=== PATIENT | female | born 1940 | race Caucasian/White ===

== ENCOUNTER → 2016-03-15 | Outpatient (CLI) | payer MEDICARE, OTHER ==
--- NOTE | 2016-03-16 08:37 | ECHOF ---
Referral Reason:Z01.818 chemo MEASUREMENTS -------- HEIGHT: 121.9 cm WEIGHT: 89.8 kg BP: RVIDd: 2.7 cm (< 3.3) IVSd: 1.2 cm (0.6 - 1.1) LVIDd: 4.4 cm (3.9 - 5.3) LVPWd: 1.4 cm (0.6 - 1.1) IVSs: 1.6 cm LVIDs: 3.9 cm LVPWs: 1.5 cm LA Diam: 4.3 cm (2.7 - 3.8) LAESV Index (A-L): 29.64 ml/m Ao Diam: 3.2 cm (2.0 - 3.7) AV Cusp: 1.1 cm (1.5 - 2.6) LA Diam: 4.5 cm (2.7 - 3.8) MV EXCURSION: 13.189 mm (> 18.000) MV EF SLOPE: 51 mm/s (70 - 150) EPSS: 1.0 cm MV E Kenny: 0.66 m/s MV DecT: 313 ms MV A Kenny: 1.40 m/s MV E/A Ratio: 0.47 RAP: 5.00 mmHg RVSP: 34.93 mmHg FINDINGS -------- Sinus rhythm. This was a technically adequate study. There is mild concentric left ventricular hypertrophy. Overall left ventricular systolic function is low-normal with, an EF between 50 - 55 %. The right ventricle is normal in size. LA is midly dilated 29-33ml/m2. The right atrial size is normal. There is mild aortic valve sclerosis. There is no evidence of aortic regurgitation. Mild mitral annular calcification present. Moderate mitral regurgitation is present. Trace tricuspid regurgitation present. There is no evidence of pulmonary hypertension. The right ventricular systolic pressure, as measured by Doppler, is 34.93mmHg. There is no pulmonic regurgitation present. The aortic root size is normal. There is no pericardial effusion. CONCLUSIONS -------- 1. There is mild concentric left ventricular hypertrophy. 2. Overall left ventricular systolic function is low-normal with, an EF between 50 - 55 %. 3. LA is midly dilated 29-33ml/m2. 4. There is mild aortic valve sclerosis. 5. Mild mitral annular calcification present. 6. Moderate mitral regurgitation is present. 7. There is no evidence of pulmonary hypertension. 8. The right ventricular systolic pressure, as measured by Doppler, is 34.93mmHg. CINDER PITMAN: Diana Lopes RDCS
== END | disposition home or self-care (01) ==
LOC: RADECHMAIN 12:48
PROVIDERS: ATTEND Internal Medicine Hematology & Oncology
DX: Z01.818 Encounter for other preprocedural examination (principal); I08.0 Rheumatic disorders of both mitral and aortic valves
CPT/HCPCS: 93306

== ENCOUNTER → 2016-05-06 | Outpatient (CLI) | payer MEDICARE, OTHER ==
--- NOTE | 2016-05-06 14:03 | XR ---
EXAMINATION TYPE: XR knee complete LT DATE OF EXAM ORDERED: 05/06/2016 1:20 PM HISTORY: M13.0 Polyarthritis, unspecified. COMPARISON: None. FINDINGS: There is a left knee arthroplasty in place. Prosthetic elements appear in good position. I do not see signs of loosening. IMPRESSION: STATUS POST LEFT KNEE ARTHROPLASTY.
--- NOTE | 2016-05-06 14:26 | XR ---
EXAMINATION TYPE: XR shoulder complete BILAT DATE OF EXAM ORDERED: 05/06/2016 1:20 PM HISTORY: M13.0 Polyarthritis, unspecified. COMPARISON: None. FINDINGS: There are moderate hypertrophic changes present in the right AC joint. No fracture or disl ocation is identified. There is some amorphous calcification immediately adjacent to the acromion on the right. IMPRESSION: 1. NO ACUTE OSSEOUS LESION. 2. DEGENERATIVE CHANGE.
--- NOTE | 2016-05-06 14:29 | XR ---
EXAMINATION TYPE: XR Hip Complete LT DATE OF EXAM ORDERED: 05/06/2016 1:20 PM HISTORY: M13.0 Polyarthritis, unspecified. COMPARISON: None. FINDINGS: There is slight overgrowth of the acetabulum. No fracture or dislocation is seen. IMPRESSION: PLEASE CORRELATE CLINICALLY TO EXCLUDE FEMOROACETABULAR IMPINGEMENT SYNDROME OF THE CAM TYPE.
== END | disposition home or self-care (01) ==
LOC: RADXRMAIN 12:32
PROVIDERS: ATTEND Internal Medicine
DX: M25.819 Other specified joint disorders, unspecified shoulder (principal); Z96.652 Presence of left artificial knee joint
CPT/HCPCS: 73502

== ENCOUNTER 2016-06-28 18:11 | Inpatient (IN) | payer MEDICARE, OTHER ==
[2016-06-28] MEDS ORDERED: PANTOPRAZOLE 40 MG/10 ML VIAL IVP STA (18:53)
--- NOTE | 2016-06-28 18:56 | ED ---
General Adult HPI - General Source: patient, RN notes reviewed Mode of arrival: wheelchair Limitations: no limitations <Luis Armando Jimenez - Last Filed: 06/28/16 18:53> <Efren Valencia - Last Filed: 06/28/16 21:05> - General Chief complaint: Recheck/Abnormal Lab/Rx Stated complaint: Weakness Time Seen by Provider: 06/28/16 18:27 - History of Present Illness Initial comments: Patient is a pleasant 76-year-old female presenting to the emergency department generalized weakness. Patient feels she may need a blood transfusion. Patient has ovarian cancer and is on chemotherapy, last was 4 days ago. Patient has had similar symptoms 4-5 times in the past requiring blood transfusion. Patient attributes the anemia to chemotherapy. Patient did notice some dark stools this time that she has not had previously. No abdominal pain. Patient is fatigued and generally weak. Patient does have some exertional dyspnea. ( Luis Armando Jimenez) - Related Data Home Medications Medication Instructions Recorded Confirmed Sertraline [Zoloft] 50 mg PO DAILY 12/11/14 06/28/16 amLODIPine [Norvasc] 5 mg PO DAILY 12/11/14 06/28/16 Meloxicam [Mobic] 15 mg PO DAILY 01/09/15 06/28/16 Cholecalciferol [Vitamin D3] 5,000 unit PO DAILY 07/26/15 06/28/16 Cyanocobalamin [Vitamin B-12] 1,500 mcg PO DAILY 07/26/15 06/28/16 Triamterene-Hctz 37.5-25Mg 1 cap PO HS 07/26/15 06/28/16 [Dyazide 37.5-25 Capsule] hydrOXYzine PAMOATE [Vistaril] 25 mg PO QID PRN 07/26/15 06/28/16 Furosemide [Lasix] 20 mg PO W/SUPPER 11/22/15 06/28/16 Ondansetron HCl [Zofran] 4 mg PO TID PRN 11/22/15 06/28/16 LORazepam [Ativan] 1 mg PO QID PRN 06/02/16 06/28/16 Allopurinol [Zyloprim] 300 mg PO DAILY 06/28/16 06/28/16 Cyclobenzaprine [Flexeril] 10 mg PO HS PRN 06/28/16 06/28/16 Diphenox-Atrop 2.5-0.025 mg 1 tab PO BID PRN 06/28/16 06/28/16 [Lomotil] Furosemide [Lasix] 40 mg PO QAM 06/28/16 06/28/16 HYDROcodone/APAP 5-325MG [[place] 1 tab PO BID PRN 06/28/16 06/28/16 5-325] Omeprazole [PriLOSEC] 40 mg PO DAILY 06/28/16 06/28/16 Potassium Chloride ER [K-Dur 10] 20 meq PO BID 06/28/16 06/28/16 Vitamin E 1,000 unit PO DAILY 06/28/16 06/28/16 traMADol HCL [Ultram] 50 mg PO Q6HR PRN 06/28/16 06/28/16 Allergies Allergy/AdvReac Type Severity Reaction Status Date / Time adhesive tape Allergy Rash/Hives Verified 06/28/16 19:52 codeine Allergy Itching Verified 06/28/16 19:52 latex Allergy Rash/Hives Verified 06/28/16 19:52 Review of Systems ROS Other: All systems not noted in ROS Statement are negative. Constitutional: Denies: fever Eyes: Denies: eye pain ENT: Denies: ear pain Respiratory: Reports: dyspnea (With exertional) Cardiovascular: Denies: chest pain Endocrine: Reports: fatigue Gastrointestinal: Denies: abdominal pain Genitourinary: Denies: dysuria Musculoskeletal: Denies: back pain Skin: Denies: rash Neurological: Denies: headache <Luis Armando Jimenez - Last Filed: 06/28/16 18:53> ROS Other: All systems not noted in ROS Statement are negative. <Efren Valencia - Last Filed: 06/28/16 21:05> ROS Statement: Those systems with pertinent positive or pertinent negative responses have been documented in the HPI. Past Medical History Past Medical History: Cancer, GERD/Reflux, Hypertension, Osteoarthritis (OA) Additional Past Medical History / Comment(s): glaucoma, GOUT,CHRONIC ITCHY SKIN RASH(ECZEMA-TAKES VISTARIL), MURMUR, ANEMIA.CELLULITS recent dx with ovarian ca. colon cancer History of Any Multi-Drug Resistant Organisms: None Reported Past Surgical History: Appendectomy, Orthopedic Surgery Additional Past Surgical History / Comment(s): BL knee replacement, left salpingectomy and oophorectomy, cataract removal and lens implants, laser surgery for glaucoma, right breast biopsy that was benign, SHANTANU CARPAL TUNNEL RELEASE. Past Anesthesia/Blood Transfusion Reactions: No Reported Reaction Additional Past Anesthesia/Blood Transfusion Reaction / Comment(s): HAD BLOOD TRANSFUSION-NO REACTION Past Psychological History: Anxiety, Depression Additional Psychological History / Comment(s): PT LIVES IN OWN HOME,HER SON THRIL LIVES WITH HER. PT USES A CANE/WALKER OR W/C NEEDED.,CURRENTLY NOT RECIEVING ANY HOME CARE SERVICES. 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 PT LOST HER SISTER A MONTH AGO HAS SOME MILD DEPRSSION/SADNESS OVER THIS. Smoking Status: Former smoker Past Alcohol Use History: None Reported Additional Past Alcohol Use History / Comment(s): Patient was a smoker one pack per day for 20 years and quit in 1996. She denies any marijuana or alcohol use. 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 Past Drug Use History: None Reported - Past Family History Mother Family Medical History: Cancer Additional Family Medical History / Comment(s): Lung cancer Father Family Medical History: Cancer Additional Family Medical History / Comment(s): No reports of GI malignancy <Luis Armando Jimenez - Last Filed: 06/28/16 18:53> General Exam Limitations: no limitations General appearance: alert, in no apparent distress Head exam: Present: atraumatic Eye exam: Present: normal appearance, PERRL, EOMI ENT exam: Present: normal oropharynx Neck exam: Present: normal inspection Respiratory exam: Present: normal lung sounds bilaterally Cardiovascular Exam: Present: tachycardia GI/Abdominal exam: Present: soft. Absent: distended, tenderness Extremities exam: Present: other (Right greater than left leg edema with mild erythema.) Neurological exam: Present: alert, oriented X3, CN II-XII intact. Absent: motor sensory deficit Expanded Motor strength exam: RUE: 5, LUE: 5, RLE: 5, LLE: 5 Eye Response: (4) open spontaneously Motor Response: (6) obeys commands Verbal Response: (5) oriented Psychiatric exam: Present: normal affect, normal mood Skin exam: Present: erythema (Mild erythema right lower leg) <Luis Armando Jimenez - Last Filed: 06/28/16 18:53> EKG Findings - EKG Comments: EKG Findings:: Sinus tachycardia 107. DC 148. QRS 108. QT 344. QTC 459. Left axis. LVH. No acute ST change. <Luis Armando Jimenez - Last Filed: 06/28/16 18:53> Medical Decision Making <Luis Armando Jimenez - Last Filed: 06/28/16 18:53> - Lab Data Result diagrams: 06/28/16 18:51 06/28/16 18:51 <Efren Valencia - Last Filed: 06/28/16 21:05> - Medical Decision Making Receive this patient has a sign out pending the ultrasound study for possible DVT. The study is negative and at that point Dr. Jimenez had one of the patient started on antibiotics for cellulitis and also to address the anemia. Discussed the case with admitting physician. (Efren Valencia) - Lab Data Lab Results 06/28/16 06/28/16 06/28/16 Range/Units 18:51 18:51 18:51 WBC 6.9 (3.8-10.6) k/uL RBC 1.91 L (3.80-5.40) m/uL Hgb 6.6 L* (11.4-16.0) gm/dL Hct 19.8 L* (34.0-46.0) % MCV 103.7 H (80.0-100.0) fL MCH 34.4 (25.0-35.0) pg MCHC 33.2 (31.0-37.0) g/dL RDW 21.7 H (11.5-15.5) % Plt Count 89 L (150-450) k/uL Neutrophils % 92 % Lymphocytes % 3 % Monocytes % 1 % Eosinophils % 3 % Basophils % 0 % Neutrophils # 6.3 (1.3-7.7) k/uL Lymphocytes # 0.2 L (1.0-4.8) k/uL Monocytes # 0.1 (0-1.0) k/uL Eosinophils # 0.2 (0-0.7) k/uL Basophils # 0.0 (0-0.2) k/uL Poikilocytosis Slight Anisocytosis Moderate Macrocytosis Marked PT 10.7 (9.0-12.0) sec INR 1.1 (<1.1) APTT 23.1 (22.0-30.0) sec Sodium 134 L (137-145) mmol/L Potassium 3.9 (3.5-5.1) mmol/L Chloride 96 L (98-107) mmol/L Carbon Dioxide 26 (22-30) mmol/L Anion Gap 12 mmol/L BUN 57 H (7-17) mg/dL Creatinine 1.85 H (0.52-1.04) mg/dL Est GFR (MDRD) Af Amer 32 (>60 ml/min/1.73 sqM) Est GFR (MDRD) Non-Af 26 (>60 ml/min/1.73 sqM) Glucose 104 H (74-99) mg/dL Calcium 8.5 (8.4-10.2) mg/dL Total Bilirubin 0.6 (0.2-1.3) mg/dL AST 30 (14-36) U/L ALT 28 (9-52) U/L Alkaline Phosphatase 77 (38-126) U/L Total Protein 6.1 L (6.3-8.2) g/dL Albumin 3.5 (3.5-5.0) g/dL Stool Occult Blood (Negative) Blood Type Blood Type Recheck Antibody Screen Crossmatch Spec Expiration Date 06/28/16 06/28/16 Range/Units 18:51 18:51 WBC (3.8-10.6) k/uL RBC (3.80-5.40) m/uL Hgb (11.4-16.0) gm/dL Hct (34.0-46.0) % MCV (80.0-100.0) fL MCH (25.0-35.0) pg MCHC (31.0-37.0) g/dL RDW (11.5-15.5) % Plt Count (150-450) k/uL Neutrophils % % Lymphocytes % % Monocytes % % Eosinophils % % Basophils % % Neutrophils # (1.3-7.7) k/uL Lymphocytes # (1.0-4.8) k/uL Monocytes # (0-1.0) k/uL Eosinophils # (0-0.7) k/uL Basophils # (0-0.2) k/uL Poikilocytosis Anisocytosis Macrocytosis PT (9.0-12.0) sec INR (<1.1) APTT (22.0-30.0) sec Sodium (137-145) mmol/L Potassium (3.5-5.1) mmol/L Chloride (98-107) mmol/L Carbon Dioxide (22-30) mmol/L Anion Gap mmol/L BUN (7-17) mg/dL Creatinine (0.52-1.04) mg/dL Est GFR (MDRD) Af Amer (>60 ml/min/1.73 sqM) Est GFR (MDRD) Non-Af (>60 ml/min/1.73 sqM) Glucose (74-99) mg/dL Calcium (8.4-10.2) mg/dL Total Bilirubin (0.2-1.3) mg/dL AST (14-36) U/L ALT (9-52) U/L Alkaline Phosphatase (38-126) U/L Total Protein (6.3-8.2) g/dL Albumin (3.5-5.0) g/dL Stool Occult Blood Positive H (Negative) Blood Type O Negative Blood Type Recheck No Antibody Screen NEGATIVE Crossmatch See Detail Spec Expiration Date 07/01/2016 - 2353 Disposition <Luis Armando Jimenez - Last Filed: 06/28/16 18:53> <Efren Valencia - Last Filed: 06/28/16 21:05> Clinical Impression: Anemia, Cellulitis Disposition: ADMITTED IP TO THIS [facility] Condition: Serious Referrals: Dipesh Mayberry MD [Primary Care Provider] - 1-2 days
[2016-06-28 19:23] LABS: INR 1.1 (<1.1); Partial Thromboplastin Time 23.1 sec (22.0-30.0); Prothrombin Time 10.7 sec (9.0-12.0)
[2016-06-28 19:25] LABS: Anisocytosis Moderate; Basophils % (A) 0 %; CH 35.2; CHCM 34.1; Eosinophils # (A) 0.2 k/uL (0-0.7); Eosinophils % (A) 3 %; HDW 3.64; Luc # (Auto) 0.04; Luc % (Auto) 1; Lymphocytes # (A) 0.2 k/uL (1.0-4.8); Lymphocytes % (A) 3 %; MCH 34.4 pg (25.0-35.0); MCHC 33.2 g/dL (31.0-37.0); MCV 103.7 fL (80.0-100.0); Macrocytosis Marked; Mean Platelet Volume 8.5; Monocytes # (A) 0.1 k/uL (0-1.0); Monocytes % (A) 1 %; Neutrophils # (A) 6.3 k/uL (1.3-7.7); Neutrophils % (A) 92 %; Poikilocytosis Slight; RBC 1.91 m/uL (3.80-5.40); RDW 21.7 % (11.5-15.5); WBC 6.9 k/uL (3.8-10.6); WBC (Perox) 6.74
[2016-06-28 19:26] LABS: HCT 19.8 % (34.0-46.0); HGB 6.6 gm/dL (11.4-16.0)
[2016-06-28 19:29] LABS: Calcium 8.5 mg/dL (8.4-10.2); Potassium 3.9 mmol/L (3.5-5.1); Total Bilirubin 0.6 mg/dL (0.2-1.3); Total Protein 6.1 g/dL (6.3-8.2)
--- NOTE | 2016-06-28 20:06 | XR ---
EXAMINATION TYPE: XR chest 2V DATE OF EXAM: 06/28/2016 7:46 PM COMPARISON: NONE INDICATION: Weakness, ovarian cancer TECHNIQUE: Single frontal view of the chest is obtained. FINDINGS: The heart size is enlarged. The pulmonary vasculature is normal. The lungs are clear. Port is present on the right with the tip in the proximal superior vena cava region. IMPRESSION: 1. No acute pulmonary process.
--- NOTE | 2016-06-28 20:46 | US ---
EXAMINATION TYPE: US venous doppler duplex LE RT DATE OF EXAM: 06/28/2016 7:14 PM COMPARISON: CLINICAL HISTORY: Pain. Right leg pain and swelling. No hx of blood clots or on blood thinners. Rt k nee replacement x 15 years ago. SIDE PERFORMED: Right TECHNIQUE: The lower extremity deep venous system is examined utilizing real time linear array sonog kera with graded compression, doppler sonography and color-flow sonography. VESSELS IMAGED: External Iliac Vein (EIV) Common Femoral Vein Deep Femoral Vein Greater Saphenous Vein * Femoral Vein Popliteal Vein Small Saphenous Vein * Proximal Calf Veins (* superficial vessels) Right Leg: Appears negative for DVT IMPRESSION: 1. No ultrasound evidence of deep venous thrombosis right lower extremity
[2016-06-28] MEDS ORDERED: ACETAMINOPHEN TAB 325 MG TAB PO STA (20:54)
[2016-06-28] MEDS ORDERED: NAFCILLIN 2 GM in SODIUM CHLORIDE 0.9% 100 ML IVPB STA (21:02)
[2016-06-28] MEDS ORDERED: IV VANCOMYCIN PER PHARMACY 1 EACH MISC MISCELLANE PRN (21:02)
[2016-06-28] MEDS ORDERED: VANCOMYCIN 1,500 MG in SODIUM CHLORIDE 0.9% 250 ML IVPB STA (21:07)
[2016-06-28 21:18] LABS: Amorphous Sediment,Urine Rare /hpf; Appearance,Urine Turbid (Clear); Bacteria,Urine Many /hpf; Bilirubin,Urine Negative (Negative); Glucose,Urine (UA) Negative (Negative); Ketones,Urine Negative (Negative); Leukocyte Esterase,Urine Large (Negative); Nitrite,Urine Negative (Negative); PH, Urine 5.5 (5.0-8.0); Particle Count 46777; Protein,Urine 2+ (Negative); Specific Gravity,Urine 1.011 (1.001-1.035); Squamous Epithelial Cell,Urine 213 /hpf (0-4); UA Billing (MACRO vs. MICRO) MICRO; Urobilinogen,Urine <2.0 mg/dL (<2.0); WBC,Urine 37 /hpf (0-5)
[2016-06-28] MEDS ORDERED: ACETAMINOPHEN TAB 325 MG TAB PO PRN (22:00)
[2016-06-28] MEDS ORDERED: NALOXONE 0.4 MG/ML 1 ML VIAL IV PRN (22:00)
[2016-06-28] MEDS ORDERED: LEVOFLOXACIN 750MG-D5W PMX 750 MG in DEXTROSE/WATER 1 150ML.BAG IVPB STA (22:14)
[2016-06-28 23:10] VITALS: BMI 41.8
[2016-06-29] MEDS: SODIUM CHLORIDE 0.9% 1,000 ML IV SCH (00:15)
[2016-06-29 07:43] LABS: Anisocytosis Moderate; Basophils % (A) 0 %; CH 34.5; CHCM 33.1; Eosinophils # (A) 0.1 k/uL (0-0.7); Eosinophils % (A) 4 %; HCT 20.2 % (34.0-46.0); HDW 3.37; Luc # (Auto) 0.03; Luc % (Auto) 1; Lymphocytes # (A) 0.1 k/uL (1.0-4.8); Lymphocytes % (A) 2 %; MCH 34.2 pg (25.0-35.0); MCHC 32.6 g/dL (31.0-37.0); MCV 104.9 fL (80.0-100.0); Macrocytosis Marked; Mean Platelet Volume 8.4; Monocytes # (A) 0.1 k/uL (0-1.0); Monocytes % (A) 2 %; Neutrophils % (A) 92 %; RBC 1.92 m/uL (3.80-5.40); RDW 20.6 % (11.5-15.5); WBC 3.3 k/uL (3.8-10.6); WBC (Perox) 3.47
[2016-06-29 07:48] LABS: HGB 6.6 gm/dL (11.4-16.0)
[2016-06-29 08:06] LABS: Calcium 8.3 mg/dL (8.4-10.2); Potassium 4.1 mmol/L (3.5-5.1); Total Bilirubin 1.1 mg/dL (0.2-1.3); Total Protein 5.6 g/dL (6.3-8.2)
[2016-06-29 08:07] LABS: Manual Review Performed
[2016-06-29] MEDS: FAMOTIDINE 20 MG TAB PO SCH (08:59)
[2016-06-29] MEDS: HEPARIN SODIUM,PORCINE 5,000 UNIT/ML 1 ML VIAL SQ SCH ×2 (08:59→21:46)
[2016-06-29] MEDS ORDERED: DIPHENOX-ATROP 2.5-0.025 MG 1 EACH TAB PO PRN (10:37)
[2016-06-29] MEDS ORDERED: CYCLOBENZAPRINE 10 MG TAB PO PRN (10:37)
[2016-06-29] MEDS ORDERED: LORazepam 1 MG TAB PO PRN (10:37)
[2016-06-29] MEDS ORDERED: traMADol 50 MG TAB PO PRN (10:37)
[2016-06-29] MEDS ORDERED: HYDROcodone/APAP 5-325MG 1 EACH TAB PO PRN (10:37)
--- NOTE | 2016-06-29 11:47 | NM ---
EXAMINATION TYPE: NM pul vent and perfuse DATE OF EXAM: 06/29/2016 11:39 AM COMPARISON: Correlation radiographs 06/28/2016 HISTORY: 76-year-old female with shortness of breath, suspected PE TECHNIQUE: Utilizing inhalation of 71.1 mCi Tc 99m DTPA aerosol and intravenous injection of 5.3 mCi of Tc 99m MAA, ventilation and perfusion images are acquired post injection in multiple projections. FINDINGS: There is some central clumping of inhaled tracer within the airways. Homogeneous perfusion is seen wi thout mismatched perfusion defect. IMPRESSION: Very low probability for pulmonary embolus.
[2016-06-29] MEDS: ALLOPURINOL 300 MG TAB PO SCH (12:49)
[2016-06-29] MEDS: SERTRALINE 50 MG TAB PO SCH (12:50)
[2016-06-29] MEDS: MELOXICAM 7.5 MG TAB PO SCH (12:50)
[2016-06-29] MEDS: POTASSIUM CHLORIDE ER 20 MEQ TAB.ER PO SCH ×2 (12:50→21:46)
[2016-06-29] MEDS: CYANOCOBALAMIN 500 MCG TAB PO SCH (12:51)
[2016-06-29] MEDS: CHOLECALCIFEROL 1,000 UNIT TAB PO SCH (12:51)
[2016-06-29] MEDS: VITAMIN E (DL,TOCOPHERYL ACET) 400 UNIT CAP PO SCH (12:51)
--- NOTE | 2016-06-29 13:58 | HP ---
DATE OF ADMISSION: DATE OF SERVICE: 06/29/2016 CHIEF COMPLAINT: Generalized weakness. HISTORY OF PRESENT ILLNESS: Ms. Rosas is a 76-year-old female with a past medical history of ovarian cancer, colon cancer, hypertension, osteoarthritis, GERD, admitted to the hospital with the chief complaint of generalized weakness. Patient has a history of ovarian cancer and is on chemotherapy. Her last chemotherapy session was 4 days back. Patient states that she has had similar symptoms when she had chemotherapy in the past, and every time she came into the hospital her hemoglobin was low and they had to transfuse her. So patient attributes her generalized weakness to her anemia due to chemotherapy. Patient did notice some dark-colored stool, but she says that she has been taking her iron supplements. No kev blood noticed in the stool. Patient denies having any abdominal pain, nausea, vomiting or diarrhea. She also complains of some exertional dyspnea. REVIEW OF SYSTEMS: CONSTITUTIONAL: No fevers, chills or rigors. EYES: No eye pain. ENT: No sore throat or ear ache. RESPIRATORY: Positive for exertional dyspnea. CARDIOVASCULAR: No chest pain or palpitations. ENDOCRINE: Positive for generalized fatigue. No heat or cold intolerance. GI: No abdominal pain, nausea, vomiting or diarrhea. Her stools have been dark, but no kev blood noticed in her stool. GENITOURINARY: No dysuria or hematuria. SKIN: Patient complains that she has chronic swelling of her right lower extremity and also has some rash over it. NEUROLOGICAL: Denies having any focal weakness. No headaches, blurry vision. No loss of vision. All other review of systems are negative except for ones mentioned in the HPI. Past medical history is significant for: 1. Ovarian cancer. 2. Colon cancer. 3. Hypertension. 4. Osteoarthritis. 5. GERD/reflux disease. PAST SURGICAL HISTORY: 1. Appendectomy. 2. Orthopedic surgery. 3. Bilateral knee replacement. 4. Left salpingotomy and oophorectomy. 5. Cataract removal. 6. Laser surgery for glaucoma. 7. Right breast biopsy that was benign. 8. Bilateral carpal tunnel release. Patient's psychiatric history is positive for anxiety and depression. SOCIAL HISTORY: Patient lives in her house with her son. She uses a cane and a walker to move around. Former smoker. No history of alcohol abuse. FAMILY HISTORY: Positive for lung cancer in her mother and GI malignancy in her father. ALLERGIES: 1. ADHESIVE TAPE. 2. CODEINE. 3. LATEX. PATIENT'S HOME MEDICATIONS: 1. Amlodipine 5 mg p.o. daily. 2. Sertraline 50 mg p.o. daily. 3. Meloxicam 15 mg p.o. daily. 4. Triamterene/hydrochlorothiazide 37.5/25 one capsule p.o. at bedtime. 5. Hydroxyzine 25 mg p.o. q.i.d. p.r.n. for itching. 6. Cyanocobalamin 15 mcg p.o. daily. 7. Cholecalciferol 5000 units p.o. daily. 8. Zofran 4 mg p.o. 3 times a day. 9. Lasix 20 mg with supper. 10. Ativan 1 mg p.o. 3 times a day p.r.n. for anxiety. 11. Cyclobenzaprine 10 mg p.o. at bedtime. 12. Tramadol 50 mg p.o. q.6 hours p.r.n. for pain. 13. Lomotil 1 tablet b.i.d. p.r.n. for diarrhea. 14. Omeprazole 40 mg p.o. daily. 15. Potassium chloride 20 mEq p.o. b.i.d. 16. Lasix 40 mg p.o. each morning. 17. [place] 5/325 one tablet p.o. b.i.d. 18. Vitamin E 1000 units p.o. daily. 19. Allopurinol 300 mg p.o. daily. At the time of examination, patient's vitals are temperature 97.9, heart rate 112, respiratory rate 20, blood pressure 80/52. Saturating at 91% on 3 L of nasal cannula. GENERAL EXAMINATION: Patient appears to be in no acute distress. She is sitting up in a chair beside her bed. HEAD: Atraumatic, normocephalic. EYES: Mild pallor. No icterus. NECK: No JVD. No thyromegaly. CARDIOVASCULAR: S1, S2 heard. LUNGS: Bilateral breath sounds are positive. No wheezes or crackles. GI: Abdomen is soft, distended. No tenderness. Organomegaly difficult to appreciate due to huge body habitus. EXTREMITIES: Right lower extremity is more edematous than the left one, with mild erythema noticed. FRAMEMAN: Alert, awake, oriented x3. No focal neurological deficits. PSYCHIATRIC: Appropriate mood and affect. SKIN: Mild erythema of the right lower leg. PATIENT'S LABS: White count is 6.9. Hemoglobin is 6.6, platelets of 89. Sodium 134, potassium 3.9, chloride 96, bicarb 26. BUN 57, creatinine 1.85. Patient had a lower extremity Doppler that was negative for any DVT. Also she had a VQ scan that was showing low probability for PE. She also got a chest x-ray that is within normal limits. EKG within normal limits. ASSESSMENT AND PLAN: 1. Anemia secondary to chemotherapy. Patient had 1 unit of PRBCs. Her hemoglobin is still at 6.8, so we will transfuse her with one more unit. 2. Urinary tract infection. Patient's urine is positive for leukocyte esterase and positive WBCs. She has been started on levofloxacin. That will be continued. 3. History of ovarian cancer, status post third cycle of chemotherapy. 4. History of gout. 5. History of gastroesophageal reflux disease. 6. History of anxiety with depression, in remission. 7. History of hypertension. 8. History of colon cancer. 9. History of bilateral carpal tunnel release surgery. 10. Right lower extremity cellulitis - she was started on Vancomycin that will be continued. PLAN: The plan is to transfuse the patient with 1 unit of PRBCs. Oncology, Dr. Robert, on board and is following the patient. Will continue with the rest of the patient's home medication regimen. Further recommendations to follow depending on the progress of the patient. MTDD
[2016-06-29] MEDS: LEVOFLOXACIN 750MG-D5W PMX 750 MG in DEXTROSE/WATER 1 150ML.BAG IVPB SCH (21:46)
[2016-06-29] MEDS: TRIAMTERENE-HCTZ 37.5-25MG 1 EACH CAP PO SCH (21:46)
--- NOTE | 2016-06-29 22:55 | P.CONS ---
History of Present Illness - Reason for Consult Consult date: 06/29/16 Ovarian cancer. Anemia and shortness of breath - History of Present Illness The patient is a 76-year-old lady, well known to myself. Patient was initially seen because of anemia attributed to be inflammatory. On initial evaluation, there was concern for autoimmune diseases of as a possible cause. In 07/26, the patient continues for wall obstruction, and was found to have ovarian cancer. She was apparently treated with chemotherapy, with carboplatin and Taxol. She was then evaluated for possible radical surgery, but was not found to be a candidate, because of her other medical issues, as well as evidence of recurrent disease. She was therefore placed back on chemotherapy with Doxil, but was unable to tolerated because of cutaneous toxicity. Therefore Doxil was discontinued, and the patient was started on Gemzar. She is in her first cycle, with the last treatment earlier this week. The patient has had ongoing anemia due to chemotherapy. The patient does have problems with fatigue due to chemotherapy, but the on the day of admission was complaining of increasing shortness of breath at rest which was new for her. She denied any fever, chills or cough. According to a message received from the home nurse, oxygen saturation had dropped to 75%. The patient came into the emergency room. She was noted to have swelling of the right lower extremity but Doppler was negative. She was therefore admitted for further management. Hemoglobin was 6.6 on admission. We'll for occult blood was positive though the patient did not give any history of obvious bleeding. Consult was therefore placed a further evaluation and recommendations. Review of Systems Constitutional: Reports fatigue, Reports poor appetite, Reports weakness Eyes: denies blurred vision, denies pain Ears: deny: decreased hearing, ear discharge, earache, tinnitus Ears, nose, mouth and throat: Denies headache, Denies sore throat Cardiovascular: Reports dyspnea on exertion, Reports lightheadedness Respiratory: Reports dyspnea Gastrointestinal: Denies abdominal pain, Denies diarrhea, Denies nausea, Denies vomiting Genitourinary: Denies dysuria, Denies hematuria Menstruation: Reports postmenopausal Musculoskeletal: Reports muscle weakness Musculoskeletal: right: shoulder pain Integumentary: Reports as per HPI (h/o extensive skin ulcers, likely related to Doxil. Resolved) Neurological: Reports balance difficulties, Reports weakness Psychiatric: Denies anxiety, Denies depression Endocrine: Reports fatigue Hematologic/Lymphatic: Reports as per HPI Past Medical History Past Medical History: Cancer, GERD/Reflux, Hypertension, Osteoarthritis (OA) Additional Past Medical History / Comment(s): glaucoma, GOUT,CHRONIC ITCHY SKIN RASH(ECZEMA-TAKES VISTARIL), MURMUR, ANEMIA.CELLULITS recent dx with ovarian ca dx august 2015. colon cancer august 2015 History of Any Multi-Drug Resistant Organisms: None Reported Past Surgical History: Appendectomy, Orthopedic Surgery Additional Past Surgical History / Comment(s): BL knee replacement, right salpingectomy and oophorectomy, cataract removal and lens implants, laser surgery for glaucoma, right breast biopsy that was benign, SHANTANU CARPAL TUNNEL RELEASE. Past Anesthesia/Blood Transfusion Reactions: No Reported Reaction Additional Past Anesthesia/Blood Transfusion Reaction / Comm: HAD BLOOD TRANSFUSION-NO REACTION Past Psychological History: Anxiety, Depression Additional Psychological History / Comment(s): PT LIVES IN OWN HOME,HER SON THRIL LIVES WITH HER. PT USES A CANE/WALKER OR W/C NEEDED.,CURRENTLY NOT RECIEVING ANY HOME CARE SERVICES. 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 PT LOST HER SISTER A MONTH AGO HAS SOME MILD DEPRSSION/SADNESS OVER THIS. Smoking Status: Former smoker Past Alcohol Use History: None Reported Additional Past Alcohol Use History / Comment(s): Patient was a smoker one pack per day for 20 years and quit in 1996. She denies any marijuana or alcohol use. Past Drug Use History: None Reported - Past Family History Mother Family Medical History: Cancer Additional Family Medical History / Comment(s): Lung cancer Father Family Medical History: Cancer Additional Family Medical History / Comment(s): No reports of GI malignancy Medications and Allergies Home Medications Medication Instructions Recorded Confirmed Type Sertraline [Zoloft] 50 mg PO DAILY 12/11/14 06/28/16 History amLODIPine [Norvasc] 5 mg PO DAILY 12/11/14 06/28/16 History Meloxicam [Mobic] 15 mg PO DAILY 01/09/15 06/28/16 History Cholecalciferol [Vitamin D3] 5,000 unit PO DAILY 07/26/15 06/28/16 History Cyanocobalamin [Vitamin B-12] 1,500 mcg PO DAILY 07/26/15 06/28/16 History Triamterene-Hctz 37.5-25Mg 1 cap PO HS 07/26/15 06/28/16 History [Dyazide 37.5-25 Capsule] hydrOXYzine PAMOATE [Vistaril] 25 mg PO QID PRN 07/26/15 06/28/16 History Furosemide [Lasix] 20 mg PO W/SUPPER 11/22/15 06/28/16 History Ondansetron HCl [Zofran] 4 mg PO TID PRN 11/22/15 06/28/16 History LORazepam [Ativan] 1 mg PO QID PRN 06/02/16 06/28/16 History Allopurinol [Zyloprim] 300 mg PO DAILY 06/28/16 06/28/16 History Cyclobenzaprine [Flexeril] 10 mg PO HS PRN 06/28/16 06/28/16 History Diphenox-Atrop 2.5-0.025 mg 1 tab PO BID PRN 06/28/16 06/28/16 History [Lomotil] Furosemide [Lasix] 40 mg PO QAM 06/28/16 06/28/16 History HYDROcodone/APAP 5-325MG [[place] 1 tab PO BID PRN 06/28/16 06/28/16 History 5-325] Omeprazole [PriLOSEC] 40 mg PO DAILY 06/28/16 06/28/16 History Potassium Chloride ER [K-Dur 10] 20 meq PO BID 06/28/16 06/28/16 History Vitamin E 1,000 unit PO DAILY 06/28/16 06/28/16 History traMADol HCL [Ultram] 50 mg PO Q6HR PRN 06/28/16 06/28/16 History Allergies Allergy/AdvReac Type Severity Reaction Status Date / Time adhesive tape Allergy Rash/Hives Verified 06/28/16 19:52 codeine Allergy Itching Verified 06/28/16 19:52 latex Allergy Rash/Hives Verified 06/28/16 19:52 Physical Exam Vitals: Vital Signs Temp Pulse Pulse Resp BP BP Pulse Ox 06/28/16 23:58 98.9 F 106 H 18 96/51 99 06/28/16 22:35 117 H 20 95/53 96 06/28/16 22:34 98.3 F 106 H 20 105/54 95 06/28/16 22:10 100.5 F H 114 H 18 80/50 97 06/28/16 21:40 101.1 F H 113 H 22 102/53 96 06/28/16 21:30 101.5 F H 114 H 22 101/51 98 06/28/16 20:50 99.7 F H 110 H 18 100/62 95 06/28/16 19:05 98.4 F 107 H 18 87/45 98 06/28/16 19:01 62 18 96/46 100 06/28/16 18:29 98.3 F 107 H 18 94/52 97 Intake and Output 06/28/16 06/29/16 06/29/16 22:59 06:59 14:59 Intake Total 0 470 Balance 0 470 Intake: Intake, IV Titration 160 Amount Sodium Chloride 0.9% 1, 160 000 ml @ 20 mls/hr IV . Q24H JENNIFER Rx#:[id number] Blood Product 0 310 Rc As-1 Unit 0 310 [id number] Other: # Voids 1 Weight 90.718 kg - Constitutional General appearance: no acute distress - EENT Eyes: EOMI, PERRLA ENT: hearing grossly normal, normal oropharynx - Neck Neck: no lymphadenopathy - Respiratory Respiratory: bilateral: CTA - Cardiovascular Rhythm: regular Heart sounds: normal: S1, S2 - Gastrointestinal General gastrointestinal: normal bowel sounds, soft - Integumentary Integumentary: normal - Neurologic Neurologic: CNII-XII intact - Musculoskeletal Musculoskeletal: generalized weakness, strength equal bilaterally - Psychiatric Psychiatric: A&O x's 3 Results CBC & Chem 7: 06/29/16 07:15 06/29/16 07:15 Labs: Abnormal Lab Results - Last 24 Hours (Table) 06/28/16 06/28/16 06/28/16 Range/Units 18:51 18:51 18:51 WBC (3.8-10.6) k/uL RBC 1.91 L (3.80-5.40) m/uL Hgb 6.6 L* (11.4-16.0) gm/dL Hct 19.8 L* (34.0-46.0) % MCV 103.7 H (80.0-100.0) fL RDW 21.7 H (11.5-15.5) % Plt Count 89 L (150-450) k/uL Lymphocytes # 0.2 L (1.0-4.8) k/uL Sodium 134 L (137-145) mmol/L Chloride 96 L (98-107) mmol/L BUN 57 H (7-17) mg/dL Creatinine 1.85 H (0.52-1.04) mg/dL Glucose 104 H (74-99) mg/dL Calcium (8.4-10.2) mg/dL Total Protein 6.1 L (6.3-8.2) g/dL Albumin (3.5-5.0) g/dL Urine Appearance (Clear) Urine Protein (Negative) Urine Blood (Negative) Ur Leukocyte Esterase (Negative) Urine WBC (0-5) /hpf Ur Squamous Epith Cells (0-4) /hpf Amorphous Sediment (None) /hpf Urine Bacteria (None) /hpf Stool Occult Blood (Negative) Crossmatch See Detail 06/28/16 06/28/16 06/29/16 Range/Units 18:51 19:17 07:15 WBC 3.3 L (3.8-10.6) k/uL RBC 1.92 L (3.80-5.40) m/uL Hgb 6.6 L* (11.4-16.0) gm/dL Hct 20.2 L (34.0-46.0) % MCV 104.9 H (80.0-100.0) fL RDW 20.6 H (11.5-15.5) % Plt Count 59 L (150-450) k/uL Lymphocytes # 0.1 L (1.0-4.8) k/uL Sodium (137-145) mmol/L Chloride (98-107) mmol/L BUN (7-17) mg/dL Creatinine (0.52-1.04) mg/dL Glucose (74-99) mg/dL Calcium (8.4-10.2) mg/dL Total Protein (6.3-8.2) g/dL Albumin (3.5-5.0) g/dL Urine Appearance Turbid H (Clear) Urine Protein 2+ H (Negative) Urine Blood Small H (Negative) Ur Leukocyte Esterase Large H (Negative) Urine WBC 37 H (0-5) /hpf Ur Squamous Epith Cells 213 H (0-4) /hpf Amorphous Sediment Rare H (None) /hpf Urine Bacteria Many H (None) /hpf Stool Occult Blood Positive H (Negative) Crossmatch 06/29/16 Range/Units 07:15 WBC (3.8-10.6) k/uL RBC (3.80-5.40) m/uL Hgb (11.4-16.0) gm/dL Hct (34.0-46.0) % MCV (80.0-100.0) fL RDW (11.5-15.5) % Plt Count (150-450) k/uL Lymphocytes # (1.0-4.8) k/uL Sodium 136 L (137-145) mmol/L Chloride (98-107) mmol/L BUN 54 H (7-17) mg/dL Creatinine 1.75 H (0.52-1.04) mg/dL Glucose 115 H (74-99) mg/dL Calcium 8.3 L (8.4-10.2) mg/dL Total Protein 5.6 L (6.3-8.2) g/dL Albumin 3.0 L (3.5-5.0) g/dL Urine Appearance (Clear) Urine Protein (Negative) Urine Blood (Negative) Ur Leukocyte Esterase (Negative) Urine WBC (0-5) /hpf Ur Squamous Epith Cells (0-4) /hpf Amorphous Sediment (None) /hpf Urine Bacteria (None) /hpf Stool Occult Blood (Negative) Crossmatch Chest x-ray: report reviewed Venous US: report reviewed Assessment and Plan (1) Anemia Narrative/Plan: The patient has had issues with anemia ongoing throughout her chemotherapy and has required periodic blood transfusions. Her current are drop in hemoglobin is most likely related to chemotherapy. The stool for occult blood positivity is nonspecific. Agree with blood transfusions. Unless there is any definite evidence of bleeding, at this time I would not recommend GI workup. Continue to monitor hemoglobin. Status: Acute (2) Acute respiratory failure Narrative/Plan: This is of new onset for her. The patient has not had any issues with hypoxia , with hemoglobin at this level previously. She understandably does get short of breath with exertion when her hemoglobin is low. There is no evidence of respiratory infection. I will therefore order a VQ scan, given the patient's elevated creatinine, to elevate for PE. Status: Acute (3) Serous adenocarcinoma Narrative/Plan: Pt with known ovarian cancer, on chemo with Gemzar. She is tolerating chemo well subjectively, but hematologic toxicity continues to be an issue Status: Acute
[2016-06-30] MEDS: SODIUM CHLORIDE 0.9% 1,000 ML IV SCH ×2 (00:52→20:48)
[2016-06-30 07:59] LABS: Anisocytosis Moderate; Basophils % (A) 0 %; CH 33.7; CHCM 33.1; Eosinophils # (A) 0.1 k/uL (0-0.7); Eosinophils % (A) 4 %; HCT 23.6 % (34.0-46.0); HGB 7.8 gm/dL (11.4-16.0); Luc # (Auto) 0.04; Luc % (Auto) 2; Lymphocytes # (A) 0.1 k/uL (1.0-4.8); Lymphocytes % (A) 5 %; MCH 33.9 pg (25.0-35.0); MCHC 33.1 g/dL (31.0-37.0); MCV 102.6 fL (80.0-100.0); Macrocytosis Moderate; Mean Platelet Volume 8.8; Monocytes % (A) 1 %; Neutrophils # (A) 2.3 k/uL (1.3-7.7); Neutrophils % (A) 89 %; RDW 20.2 % (11.5-15.5); WBC 2.5 k/uL (3.8-10.6); WBC (Perox) 2.68
[2016-06-30] MEDS: HEPARIN SODIUM,PORCINE 5,000 UNIT/ML 1 ML VIAL SQ SCH ×2 (08:30→20:47)
[2016-06-30] MEDS: FAMOTIDINE 20 MG TAB PO SCH (08:30)
[2016-06-30] MEDS: POTASSIUM CHLORIDE ER 20 MEQ TAB.ER PO SCH ×2 (08:31→21:28)
[2016-06-30] MEDS: MELOXICAM 7.5 MG TAB PO SCH (08:31)
[2016-06-30 08:32] LABS: Calcium 9.2 mg/dL (8.4-10.2); Potassium 4.8 mmol/L (3.5-5.1)
[2016-06-30] MEDS: SERTRALINE 50 MG TAB PO SCH (08:32)
[2016-06-30] MEDS: ALLOPURINOL 300 MG TAB PO SCH (08:32)
[2016-06-30] MEDS: ONDANSETRON 4 MG/2 ML VIAL IVP PRN (08:38)
--- NOTE | 2016-06-30 12:10 | P.CONS ---
History of Present Illness - Reason for Consult Consult date: 06/30/16 - Chief Complaint Fever - History of Present Illness 76-year-old female presents to Hospital from home with increasing weakness and fever. The patient has a known history of ovarian cancer. Has undergone multiple interventions. She was to have a radical surgical intervention but was not deemed a healthy now candidate. Has been on chemotherapy with carboplatin and Taxol. There is evidence of recurrent disease and constantly chemotherapy was altered to Doxil. With the first treatment she developed a severe cutaneous reaction. Once it resolves she has not been treated with Gemzar. She is a long-standing history of anemia and this worsened as of late. Shoelace before admission she was to avoid becoming weak. She suffered a fall at home. Her son had to pick her up. Since then she's had some increasing erythema and tenderness to the right leg. When she was last about her by infectious disease she had significant pain in her back. It was a non-remitting severe pain. She was transferred to a tertiary care center and they're a anesthesia monitored MRI was performed. It appeared that she just had developed an acute disc compression fracture which was etiology of his severe pain. She underwent some therapy. Fortunately there is no evidence of any infection of her spine at that time. He did not require surgical intervention. She's not had ongoing difficulties with back pain over the years. She however does have difficulty with ongoing anemia and has follow-up Dr. Robert with hematology oncology. He also has given her her chemotherapy for her ovarian cancer. She believes that she's had a bit of a fever and chill feeling better at this time. He has been distinctly weak. Review of Systems 76-year-old woman who is modestly comfortable at this point in time. This complaining of some frequent urination. HEENT:Denies headache or acute visual change. Denies sinus or mouth discomforts. Denies neck stiffness or pain. Denies significant oral cavity pain. Denies difficulty on swallowing. Lungs: Denies significant shortness of breath, cough, sputum production, or hemoptysis. Cardiovascular: Denies significant shortness of breath, chest pain, chest wall pain, orthopnea, dyspnea on exertion, syncope Gastrointestinal:Denies nausea, vomiting, diarrhea, constipation, hematemesis, melena, hematochezia. No no significant change of bowel habit noticed. Musculoskeletal: denies significant myalgias or arthralgias. No new joint swelling. Denies new back pain. Skin: Per the HPI redness and erythema to the right leg. Erasmo of the left leg. Neuro: Denies headache or visual change. Denies any new onset weakness or difficulty with ambulation. Denies falls or seizures. Psychiatric:Denies anxiety or depression. Endocrine: Denies significant fatigue, denies significant weight loss or weight gain. Urologic: Has evidence of urinary frequency which is not new. But is having some urinary hesitancy at this time. That is new. 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 colon cancer august 2015 History of Any Multi-Drug Resistant Organisms: None Reported Past Surgical History: Appendectomy, Orthopedic Surgery Additional Past Surgical History / Comment(s): BL knee replacement, right salpingectomy and oophorectomy, cataract removal and lens implants, laser surgery for glaucoma, right breast biopsy that was benign, SHANTANU CARPAL TUNNEL RELEASE. Past Anesthesia/Blood Transfusion Reactions: No Reported Reaction Additional Past Anesthesia/Blood Transfusion Reaction / Comm: HAD BLOOD TRANSFUSION-NO REACTION Past Psychological History: Anxiety, Depression Additional Psychological History / Comment(s): PT LIVES IN OWN HOME,HER SON THRIL LIVES WITH HER. PT USES A CANE/WALKER OR W/C NEEDED.,CURRENTLY NOT RECIEVING ANY HOME CARE SERVICES. 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 HER STAGE NAME WAS "[employer]EF[employer]". PT LOST HER SISTER A MONTH AGO HAS SOME MILD DEPReSION/SADNESS OVER THIS. No animals in the home. No experience. No Travel history Smoking Status: Former smoker Past Alcohol Use History: None Reported Additional Past Alcohol Use History / Comment(s): Patient was a smoker one pack per day for 20 years and quit in 1996. She denies any marijuana or alcohol use. Past Drug Use History: None Reported - Past Family History Mother Family Medical History: Cancer Additional Family Medical History / Comment(s): Lung cancer Father Family Medical History: Cancer Additional Family Medical History / Comment(s): No reports of GI malignancy Medications and Allergies Home Medications and Allergies Comment(s): Current Medications Acetaminophen (Tylenol Tab) 650 mg PO Q6HR PRN PRN Reason: Mild Pain or Fever > 100.5 Hydrocodone Bitart/Acetaminophen ([place] 5-325) 1 each PO BID PRN PRN Reason: Severe Pain Allopurinol (Zyloprim) 300 mg PO DAILY [facility] Last Admin: 06/30/16 08:32 Dose: 300 mg Cholecalciferol (Vitamin D3) 5,000 unit PO DAILY@1200 [facility] Last Admin: 06/29/16 12:51 Dose: 5,000 unit Cyanocobalamin (Vitamin B-12) 1,500 mcg PO DAILY@1200 [facility] Last Admin: 06/29/16 12:51 Dose: 1,500 mcg Cyclobenzaprine HCl (Flexeril) 10 mg PO HS PRN PRN Reason: Restless Legs/Insomnia Diphenoxylate HCl/Atropine (Lomotil) 1 each PO BID PRN PRN Reason: Diarrhea Famotidine (Pepcid) 20 mg PO DAILY [facility] Last Admin: 06/30/16 08:30 Dose: 20 mg Heparin Sodium (Porcine) (Heparin) 5,000 unit SQ Q12HR [facility] Last Admin: 06/30/16 08:30 Dose: 5,000 unit Sodium Chloride (Saline 0.9%) 1,000 mls @ 20 mls/hr IV .Q24H [facility] Last Admin: 06/30/16 00:52 Dose: Not Given Levofloxacin 750 mg/ IV (Solution) 150 mls @ 100 mls/hr IVPB Q24H [facility] Last Admin: 06/29/16 21:46 Dose: 100 mls/hr Vancomycin HCl 1,500 mg/ (Sodium Chloride) 250 mls @ 125 mls/hr IVPB ONCE ONE Stop: 06/30/16 14:59 Lorazepam (Ativan) 1 mg PO QID PRN PRN Reason: Anxiety Meloxicam (Mobic) 15 mg PO DAILY [facility] Last Admin: 06/30/16 08:31 Dose: 15 mg Miscellaneous Information (Pharmacy To Dose Iv Vancomycin) 1 each MISCELLANE DIRECTED PRN PRN Reason: Per Protocol Naloxone HCl (Narcan) 0.2 mg IV Q2M PRN PRN Reason: Opioid Reversal Ondansetron HCl (Zofran) 4 mg IVP Q8HR PRN PRN Reason: Nausea And Vomiting Last Admin: 06/30/16 08:38 Dose: 4 mg Potassium Chloride (K-Dur 20) 20 meq PO BID [facility] Last Admin: 06/30/16 08:31 Dose: 20 meq Sertraline HCl (Zoloft) 50 mg PO DAILY [facility] Last Admin: 06/30/16 08:32 Dose: 50 mg Tramadol HCl (Ultram) 50 mg PO Q6HR PRN PRN Reason: Moderate Pain Triamterene/HCTZ (Dyazide) 1 each PO HS [facility] Last Admin: 06/29/16 21:46 Dose: 1 each Vitamin E (Vitamin E) 800 unit PO DAILY@1200 [facility] Last Admin: 06/29/16 12:51 Dose: 800 unit Home Medications Medication Instructions Recorded Confirmed Type Sertraline [Zoloft] 50 mg PO DAILY 12/11/14 06/28/16 History amLODIPine [Norvasc] 5 mg PO DAILY 12/11/14 06/28/16 History Meloxicam [Mobic] 15 mg PO DAILY 01/09/15 06/28/16 History Cholecalciferol [Vitamin D3] 5,000 unit PO DAILY 07/26/15 06/28/16 History Cyanocobalamin [Vitamin B-12] 1,500 mcg PO DAILY 07/26/15 06/28/16 History Triamterene-Hctz 37.5-25Mg 1 cap PO HS 07/26/15 06/28/16 History [Dyazide 37.5-25 Capsule] hydrOXYzine PAMOATE [Vistaril] 25 mg PO QID PRN 07/26/15 06/28/16 History Furosemide [Lasix] 20 mg PO W/SUPPER 11/22/15 06/28/16 History Ondansetron HCl [Zofran] 4 mg PO TID PRN 11/22/15 06/28/16 History LORazepam [Ativan] 1 mg PO QID PRN 06/02/16 06/28/16 History Allopurinol [Zyloprim] 300 mg PO DAILY 06/28/16 06/28/16 History Cyclobenzaprine [Flexeril] 10 mg PO HS PRN 06/28/16 06/28/16 History Diphenox-Atrop 2.5-0.025 mg 1 tab PO BID PRN 06/28/16 06/28/16 History [Lomotil] Furosemide [Lasix] 40 mg PO QAM 06/28/16 06/28/16 History HYDROcodone/APAP 5-325MG [[place] 1 tab PO BID PRN 06/28/16 06/28/16 History 5-325] Omeprazole [PriLOSEC] 40 mg PO DAILY 06/28/16 06/28/16 History Potassium Chloride ER [K-Dur 10] 20 meq PO BID 06/28/16 06/28/16 History Vitamin E 1,000 unit PO DAILY 06/28/16 06/28/16 History traMADol HCL [Ultram] 50 mg PO Q6HR PRN 06/28/16 06/28/16 History Allergies Allergy/AdvReac Type Severity Reaction Status Date / Time adhesive tape Allergy Rash/Hives Verified 06/28/16 19:52 codeine Allergy Itching Verified 06/28/16 19:52 latex Allergy Rash/Hives Verified 06/28/16 19:52 Physical Exam Vitals: Vital Signs Temp Pulse Pulse Resp BP BP Pulse Ox 06/30/16 07:00 97.9 F 105 H 20 108/54 99 06/29/16 23:33 98.3 F 102 H 20 93/53 100 06/29/16 15:00 97.5 F L 106 H 20 80/41 95 06/29/16 14:01 98.1 F 114 H 18 129/78 06/29/16 13:31 98.0 F 110 H 20 104/56 06/29/16 13:21 98.0 F 107 H 18 106/56 Intake and Output 06/29/16 06/30/16 06/30/16 22:59 06:59 14:59 Intake Total 310 590 Balance 310 590 Intake: Intake, IV Titration 240 Amount Levofloxacin 750Mg-D5w 100 Pmx 750 mg In Dextrose/ Water 1 150ml.bag @ 100 mls/hr IVPB Q24H [facility] Rx#: [id number] Sodium Chloride 0.9% 1, 140 000 ml @ 20 mls/hr IV . Q24H [facility] Rx#:[id number] Oral 350 Blood Product 310 Rc As-1 Unit 310 [id number] Other: Voiding Method Bedside Commode # Voids 3 76-year-old female who is modestly comfortable at this time. HEENT: Anicteric conjunctiva are pale and moist nasal mucosa grossly intact without significant lesions, there is no thrush. Patient has permanent makeup Neck: The neck is supple without significant lymphadenopathy or thyromegaly. Lungs: Symmetric air entry. Few basilar crackles. No kev bronchial sounds. No wheezing is noted. No changes of dullness or egophony Heart: Regular rate and rhythm with an audible S1-S2, no S3 no S4. There is no significant murmur click or rub, PMI was nondisplaced. Abdomen: Obese Positive bowel sounds soft and nontender without palpable masses or organomegaly. There was no guarding or rebound. Extremities: The upper extremities have excellent pulses they are symmetric, no significant petechiae or telangiectasia. There is evidence of bilateral lower extremity edema and there is some bruising on the left medial thigh and left pretibial area from her fall. It's only minimally tender. The right lower extremity however has distinct erythema to the foot as well as to the ankle and to the lower leg. There is circumferential. It is warm to touch. There is also quite tender. There are no open ulcers seen. She does have hammertoe. But no ulcers are seen. There is no significant inguinal lymphadenopathy. No other abnormal lymph nodes are noted. Neuro: Awake alert oriented to person place and time. There are no acute new gross focal sensory motor deficits. Results CBC & Chem 7: 06/30/16 07:29 06/30/16 07:29 Labs: Abnormal Lab Results - Last 24 Hours (Table) 06/28/16 06/30/16 06/30/16 Range/Units 18:51 07:29 07:29 WBC 2.5 L (3.8-10.6) k/uL RBC 2.30 L (3.80-5.40) m/uL Hgb 7.8 L (11.4-16.0) gm/dL Hct 23.6 L (34.0-46.0) % MCV 102.6 H (80.0-100.0) fL RDW 20.2 H (11.5-15.5) % Plt Count 52 L (150-450) k/uL Lymphocytes # 0.1 L (1.0-4.8) k/uL Sodium 136 L (137-145) mmol/L BUN 47 H (7-17) mg/dL Creatinine 1.56 H (0.52-1.04) mg/dL Glucose 105 H (74-99) mg/dL Crossmatch See Detail Microbiology - Last 24 Hours (Table) 06/28/16 19:17 Urine Culture - Preliminary Urine,Voided Laboratory Results WBC 2.5 k/uL (3.8-10.6) L 06/30/16 07:29 RBC 2.30 m/uL (3.80-5.40) L 06/30/16 07:29 Hgb 7.8 gm/dL (11.4-16.0) L 06/30/16 07:29 Hct 23.6 % (34.0-46.0) L 06/30/16 07:29 MCV 102.6 fL (80.0-100.0) H 06/30/16 07:29 MCH 33.9 pg (25.0-35.0) 06/30/16 07: MCHC 33.1 g/dL (31.0-37.0) 06/30/16 07: RDW 20.2 % (11.5-15.5) H 06/30/16 07:29 Plt Count 52 k/uL (150-450) L 06/30/16 07:29 Neutrophils % 89 % 06/30/16 07:29 Lymphocytes % 5 % 06/30/16 07:29 Monocytes % 1 % 06/30/16 07:29 Eosinophils % 4 % 06/30/16 07:29 Basophils % 0 % 06/30/16 07:29 Neutrophils # 2.3 k/uL (1.3-7.7) 06/30/16 07:29 Lymphocytes # 0.1 k/uL (1.0-4.8) L 06/30/16 07:29 Monocytes # 0.0 k/uL (0-1.0) 06/30/16 07:29 Eosinophils # 0.1 k/uL (0-0.7) 06/30/16 07:29 Basophils # 0.0 k/uL (0-0.2) 06/30/16 07:29 Manual Slide Review Performed 06/29/16 07:15 Poikilocytosis Slight 06/28/16 18:51 Poikilocytosis (manual Present 06/29/16 07:15 Anisocytosis Moderate 06/30/16 07:29 Macrocytosis Moderate 06/30/16 07:29 PT 10.7 sec (9.0-12.0) 06/28/16 18:51 INR 1.1 (<1.1) 06/28/16 18:51 APTT 23.1 sec (22.0-30.0) 06/28/16 18:51 Sodium 136 mmol/L (137-145) L 06/30/16 07:29 Potassium 4.8 mmol/L (3.5-5.1) 06/30/16 07:29 Chloride 102 mmol/L (98-107) 06/30/16 07:29 Carbon Dioxide 24 mmol/L (22-30) 06/30/16 07:29 Anion Gap 10 mmol/L 06/30/16 07:29 BUN 47 mg/dL (7-17) H 06/30/16 07:29 Creatinine 1.56 mg/dL (0.52-1.04) H 06/30/16 07:29 Est GFR (MDRD) Af Amer 39 (>60 ml/min/1.73 sqM) 06/30/16 07:29 Est GFR (MDRD) Non-Af 32 (>60 ml/min/1.73 sqM) 06/30/16 07:29 Glucose 105 mg/dL (74-99) H 06/30/16 07:29 Plasma Lactic Acid Manish 0.9 mmol/L (0.7-2.0) 06/29/16 00:08 Calcium 9.2 mg/dL (8.4-10.2) 06/30/16 07:29 Total Bilirubin 1.1 mg/dL (0.2-1.3) 06/29/16 07:15 AST 29 U/L (14-36) 06/29/16 07:15 ALT 25 U/L (9-52) 06/29/16 07:15 Alkaline Phosphatase 67 U/L (38-126) 06/29/16 07:15 Total Protein 5.6 g/dL (6.3-8.2) L 06/29/16 07:15 Albumin 3.0 g/dL (3.5-5.0) L 06/29/16 07:15 Urine Color Yellow 06/28/16 19:17 Urine Appearance Turbid (Clear) H 06/28/16 19:17 Urine pH 5.5 (5.0-8.0) 06/28/16 19:17 Ur Specific [place] 1.011 (1.001-1.035) 06/28/16 19:17 Urine Protein 2+ (Negative) H 06/28/16 19:17 Urine Glucose (UA) Negative (Negative) 06/28/16 19:17 Urine Ketones Negative (Negative) 06/28/16 19:17 Urine Blood Small (Negative) H 06/28/16 19:17 Urine Nitrite Negative (Negative) 06/28/16 19:17 Urine Bilirubin Negative (Negative) 06/28/16 19:17 Urine Urobilinogen <2.0 mg/dL (<2.0) 06/28/16 19:17 Ur Leukocyte Esterase Large (Negative) H 06/28/16 19:17 Urine WBC 37 /hpf (0-5) H 06/28/16 19:17 Ur Squamous Epith Cells 213 /hpf (0-4) H 06/28/16 19:17 Amorphous Sediment Rare /hpf (None) H 06/28/16 19:17 Urine Bacteria Many /hpf (None) H 06/28/16 19:17 Stool Occult Blood Positive (Negative) H 06/28/16 18:51 Random Vancomycin 10.3 ug/mL 06/30/16 07:29 Blood Type O Negative 06/28/16 18:51 Blood Type Recheck No 06/28/16 18:51 Antibody Screen NEGATIVE 06/28/16 18:51 Crossmatch See Detail 06/28/16 18:51 Spec Expiration Date 07/01/2016235006/28/16 18:51 Microbiology 06/28/16 19:17 Urine,Voided Urine Culture - Preliminary Urine culture of last year had E. coli resistant to quinolones. Assessment and Plan (1) Ovarian cancer Status: Acute (2) Leukopenia due to antineoplastic chemotherapy Status: Acute (3) Fever Narrative/Plan: Pleasant 76-year-old woman who has a very complex recent past medical history. There was concerns several years ago for osteomyelitis of her spine. However appeared to be just a acute degenerative change. At that time however she did have anemia. Eventually workup occurred that she finally allowed was not evidence of ovarian cancer. She was treated with some chemotherapy and had a significant cutaneous reaction from Doxil. Is not being treated with Chems are. She's having some chronic anemia. She became quite weak and suffered a fall at home. Subsequently she's had some bruising to her left leg. But now developed a significant cellulitis to the right lower extremity. There are no open lesions are seen. It is quite swollen. It will be treated with Silvadene wrap. Patient also likely has a urinary tract infection. Most recent pathogen was E. coli that was resistant to quinolones. In constantly levofloxacin will be changed to Rocephin while cultures are in process. Vancomycin is being utilized for cellulitis of the right leg. Try to elevate will she is at rest. Is being followed by hematology oncology. For both the anemia and her leukopenia that is likely chemotherapy induced. Status: Acute (4) Cellulitis of right lower leg Status: Acute
[2016-06-30] MEDS: VITAMIN E (DL,TOCOPHERYL ACET) 400 UNIT CAP PO SCH (12:18)
[2016-06-30] MEDS: CYANOCOBALAMIN 500 MCG TAB PO SCH (12:28)
--- NOTE | 2016-06-30 12:44 | PN ---
DATE OF SERVICE: 06/30/2016 INTERVAL HISTORY: Ms. Rosas is a 76-year-old female with a past medical history of ovarian cancer, colon cancer, hypertension, osteoarthritis, GERD, admitted to the hospital with chief complaint of generalized weakness. Patient is undergoing chemotherapy for her ovarian cancer. She follows with Dr. Robert, who is following the patient currently. Apparently her oxygen saturation dropped at home and so she came into the hospital for further evaluation. The patient also has some right lower extremity redness and Doppler done is negative for deep venous thrombosis. Patient also had a VQ scan done that was showing low probability for PE. Eventually the patient's white count did trend down and in view of her immunocompromise state the plan is to consult Infectious Disease, Dr. Curry, today. Today the patient is lying in her bed. She states that overnight there are no active issues going on. REVIEW OF SYSTEMS: CONSTITUTIONAL: Positive for generalized fatigue and weakness. RESPIRATORY: No shortness of breath. No cough. CARDIAC: No chest pain. No palpitations. MUSCULOSKELETAL: The patient complains of redness in the right lower extremity and pain in her right foot. Patient's medications have been reviewed. She is currently on Tylenol, [place], Zyloprim, vitamin D3, vitamin B12, Flexeril, Lomotil, Pepcid, heparin, levofloxacin, vancomycin, meloxicam, Ativan, Narcan, Zofran, potassium chloride, Zoloft, Tramadol, Dyazide, vitamin E supplements. On examination, patient's vitals: Temperature 97.9, heart rate 90 to 100, respiratory rate 20, blood pressure 108/54, saturating at 99% on 3 liters of oxygen via nasal cannula. GENERAL EXAMINATION: Patient does not appear to be in acute distress. She is comfortably lying in bed. HEAD: Atraumatic, normocephalic. EYES: Mild pallor. No icterus. NECK: No JVD. No thyromegaly. CARDIOVASCULAR: S1, S2 heard. LUNGS: Bilateral breath sounds are positive, slightly diminished at the lower lung bases. No wheezes or crackles. GI: Abdomen is soft, nondistended. No tenderness. Organomegaly difficult to appreciate due to huge body habitus. EXTREMITIES: Right lower extremity is red and erythematous, positive for warmth and positive for mild pitting edema. FORMSTONE FITTER: Alert, awake, oriented x3. No focal neurological deficits. PSYCHIATRIC: Appropriate mood and affect. SKIN: Erythema of the right lower extremity. PATIENT'S LABS: White count of 2.5, hemoglobin is 7.8, platelets 52. Sodium 136, potassium 4.8, chloride 102, bicarb 24, BUN 47, creatinine 1.56. ASSESSMENT AND PLAN: 1. Anemia secondary to chemotherapy. The patient received 2 units of PRBCs after which her hemoglobin has been stable. 2. Urinary tract infection. Patient's urine is positive for leukocyte esterase and positive for wbc's. She has been started on levofloxacin which will be continued. 3. Right lower extremity cellulitis. She was started on vancomycin, which will be continued. 4. History of gout. 5. Gastroesophageal reflux disease. 6. Anxiety and depression. 7. Pancytopenia, most likely chemotherapy-induced. 8. History of hypertension. 9. History of colon cancer. 10. History of ovarian cancer, completed on her second cycle of chemotherapy. 11. History of bilateral carpal tunnel release surgery. PLAN: Patient was transfused with 2 units of PRBCs and hemoglobin is stable, but the other cell lines are low and this might be because of her recent chemotherapy. Will consult Infectious Disease, Dr. Curry in regard to titration of her antibiotics for UTI and right lower extremity cellulitis. Oncology, Dr. Robert on board and following the patient. Overall prognosis is guarded. Further recommendations to follow depending on the progress of the patient. MTDD
[2016-06-30] MEDS: CHOLECALCIFEROL 1,000 UNIT TAB PO SCH (12:52)
[2016-06-30] MEDS ORDERED: VANCOMYCIN 1,500 MG in SODIUM CHLORIDE 0.9% 250 ML IVPB ONE (13:00)
[2016-06-30] MEDS: TRIAMTERENE-HCTZ 37.5-25MG 1 EACH CAP PO SCH (20:47)
[2016-06-30] MEDS: LEVOFLOXACIN 750MG-D5W PMX 750 MG in DEXTROSE/WATER 1 150ML.BAG IVPB SCH (20:50)
[2016-07-01] MEDS: ONDANSETRON 4 MG/2 ML VIAL IVP PRN (02:13)
[2016-07-01 07:51] LABS: Anisocytosis Moderate; Basophils % (A) 0 %; CH 33.5; CHCM 32.8; Eosinophils % (A) 2 %; HCT 22.6 % (34.0-46.0); HDW 3.32; HGB 7.4 gm/dL (11.4-16.0); Luc # (Auto) 0.05; Luc % (Auto) 2; Lymphocytes # (A) 0.1 k/uL (1.0-4.8); Lymphocytes % (A) 6 %; MCH 33.7 pg (25.0-35.0); MCHC 32.8 g/dL (31.0-37.0); MCV 102.8 fL (80.0-100.0); Macrocytosis Moderate; Monocytes # (A) 0.1 k/uL (0-1.0); Monocytes % (A) 2 %; Neutrophils # (A) 2.2 k/uL (1.3-7.7); Neutrophils % (A) 89 %; WBC 2.4 k/uL (3.8-10.6)
[2016-07-01] MEDS: ALLOPURINOL 300 MG TAB PO SCH (09:51)
[2016-07-01] MEDS: FAMOTIDINE 20 MG TAB PO SCH (09:51)
[2016-07-01] MEDS: MELOXICAM 7.5 MG TAB PO SCH (09:51)
[2016-07-01] MEDS: HEPARIN SODIUM,PORCINE 5,000 UNIT/ML 1 ML VIAL SQ SCH ×2 (09:51→19:54)
[2016-07-01] MEDS: POTASSIUM CHLORIDE ER 20 MEQ TAB.ER PO SCH ×2 (09:52→19:51)
[2016-07-01] MEDS: SERTRALINE 50 MG TAB PO SCH (09:52)
[2016-07-01 10:17] LABS: Calcium 8.9 mg/dL (8.4-10.2); Potassium 4.7 mmol/L (3.5-5.1)
[2016-07-01] MEDS: VITAMIN E (DL,TOCOPHERYL ACET) 400 UNIT CAP PO SCH (11:59)
[2016-07-01] MEDS: CYANOCOBALAMIN 500 MCG TAB PO SCH (12:00)
[2016-07-01] MEDS: CHOLECALCIFEROL 1,000 UNIT TAB PO SCH (12:00)
--- NOTE | 2016-07-01 16:14 | P.PN ---
Subjective Principal diagnosis: weakness, exertional dyspnea Pt seen today in follow up. She states feeling better and is asking to go home. She is still SOB with activity but comfortable at rest, appetite is fair , no nausea, abd pain or bloating, she had not had a BM for a few days prior to coming to the hospital but has now had one, no diarrhea, denied bloody or black stools. Objective - Vital Signs Vital signs: Vital Signs Temp 98.7 F 07/01/16 07:00 Pulse 113 H 07/01/16 07:00 Resp 20 07/01/16 07:00 BP 113/58 07/01/16 07:00 Pulse Ox 94 L 07/01/16 12:23 Intake & Output 06/30/16 07/01/16 07/01/16 18:59 06:59 18:59 Intake Total 1190 Balance 1190 Intake: Intake, IV Titration 300 Amount Sodium Chloride 0.9% 1, 300 000 ml @ 20 mls/hr IV . Q24H [facility] Rx#:[id number] Oral 890 Other: Voiding Method Bedside Commode Bedside Commode Bedside Commode # Voids 1 3 # Bowel Movements 1 - Constitutional General appearance: Present: cooperative, no acute distress, obese - EENT ENT: Present: normal oropharynx - Respiratory Respiratory: bilateral: CTA - Cardiovascular Heart sounds: normal: S1, S2 - Peripheral edema leg Peripheral Edema: right: 2+ (wrapped in SUSY bandage, toes are warm to touch), left: None - Gastrointestinal General gastrointestinal: Present: normal bowel sounds, soft - Integumentary Integumentary: Present: pale - Neurologic Neurologic: Present: CNII-XII intact - Musculoskeletal Musculoskeletal: Present: generalized weakness, strength equal bilaterally - Psychiatric Psychiatric: Present: A&O x's 3, appropriate affect, intact judgment & insight - Labs CBC & Chem 7: 07/01/16 07:09 07/01/16 07:09 Labs: Abnormal Lab Results - Last 24 Hours (Table) 06/28/16 07/01/16 07/01/16 Range/Units 18:51 07:09 07:09 WBC 2.4 L (3.8-10.6) k/uL RBC 2.20 L (3.80-5.40) m/uL Hgb 7.4 L (11.4-16.0) gm/dL Hct 22.6 L (34.0-46.0) % MCV 102.8 H (80.0-100.0) fL RDW 20.0 H (11.5-15.5) % Plt Count 50 L* (150-450) k/uL Lymphocytes # 0.1 L (1.0-4.8) k/uL Sodium 135 L (137-145) mmol/L BUN 43 H (7-17) mg/dL Creatinine 1.60 H (0.52-1.04) mg/dL Glucose 106 H (74-99) mg/dL Crossmatch See Detail Microbiology - Last 24 Hours (Table) 06/30/16 17:10 Urine Culture - Preliminary Urine,Voided 06/28/16 19:17 Urine Culture - Preliminary Urine,Voided Group D Enterococcus - Imaging and Cardiology V/Q scan report reviewed Doppler report reviewed Assessment and Plan (1) Antineoplastic chemotherapy induced pancytopenia Narrative/Plan: Pt CBC is actually stable for her, she has been requiring PRBC transfusion and was started on Procrit for chemo induced anemia last week, another dose is due today so this will be ordered, no acute intervention for Hgb or plt count. Dr. Robert reviewed negative CTA with pt. The concern is that pt is not tolerating treatment very well, she will be reevaluated prior to another cycle with consideration for dose reduction. Status: Acute (2) Cellulitis of right lower leg Narrative/Plan: Pt treatment will be on hold while cellulitis is treated, Dr. Curry is following the pt. Status: Acute
[2016-07-01] MEDS ORDERED: DARBEPOETIN ALFA 300 MCG/0.6 ML SQ SCH (16:30)
[2016-07-01] MEDS ORDERED: VANCOMYCIN 1,500 MG in SODIUM CHLORIDE 0.9% 250 ML IVPB ONE (18:00)
[2016-07-01] MEDS ORDERED: DARBEPOETIN ALFA 200 MCG/0.4 ML SYRINGE SQ SCH (19:00)
[2016-07-01] MEDS: TRIAMTERENE-HCTZ 37.5-25MG 1 EACH CAP PO SCH (19:53)
--- NOTE | 2016-07-01 22:43 | P.PN ---
Subjective Principal diagnosis: cellulitis 76-year-old female presents to Hospital from home with increasing weakness and fever. The patient has a known history of ovarian cancer. Has undergone multiple interventions. She was to have a radical surgical intervention but was not deemed a healthy now candidate. Has been on chemotherapy with carboplatin and Taxol. There is evidence of recurrent disease and constantly chemotherapy was altered to Doxil. With the first treatment she developed a severe cutaneous reaction. Once it resolves she has not been treated with Gemzar. She is a long-standing history of anemia and this worsened as of late. For days before admission she was to avoid becoming weak. She suffered a fall at home. Her son had to pick her up. Since then she's had some increasing erythema and tenderness to the right leg. When she was last about her by infectious disease she had significant pain in her back. It was a non-remitting severe pain. She was transferred to a tertiary care center and they're a anesthesia monitored MRI was performed. It appeared that she just had developed an acute disc compression fracture which was etiology of his severe pain. She underwent some therapy. Fortunately there is no evidence of any infection of her spine at that time. He did not require surgical intervention. She's not had ongoing difficulties with back pain over the years. She however does have difficulty with ongoing anemia and has follow-up Dr. Robert with hematology oncology. He also has given her her chemotherapy for her ovarian cancer. She believes that she's had a bit of a fever and chill feeling better at this time. She has been distinctly weak. Objective - Vital Signs Vital signs: Vital Signs Temp 98.4 F 07/01/16 15:00 Pulse 106 H 07/01/16 15:00 Resp 20 07/01/16 15:00 BP 96/51 07/01/16 15:00 Pulse Ox 91 L 07/01/16 15:00 Intake & Output 07/01/16 07/01/16 07/02/16 06:59 18:59 06:59 Intake Total 1190 Balance 1190 Intake: Intake, IV Titration 300 Amount Sodium Chloride 0.9% 1, 300 000 ml @ 20 mls/hr IV . Q24H [facility] Rx#:[id number] Oral 890 Other: Voiding Method Bedside Commode Bedside Commode # Voids 3 5 # Bowel Movements 1 - Exam 76-year-old female who is modestly comfortable at this time. HEENT: Anicteric conjunctiva are pale and moist nasal mucosa grossly intact without significant lesions, there is no thrush. Patient has permanent makeup Neck: The neck is supple without significant lymphadenopathy or thyromegaly. Lungs: Symmetric air entry. Few basilar crackles. No kev bronchial sounds. No wheezing is noted. No changes of dullness or egophony Heart: Regular rate and rhythm with an audible S1-S2, no S3 no S4. There is no significant murmur click or rub, PMI was nondisplaced. Abdomen: Obese Positive bowel sounds soft and nontender without palpable masses or organomegaly. There was no guarding or rebound. Extremities: The upper extremities have excellent pulses they are symmetric, no significant petechiae or telangiectasia. There is evidence of bilateral lower extremity edema and there is some bruising on the left medial thigh and left pretibial area from her fall. It's only minimally tender. The right lower extremity however has distinct erythema to the foot as well as to the ankle and to the lower leg. There is circumferential. It is warm to touch. There is also quite tender. There are no open ulcers seen. She does have hammertoe. But no ulcers are seen. There is no significant inguinal lymphadenopathy. No other abnormal lymph nodes are noted. Neuro: Awake alert oriented to person place and time. There are no acute new gross focal sensory motor deficits. - Labs CBC & Chem 7: 07/01/16 07:09 07/01/16 07:09 Labs: Abnormal Lab Results - Last 24 Hours (Table) 06/28/16 07/01/16 07/01/16 Range/Units 18:51 07:09 07:09 WBC 2.4 L (3.8-10.6) k/uL RBC 2.20 L (3.80-5.40) m/uL Hgb 7.4 L (11.4-16.0) gm/dL Hct 22.6 L (34.0-46.0) % MCV 102.8 H (80.0-100.0) fL RDW 20.0 H (11.5-15.5) % Plt Count 50 L* (150-450) k/uL Lymphocytes # 0.1 L (1.0-4.8) k/uL Sodium 135 L (137-145) mmol/L BUN 43 H (7-17) mg/dL Creatinine 1.60 H (0.52-1.04) mg/dL Glucose 106 H (74-99) mg/dL Crossmatch See Detail Microbiology - Last 24 Hours (Table) 06/30/16 17:10 Urine Culture - Preliminary Urine,Voided Laboratory Results WBC 2.4 k/uL (3.8-10.6) L 07/01/16 07:09 RBC 2.20 m/uL (3.80-5.40) L 07/01/16 07:09 Hgb 7.4 gm/dL (11.4-16.0) L 07/01/16 07:09 Hct 22.6 % (34.0-46.0) L 07/01/16 07:09 MCV 102.8 fL (80.0-100.0) H 07/01/16 07:09 MCH 33.7 pg (25.0-35.0) 07/01/16 07:09 MCHC 32.8 g/dL (31.0-37.0) 07/01/16 07:09 RDW 20.0 % (11.5-15.5) H 07/01/16 07:09 Plt Count 50 k/uL (150-450) L* 07/01/16 07:09 Neutrophils % 89 % 07/01/16 07:09 Lymphocytes % 6 % 07/01/16 07:09 Monocytes % 2 % 07/01/16 07:09 Eosinophils % 2 % 07/01/16 07:09 Basophils % 0 % 07/01/16 07:09 Neutrophils # 2.2 k/uL (1.3-7.7) 07/01/16 07:09 Lymphocytes # 0.1 k/uL (1.0-4.8) L 07/01/16 07:09 Monocytes # 0.1 k/uL (0-1.0) 07/01/16 07:09 Eosinophils # 0.0 k/uL (0-0.7) 07/01/16 07:09 Basophils # 0.0 k/uL (0-0.2) 07/01/16 07:09 Manual Slide Review Performed 06/29/16 07:15 Poikilocytosis Slight 06/28/16 18:51 Poikilocytosis (manual Present 06/29/16 07:15 Anisocytosis Moderate 07/01/16 07:09 Macrocytosis Moderate 07/01/16 07:09 PT 10.7 sec (9.0-12.0) 06/28/16 18:51 INR 1.1 (<1.1) 06/28/16 18:51 APTT 23.1 sec (22.0-30.0) 06/28/16 18:51 Sodium 135 mmol/L (137-145) L 07/01/16 07:09 Potassium 4.7 mmol/L (3.5-5.1) 07/01/16 07:09 Chloride 102 mmol/L (98-107) 07/01/16 07:09 Carbon Dioxide 23 mmol/L (22-30) 07/01/16 07:09 Anion Gap 10 mmol/L 07/01/16 07:09 BUN 43 mg/dL (7-17) H 07/01/16 07:09 Creatinine 1.60 mg/dL (0.52-1.04) H 07/01/16 07:09 Est GFR (MDRD) Af Amer 38 (>60 ml/min/1.73 sqM) 07/01/16 07:09 Est GFR (MDRD) Non-Af 31 (>60 ml/min/1.73 sqM) 07/01/16 07:09 Glucose 106 mg/dL (74-99) H 07/01/16 07:09 Plasma Lactic Acid Manish 0.9 mmol/L (0.7-2.0) 06/29/16 00:08 Calcium 8.9 mg/dL (8.4-10.2) 07/01/16 07:09 Total Bilirubin 1.1 mg/dL (0.2-1.3) 06/29/16 07:15 AST 29 U/L (14-36) 06/29/16 07:15 ALT 25 U/L (9-52) 06/29/16 07:15 Alkaline Phosphatase 67 U/L (38-126) 06/29/16 07:15 Total Protein 5.6 g/dL (6.3-8.2) L 06/29/16 07:15 Albumin 3.0 g/dL (3.5-5.0) L 06/29/16 07:15 Urine Color Yellow 06/28/16 19:17 Urine Appearance Turbid (Clear) H 06/28/16 19:17 Urine pH 5.5 (5.0-8.0) 06/28/16 19:17 Ur Specific [place] 1.011 (1.001-1.035) 06/28/16 19:17 Urine Protein 2+ (Negative) H 06/28/16 19:17 Urine Glucose (UA) Negative (Negative) 06/28/16 19:17 Urine Ketones Negative (Negative) 06/28/16 19:17 Urine Blood Small (Negative) H 06/28/16 19:17 Urine Nitrite Negative (Negative) 06/28/16 19:17 Urine Bilirubin Negative (Negative) 06/28/16 19:17 Urine Urobilinogen <2.0 mg/dL (<2.0) 06/28/16 19:17 Ur Leukocyte Esterase Large (Negative) H 06/28/16 19:17 Urine WBC 37 /hpf (0-5) H 06/28/16 19:17 Ur Squamous Epith Cells 213 /hpf (0-4) H 06/28/16 19:17 Amorphous Sediment Rare /hpf (None) H 06/28/16 19:17 Urine Bacteria Many /hpf (None) H 06/28/16 19:17 Stool Occult Blood Positive (Negative) H 06/28/16 18:51 Random Vancomycin 18.6 ug/mL 07/01/16 07:09 Blood Type O Negative 06/28/16 18:51 Blood Type Recheck No 06/28/16 18:51 Antibody Screen NEGATIVE 06/28/16 18:51 Crossmatch See Detail 06/28/16 18:51 Spec Expiration Date 07/01/2016235006/28/16 18:51 Microbiology 06/30/16 17:10 Urine,Voided Urine Culture - Preliminary 06/28/16 19:17 Urine,Voided Urine Culture - Preliminary Group D Enterococcus Assessment and Plan (1) Ovarian cancer Status: Acute (2) Leukopenia due to antineoplastic chemotherapy Status: Acute (3) Fever Narrative/Plan: Pleasant 76-year-old woman who has a very complex recent past medical history. There was concerns several years ago for osteomyelitis of her spine. However appeared to be just a acute degenerative change. At that time however she did have anemia. Eventually workup occurred that she finally allowed was not evidence of ovarian cancer. She was treated with some chemotherapy and had a significant cutaneous reaction from Doxil. Is not being treated with Chems are. She's having some chronic anemia. She became quite weak and suffered a fall at home. Subsequently she's had some bruising to her left leg. But now developed a significant cellulitis to the right lower extremity. There are no open lesions are seen. It is quite swollen. It will be treated with Silvadene wrap. Patient also likely has a urinary tract infection. Most recent pathogen was E. coli that was resistant to quinolones. levofloxacin will be changed to Rocephin while cultures are in process. Vancomycin is being utilized for cellulitis of the right leg. isolated enterococcus from the urine. This will also treat the Try to elevate will she is at rest. Is being followed by hematology oncology. For both the anemia and her leukopenia that is likely chemotherapy induced. Status: Acute (4) Cellulitis of right lower leg Status: Acute
[2016-07-01] MEDS: SODIUM CHLORIDE 0.9% 1,000 ML IV SCH (23:28)
[2016-07-02 08:01] LABS: Anisocytosis Slight; Basophils % (A) 0 %; CH 33.7; CHCM 32.5; Eosinophils % (A) 1 %; HCT 21.1 % (34.0-46.0); Luc # (Auto) 0.03; Luc % (Auto) 1; Lymphocytes # (A) 0.1 k/uL (1.0-4.8); Lymphocytes % (A) 6 %; MCH 33.5 pg (25.0-35.0); MCHC 32.2 g/dL (31.0-37.0); MCV 104.2 fL (80.0-100.0); Macrocytosis Marked; Mean Platelet Volume 9.1; Monocytes # (A) 0.1 k/uL (0-1.0); Monocytes % (A) 2 %; Neutrophils # (A) 2.1 k/uL (1.3-7.7); Neutrophils % (A) 90 %; RBC 2.03 m/uL (3.80-5.40); RDW 19.9 % (11.5-15.5); WBC 2.4 k/uL (3.8-10.6); WBC (Perox) 2.57
[2016-07-02 08:13] LABS: HGB 6.8 gm/dL (11.4-16.0)
--- NOTE | 2016-07-02 08:21 | PN ---
DATE OF SERVICE: 07/01/2016 This 76-year-old woman was admitted with anemia secondary to chemotherapy received 2 units of transfusion. The patient also had urinary tract infection. Patient is also on broad-spectrum IV antibiotics. The patient also right lower extremity cellulitis. Patient is on local treatment and treatment also. Right extremity still red at this time. The patient also had pancytopenia chemotherapy. Of note, the platelets are 50 at this time. Creatinine is 1.6. Past medical history reviewed. REVIEW OF SYSTEMS: CARDIOVASCULAR: No angina or palpitations. RESPIRATORY: As mentioned earlier. GI: No nausea or vomiting. : No dysuria. Nervous system: No numbness, weakness. Current medications are reviewed and include: 1. Tylenol 650 q.6 p.r.n. 2. [place] 5 mg b.i.d. 4. Rocephin 1000 mg b.i.d. 5. Vitamin D3, 5000 daily. 6. Vitamin B12 1500 mg daily. 7. Flexeril 10 mg q.h.s. 8. Aranesp 100 mcg q7 days. 9. Lomotil b.i.d. p.r.n. 10. Pepcid 20 mg . 11. Heparin 5000 subcu b.i.d. 12. Ativan 1 mg p.o. q.i.d. p.r.n. 13. Mobic. 14. Narcan 0.2 mg IV q2h p.r.n. 15. Zofran. 16. Zoloft. 17. Ultram. 18. Dyazide. On exam, the patient is alert and oriented times three. Pulse is 106, blood pressure 92/51. Respiratory rate 20, temperature 98.4, pulse ox 91% on room air. HEENT: Conjunctivae normal. Oral mucosa moist. NECK: No jugular venous distention. No carotid bruit. No lymph node enlargement. CARDIOVASCULAR: S1, S2 muffled. No S3, no S4. RESPIRATORY: Breath sounds diminished at the bases. A few scattered rhonchi and crackles. ABDOMEN: soft, nontender. No mass palpable. LEGS: Right leg swelling and erythema present especially on the small of the right foot. Some pain, tenderness and swelling also. Nervous system: Higher function as mentioned. Moves all 4 limbs. No focal motor or sensory deficits. LYMPHATICS: No lymph nodes palpable in the neck, axillae or groin. SKIN: no ulcer, rash or bleeding. Labs at this time: WBC 2.5, hemoglobin 7.4, MCV 102.8, platelets 50, sodium 135, creatinine 1.6, BUN is 43. ASSESSMENT: 1. Acute anemia, possibly secondary to chemotherapy status post 2 units of transfusion. 2. Urinary tract infection on Levaquin. 3. Right lower extremity cellulitis and petechial hemorrhages on vancomycin. 4. History of gout. 5. Pancytopenia secondary to chemotherapy. 6. Gastroesophageal reflux disease. 7. Anxiety, depression, not otherwise specified. 8. History of hypertension, essential. 9. History of colon cancer. 10. History of ovarian cancer completed as second cycle of chemo. 11. History of bilateral carpal tunnel release surgery. 12. Increased creatinine with chronic kidney disease stage III. 13. Hyponatremia, hypovolemic. 14. Obesity with body mass index 41.8. 15. FULL CODE. RECOMMENDATIONS AND DISCUSSION: In this 76-year-old woman who presented with multiple complex medical issues, we will monitor the patient closely, continue with current treatment, continue with antibiotics. Otherwise repeat labs in the morning. Closely follow with hematology/oncology. Hemoglobin is significantly improved. Patient has significant therapy. The patient is immunosuppressed. Continue IV antibiotics. Further recommendations to follow. Follow final cultures. MTDD
[2016-07-02] MEDS: MELOXICAM 7.5 MG TAB PO SCH (08:56)
[2016-07-02] MEDS: ALLOPURINOL 300 MG TAB PO SCH (08:57)
[2016-07-02] MEDS: HEPARIN SODIUM,PORCINE 5,000 UNIT/ML 1 ML VIAL SQ SCH (08:57)
[2016-07-02] MEDS: SERTRALINE 50 MG TAB PO SCH (08:57)
[2016-07-02] MEDS: FAMOTIDINE 20 MG TAB PO SCH ×2 (08:57→09:05)
[2016-07-02] MEDS: POTASSIUM CHLORIDE ER 20 MEQ TAB.ER PO SCH (08:57)
[2016-07-02] MEDS: VITAMIN E (DL,TOCOPHERYL ACET) 400 UNIT CAP PO SCH (13:15)
[2016-07-02] MEDS: CYANOCOBALAMIN 500 MCG TAB PO SCH (13:15)
[2016-07-02] MEDS: CHOLECALCIFEROL 1,000 UNIT TAB PO SCH (13:15)
[2016-07-02 14:01] VITALS: RESP 18; TEMP 97.8
[2016-07-02 15:55] VITALS: BP 179/69; PULSE 64
--- NOTE | 2016-07-02 17:59 | P.PN ---
Subjective Principal diagnosis: weakness, exertional dyspnea Pt seen today in follow up. She states that she ate well this AM, her RLE is not as painful, swollen or red. She states feeling well and wanting to go home. Objective - Vital Signs Vital signs: Vital Signs Temp 97.8 F 07/02/16 13:47 Pulse 64 07/02/16 15:52 Resp 18 07/02/16 15:52 BP 179/69 07/02/16 15:52 Pulse Ox 96 07/02/16 15:52 Intake & Output 07/01/16 07/02/16 07/02/16 18:59 06:59 18:59 Intake Total 1940 360 Balance 1940 360 Intake: Intake, IV Titration 200 50 Amount Sodium Chloride 0.9% 1, 200 000 ml @ 20 mls/hr IV . Q24H [facility] Rx#:[id number] cefTRIAXone 1,000 mg In 50 Sodium Chloride 0.9% 50 ml @ 100 mls/hr IVPB Q24HR [facility] Rx#:[id number] Oral 1740 Blood Product 310 Rc As-1 Unit 310 [id number] Other: Voiding Method Bedside Commode Bedside Commode # Voids 5 5 # Bowel Movements 1 - Constitutional General appearance: Present: cooperative, no acute distress, obese - Respiratory Respiratory: bilateral: CTA - Cardiovascular Heart sounds: normal: S1, S2 - Peripheral edema leg Peripheral Edema: right: 1+ (wrapped in SUSY, less redness noted on toe, less swelling), left: Trace - Gastrointestinal General gastrointestinal: Present: normal bowel sounds, soft - Neurologic Neurologic: Present: CNII-XII intact - Musculoskeletal Musculoskeletal: Present: generalized weakness - Psychiatric Psychiatric: Present: A&O x's 3, appropriate affect, intact judgment & insight - Labs CBC & Chem 7: 07/02/16 07:03 07/01/16 07:09 Labs: Abnormal Lab Results - Last 24 Hours (Table) 07/02/16 07/02/16 Range/Units 07:03 07:05 WBC 2.4 L (3.8-10.6) k/uL RBC 2.03 L (3.80-5.40) m/uL Hgb 6.8 L* (11.4-16.0) gm/dL Hct 21.1 L (34.0-46.0) % MCV 104.2 H (80.0-100.0) fL RDW 19.9 H (11.5-15.5) % Plt Count 32 L* (150-450) k/uL Lymphocytes # 0.1 L (1.0-4.8) k/uL Crossmatch See Detail Microbiology - Last 24 Hours (Table) 06/30/16 17:10 Urine Culture - Final Urine,Voided Assessment and Plan (1) Antineoplastic chemotherapy induced pancytopenia Narrative/Plan: 1 unit PRBCs today. Her labs are otherwise near baseline for her while on treatment. She will be seen soon in the outpatient setting. Status: Acute (2) Cellulitis of right lower leg Narrative/Plan: Improved, pt being followed by ID. Status: Acute Plan: Pt ok to be discharged after receiving blood from a Hem/Onc standpoint and after she has been evaluated by Attending and Consulting physicians.
--- NOTE | 2016-07-02 22:47 | P.PN ---
Subjective Principal diagnosis: cellulitis 76-year-old female presents to Hospital from home with increasing weakness and fever. The patient has a known history of ovarian cancer. Has undergone multiple interventions. She was to have a radical surgical intervention but was not deemed a healthy now candidate. Has been on chemotherapy with carboplatin and Taxol. There is evidence of recurrent disease and constantly chemotherapy was altered to Doxil. With the first treatment she developed a severe cutaneous reaction. Once it resolves she has not been treated with Gemzar. She is a long-standing history of anemia and this worsened as of late. For days before admission she was to avoid becoming weak. She suffered a fall at home. Her son had to pick her up. Since then she's had some increasing erythema and tenderness to the right leg. When she was last about her by infectious disease she had significant pain in her back. It was a non-remitting severe pain. She was transferred to a tertiary care center and they're a anesthesia monitored MRI was performed. It appeared that she just had developed an acute disc compression fracture which was etiology of his severe pain. She underwent some therapy. Fortunately there is no evidence of any infection of her spine at that time. He did not require surgical intervention. She's not had ongoing difficulties with back pain over the years. She however does have difficulty with ongoing anemia and has follow-up Dr. Robert with hematology oncology. He also has given her her chemotherapy for her ovarian cancer. She believes that she's had a bit of a fever and chill feeling better at this time. She has been weak but feeling better, will receive 1 unit of PRBc's today Objective - Vital Signs Vital signs: Vital Signs Temp 97.8 F 07/02/16 13:47 Pulse 64 07/02/16 15:52 Resp 18 07/02/16 15:52 BP 179/69 07/02/16 15:52 Pulse Ox 96 07/02/16 15:52 Intake & Output 07/02/16 07/02/16 07/03/16 06:59 18:59 06:59 Intake Total 1939 360 Balance 1939 360 Intake: Intake, IV Titration 200 50 Amount Sodium Chloride 0.9% 1, 200 000 ml @ 20 mls/hr IV . Q24H [facility] Rx#:[id number] cefTRIAXone 1,000 mg In 50 Sodium Chloride 0.9% 50 ml @ 100 mls/hr IVPB Q24HR [facility] Rx#:[id number] Oral 1740 Blood Product 310 Rc As-1 Unit 310 [id number] Other: Voiding Method Bedside Commode # Voids 5 # Bowel Movements 1 - Exam 76-year-old female who is modestly comfortable at this time. HEENT: Anicteric conjunctiva are pale and moist nasal mucosa grossly intact without significant lesions, there is no thrush. Patient has permanent makeup Neck: The neck is supple without significant lymphadenopathy or thyromegaly. Lungs: Symmetric air entry. Few basilar crackles. No kev bronchial sounds. No wheezing is noted. No changes of dullness or egophony Heart: Regular rate and rhythm with an audible S1-S2, no S3 no S4. There is no significant murmur click or rub, PMI was nondisplaced. Abdomen: Obese Positive bowel sounds soft and nontender without palpable masses or organomegaly. There was no guarding or rebound. Extremities: The upper extremities have excellent pulses they are symmetric, no significant petechiae or telangiectasia. There is evidence of bilateral lower extremity edema and there is some bruising on the left medial thigh and left pretibial area from her fall. It's only minimally tender. The right lower extremity however has improvement of the erythema to the foot as well as to the ankle and to the lower leg. It is less warm to touch. There is also quite tender. There are no open ulcers seen. She does have hammertoe. But no ulcers are seen. There is no significant inguinal lymphadenopathy. No other abnormal lymph nodes are noted. Neuro: Awake alert oriented to person place and time. There are no acute new gross focal sensory motor deficits. - Labs CBC & Chem 7: 07/02/16 07:03 07/01/16 07:09 Labs: Abnormal Lab Results - Last 24 Hours (Table) 07/02/16 07/02/16 Range/Units 07:03 07:05 WBC 2.4 L (3.8-10.6) k/uL RBC 2.03 L (3.80-5.40) m/uL Hgb 6.8 L* (11.4-16.0) gm/dL Hct 21.1 L (34.0-46.0) % MCV 104.2 H (80.0-100.0) fL RDW 19.9 H (11.5-15.5) % Plt Count 32 L* (150-450) k/uL Lymphocytes # 0.1 L (1.0-4.8) k/uL Crossmatch See Detail Microbiology - Last 24 Hours (Table) 06/30/16 17:10 Urine Culture - Final Urine,Voided Laboratory Results WBC 2.4 k/uL (3.8-10.6) L 07/02/16 07:03 RBC 2.03 m/uL (3.80-5.40) L 07/02/16 07:03 Hgb 6.8 gm/dL (11.4-16.0) L* 07/02/16 07:03 Hct 21.1 % (34.0-46.0) L 07/02/16 07:03 MCV 104.2 fL (80.0-100.0) H 07/02/16 07:03 MCH 33.5 pg (25.0-35.0) 07/02/16 07:03 MCHC 32.2 g/dL (31.0-37.0) 07/02/16 07:03 RDW 19.9 % (11.5-15.5) H 07/02/16 07:03 Plt Count 32 k/uL (150-450) L* 07/02/16 07:03 Neutrophils % 90 % 07/02/16 07:03 Lymphocytes % 6 % 07/02/16 07:03 Monocytes % 2 % 07/02/16 07:03 Eosinophils % 1 % 07/02/16 07:03 Basophils % 0 % 07/02/16 07:03 Neutrophils # 2.1 k/uL (1.3-7.7) 07/02/16 07:03 Lymphocytes # 0.1 k/uL (1.0-4.8) L 07/02/16 07:03 Monocytes # 0.1 k/uL (0-1.0) 07/02/16 07:03 Eosinophils # 0.0 k/uL (0-0.7) 07/02/16 07:03 Basophils # 0.0 k/uL (0-0.2) 07/02/16 07:03 Manual Slide Review Performed 06/29/16 07:15 Poikilocytosis Slight 06/28/16 18:51 Poikilocytosis (manual Present 06/29/16 07:15 Anisocytosis Slight 07/02/16 07:03 Macrocytosis Marked 07/02/16 07:03 PT 10.7 sec (9.0-12.0) 06/28/16 18:51 INR 1.1 (<1.1) 06/28/16 18:51 APTT 23.1 sec (22.0-30.0) 06/28/16 18:51 Sodium 135 mmol/L (137-145) L 07/01/16 07:09 Potassium 4.7 mmol/L (3.5-5.1) 07/01/16 07:09 Chloride 102 mmol/L (98-107) 07/01/16 07:09 Carbon Dioxide 23 mmol/L (22-30) 07/01/16 07:09 Anion Gap 10 mmol/L 07/01/16 07:09 BUN 43 mg/dL (7-17) H 07/01/16 07:09 Creatinine 1.60 mg/dL (0.52-1.04) H 07/01/16 07:09 Est GFR (MDRD) Af Amer 38 (>60 ml/min/1.73 sqM) 07/01/16 07:09 Est GFR (MDRD) Non-Af 31 (>60 ml/min/1.73 sqM) 07/01/16 07:09 Glucose 106 mg/dL (74-99) H 07/01/16 07:09 Plasma Lactic Acid Manish 0.9 mmol/L (0.7-2.0) 06/29/16 00:08 Calcium 8.9 mg/dL (8.4-10.2) 07/01/16 07:09 Total Bilirubin 1.1 mg/dL (0.2-1.3) 06/29/16 07:15 AST 29 U/L (14-36) 06/29/16 07:15 ALT 25 U/L (9-52) 06/29/16 07:15 Alkaline Phosphatase 67 U/L (38-126) 06/29/16 07:15 Total Protein 5.6 g/dL (6.3-8.2) L 06/29/16 07:15 Albumin 3.0 g/dL (3.5-5.0) L 06/29/16 07:15 Urine Color Yellow 06/28/16 19:17 Urine Appearance Turbid (Clear) H 06/28/16 19:17 Urine pH 5.5 (5.0-8.0) 06/28/16 19:17 Ur Specific [place] 1.011 (1.001-1.035) 06/28/16 19:17 Urine Protein 2+ (Negative) H 06/28/16 19:17 Urine Glucose (UA) Negative (Negative) 06/28/16 19:17 Urine Ketones Negative (Negative) 06/28/16 19:17 Urine Blood Small (Negative) H 06/28/16 19:17 Urine Nitrite Negative (Negative) 06/28/16 19:17 Urine Bilirubin Negative (Negative) 06/28/16 19:17 Urine Urobilinogen <2.0 mg/dL (<2.0) 06/28/16 19:17 Ur Leukocyte Esterase Large (Negative) H 06/28/16 19:17 Urine WBC 37 /hpf (0-5) H 06/28/16 19:17 Ur Squamous Epith Cells 213 /hpf (0-4) H 06/28/16 19:17 Amorphous Sediment Rare /hpf (None) H 06/28/16 19:17 Urine Bacteria Many /hpf (None) H 06/28/16 19:17 Stool Occult Blood Positive (Negative) H 06/28/16 18:51 Random Vancomycin 18.6 ug/mL 07/01/16 07:09 Blood Type O Negative 07/02/16 07:05 Blood Type Recheck No 07/02/16 07:05 Antibody Screen NEGATIVE 07/02/16 07:05 Crossmatch See Detail 07/02/16 07:05 Spec Expiration Date 07/05/2016 - 8291 07/02/16 07:05 Microbiology 06/30/16 17:10 Urine,Voided Urine Culture - Final 06/28/16 19:17 Urine,Voided Urine Culture - Preliminary Group D Enterococcus Assessment and Plan (1) Ovarian cancer Status: Acute (2) Leukopenia due to antineoplastic chemotherapy Status: Acute (3) Fever Narrative/Plan: Pleasant 76-year-old woman who has a very complex recent past medical history. There was concerns several years ago for osteomyelitis of her spine. However appeared to be just a acute degenerative change. At that time however she did have anemia. Eventually workup occurred that she finally allowed was not evidence of ovarian cancer. She was treated with some chemotherapy and had a significant cutaneous reaction from Doxil. Is not being treated with Chems are. She's having some chronic anemia. She became quite weak and suffered a fall at home. Subsequently she's had some bruising to her left leg. But now developed a significant cellulitis to the right lower extremity. There are no open lesions are seen. It is quite swollen. It will be treated with Silvadene wrap. Patient also likely has a urinary tract infection. Most recent pathogen was E. coli that was resistant to quinolones. levofloxacin will be changed to Rocephin while cultures are in process. Vancomycin is being utilized for cellulitis of the right leg. isolated enterococcus from the urine. Try to elevate will she is at rest. Is being followed by hematology oncology. For both the anemia and her leukopenia that is likely chemotherapy induced. Isimproved will discharge home today and follow with HEME/ONC Status: Acute (4) Cellulitis of right lower leg Status: Acute
--- NOTE | 2016-07-03 08:13 | DS ---
DATE OF ADMISSION: 06/28/2016 DATE OF DISCHARGE: 07/02/2016 FINAL DIAGNOSES: 1. Acute anemia, possible secondary to chemotherapy status post 2 units transfusion. 2. Urinary tract infection. 3. Right lower extremity cellulitis and petechial hemorrhage on antibiotics. 4. History of gout. 5. Pancytopenia secondary to chemotherapy. 6. Gastroesophageal reflux disease. 7. Anxiety, depression, not otherwise specified. 8. Hypertension, essential. 9. History of colon cancer. 10. History of ovarian cancer, completed second cycle of chemo. 11. History of bilateral carpal tunnel release surgery. 12. Increased creatinine with chronic kidney disease stage III. 13. Hyponatremia, hypovolemic. 14. Obesity with body mass index of 41.8. 15. FULL CODE. DISCHARGE DISPOSITION: The patient will be discharged in stable condition with guarded prognosis. Total time taken 35 minutes. HISTORY OF PRESENT ILLNESS: This 76 -year-old woman with past medical history of multiple medical problems as mentioned earlier was admitted with anemia, UTI and multiple other complex medical issues including cellulitis. Treated symptomatically with antibiotics. Dr. Curry saw the patient and patient also received 2 units of transfusion. On exam, vitals are stable. CARDIOVASCULAR SYSTEM: S1, S2 muffled. ABDOMEN: Soft. Nervous system: No focal deficits. Hemoglobin 6.8 prior to transfusion. DISCHARGE ADVICE AND MEDICATIONS: 1. Diet is cardiac. 2. Activity limited until follow up. 3. Follow-up with Dr. Mayberry in 2 to 3 days. 4. Follow-up with Dr. Robert as recommended. 5. Medications will be antibiotics per Dr. Curry. 6. Tylenol 650 q.6 p.r.n. 7. Zyloprim 300 mg p.o. daily. 8. Norvasc 5 mg p.o. daily. 9. Vitamin D3, 5000 units daily. 10. Vitamin B12 1500 mg daily. 11. Flexeril 10 mg q.h.s. p.r.n. 12. Diphenoxylate atropine 1 tablet p.o. b.i.d. p.r.n. 13. Lasix 20 mg p.o. with supper and 40 mg p.o. in the morning. 14. Rowlett 5 mg b.i.d. p.r.n. 15. Vistaril 25 mg q.i.d. p.r.n. 16. Ativan 1 mg q.i.d. p.r.n. 17. Mobic 15 mg p.o. daily. 18. prilosec mg p.o. daily. 19. Zofran 4 mg t.i.d. p.r.n. 20. K-Dur 20 meq p.o. b.i.d. 21. Zoloft 50 mg p.o. daily. 22. silver sd one application topically daily. 23. Ultram 50 mg q.6 p.r.n. 24. Dyazide 1 capsule q.h.s. 25. Vitamin E 1000 mg daily. Once again, the patient will be discharged in a stable condition with guarded prognosis. MTDD
[2016-07-08] MEDS ORDERED: DARBEPOETIN ALFA 100MCG/0.5ML SYRINGE SQ SCH (09:00)
== END 2016-07-02 16:40 | disposition home or self-care (01) | DRG 812 ==
LOC: EC 18:11 → 5ONC 21:05
PROVIDERS: ADMIT Internal Medicine; ATTEND Internal Medicine
PROC: 30233N1 Transfusion of Nonautologous Red Blood Cells into Peripheral Vein, Percutaneous Approach (ICD-10-PCS; principal; 2016-06-28)
DX: D64.81 Anemia due to antineoplastic chemotherapy (principal); L03.115 Cellulitis of right lower limb; D70.1 Agranulocytosis secondary to cancer chemotherapy; E87.1 Hypo-osmolality and hyponatremia; Z68.41 Body mass index [BMI] 40.0-44.9, adult; N39.0 Urinary tract infection, site not specified; E86.1 Hypovolemia; D61.810 Antineoplastic chemotherapy induced pancytopenia; K21.9 Gastro-esophageal reflux disease without esophagitis; T45.1X5A Adverse effect of antineoplastic and immunosuppressive drugs, initial encounter; B95.2 Enterococcus as the cause of diseases classified elsewhere; L30.9 Dermatitis, unspecified; M10.9 Gout, unspecified; H40.9 Unspecified glaucoma; N18.3 Chronic kidney disease, stage 3 (moderate); I12.9 Hypertensive chronic kidney disease with stage 1 through stage 4 chronic kidney disease, or unspecified chronic kidney disease; E66.9 Obesity, unspecified; F41.9 Anxiety disorder, unspecified; F32.9 Major depressive disorder, single episode, unspecified; M19.91 Primary osteoarthritis, unspecified site; Z96.653 Presence of artificial knee joint, bilateral; Z85.43 Personal history of malignant neoplasm of ovary; Z85.038 Personal history of other malignant neoplasm of large intestine; Z90.721 Acquired absence of ovaries, unilateral; Z90.79 Acquired absence of other genital organ(s); Z87.891 Personal history of nicotine dependence; Z98.49 Cataract extraction status, unspecified eye; Z96.1 Presence of intraocular lens; Z79.899 Other long term (current) drug therapy; Z79.1 Long term (current) use of non-steroidal anti-inflammatories (NSAID); W19.XXXA Unspecified fall, initial encounter; Y92.009 Unspecified place in unspecified non-institutional (private) residence as the place of occurrence of the external cause
CPT/HCPCS: 36415; 36430; 71020; 78582; 80048; 80053; 80202; 81001; 82272; 83605; 85025; 85610; 85730; 86850; 86900; 86901; 86920; 87077; 87086; 87186; 93005; 94760; 96374; 99285

== ENCOUNTER 2016-07-05 05:05 | Inpatient (IN) | payer MEDICARE, OTHER ==
[2016-07-05] MEDS ORDERED: ACETAMINOPHEN TAB 325 MG TAB PO STA (05:23)
--- NOTE | 2016-07-05 05:55 | XR ---
EXAM: XR Chest, 1 View CLINICAL HISTORY: fever, lower leg cellulitis TECHNIQUE: Frontal view of the chest. COMPARISON: Chest x-ray 06/28/16. FINDINGS: Lungs: Unremarkable. No consolidation. Pleural space: Unremarkable. No pneumothorax. Heart: Stable cardiomegaly. Mediastinum: Unremarkable. Bones/joints: Unremarkable. Other findings: Right chest port stable. IMPRESSION: No acute findings.
[2016-07-05 06:01] LABS: Anisocytosis Moderate; Basophils % (A) 0 %; CH 33.3; CHCM 34.6; Eosinophils % (A) 1 %; HCT 20.7 % (34.0-46.0); HDW 3.57; HGB 7.1 gm/dL (11.4-16.0); Luc # (Auto) 0.04; Luc % (Auto) 1; Lymphocytes # (A) 0.2 k/uL (1.0-4.8); Lymphocytes % (A) 6 %; MCH 33.1 pg (25.0-35.0); MCHC 34.3 g/dL (31.0-37.0); Macrocytosis Slight; Mean Platelet Volume 10.2; Monocytes # (A) 0.1 k/uL (0-1.0); Monocytes % (A) 3 %; Neutrophils # (A) 3.2 k/uL (1.3-7.7); Neutrophils % (A) 89 %; Poikilocytosis Slight; RBC 2.14 m/uL (3.80-5.40); RDW 20.2 % (11.5-15.5); WBC 3.6 k/uL (3.8-10.6); WBC (Perox) 3.52
[2016-07-05 06:03] LABS: MCV 96.5 fL (80.0-100.0)
[2016-07-05 06:14] LABS: Calcium 7.8 mg/dL (8.4-10.2); Potassium 4.2 mmol/L (3.5-5.1); Total Bilirubin 0.7 mg/dL (0.2-1.3); Total Protein 5.3 g/dL (6.3-8.2)
[2016-07-05 06:15] LABS: Manual Review Performed
[2016-07-05] MEDS ORDERED: LEVOFLOXACIN 750MG-D5W PMX 750 MG in DEXTROSE/WATER 1 150ML.BAG IVPB STA (07:14)
[2016-07-05] MEDS ORDERED: IV VANCOMYCIN PER PHARMACY 1 EACH MISC MISCELLANE PRN (07:18)
--- NOTE | 2016-07-05 07:27 | ED ---
Skin/Abscess/FB HPI - General Chief complaint: Skin/Abscess/Foreign Body Stated complaint: Cellulitis Time Seen by Provider: 07/05/16 05:20 Source: patient, EMS Mode of arrival: EMS Limitations: physical limitation - History of Present Illness Initial comments: This patient is a 76-year-old woman who states that she had been in the hospital for cellulitis and also urinary tract infection, being treated by Dr. Cano. She states that he had wanted to keep her an additional day to two, but she talked the physicians into letting her go home, and that since that time her cellulitis seems to be worsening. The patient states she felt like she had a fever overnight and she also noticed that the redness and swelling of her right leg was spreading up to the knee. The patient does state that the urinary tract infection symptoms seem to have improved. She does continue to take an antibiotic but does not recall name of it. Patient denies other symptoms of infection, including no cough, dyspnea, palpitations, chest pain, nausea, vomiting or diarrhea. MD complaint: discoloration -: days(s) Quality: burning Consistency: constant Improves with: none Worsens with: none Associated symptoms: fever, chills Treatments Prior to Arrival: antibiotic - Related Data Home Medications Medication Instructions Recorded Confirmed Sertraline [Zoloft] 50 mg PO DAILY 12/11/14 07/05/16 amLODIPine [Norvasc] 5 mg PO DAILY 12/11/14 07/05/16 Meloxicam [Mobic] 15 mg PO DAILY 01/09/15 07/05/16 Cholecalciferol [Vitamin D3] 5,000 unit PO DAILY 07/26/15 07/05/16 Cyanocobalamin [Vitamin B-12] 1,500 mcg PO DAILY 07/26/15 07/05/16 Triamterene-Hctz 37.5-25Mg 1 cap PO HS 07/26/15 07/05/16 [Dyazide 37.5-25 Capsule] hydrOXYzine PAMOATE [Vistaril] 25 mg PO QID PRN 07/26/15 07/05/16 Furosemide [Lasix] 20 mg PO W/SUPPER 11/22/15 07/05/16 Ondansetron HCl [Zofran] 4 mg PO TID PRN 11/22/15 07/05/16 LORazepam [Ativan] 1 mg PO QID PRN 06/02/16 07/05/16 Allopurinol [Zyloprim] 300 mg PO DAILY 06/28/16 07/05/16 Cyclobenzaprine [Flexeril] 10 mg PO HS PRN 06/28/16 07/05/16 Diphenox-Atrop 2.5-0.025 mg 1 tab PO BID PRN 06/28/16 07/05/16 [Lomotil] Furosemide [Lasix] 40 mg PO QAM 06/28/16 07/05/16 HYDROcodone/APAP 5-325MG [[place]abel 1 tab PO BID PRN 06/28/16 07/05/16 5-325] Omeprazole [PriLOSEC] 40 mg PO DAILY 06/28/16 07/05/16 Potassium Chloride ER [K-Dur 10] 20 meq PO BID 06/28/16 07/05/16 Vitamin E 1,000 unit PO DAILY 06/28/16 07/05/16 traMADol HCL [Ultram] 50 mg PO Q6HR PRN 06/28/16 07/05/16 Previous Rx's Medication Instructions Recorded Acetaminophen Tab [Tylenol] 650 mg PO Q6HR PRN tab 07/02/16 Amoxic-Pot Clav 875-125Mg 1 tab PO Q12HR #20 tablet 07/02/16 [Augmentin 875-125] SILVER sulfADIAZINE CREAM 1 applic TOPICAL BID #1 dose 07/02/16 [Silvadene Cream] Allergies Allergy/AdvReac Type Severity Reaction Status Date / Time adhesive tape Allergy Rash/Hives Verified 07/05/16 05:12 codeine Allergy Itching Verified 07/05/16 05:12 latex Allergy Rash/Hives Verified 07/05/16 05:12 Review of Systems ROS Statement: Those systems with pertinent positive or pertinent negative responses have been documented in the HPI. ROS Other: All systems not noted in ROS Statement are negative. Constitutional: Reports: fever, chills ENT: Denies: throat pain Respiratory: Denies: cough, dyspnea, wheezes Cardiovascular: Reports: edema. Denies: chest pain, palpitations, orthopnea, syncope Gastrointestinal: Denies: abdominal pain, nausea, vomiting, diarrhea Genitourinary: Denies: dysuria, hematuria Musculoskeletal: Denies: back pain Skin: Reports: as per HPI, rash, change in color Neurological: Denies: headache, weakness, numbness Past Medical History Past Medical History: Cancer, GERD/Reflux, Hypertension, Osteoarthritis (OA) Additional Past Medical History / Comment(s): glaucoma, GOUT,CHRONIC ITCHY SKIN RASH(ECZEMA-TAKES VISTARIL), MURMUR, ANEMIA.CELLULITS recent dx with ovarian ca dx august 2015. colon cancer august 2015 History of Any Multi-Drug Resistant Organisms: None Reported Past Surgical History: Appendectomy, Orthopedic Surgery Additional Past Surgical History / Comment(s): BL knee replacement, right salpingectomy and oophorectomy, cataract removal and lens implants, laser surgery for glaucoma, right breast biopsy that was benign, SHANTANU CARPAL TUNNEL RELEASE. Past Anesthesia/Blood Transfusion Reactions: No Reported Reaction Additional Past Anesthesia/Blood Transfusion Reaction / Comment(s): HAD BLOOD TRANSFUSION-NO REACTION Past Psychological History: Anxiety, Depression Additional Psychological History / Comment(s): PT LIVES IN OWN HOME,HER SON THRIL LIVES WITH HER. PT USES A CANE/WALKER OR W/C NEEDED.,CURRENTLY NOT RECIEVING ANY HOME CARE SERVICES. 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 PT LOST HER SISTER A MONTH AGO HAS SOME MILD DEPReSION/SADNESS OVER THIS. No animals in the home. No experience. No Travel history Smoking Status: Former smoker Past Alcohol Use History: None Reported Additional Past Alcohol Use History / Comment(s): Patient was a smoker one pack per day for 20 years and quit in 1996. She denies any marijuana or alcohol use. Past Drug Use History: None Reported - Past Family History Mother Family Medical History: Cancer Additional Family Medical History / Comment(s): Lung cancer Father Family Medical History: Cancer Additional Family Medical History / Comment(s): No reports of GI malignancy General Exam Limitations: physical limitation General appearance: alert, in no apparent distress Head exam: Present: atraumatic, normocephalic Eye exam: Present: normal appearance, other (There is conjunctival pallor). Absent: scleral icterus, conjunctival injection ENT exam: Present: normal oropharynx Neck exam: Present: normal inspection, full ROM Respiratory exam: Present: normal lung sounds bilaterally. Absent: respiratory distress, wheezes, rales, rhonchi, stridor Cardiovascular Exam: Present: normal rhythm, tachycardia (Rate is 104 at my exam ), systolic murmur (Grade 1/6 systolic ejection murmur). Absent: diastolic murmur, rubs, gallop GI/Abdominal exam: Present: soft. Absent: distended, tenderness, guarding, rebound, mass Extremities exam: Present: normal capillary refill, pedal edema, other (The patient has bilateral dressings. There is circumferential cellulitis nearly to the right knee.). Absent: calf tenderness Back exam: Absent: CVA tenderness (R), CVA tenderness (L) Neurological exam: Present: alert Skin exam: Present: warm, dry, intact, erythema, pallor. Absent: cyanosis, diaphoretic, petechiae, mottled Course Vital Signs 07/05/16 05:09 Temperature 97.7 F Pulse Rate 101 H Respiratory 20 Rate Blood Pressure 106/51 O2 Sat by Pulse 97 Oximetry Medical Decision Making - Lab Data Result diagrams: 07/05/16 05:35 07/05/16 05:35 Lab Results 07/05/16 07/05/16 07/05/16 Range/Units 05:35 05:35 05:35 WBC 3.6 L (3.8-10.6) k/uL RBC 2.14 L (3.80-5.40) m/uL Hgb 7.1 L (11.4-16.0) gm/dL Hct 20.7 L (34.0-46.0) % MCV 96.5 D (80.0-100.0) fL MCH 33.1 (25.0-35.0) pg MCHC 34.3 (31.0-37.0) g/dL RDW 20.2 H (11.5-15.5) % Plt Count 21 L* (150-450) k/uL Neutrophils % 89 % Lymphocytes % 6 % Monocytes % 3 % Eosinophils % 1 % Basophils % 0 % Neutrophils # 3.2 (1.3-7.7) k/uL Lymphocytes # 0.2 L (1.0-4.8) k/uL Monocytes # 0.1 (0-1.0) k/uL Eosinophils # 0.0 (0-0.7) k/uL Basophils # 0.0 (0-0.2) k/uL Manual Slide Review Performed Poikilocytosis Slight Anisocytosis Moderate Macrocytosis Slight Sodium 138 (137-145) mmol/L Potassium 4.2 (3.5-5.1) mmol/L Chloride 105 (98-107) mmol/L Carbon Dioxide 23 (22-30) mmol/L Anion Gap 10 mmol/L BUN 35 H (7-17) mg/dL Creatinine 1.46 H (0.52-1.04) mg/dL Est GFR (MDRD) Af Amer 42 (>60 ml/min/1.73 sqM) Est GFR (MDRD) Non-Af 35 (>60 ml/min/1.73 sqM) Glucose 110 H (74-99) mg/dL Plasma Lactic Acid Manish 1.3 (0.7-2.0) mmol/L Calcium 7.8 L (8.4-10.2) mg/dL Total Bilirubin 0.7 (0.2-1.3) mg/dL AST 36 (14-36) U/L ALT 67 H (9-52) U/L Alkaline Phosphatase 179 H (38-126) U/L Total Protein 5.3 L (6.3-8.2) g/dL Albumin 2.7 L (3.5-5.0) g/dL Disposition Clinical Impression: Cellulitis, Pancytopenia Disposition: ADMITTED IP TO THIS [facility] Condition: Poor Referrals: Dipesh Mayberry MD [Primary Care Provider] - 1-2 days
[2016-07-05] MEDS ORDERED: VANCOMYCIN 1,500 MG in SODIUM CHLORIDE 0.9% 250 ML IVPB ONE (08:00)
[2016-07-05] MEDS ORDERED: FAMOTIDINE 20 MG/2 ML VIAL IV SCH ×2 (09:00→09:51)
[2016-07-05 10:51] VITALS: BMI 40.1
[2016-07-05] MEDS: HEPARIN SODIUM,PORCINE 5,000 UNIT/ML 1 ML VIAL SQ SCH ×2 (13:43→22:57)
[2016-07-05] MEDS: FAMOTIDINE 20 MG/2 ML VIAL IV SCH (13:43)
--- NOTE | 2016-07-05 14:26 | P.CONS ---
History of Present Illness - Reason for Consult Consult date: 07/05/16 - Chief Complaint Right leg pain and swelling - History of Present Illness 76-year-old female presents to Hospital from home after having just been discharged from hospital. When she was here she had difficulty with the right lower extremity cellulitis. Was responding well to local care with wrap elevation antibiotic therapy. Is related from the primary team she was insistent about going home. Was discharged on oral antibiotic therapy. Has now failed. It is now readmitted. The patient has a known history of ovarian cancer. Has undergone multiple interventions. She was to have a radical surgical intervention but was not deemed a healthy now candidate. Has been on chemotherapy with carboplatin and Taxol. There is evidence of recurrent disease and constantly chemotherapy was altered to Doxil. With the first treatment she developed a severe cutaneous reaction. Once it resolves she has not been treated with Gemzar. She is a long -standing history of anemia and this worsened as of late. Shoelace before admission she was to avoid becoming weak. She suffered a fall at home. Her son had to pick her up. Since then she's had some increasing erythema and tenderness to the right leg. When she was last about her by infectious disease she had significant pain in her back. It was a non-remitting severe pain. She was transferred to a tertiary care center and they're a anesthesia monitored MRI was performed. It appeared that she just had developed an acute disc compression fracture which was etiology of his severe pain. She underwent some therapy. Fortunately there is no evidence of any infection of her spine at that time. He did not require surgical intervention. She's not had ongoing difficulties with back pain over the years. She however does have difficulty with ongoing anemia and has follow-up Dr. Robert with hematology oncology. He also has given her her chemotherapy for her ovarian cancer. She believes that she's had a bit of a fever and chill feeling better at this time Review of Systems 76-year-old woman who is modestly comfortable at this point in time. This complaining of some frequent urination. HEENT:Denies headache or acute visual change. Denies sinus or mouth discomforts. Denies neck stiffness or pain. Denies significant oral cavity pain. Denies difficulty on swallowing. Lungs: Denies significant shortness of breath, cough, sputum production, or hemoptysis. Cardiovascular: Denies significant shortness of breath, chest pain, chest wall pain, orthopnea, dyspnea on exertion, syncope Gastrointestinal:Denies nausea, vomiting, diarrhea, constipation, hematemesis, melena, hematochezia. No no significant change of bowel habit noticed. Musculoskeletal: denies significant myalgias or arthralgias. No new joint swelling. Denies new back pain. Skin: Per the HPI redness and erythema to the right leg. Erasmo of the left leg. Neuro: Denies headache or visual change. Denies any new onset weakness or difficulty with ambulation. Denies falls or seizures. Psychiatric:Denies anxiety or depression. Endocrine: Denies significant fatigue, denies significant weight loss or weight gain. Urologic: Has evidence of urinary frequency which is not new. But is having some urinary hesitancy at this times. 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 colon cancer august 2015 History of Any Multi-Drug Resistant Organisms: None Reported Past Surgical History: Appendectomy, Orthopedic Surgery Additional Past Surgical History / Comment(s): BL knee replacement, right salpingectomy and oophorectomy, cataract removal and lens implants, laser surgery for glaucoma, right breast biopsy that was benign, SHANTANU CARPAL TUNNEL RELEASE. Past Anesthesia/Blood Transfusion Reactions: No Reported Reaction Additional Past Anesthesia/Blood Transfusion Reaction / Comm: HAD BLOOD TRANSFUSION-NO REACTION Past Psychological History: Anxiety, Depression Additional Psychological History / Comment(s): PT LIVES IN OWN HOME,HER SON THRIL LIVES WITH HER. PT USES A CANE/WALKER OR W/C NEEDED.,CURRENTLY NOT RECIEVING ANY HOME CARE SERVICES. 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 HER STAGE NAME WAS "[employer]". PT LOST HER SISTER A MONTH AGO HAS SOME MILD DEPReSION/SADNESS OVER THIS. No animals in the home. No experience. No Travel history Smoking Status: Former smoker Past Alcohol Use History: None Reported Additional Past Alcohol Use History / Comment(s): Patient was a smoker one pack per day for 20 years and quit in 1996. She denies any marijuana or alcohol use. Past Drug Use History: None Reported - Past Family History Mother Family Medical History: Cancer Additional Family Medical History / Comment(s): Lung cancer Father Family Medical History: Cancer Additional Family Medical History / Comment(s): No reports of GI malignancy Medications and Allergies Home Medications and Allergies Comment(s): Current Medications Famotidine (Pepcid) 20 mg IV DAILY [facility] Last Admin: 07/05/16 13:43 Dose: 20 mg Heparin Sodium (Porcine) (Heparin) 5,000 unit SQ Q12HR [facility] Last Admin: 07/05/16 13:43 Dose: 5,000 unit Levofloxacin 750 mg/ IV (Solution) 150 mls @ 100 mls/hr IVPB Q48H [facility] Vancomycin HCl 1,500 mg/ (Sodium Chloride) 250 mls @ 125 mls/hr IVPB ONCE ONE Stop: 07/06/16 07:59 Miscellaneous Information (Pharmacy To Dose Iv Vancomycin) 1 each MISCELLANE DIRECTED PRN PRN Reason: Per Protocol Silver Sulfadiazine (Silvadene Cream) 1 applic TOPICAL BID [facility] Home Medications Medication Instructions Recorded Confirmed Type Sertraline [Zoloft] 50 mg PO DAILY 12/11/14 07/05/16 History amLODIPine [Norvasc] 5 mg PO DAILY 12/11/14 07/05/16 History Meloxicam [Mobic] 15 mg PO DAILY 01/09/15 07/05/16 History Cyanocobalamin [Vitamin B-12] 1,500 mcg PO DAILY 07/26/15 07/05/16 History Triamterene-Hctz 37.5-25Mg 1 cap PO DAILY 07/26/15 07/05/16 History [Dyazide 37.5-25 Capsule] hydrOXYzine PAMOATE [Vistaril] 25 mg PO QID PRN 07/26/15 07/05/16 History Furosemide [Lasix] 20 mg PO W/SUPPER 11/22/15 07/05/16 History Ondansetron HCl [Zofran] 4 mg PO TID PRN 11/22/15 07/05/16 History LORazepam [Ativan] 1 mg PO QID PRN 06/02/16 07/05/16 History Allopurinol [Zyloprim] 300 mg PO DAILY 06/28/16 07/05/16 History Diphenox-Atrop 2.5-0.025 mg 1 tab PO BID PRN 06/28/16 07/05/16 History [Lomotil] Furosemide [Lasix] 40 mg PO QAM 06/28/16 07/05/16 History HYDROcodone/APAP 5-325MG [[place] 1 tab PO BID PRN 06/28/16 07/05/16 History 5-325] Potassium Chloride ER [K-Dur 10] 20 meq PO BID 06/28/16 07/05/16 History traMADol HCL [Ultram] 50 mg PO Q6HR PRN 06/28/16 07/05/16 History ALPRAZolam [Xanax] 0.25 mg PO DAILY PRN 07/05/16 07/05/16 History Ensure 1 can PO DAILY 07/05/16 07/05/16 History Lidocaine 4% Cream [Lmx 4] 1 applic TOPICAL DAILY PRN 07/05/16 07/05/16 History Loperamide [Imodium] 2 mg PO QID PRN 07/05/16 07/05/16 History Omeprazole 20 mg PO DAILY PRN 07/05/16 07/05/16 History Allergies Allergy/AdvReac Type Severity Reaction Status Date / Time adhesive tape Allergy Rash/Hives Verified 07/05/16 08:03 codeine Allergy Itching Verified 07/05/16 08:03 latex Allergy Rash/Hives Verified 07/05/16 08:03 Physical Exam Vitals: Vital Signs Temp Pulse Pulse Resp BP BP Pulse Ox 07/05/16 08:01 98.1 F 80 18 142/69 98 07/05/16 07:55 99.0 F 95 18 106/53 99 07/05/16 05:09 97.7 F 101 H 20 106/51 97 Intake and Output 07/04/16 07/05/16 07/05/16 22:59 06:59 14:59 Intake Total 240 Balance 240 Intake: Oral 240 Other: # Voids 3 Weight 87.09 kg 87.09 kg Patient Weight 07/06/16 06:59 Weight 87.09 kg 76-year-old female who is modestly comfortable at this time. HEENT: Anicteric conjunctiva are pale and moist nasal mucosa grossly intact without significant lesions, there is no thrush. Patient has permanent makeup Neck: The neck is supple without significant lymphadenopathy or thyromegaly. Lungs: Symmetric air entry. Few basilar crackles. No kev bronchial sounds. No wheezing is noted. No changes of dullness or egophony Heart: Regular rate and rhythm with an audible S1-S2, no S3 no S4. There is no significant murmur click or rub, PMI was nondisplaced. Abdomen: Obese Positive bowel sounds soft and nontender without palpable masses or organomegaly. There was no guarding or rebound. Extremities: The upper extremities have excellent pulses they are symmetric, no significant petechiae or telangiectasia. There is evidence of bilateral lower extremity edema and there is some bruising on the left medial thigh and left pretibial area from her fall. It's only minimally tender. The right lower extremity however has distinct erythema to the foot as well as to the ankle and to the lower leg. There is circumferential. It is warm to touch. There is also quite tender. There are no open ulcers seen. She does have hammertoe. But no ulcers are seen. There is no significant inguinal lymphadenopathy. No other abnormal lymph nodes are noted. Neuro: Awake alert oriented to person place and time. There are no acute new gross focal sensory motor deficits. Results CBC & Chem 7: 07/05/16 05:35 07/05/16 05:35 Labs: Abnormal Lab Results - Last 24 Hours (Table) 07/05/16 07/05/16 Range/Units 05:35 05:35 WBC 3.6 L (3.8-10.6) k/uL RBC 2.14 L (3.80-5.40) m/uL Hgb 7.1 L (11.4-16.0) gm/dL Hct 20.7 L (34.0-46.0) % RDW 20.2 H (11.5-15.5) % Plt Count 21 L* (150-450) k/uL Lymphocytes # 0.2 L (1.0-4.8) k/uL BUN 35 H (7-17) mg/dL Creatinine 1.46 H (0.52-1.04) mg/dL Glucose 110 H (74-99) mg/dL Calcium 7.8 L (8.4-10.2) mg/dL ALT 67 H (9-52) U/L Alkaline Phosphatase 179 H (38-126) U/L Total Protein 5.3 L (6.3-8.2) g/dL Albumin 2.7 L (3.5-5.0) g/dL Laboratory Results WBC 3.6 k/uL (3.8-10.6) L 07/05/16 05:35 RBC 2.14 m/uL (3.80-5.40) L 07/05/16 05:35 Hgb 7.1 gm/dL (11.4-16.0) L 07/05/16 05:35 Hct 20.7 % (34.0-46.0) L 07/05/16 05:35 MCV 96.5 fL (80.0-100.0) D 07/05/16 05:35 MCH 33.1 pg (25.0-35.0) 07/05/16 05:35 MCHC 34.3 g/dL (31.0-37.0) 07/05/16 05:35 RDW 20.2 % (11.5-15.5) H 07/05/16 05:35 Plt Count 21 k/uL (150-450) L* 07/05/16 05:35 Neutrophils % 89 % 07/05/16 05:35 Lymphocytes % 6 % 07/05/16 05:35 Monocytes % 3 % 07/05/16 05:35 Eosinophils % 1 % 07/05/16 05:35 Basophils % 0 % 07/05/16 05:35 Neutrophils # 3.2 k/uL (1.3-7.7) 07/05/16 05:35 Lymphocytes # 0.2 k/uL (1.0-4.8) L 07/05/16 05:35 Monocytes # 0.1 k/uL (0-1.0) 07/05/16 05:35 Eosinophils # 0.0 k/uL (0-0.7) 07/05/16 05:35 Basophils # 0.0 k/uL (0-0.2) 07/05/16 05:35 Manual Slide Review Performed 07/05/16 05:35 Poikilocytosis Slight 07/05/16 05:35 Anisocytosis Moderate 07/05/16 05:35 Macrocytosis Slight 07/05/16 05:35 Sodium 138 mmol/L (137-145) 07/05/16 05:35 Potassium 4.2 mmol/L (3.5-5.1) 07/05/16 05:35 Chloride 105 mmol/L (98-107) 07/05/16 05:35 Carbon Dioxide 23 mmol/L (22-30) 07/05/16 05:35 Anion Gap 10 mmol/L 07/05/16 05:35 BUN 35 mg/dL (7-17) H 07/05/16 05:35 Creatinine 1.46 mg/dL (0.52-1.04) H 07/05/16 05:35 Est GFR (MDRD) Af Amer 42 (>60 ml/min/1.73 sqM) 07/05/16 05:35 Est GFR (MDRD) Non-Af 35 (>60 ml/min/1.73 sqM) 07/05/16 05:35 Glucose 110 mg/dL (74-99) H 07/05/16 05:35 Plasma Lactic Acid Manish 1.3 mmol/L (0.7-2.0) 07/05/16 05:35 Calcium 7.8 mg/dL (8.4-10.2) L 07/05/16 05:35 Total Bilirubin 0.7 mg/dL (0.2-1.3) 07/05/16 05:35 AST 36 U/L (14-36) 07/05/16 05:35 ALT 67 U/L (9-52) H 07/05/16 05:35 Alkaline Phosphatase 179 U/L (38-126) H 07/05/16 05:35 Total Protein 5.3 g/dL (6.3-8.2) L 07/05/16 05:35 Albumin 2.7 g/dL (3.5-5.0) L 07/05/16 05:35 Assessment and Plan (1) Cellulitis Narrative/Plan: Pleasant 76-year-old woman who has a very complex recent past medical history. There was concerns several years ago for osteomyelitis of her spine. However appeared to be just a acute degenerative change. At that time however she did have anemia. Eventually workup occurred that she finally allowed was not evidence of ovarian cancer. She was treated with some chemotherapy and had a significant cutaneous reaction from Doxil. Is not being treated with Chems are. She's having some chronic anemia. She became quite weak and suffered a fall at home. Subsequently she's had some bruising to her left leg. But now developed a significant cellulitis to the right lower extremity. She was hospitalized. She was doing somewhat better and was rather insistent on being discharged home. Apparently shortly after her discharge home or symptoms of worsening and has now been readmitted. Starting to respond well to current antibiotic therapy of vancomycin as well as local wound care. Will continue the Silvadene wrap. Continue elevation and antibiotic therapy. She did have a urinary tract infection with enterococcus in the last dose of vancomycin would also be treating. Patient agrees to stay until she has improvement of the significant sialitis problem because it is quite uncomfortable. We'll monitor as possible. Status: Acute (2) Pancytopenia Status: Acute
[2016-07-05 14:49] LABS: Appearance,Urine Clear (Clear); Bilirubin,Urine Negative (Negative); Glucose,Urine (UA) Negative (Negative); Ketones,Urine Negative (Negative); Leukocyte Esterase,Urine Negative (Negative); Nitrite,Urine Negative (Negative); PH, Urine 5.5 (5.0-8.0); Protein,Urine Negative (Negative); Specific Gravity,Urine 1.011 (1.001-1.035); UA Billing (MACRO vs. MICRO) CHEM; Urobilinogen,Urine <2.0 mg/dL (<2.0)
[2016-07-05] MEDS ORDERED: LORazepam 1 MG TAB PO PRN (14:52)
[2016-07-05] MEDS ORDERED: LIDOCAINE 4% CREAM 5 GM TUBE TOPICAL PRN (14:52)
[2016-07-05] MEDS ORDERED: hydrOXYzine PAMOATE 25 MG CAP PO PRN (14:52)
[2016-07-05] MEDS ORDERED: PANTOPRAZOLE 40 MG TABLET PO PRN (14:52)
[2016-07-05] MEDS ORDERED: traMADol 50 MG TAB PO PRN (14:52)
[2016-07-05] MEDS ORDERED: LOPERAMIDE 2 MG CAP PO PRN (14:52)
[2016-07-05] MEDS ORDERED: ALPRAZolam 0.25 MG TAB PO PRN (14:52)
[2016-07-05] MEDS ORDERED: HYDROcodone/APAP 5-325MG 1 EACH TAB PO PRN (14:52)
[2016-07-05] MEDS ORDERED: DIPHENOX-ATROP 2.5-0.025 MG 1 EACH TAB PO PRN (14:52)
--- NOTE | 2016-07-05 16:32 | P.CONS ---
History of Present Illness - Reason for Consult Consult date: 07/05/16 pancytopenia, ovarina malignancy, on chemo Requesting physician: Efren Valencia - Chief Complaint progressive RLE cellulitis - History of Present Illness Please refer to consult dated 6 days ago for full malignancy details and patient 's malignancy history, there is nothing to update in this aspect at this time Patient was just recently discharged from the hospital, she was admitted for right lower extremity cellulitis as well as anemia. Patient has been experiencing severe hematological toxicity secondary to her chemotherapy treatment for metastatic ovarian cancer and has required frequent transfusions. After this hospitalization patient is scheduled to follow-up with Dr. Robert to have a discussion regarding her treatment and how they plan to proceed based on these recurrent toxicities. In regards to the patient's cellulitis she states that she has had this before. Patient was admitted and treated for the same, her symptoms were nearly completely resolved and she was discharged home on oral antibiotics. Unfortunately, patient's symptoms progressed rather rapidly. Patient states that the redness progressed from her platt up to just below the knee of her right lower extremity, she also noted some swelling in her left lower extremity and she had a temperature just below 100 Fahrenheit. Patient decided it was in her best interest to return to the hospital for treatment. Patient is admitted for the same, IV antibiotics have been prescribed. Patient is also being transfused with 1 unit of blood for Hgb of 7.1, she did receive Aranesp earlier this week during her admission for chemo-induced anemia. Review of Systems All systems: negative Constitutional: Reports as per HPI Past Medical History Past Medical History: Cancer, GERD/Reflux, Hypertension, Osteoarthritis (OA) Additional Past Medical History / Comment(s): glaucoma, GOUT,CHRONIC ITCHY SKIN RASH(ECZEMA-TAKES VISTARIL), MURMUR, ANEMIA.CELLULITS recent dx with ovarian ca dx august 2015. colon cancer august 2015 History of Any Multi-Drug Resistant Organisms: None Reported Past Surgical History: Appendectomy, Orthopedic Surgery Additional Past Surgical History / Comment(s): BL knee replacement, right salpingectomy and oophorectomy, cataract removal and lens implants, laser surgery for glaucoma, right breast biopsy that was benign, SHANTAUN CARPAL TUNNEL RELEASE. Past Anesthesia/Blood Transfusion Reactions: No Reported Reaction Additional Past Anesthesia/Blood Transfusion Reaction / Comm: HAD BLOOD TRANSFUSION-NO REACTION Past Psychological History: Anxiety, Depression Additional Psychological History / Comment(s): PT LIVES IN OWN HOME,HER SON PATRICIA LIVES WITH HER. PT USES A CANE/WALKER OR W/C NEEDED.,CURRENTLY NOT RECIEVING ANY HOME CARE SERVICES. 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 PT LOST HER SISTER A MONTH AGO HAS SOME MILD DEPReSION/SADNESS OVER THIS. No animals in the home. No experience. No Travel history Smoking Status: Former smoker Past Alcohol Use History: None Reported Additional Past Alcohol Use History / Comment(s): Patient was a smoker one pack per day for 20 years and quit in 1996. She denies any marijuana or alcohol use. Past Drug Use History: None Reported - Past Family History Mother Family Medical History: Cancer Additional Family Medical History / Comment(s): Lung cancer Father Family Medical History: Cancer Additional Family Medical History / Comment(s): No reports of GI malignancy Medications and Allergies Home Medications Medication Instructions Recorded Confirmed Type Sertraline [Zoloft] 50 mg PO DAILY 12/11/14 07/05/16 History amLODIPine [Norvasc] 5 mg PO DAILY 12/11/14 07/05/16 History Meloxicam [Mobic] 15 mg PO DAILY 01/09/15 07/05/16 History Cyanocobalamin [Vitamin B-12] 1,500 mcg PO DAILY 07/26/15 07/05/16 History Triamterene-Hctz 37.5-25Mg 1 cap PO DAILY 07/26/15 07/05/16 History [Dyazide 37.5-25 Capsule] hydrOXYzine PAMOATE [Vistaril] 25 mg PO QID PRN 07/26/15 07/05/16 History Furosemide [Lasix] 20 mg PO W/SUPPER 11/22/15 07/05/16 History Ondansetron HCl [Zofran] 4 mg PO TID PRN 11/22/15 07/05/16 History LORazepam [Ativan] 1 mg PO QID PRN 06/02/16 07/05/16 History Allopurinol [Zyloprim] 300 mg PO DAILY 06/28/16 07/05/16 History Diphenox-Atrop 2.5-0.025 mg 1 tab PO BID PRN 06/28/16 07/05/16 History [Lomotil] Furosemide [Lasix] 40 mg PO QAM 06/28/16 07/05/16 History HYDROcodone/APAP 5-325MG [[place] 1 tab PO BID PRN 06/28/16 07/05/16 History 5-325] Potassium Chloride ER [K-Dur 10] 20 meq PO BID 06/28/16 07/05/16 History traMADol HCL [Ultram] 50 mg PO Q6HR PRN 06/28/16 07/05/16 History ALPRAZolam [Xanax] 0.25 mg PO DAILY PRN 07/05/16 07/05/16 History Ensure 1 can PO DAILY 07/05/16 07/05/16 History Lidocaine 4% Cream [Lmx 4] 1 applic TOPICAL DAILY PRN 07/05/16 07/05/16 History Loperamide [Imodium] 2 mg PO QID PRN 07/05/16 07/05/16 History Omeprazole 20 mg PO DAILY PRN 07/05/16 07/05/16 History Allergies Allergy/AdvReac Type Severity Reaction Status Date / Time adhesive tape Allergy Rash/Hives Verified 07/05/16 08:03 codeine Allergy Itching Verified 07/05/16 08:03 latex Allergy Rash/Hives Verified 07/05/16 08:03 Physical Exam Vitals: Vital Signs Temp Pulse Pulse Resp BP BP Pulse Ox 07/05/16 08:01 98.1 F 80 18 142/69 98 07/05/16 07:55 99.0 F 95 18 106/53 99 07/05/16 05:09 97.7 F 101 H 20 106/51 97 Intake and Output 07/05/16 07/05/16 07/05/16 06:59 14:59 22:59 Intake Total 240 Balance 240 Intake: Oral 240 Other: # Voids 3 Weight 87.09 kg 87.09 kg Patient Weight 07/06/16 06:59 Weight 87.09 kg - Constitutional General appearance: cooperative, no acute distress, obese - EENT Eyes: anicteric sclerae, normal appearance ENT: normal oropharynx - Neck Neck: no lymphadenopathy - Respiratory Respiratory: bilateral: CTA - Cardiovascular Heart sounds: normal: S1, S2 Abnormal Heart Sounds: systolic murmur leg Peripheral Edema: bilateral: 3+ - Gastrointestinal General gastrointestinal: no absent bowel sounds, no decreased bowel sounds, no distended, no hepatomegaly, no hyperactive bowel sounds, normal bowel sounds, no organomegaly, no rigid, no scaphoid, soft, no splenomegaly, no tenderness, no umbilical hernia, no ventral hernia - Integumentary Integumentary: cellulitis (RLE) - Psychiatric Psychiatric: A&O x's 3, appropriate affect, intact judgment & insight Results CBC & Chem 7: 07/05/16 05:35 07/05/16 05:35 Labs: Abnormal Lab Results - Last 24 Hours (Table) 07/05/16 07/05/16 07/05/16 Range/Units 05:35 05:35 05:35 WBC 3.6 L (3.8-10.6) k/uL RBC 2.14 L (3.80-5.40) m/uL Hgb 7.1 L (11.4-16.0) gm/dL Hct 20.7 L (34.0-46.0) % RDW 20.2 H (11.5-15.5) % Plt Count 21 L* (150-450) k/uL Lymphocytes # 0.2 L (1.0-4.8) k/uL BUN 35 H (7-17) mg/dL Creatinine 1.46 H (0.52-1.04) mg/dL Glucose 110 H (74-99) mg/dL Uric Acid 7.8 H (3.7-7.4) mg/dL Calcium 7.8 L (8.4-10.2) mg/dL ALT 67 H (9-52) U/L Alkaline Phosphatase 179 H (38-126) U/L Total Protein 5.3 L (6.3-8.2) g/dL Albumin 2.7 L (3.5-5.0) g/dL Assessment and Plan (1) Antineoplastic chemotherapy induced pancytopenia Narrative/Plan: Pt has 1 unit of PRBCs ordered for Hgb 7.1 No acute intervention for platelets, no asa, NSAIDs or anticoagulation for now. No intervention for WBC, ANC is adequate at 3.2. Pancultures have been ordered, UA is not suspicious, chest x-ray no acute process, blood cultures are pending. Infectious disease is following. Status: Acute (2) Ovarian cancer Narrative/Plan: Pt has not tolerated treatment very well, she has had significant hematological toxicities that are slow to recover. Pt is due to follow up with Dr. Robert prior to resuming any treatment to discuss other treatment options. Status: Acute
--- NOTE | 2016-07-05 16:48 | HP ---
DATE OF ADMISSION: 07/05/2016 CHIEF COMPLAINT: Cellulitis. HISTORY OF PRESENT ILLNESS: This 76-year-old woman with a past medical history of multiple medical problems, including ovarian cancer, history of colon cancer, had recent chemotherapy. Patient was recently admitted with acute anemia as well as UTI and cellulitis. The patient was given antibiotics and she went home. Currently the patient complains of bilateral leg erythema and more erythema. Patient came to [facility] and was admitted for further evaluation and treatment. There is no history of any rigor or chills. No history of headache, loss of consciousness, seizures at this time. The patient had some fever overnight. PAST MEDICAL HISTORY: 1. Recent cellulitis. 2. History of GERD. 3. Hypertension. 4. DJD. 5. History of glaucoma. 6. Gout. 7. History of chronic itchy skin rash. 8. History of anemia. 9. History of colon cancer. 10. History of anxiety, depression. HOME MEDICATIONS: 1. Imodium 2 mg q.i.d. p.r.n. 2. Xanax 0.25 daily p.r.n. 3. Silvadene 1 application b.i.d. 4. Augmentin 875 mg p.o. b.i.d. 5. Lidocaine 4% daily p.r.n. 6. Vitamin B12 1500 mcg p.o. daily. 7. Ultram 50 mg q.6 p.r.n. 8. Omeprazole 20 mg p.o. daily p.r.n. 9. Lomotil 1 tablet p.o. b.i.d. p.r.n. 10. K-Dur 20 mEq p.o. b.i.d. 11. [place] 5 mg b.i.d. p.r.n. 12. Lasix 40 mg each morning. 13. Lasix 20 mg with supper. 14. Vistaril 25 mg p.o. q.i.d. p.r.n. 15. Dyazide 37.5 mg one p.o. daily. 16. Zofran 4 mg p.o. t.i.d. p.r.n. 17. Mobic 15 mg p.o. daily. 18. Ativan 1 mg p.o. q.i.d. p.r.n. 19. Zyloprim 300 mg p.o. daily. 20. Norvasc 5 mg p.o. daily. 21. Zoloft 50 mg p.o. daily. ALLERGIES: 1. ADHESIVE TAPE. 2. CODEINE. 3. LATEX. FAMILY HISTORY: History of lung cancer. SOCIAL HISTORY: Previous history of smoking. No current smoking or alcohol intake. REVIEW OF SYSTEMS: ENT: Diminishing hearing. Diminished vision. CARDIOVASCULAR SYSTEM: No angina, palpitations. RESPIRATORY SYSTEM: As mentioned earlier. GI: No nausea, vomiting. : No dysuria. NERVOUS SYSTEM: No numbness or weakness. ALLERGY/IMMUNOLOGY: No asthma, hayfever. MUSCULOSKELETAL: As mentioned earlier. HEMATOLOGY/ONCOLOGY: No history of anemia. ENDOCRINE: As mentioned earlier. CONSTITUTIONAL: As mentioned earlier. DERMATOLOGY: Negative. RHEUMATOLOGY: Negative. PSYCHIATRY: As mentioned earlier. PHYSICAL EXAMINATION: Patient is alert and oriented x3. Pulse is 80, blood pressure 140/69, respiration 18, temperature 98.1, pulse ox 98% on room air. HEENT: Conjunctivae normal. NECK: No jugular venous distention. CARDIOVASCULAR SYSTEM: S1, S2 muffled. RESPIRATORY SYSTEM: Breath sounds diminished at the bases. A few rhonchi. No crackles. ABDOMEN: Soft, obese, non-tender. LEGS: Bilateral leg edema and cellulitis also present on the right side. NERVOUS SYSTEM: Higher functions as mentioned earlier. Moves all 4 limbs. No focal motor or sensory deficit. LYMPHATICS: No lymph node palpable in neck, axillae or groin. SKIN: No ulcer, rash, bleeding. LABS: WBC 3.6, hemoglobin 7.1, platelets 21. Creatinine is 1.46. ALT is 67, total protein 5.3. Albumin is 2.7. ASSESSMENT: 1. Cellulitis of the right leg and bilateral leg swelling and pain. 2. Pancytopenia secondary to chemotherapy for ovarian cancer. 3. Severe thrombocytopenia. 4. Petechial rash on the right leg. 5. Increased creatinine with chronic kidney disease, stage III. 6. Increased ALT. 7. Hypoalbuminemia with mild to moderate protein-calorie malnutrition. 8. History of gastroesophageal reflux disease. 9. Hypertension. 10. History of degenerative joint disease. 11. Glaucoma. 12. History of gout. 13. Chronic itchy skin rash. 14. History of anemia. 15. History of cellulitis. 16. History of appendectomy. 17. History of bilateral knee replacement. 18. Anxiety, depression. 19. History of nicotine dependence. 20. History of ovarian cancer and chemotherapy. 21. History of colon cancer. 22. Anxiety, depression not otherwise specified. 23. History of bilateral carpal tunnel release surgery. 24. Obesity with body mass index of 40.1. 25. Recent urine culture also showed group B enterococcus. RECOMMENDATIONS AND DISCUSSION: In this 76-year-old woman who presented with multiple complex medical issues, we will monitor the patient closely, continue the current medications, continue with symptomatic treatment. Will continue with local treatment and continue with antibiotics. Will continue to monitor. Guarded prognosis. Further recommendations to follow. Discussed with the patient.
[2016-07-05] MEDS: SERTRALINE 50 MG TAB PO SCH (17:01)
[2016-07-05] MEDS: FUROSEMIDE 20 MG TAB PO SCH (17:01)
[2016-07-05] MEDS: COLCHICINE 0.6 MG TAB PO SCH ×2 (17:02→22:56)
[2016-07-05] MEDS: POTASSIUM CHLORIDE ER 20 MEQ TAB.ER PO SCH (22:59)
[2016-07-06] MEDS ORDERED: VANCOMYCIN 1,500 MG in SODIUM CHLORIDE 0.9% 250 ML IVPB ONE (06:00)
[2016-07-06] MEDS ORDERED: LEVOFLOXACIN 750MG-D5W PMX 750 MG in DEXTROSE/WATER 1 150ML.BAG IVPB SCH (07:00)
[2016-07-06 07:31] LABS: Anisocytosis Slight; Basophils % (A) 0 %; CH 32.6; CHCM 33.3; Eosinophils % (A) 1 %; HCT 21.4 % (34.0-46.0); Luc # (Auto) 0.04; Luc % (Auto) 1; Lymphocytes # (A) 0.2 k/uL (1.0-4.8); Lymphocytes % (A) 7 %; MCH 31.4 pg (25.0-35.0); MCHC 31.9 g/dL (31.0-37.0); MCV 98.4 fL (80.0-100.0); Macrocytosis Moderate; Mean Platelet Volume 9.4; Monocytes # (A) 0.1 k/uL (0-1.0); Monocytes % (A) 3 %; Neutrophils % (A) 88 %; RBC 2.18 m/uL (3.80-5.40); RDW 19.9 % (11.5-15.5); WBC 3.4 k/uL (3.8-10.6); WBC (Perox) 3.47
[2016-07-06 07:49] LABS: HGB 6.8 gm/dL (11.4-16.0)
[2016-07-06 07:53] LABS: Calcium 7.7 mg/dL (8.4-10.2); Potassium 3.8 mmol/L (3.5-5.1)
[2016-07-06] MEDS: TRIAMTERENE-HCTZ 37.5-25MG 1 EACH CAP PO SCH (08:19)
[2016-07-06] MEDS: amLODIPine 5 MG TAB PO SCH (08:19)
[2016-07-06] MEDS: POTASSIUM CHLORIDE ER 20 MEQ TAB.ER PO SCH ×2 (08:19→22:22)
[2016-07-06] MEDS: FUROSEMIDE 40 MG TAB PO SCH (08:19)
[2016-07-06] MEDS: COLCHICINE 0.6 MG TAB PO SCH ×2 (08:19→22:23)
[2016-07-06] MEDS: SERTRALINE 50 MG TAB PO SCH (08:19)
[2016-07-06] MEDS: FAMOTIDINE 20 MG/2 ML VIAL IV SCH (08:21)
[2016-07-06] MEDS: HEPARIN SODIUM,PORCINE 5,000 UNIT/ML 1 ML VIAL SQ SCH ×2 (08:21→22:21)
[2016-07-06] MEDS ORDERED: NON-FORMULARY DRUG (Ensure 1 CAN) PO SCH (09:00)
[2016-07-06] MEDS: ALLOPURINOL 300 MG TAB PO SCH (09:48)
[2016-07-06] MEDS: CYANOCOBALAMIN 500 MCG TAB PO SCH (12:48)
[2016-07-06] MEDS: FUROSEMIDE 20 MG TAB PO SCH (17:34)
[2016-07-07] MEDS ORDERED: ONDANSETRON 4 MG/2 ML VIAL ONE (00:17)
[2016-07-07] MEDS ORDERED: ONDANSETRON 4 MG/2 ML VIAL IM STA (00:18)
[2016-07-07 07:28] LABS: Anisocytosis Slight; Basophils % (A) 0 %; CH 32.3; CHCM 33.5; Eosinophils # (A) 0.1 k/uL (0-0.7); Eosinophils % (A) 2 %; HCT 24.9 % (34.0-46.0); HGB 8.1 gm/dL (11.4-16.0); Luc # (Auto) 0.05; Luc % (Auto) 2; Lymphocytes # (A) 0.2 k/uL (1.0-4.8); Lymphocytes % (A) 8 %; MCH 31.5 pg (25.0-35.0); MCHC 32.5 g/dL (31.0-37.0); MCV 96.9 fL (80.0-100.0); Macrocytosis Slight; Mean Platelet Volume 9.4; Monocytes # (A) 0.1 k/uL (0-1.0); Monocytes % (A) 3 %; Neutrophils # (A) 2.4 k/uL (1.3-7.7); Neutrophils % (A) 85 %; RBC 2.57 m/uL (3.80-5.40); RDW 19.7 % (11.5-15.5); WBC 2.9 k/uL (3.8-10.6); WBC (Perox) 2.82
[2016-07-07 07:35] LABS: Calcium 8.1 mg/dL (8.4-10.2); Potassium 3.8 mmol/L (3.5-5.1)
[2016-07-07] MEDS: SERTRALINE 50 MG TAB PO SCH (08:09)
[2016-07-07] MEDS: FUROSEMIDE 40 MG TAB PO SCH (08:09)
[2016-07-07] MEDS: amLODIPine 5 MG TAB PO SCH (08:09)
[2016-07-07] MEDS: COLCHICINE 0.6 MG TAB PO SCH ×2 (08:09→20:19)
[2016-07-07] MEDS: POTASSIUM CHLORIDE ER 20 MEQ TAB.ER PO SCH ×2 (08:09→20:19)
[2016-07-07] MEDS: FAMOTIDINE 20 MG/2 ML VIAL IV SCH (08:09)
[2016-07-07] MEDS: HEPARIN SODIUM,PORCINE 5,000 UNIT/ML 1 ML VIAL SQ SCH ×2 (08:09→20:19)
[2016-07-07] MEDS: TRIAMTERENE-HCTZ 37.5-25MG 1 EACH CAP PO SCH (08:09)
[2016-07-07] MEDS: ALLOPURINOL 300 MG TAB PO SCH (08:09)
--- NOTE | 2016-07-07 09:13 | PN ---
DATE OF SERVICE: 07/06/2016 This 76 -year-old woman was admitted to the hospital with cellulitis, is being closely monitored. Patient also had pancytopenia. Anemia was also noted. No chest pain. No palpitations. No fever. On exam, alert and oriented times three. Pulse 97, blood pressure 101/60, respiratory rate 20, temperature 98.1, pulse ox 97% on room air. HEENT: Conjunctivae pale. NECK: No jugular venous distention. CARDIOVASCULAR: S1, S2. RESPIRATORY: Breath sounds diminished in the bases. No rhonchi. No crackles. ABDOMEN: Soft, nontender. Legs: Right leg swelling and cellulitis present. CENTRAL NERVOUS SYSTEM: No focal deficits. LABORATORY DATA: WBC is 3.4, hemoglobin 6.8, platelets 21. Creatinine 1.14. ASSESSMENT: 1. Cellulitis of the right leg with bilateral leg swelling and pain. 2. Pancytopenia secondary to chemotherapy for ovarian cancer. 3. Severe thrombocytopenia. 4. Petechia rash on the right leg. 5. Increased creatinine with chronic kidney disease stage III. 6. Increased ALT. 7. Hypoalbuminemia with mild to moderate protein calorie malnutrition. 8. History of gastroesophageal reflux disease. 9. Hypertension. 10. History of degenerative joint disease. 11. History of glaucoma. 12. History of gout. 13. Chronic itchy skin rash. 14. History of anemia. 15. History of cellulitis. 16. History of Appendectomy. 17. History of bilateral knee replacements. 18. Anxiety, depression, not otherwise specified. 19. History of nicotine dependence. 20. Ovarian cancer, on chemotherapy. 21. History of colon cancer. 22. Anxiety, depression not otherwise specified. 23. History of bilateral carpal tunnel release surgery. 24. Obesity with body mass index of 40.1. 25. Recent urine cultures showing group B enterococcus. RECOMMENDATIONS AND DISCUSSION: Recommend to continue current medications. Continue with monitoring. Symptomatic treatment. Otherwise, at this time, continue empiric antibiotics. Follow closely with infectious disease. Guarded prognosis. Further recommendations to follow. MTDD
[2016-07-07] MEDS: CYANOCOBALAMIN 500 MCG TAB PO SCH (15:57)
[2016-07-07] MEDS ORDERED: VANCOMYCIN 1,500 MG in SODIUM CHLORIDE 0.9% 250 ML IVPB ONE (18:00)
[2016-07-07] MEDS: CEFTAROLINE FOSAMIL 600 MG in SODIUM CHLORIDE 0.9% 250 ML IVPB SCH (18:02)
[2016-07-07] MEDS: FUROSEMIDE 20 MG TAB PO SCH (18:03)
--- NOTE | 2016-07-07 18:31 | PN ---
DATE OF SERVICE: July 07, 2016. CHIEF COMPLAINT: Swollen legs. Debi is seen today as a follow-up. She continues to have some erythema in both legs more so on the right side but overall she feels better. She is less tired, less short of breath. She is eating well. No nausea or vomiting. No fever or chills. No melena, hematochezia, hematochezia, hematuria, or hemoptysis. Current medications include: 1. Allopurinol 300 mg daily. 2. Xanax 0.25 mg daily as needed. 3. Norvasc 5 mg daily. 4. Colchicine 6 mg b.i.d. 5. Vitamin B12 daily. 6. Lomotil as needed. 7. Pepcid 20 mg IV daily. 8. Lasix 40 mg p.o. in the morning. and 20 mg in the evening. . 9. Heparin 5000 units subcu daily. 10. [place] 5/325 mg b.i.d. as needed. 11. Vistaril 25 mg q.i.d. as needed. 12. Levaquin 750 mg daily, IV. 13. Imodium as needed. 14. Ativan 1 mg q.i.d. as needed. 15. Zofran 4 mg t.i.d. as needed. 16. Protonix 40 mg p.o. daily as needed. 17. K-Dur 20 meq b.i.d. 18. Zoloft 50 mg daily. 19. Silvadene cream. 20. Tramadol 50 mg as needed. 21. Dyazide once a day. 22. IV vancomycin. PHYSICAL EXAMINATION: GENERAL: She is alert and oriented x3. Does not appear to be in distress. VITAL SIGNS: Temperature 97.4, afebrile, pulse is 80 and regular, respiration 18, blood pressure 92/65. HEENT: Normocephalic, atraumatic. NECK: Supple. CHEST: Equal expansion bilaterally. LUNGS: Clear to auscultation. HEART: Regular rate and rhythm. ABDOMEN: Soft. No tenderness. EXTREMITIES: Trace edema. She has erythema in both legs and she has more so on the right leg. LABORATORY DATA: WBC at 2.9, hemoglobin 8.1, hematocrit 24.9, platelets are 28, sodium 138, potassium 3.8, chloride 105, CO2 is 25, BUN is 23, creatinine 1.10. IMPRESSION: 1. Recurrent ovarian carcinoma. The patient had significant toxicity from Doxil and she was switched to Gemzar recently. 2. Pancytopenia. This is chemotherapy related. 3. Erythema in both lower extremities, could be cellulitis however, still related to chemotherapy possible toxicity from chemotherapy cannot be excluded. Her blood cultures so far has remained negative. 4. Multiple other comorbidities. RECOMMENDATIONS: 1. Monitor CBC. There is no need for transfusion today. 2. Agree with Infectious disease consultation in regard to her leg erythema. Again this could be related to chemotoxicity, skin toxicity from chemotherapy. 3. Further systemic treatment is on hold now pending the patient's overall improvement. The above was discussed with the patient and her family at the bedside.
[2016-07-07] MEDS ORDERED: SILVER sulfADIAZINE Cream 400 GM 1 APPLIC APPLIC TOPICAL SCH (21:00)
[2016-07-08] MEDS: CEFTAROLINE FOSAMIL 600 MG in SODIUM CHLORIDE 0.9% 250 ML IVPB SCH (05:57)
[2016-07-08 07:15] LABS: Calcium 7.9 mg/dL (8.4-10.2)
[2016-07-08 07:32] LABS: Anisocytosis Moderate; Basophils % (A) 0 %; CH 32.4; CHCM 33.1; Eosinophils # (A) 0.1 k/uL (0-0.7); Eosinophils % (A) 3 %; HCT 25.4 % (34.0-46.0); HDW 3.37; HGB 8.4 gm/dL (11.4-16.0); Luc # (Auto) 0.06; Luc % (Auto) 2; Lymphocytes # (A) 0.3 k/uL (1.0-4.8); Lymphocytes % (A) 9 %; MCH 32.8 pg (25.0-35.0); MCHC 33.2 g/dL (31.0-37.0); MCV 98.6 fL (80.0-100.0); Macrocytosis Moderate; Mean Platelet Volume 9.6; Monocytes # (A) 0.1 k/uL (0-1.0); Monocytes % (A) 4 %; Neutrophils # (A) 2.3 k/uL (1.3-7.7); Neutrophils % (A) 82 %; RBC 2.57 m/uL (3.80-5.40); RDW 20.1 % (11.5-15.5); WBC 2.8 k/uL (3.8-10.6); WBC (Perox) 2.73
[2016-07-08] MEDS: ALLOPURINOL 300 MG TAB PO SCH (09:00)
[2016-07-08] MEDS: amLODIPine 5 MG TAB PO SCH (09:00)
[2016-07-08] MEDS: SERTRALINE 50 MG TAB PO SCH (09:00)
[2016-07-08] MEDS: COLCHICINE 0.6 MG TAB PO SCH ×2 (09:00→20:36)
[2016-07-08] MEDS: FUROSEMIDE 40 MG TAB PO SCH (09:00)
[2016-07-08] MEDS: HEPARIN SODIUM,PORCINE 5,000 UNIT/ML 1 ML VIAL SQ SCH ×2 (09:00→20:36)
[2016-07-08] MEDS: TRIAMTERENE-HCTZ 37.5-25MG 1 EACH CAP PO SCH (09:01)
[2016-07-08] MEDS: CYANOCOBALAMIN 500 MCG TAB PO SCH (09:01)
[2016-07-08] MEDS: FAMOTIDINE 20 MG/2 ML VIAL IV SCH (09:01)
[2016-07-08] MEDS: POTASSIUM CHLORIDE ER 20 MEQ TAB.ER PO SCH ×2 (09:01→20:37)
--- NOTE | 2016-07-08 09:15 | PN ---
DATE OF SERVICE: 07/07/2016 This 76-year-old woman was admitted with cellulitis of the right leg and as well as bilateral leg swelling and pain is being closely monitored at this time. The cultures are negative so far. No chest pain, no palpitations, no fever. The erythema is also extending to the middle part of the right thigh at this time. On exam, alert and oriented x3. Pulse 107, blood pressure is 136/62, respirations 16, temperature 97.4, pulse ox 90% on room air. HEENT: Conjunctivae normal. NECK: No jugular venous distention. CARDIOVASCULAR: S1 and S2, muffled. RESPIRATORY: Breath sounds diminished at the bases. No rhonchi, no crackles. ABDOMEN: Soft, nontender. LEGS: Bilateral leg cellulitis, right more than the left and the extension of erythema as mentioned earlier. LABS: WBC 2.9, hemoglobin is 8.0, platelets are 28. Creatinine is 1.1. ASSESSMENT: 1. Cellulitis of the bilateral legs, right more than the left, with swelling and pain. 2. Pancytopenia secondary to chemotherapy for ovarian cancer. 3. Severe thrombocytopenia. 4. rash on the right leg. 5. Increased creatinine with chronic kidney disease, stage III. 6. increased ALT. 7. Hypoalbuminemia with mild to moderate protein calorie malnutrition. 8. History of gastroesophageal reflux disease. 9. Hypertension. 10. History of degenerative joint disease. 12. History of gout. 13. Chronic itchy skin rash. 14. History of anemia. 15. History of cellulitis. 16. History of appendectomy. 17. History of bilateral knee replacements. 18. History of anxiety, depression, not otherwise specified. 19. History of nicotine dependence. 20. Ovarian cancer on chemotherapy. 21. History of colon cancer. 22. History of anxiety and depression, not otherwise specified. 23. History of bilateral carpal tunnel syndrome and release surgery. 24. Obesity with body mass index of 40.1. 25. Recent urine culture showing group B enterococcus. RECOMMENDATIONS AND DISCUSSION: I recommend to continue current medications, continue with monitoring and symptomatic treatment. Otherwise continue with antibiotics. I would recommend evaluation by Dr. Archer for the addition of more coverage including gram negatives. Guarded prognosis. Further recommendations to follow. MTDD
[2016-07-08] MEDS: ONDANSETRON 4 MG TAB PO PRN (10:36)
--- NOTE | 2016-07-08 13:16 | PN ---
DATE OF SERVICE: 07/07/2016 REASON FOR FOLLOW-UP: Lower extremity cellulitis. HISTORY OF PRESENT ILLNESS: The patient is a 70-year-old female admitted to the hospital on Friday, the , having been diagnosed and treated for lower extremity cellulitis. The patient is currently getting vancomycin and Levaquin. The patient was noticed this morning by the hospitalist team for the redness to be spreading up all the way to the thigh area with more swelling and more redness. I was asked to evaluate the patient for adjustment of antibiotic therapy. Patient remains to be afebrile. The patient denies significant chest pain, shortness of breath or cough. No abdominal pain. The patient's main symptom remains to be redness of the legs with some discomfort, dull aching pain, 3 to 4/10, and no radiation. No abdominal pain and no diarrhea. REVIEW OF SYSTEMS: Positive for what is mentioned in the HPI, otherwise negative. PAST MEDICAL HISTORY/PAST SURGICAL HISTORY: Reviewed, no changes. FAMILY HISTORY: Reviewed, no changes. ALLERGIES: ADHESIVE TAPE, CODEINE, LATEX. Medications: 1. [place]. 2. Zyloprim. 3. Xanax. 4. Norvasc. 5. Vancomycin, pharmacy to dose. 6. Levaquin. 7. Colchicine. 8. Vitamin B12. 9. Lomotil. 10. Pepcid. 11. Lasix. 12. Heparin. 13. Restoril. 14. Ativan. 15. Zofran. 16. Protonix. 17. Zoloft. 18. Ultram. On examination, blood pressure is 130/64, pulse of 107, temperature 97.4, saturating 98% on room air. General description is an elderly female, lying in bed in no distress. No accessory muscle of respiration use. HEENT: No pallor or scleral icterus. Oral mucosa membranes dry. NECK: Trachea central. No organomegaly. LUNGS: Unlabored breathing. Clear to auscultation anteriorly. No wheezes or crackles. HEART: S1 and S2 regular. ABDOMEN: Soft. No tenderness. EXTREMITIES: Right leg with more swelling and redness with evidence of lymphangitis evidence of spreading to medial thigh area. NEUROLOGICAL: The patient is awake, alert, oriented x3. Mood and affect normal. LABS: Hemoglobin 8.1, white count 2.9 with a BUN of 23, creatinine 1.10. Blood cultures on admission have been negative so far. DIAGNOSTIC IMPRESSION: Cellulitis of the right lower extremity. Did not respond very well to Levaquin and vancomycin therapy. Features are mostly of streptococcal cellulitis rather than methicillin-resistant Staphylococcus aureus, though MRSA infection not likely clinically. PLAN: 1. Discontinue Levaquin and vancomycin in view of no significant improvement with this therapy. 2. We will start the patient on Teflaro 600 mg IV every 12. 3. IV fluid 4. We will follow up on the clinical condition and cultures to further adjust the medication if needed. Thank you for this consultation, we will follow this patient along with you. TOMEKA
[2016-07-08 15:47] VITALS: RESP 16
[2016-07-08] MEDS: CEFTAROLINE FOSAMIL 300 MG in SODIUM CHLORIDE 0.9% 250 ML IVPB SCH (17:14)
[2016-07-08] MEDS: FUROSEMIDE 20 MG TAB PO SCH (17:15)
[2016-07-09] MEDS: CEFTAROLINE FOSAMIL 300 MG in SODIUM CHLORIDE 0.9% 250 ML IVPB SCH (05:11)
--- NOTE | 2016-07-09 06:43 | PN ---
DATE OF SERVICE: 07/08/2016 This 76-year-old woman who was admitted with acute bilateral cellulitis who has been closely monitored. No chest pain or palpitations. No fever. Infectious Disease is following the patient closely. Ceftaroline has been added to the regimen. On exam, alert and oriented x3. Pulse 74, blood pressure 112/60, respirations 18, temperature 97.9, pulse ox 94% on room air. HEENT: Conjunctivae normal. NECK: No jugular venous distention. CARDIOVASCULAR: S1 and S2, muffled. RESPIRATORY: Breath sounds diminished at the bases. No rhonchi, no crackles. ABDOMEN: Soft, nontender. Right leg swelling . NERVOUS SYSTEM: No focal deficits. LABS: WBC 2.8, hemoglobin 8.4, platelets are 38. Creatinine 1.13. ASSESSMENT: 1. Cellulitis of bilateral lower legs, right more than the left with swelling and pain on ceftaroline. 2. Pancytopenia secondary to chemotherapy for ovarian cancer. 3. History of thrombocytopenia. 4. Rash on the right leg. 5. Increased creatinine with chronic kidney disease, stage III. 6. Increased ALT. 7. Hypoalbuminemia with mild to moderate protein calorie malnutrition. 8. History of gastroesophageal reflux disease. 9. Hypertension, essential, history. 10. History of degenerative joint disease. 11. History of gout. 12. History of. anemia. 13. History of cellulitis. 14. History of appendectomy. 15. History of bilateral knee replacements. 16. Anxiety, depression, not otherwise specified. 17. History of nicotine dependence. 18. Ovarian cancer on chemotherapy. 19. History of colon cancer. 20. History of bilateral carpal syndrome and release surgery. 21. Obesity with body mass index of 40.1. 22. Recent urine culture showing group B enterococcus. RECOMMENDATIONS AND DISCUSSION: Recommend to continue current medications. Continue to monitor and symptomatic treatment. Otherwise, at this time I recommend to continue with antibiotics. Closely follow with Infectious Disease. Guarded prognosis. Further recommendations to follow. MTDD
[2016-07-09 08:05] LABS: Calcium 7.7 mg/dL (8.4-10.2); Potassium 3.8 mmol/L (3.5-5.1)
[2016-07-09 08:13] LABS: Anisocytosis Moderate; CH 32.8; CHCM 33.5; HCT 23.2 % (34.0-46.0); HDW 3.38; HGB 7.7 gm/dL (11.4-16.0); MCH 32.6 pg (25.0-35.0); MCHC 33.1 g/dL (31.0-37.0); MCV 98.4 fL (80.0-100.0); Macrocytosis Moderate; Mean Platelet Volume 8.4; RBC 2.35 m/uL (3.80-5.40); RDW 20.8 % (11.5-15.5); WBC (Perox) 1.88
[2016-07-09 08:23] LABS: WBC 1.8 k/uL (3.8-10.6)
[2016-07-09] MEDS: ALLOPURINOL 300 MG TAB PO SCH (08:23)
[2016-07-09] MEDS: COLCHICINE 0.6 MG TAB PO SCH (08:23)
[2016-07-09] MEDS: CYANOCOBALAMIN 500 MCG TAB PO SCH (08:23)
[2016-07-09] MEDS: SERTRALINE 50 MG TAB PO SCH (08:24)
[2016-07-09] MEDS: amLODIPine 5 MG TAB PO SCH (08:24)
[2016-07-09] MEDS: HEPARIN SODIUM,PORCINE 5,000 UNIT/ML 1 ML VIAL SQ SCH (08:24)
[2016-07-09] MEDS: POTASSIUM CHLORIDE ER 20 MEQ TAB.ER PO SCH (08:24)
[2016-07-09] MEDS: FUROSEMIDE 40 MG TAB PO SCH (08:24)
[2016-07-09] MEDS: TRIAMTERENE-HCTZ 37.5-25MG 1 EACH CAP PO SCH (08:24)
[2016-07-09 08:53] VITALS: PULSE 80
[2016-07-09] MEDS ORDERED: FAMOTIDINE 20 MG TAB PO SCH (09:00)
[2016-07-09] MEDS ORDERED: FILGRASTIM-SNDZ 480 MCG/0.8 ML SYRINGE SQ SCH (10:00)
[2016-07-09 10:01] VITALS: BP 118/52; TEMP 98.4
--- NOTE | 2016-07-09 10:13 | PN ---
DATE OF SERVICE: 07/08/2016 REASON FOR FOLLOWUP: Right lower extremity cellulitis. INTERVAL HISTORY: The patient is afebrile. She is currently breathing comfortably. Denies any significant chest pain or cough. No abdominal pain. no pain in the right leg area. On examination, blood pressure is 115/60 with a pulse of 69, temperature 97.8. She is 95% on room air. General description is an elderly female lying in bed in no distress. RESPIRATORY SYSTEM: Unlabored breathing. Clear to auscultation anteriorly. HEART: S1, S2. Regular rate and rhythm. ABDOMEN: Soft. No tenderness. RIGHT LEG: Swelling, redness has improved compared to yesterday. LABS: Hemoglobin 8.4, white count 2.8 with a BUN of 23, creatinine is 1.13. DIAGNOSTIC IMPRESSION AND PLAN: Patient with right lower extremity cellulitis, did not respond very well to the vancomycin and Levaquin; however, the patient did show overall improvement compared to yesterday with a Teflaro, which will be continued. Patient will be signed over to Dr. Curry for continued followup. Continue supportive care. TOMEKA
[2016-07-09 10:47] LABS: Add Differential Manual Differential
[2016-07-09 10:54] LABS: Nucleated Red Blood Cells 0 /100 WBC (0-0); Total Cells Counted 100
[2016-07-09 10:55] LABS: Manual Review Performed
[2016-07-09] MEDS: ONDANSETRON 4 MG TAB PO PRN (12:14)
[2016-07-09] MEDS ORDERED: CEFTAROLINE FOSAMIL 400 MG in SODIUM CHLORIDE 0.9% 250 ML IVPB SCH (18:00)
--- NOTE | 2016-07-09 19:04 | P.PN ---
Subjective The patient's antibiotics were modified by . Overall her legs feel better. Denies any fever. Objective - Vital Signs Vital signs: Vital Signs Temp 98.4 F 07/09/16 07:00 Pulse 80 07/09/16 08:00 Resp 16 07/09/16 08:00 BP 118/52 07/09/16 07:00 Pulse Ox 98 07/09/16 07:00 Intake & Output 07/09/16 07/09/16 07/10/16 06:59 18:59 06:59 Intake Total 800 360 Output Total 2 2 Balance 798 358 Intake: Oral 800 360 Output: Stool 2 2 Other: Voiding Method Toilet Toilet # Voids 3 2 # Bowel Movements 2 2 - Constitutional General appearance: Present: no acute distress - EENT Eyes: Present: PERRLA ENT: Present: hearing grossly normal, normal oropharynx - Respiratory Respiratory: bilateral: diminished - Cardiovascular Rhythm: regular Heart sounds: normal: S1, S2 - Gastrointestinal General gastrointestinal: Present: normal bowel sounds, soft - Integumentary Integumentary: Present: cellulitis (Based on the markings, there does appear to be significant improvement) - Neurologic Neurologic: Present: CNII-XII intact - Musculoskeletal Musculoskeletal: Present: generalized weakness - Psychiatric Psychiatric: Present: A&O x's 3 - Labs CBC & Chem 7: 07/09/16 07:12 07/09/16 07:12 Labs: Abnormal Lab Results - Last 24 Hours (Table) 07/09/16 07/09/16 Range/Units 07:12 07:12 WBC 1.8 L* (3.8-10.6) k/uL RBC 2.35 L (3.80-5.40) m/uL Hgb 7.7 L (11.4-16.0) gm/dL Hct 23.2 L (34.0-46.0) % RDW 20.8 H (11.5-15.5) % Plt Count 44 L* (150-450) k/uL Lymphocytes # (Manual) 0.3 L (1.0-4.8) k/uL BUN 22 H (7-17) mg/dL Creatinine 1.24 H (0.52-1.04) mg/dL Calcium 7.7 L (8.4-10.2) mg/dL Microbiology - Last 24 Hours (Table) 07/05/16 05:35 Blood Culture - Preliminary Blood No Growth after 96 hours Assessment and Plan (1) Cellulitis of right lower leg Narrative/Plan: Antibiotics were modified by IDMeliza. Based on the markings, area of cellulitis does appear to be improved. The patient is feeling better. Defer to the admitting service and ID, as to timing of discharge and outpatient antibiotics Status: Acute (2) Antineoplastic chemotherapy induced pancytopenia Narrative/Plan: Her WBC count had declined again, likely due to the stress of infection, and possibly, antibiotic use. Therefore start her back on filgrastim. She may be getting discharged today, but given 1 dose is likely to help boost her white count back to normal faster. Other counts are low but in a safe range, and no transfusion is required. Status: Acute (3) Ovarian cancer Narrative/Plan: She is currently on gemcitabine. This will be on hold, until her infection issues resolve. Poor bone marrow tolerance of chemotherapy will continue to be a challenge going forward. Status: Acute
--- NOTE | 2016-07-09 23:07 | P.PN ---
Subjective Principal diagnosis: Ovarian cancer 76-year-old female presents to Hospital from home after having just been discharged from hospital. When she was here she had difficulty with the right lower extremity cellulitis. Was responding well to local care with wrap elevation antibiotic therapy. Is related from the primary team she was insistent about going home. Was discharged on oral antibiotic therapy. Has now failed. It is now readmitted. The patient has a known history of ovarian cancer. Has undergone multiple interventions. She was to have a radical surgical intervention but was not deemed a healthy now candidate. Has been on chemotherapy with carboplatin and Taxol. There is evidence of recurrent disease and constantly chemotherapy was altered to Doxil. With the first treatment she developed a severe cutaneous reaction. Once it resolves she has not been treated with Gemzar. She is a long -standing history of anemia and this worsened as of late. Shoelace before admission she was to avoid becoming weak. She suffered a fall at home. Her son had to pick her up. Since then she's had some increasing erythema and tenderness to the right leg. When she was last about her by infectious disease she had significant pain in her back. It was a non-remitting severe pain. She was transferred to a tertiary care center and they're a anesthesia monitored MRI was performed. It appeared that she just had developed an acute disc compression fracture which was etiology of his severe pain. She underwent some therapy. Fortunately there is no evidence of any infection of her spine at that time. He did not require surgical intervention. She's not had ongoing difficulties with back pain over the years. She however does have difficulty with ongoing anemia and has follow-up Dr. Robert with hematology oncology. He also has given her her chemotherapy for her ovarian cancer. Now feeling considerably better. Looking forward to going home. Objective - Vital Signs Vital signs: Vital Signs Temp 98.4 F 07/09/16 07:00 Pulse 80 07/09/16 08:00 Resp 16 07/09/16 08:00 BP 118/52 07/09/16 07:00 Pulse Ox 98 07/09/16 07:00 Intake & Output 07/09/16 07/09/16 07/10/16 06:59 18:59 06:59 Intake Total 800 360 Output Total 2 2 Balance 798 358 Intake: Oral 800 360 Output: Stool 2 2 Other: Voiding Method Toilet Toilet # Voids 3 2 # Bowel Movements 2 2 - Exam 76-year-old female who is modestly comfortable at this time. HEENT: Anicteric conjunctiva are pale and moist nasal mucosa grossly intact without significant lesions, there is no thrush. Patient has permanent makeup Neck: The neck is supple without significant lymphadenopathy or thyromegaly. Lungs: Symmetric air entry. Few basilar crackles. No kev bronchial sounds. No wheezing is noted. No changes of dullness or egophony Heart: Regular rate and rhythm with an audible S1-S2, no S3 no S4. There is no significant murmur click or rub, PMI was nondisplaced. Abdomen: Obese Positive bowel sounds soft and nontender without palpable masses or organomegaly. There was no guarding or rebound. Extremities: The upper extremities have excellent pulses they are symmetric, no significant petechiae or telangiectasia. There is evidence of bilateral lower extremity edema and there is some bruising on the left medial thigh and left pretibial area from her fall. It's only minimally tender. The cellulitic changes have now markedly improved. Tenderness resolved. Erythema nearly resolved. But no ulcers are seen. There is no significant inguinal lymphadenopathy. No other abnormal lymph nodes are noted. Neuro: Awake alert oriented to person place and time. There are no acute new gross focal sensory motor deficits. - Labs CBC & Chem 7: 07/09/16 07:12 07/09/16 07:12 Labs: Abnormal Lab Results - Last 24 Hours (Table) 07/09/16 07/09/16 Range/Units 07:12 07:12 WBC 1.8 L* (3.8-10.6) k/uL RBC 2.35 L (3.80-5.40) m/uL Hgb 7.7 L (11.4-16.0) gm/dL Hct 23.2 L (34.0-46.0) % RDW 20.8 H (11.5-15.5) % Plt Count 44 L* (150-450) k/uL Lymphocytes # (Manual) 0.3 L (1.0-4.8) k/uL BUN 22 H (7-17) mg/dL Creatinine 1.24 H (0.52-1.04) mg/dL Calcium 7.7 L (8.4-10.2) mg/dL Microbiology - Last 24 Hours (Table) 07/05/16 05:35 Blood Culture - Preliminary Blood No Growth after 96 hours Assessment and Plan (1) Cellulitis Narrative/Plan: Pleasant 76-year-old woman who has a very complex recent past medical history. There was concerns several years ago for osteomyelitis of her spine. However appeared to be just a acute degenerative change. At that time however she did have anemia. Eventually workup occurred that she finally allowed was not evidence of ovarian cancer. She was treated with some chemotherapy and had a significant cutaneous reaction from Doxil. Is not being treated with [place] are. She's having some chronic anemia. She became quite weak and suffered a fall at home. Subsequently she's had some bruising to her left leg. But now developed a significant cellulitis to the right lower extremity. She was hospitalized. She was doing somewhat better and was rather insistent on being discharged home. Apparently shortly after her discharge home or symptoms of worsening and has now been readmitted. Starting to respond well to current antibiotic therapy of vancomycin as well as local wound care. Will continue the Silvadene wrap. Patient is now improved. Ready for discharge to home. Oral cefuroxime will be given at this day lettuces improved. Her white blood cell count that has been low has been supported which is certainly helped her cellulitis to resolve. She is treated with ceftaroline with a marked improvement, prescription for Ceftin is sent to her pharmacy. Status: Acute (2) Pancytopenia Status: Acute
--- NOTE | 2016-07-10 07:32 | DS ---
DATE OF ADMISSION: 07/05/2016 DATE OF DISCHARGE: 07/09/2016 FINAL DIAGNOSES: 1. Cellulitis of the bilateral legs, right more than left, with the swelling and pain on IV antibiotics, improved. 2. Pancytopenia secondary to chemotherapy for ovarian cancer. 3. History of thrombocytopenia. 4. Rash on the right leg. 5. Increased creatinine with chronic kidney disease, stage III. 6. Increased ALT. 7. Hypoalbuminemia with mild to moderate protein calorie malnutrition. 8. History of gastroesophageal reflux disease. 9. Hypertension, essential, history. 10. History of degenerative joint disease. 11. History of gout. 12. History of anemia. 13. History of cellulitis. 14. History of appendectomy. 15. History of bilateral knee replacements. 16. Anxiety, depression, not otherwise specified. 17. History of nicotine dependence. 18. Ovarian cancer on chemotherapy. 19. History of colon cancer. 20. History of bilateral carpal syndrome and release surgery. 21. Obesity, body mass index of 40.1. 22. Recent urine cultures showing group B enterococcus. DISCHARGE DISPOSITION: The patient will be discharged in a stable condition with guarded prognosis. Total time taken 35 minutes. HISTORY OF PRESENT ILLNESS: This 76-year-old woman with a past medical history of multiple medical problems admitted with acute bilateral cellulitis. The patient was treated symptomatically with antibiotics and other measures. The patient improved significantly. On exam, vitals rod stable. CARDIOVASCULAR: S1 and S2 muffled. ABDOMEN: Soft. NERVOUS SYSTEM: No focal deficits. The right leg rash present, which is improving. DISCHARGE ADVICE: 1. Diet is cardiac. 2. Activity limited until followup. 3. Follow up with Dr. Mayberry in 2 to 3 days. 4. Follow up with Dr. Robert as recommended. The medications will be: 1. Zyloprim 300 mg p.o. daily. 2. Xanax 0.25 daily p.r.n. 3. Norvasc 5 mg p.o. daily. 4. Colchicine 0.6 daily. 5. Vitamin B12, 1500 mcg p.o. daily. 6. Diphenoxylate atropine 1 tablet p.o. b.i.d. p.r.n. 7. Ensure 1 p.o. daily. 8. Lasix 20 mg p.o. with supper. 9. Lasix 40 mg q.a.m. 10. Hydrocodone 5 mg b.i.d. p.r.n. 11. Vistaril 25 mg p.o. q.i.d. p.r.n. 12. Lidocaine 4% application p.r.n. 13. Imodium 2 mg q.i.d. p.r.n. 14. Ativan 1 mg q.i.d. p.r.n. 15. Mobic 15 mg p.o. daily. 16. Omeprazole 20 mg p.o. daily. 17. Zofran 4 mg t.i.d. p.r.n. 18. K-Dur 20 mEq p.o. b.i.d. 19. Zoloft 50 mg p.o. daily. 20. cream one application topical daily. 21. Ultram 50 mg q.6 p.r.n. 22. Dyazide 1 capsule p.o. daily. Once again, the patient will be discharged in a stable condition with guarded prognosis. Antibiotics per Infectious Disease. MTDD
== END 2016-07-09 15:00 | disposition home or self-care (01) | DRG 602 ==
LOC: EC 05:05 → 5MS5E 07:14 → 5ONC 17:39
PROVIDERS: ADMIT Internal Medicine; ATTEND Internal Medicine
PROC: 30233N1 Transfusion of Nonautologous Red Blood Cells into Peripheral Vein, Percutaneous Approach (ICD-10-PCS; principal; 2016-07-06)
DX: L03.116 Cellulitis of left lower limb (principal); D61.810 Antineoplastic chemotherapy induced pancytopenia; E44.0 Moderate protein-calorie malnutrition; D64.81 Anemia due to antineoplastic chemotherapy; Z68.41 Body mass index [BMI] 40.0-44.9, adult; N18.3 Chronic kidney disease, stage 3 (moderate); C56.9 Malignant neoplasm of unspecified ovary; L03.115 Cellulitis of right lower limb; E66.9 Obesity, unspecified; T45.1X5A Adverse effect of antineoplastic and immunosuppressive drugs, initial encounter; K21.9 Gastro-esophageal reflux disease without esophagitis; M10.9 Gout, unspecified; F41.9 Anxiety disorder, unspecified; I12.9 Hypertensive chronic kidney disease with stage 1 through stage 4 chronic kidney disease, or unspecified chronic kidney disease; M19.91 Primary osteoarthritis, unspecified site; H40.9 Unspecified glaucoma; L30.9 Dermatitis, unspecified; M54.9 Dorsalgia, unspecified; F32.9 Major depressive disorder, single episode, unspecified; Z85.038 Personal history of other malignant neoplasm of large intestine; Z87.891 Personal history of nicotine dependence; Z96.1 Presence of intraocular lens; Z91.048 Other nonmedicinal substance allergy status; Z88.5 Allergy status to narcotic agent; Z91.040 Latex allergy status; Z98.41 Cataract extraction status, right eye; Z98.42 Cataract extraction status, left eye; Z90.49 Acquired absence of other specified parts of digestive tract; Z96.653 Presence of artificial knee joint, bilateral; Z79.1 Long term (current) use of non-steroidal anti-inflammatories (NSAID); Z79.899 Other long term (current) drug therapy; W19.XXXA Unspecified fall, initial encounter; Y92.009 Unspecified place in unspecified non-institutional (private) residence as the place of occurrence of the external cause
CPT/HCPCS: 36415; 71010; 80048; 80053; 80202; 81003; 83605; 84550; 85025; 86850; 86900; 86901; 86920; 87040; 87086; 93005

== ENCOUNTER → 2016-07-11 | Outpatient (CLI) | payer MEDICARE, OTHER ==
--- NOTE | 2016-07-11 16:47 | CT ---
EXAMINATION TYPE: CT ChestAbdPelvis wo con DATE OF EXAM: 07/11/2016 COMPARISON: Previous study dated 12/04/2015. HISTORY: History of ovarian cancer. Suspect mets. No complaints at time of scan. CT DLP: 1504.00 mGycm Automated exposure control for dose reduction was used. TECHNIQUE: Helical acquisition through the abdomen and pelvis was obtained without oral or intravenou s contrast. The data was formatted in the axial, coronal and sagittal projections. FINDINGS: There is some groundglass opacity in the right apex. There is some subtle interstitial brito ge in the left lingula. No definite parenchymal nodules are seen. There is no significant axillary, internal mammary, mediastinal or hilar adenopathy. There is no pleu ral pleural fluid. There is mild thickening of the pericardium anteriorly. Alternatively, this may re present a 4.3 mm pericardial effusion. The heart is mildly enlarged. There is calcification of the mitral annulus as well as coronary arter y calcification and other vascular calcifications. There is a tiny hiatal hernia. Within the abdomen, the spleen is enlarged measuring 16 cm. Liver is normal in size. The gallbladder is normal. There is a 3.1 x 2.5 cm left adrenal mass. This may have increased minimally from the previous study. The right adrenal gland appears normal. Limited views of the pancreas are normal. There is no evidence of hydronephrosis or nephrolithiasis. There are no significant retroperitoneal or iliac adenopathy. There are stable, nonpathologically enl arged left inguinal lymph nodes. The uterus is unremarkable. Neither ovary is well visualized. The bladder is unremarkable. There are scattered diverticula within the sigmoid region. There is no radiographic evidence of diver ticulitis. There has been a previous right hemicolectomy. Small bowel loops are normal. There is no free fluid and no free air. The patient's anasarca has improved. There is diffuse degenerative disc disease, hypertrophic spondylosis and facet arthropathy within the spine. There is a vacuum phenomena present at L3-4, L4-5 and L5-S1 no bony destructive lesion is see n. IMPRESSION: 1. GROUNDGLASS OPACITIES IN THE LUNGS MAY REPRESENT ONGOING ALVEOLITIS. 2. I CANNOT EXCLUDE TINY PERICARDIAL EFFUSION. 3. SPLENOMEGALY. 4. LEFT ADRENAL MASS LESION. THIS MAY HAVE INCREASED SLIGHTLY IN SIZE FROM THE PREVIOUS STUDY. 5. STABLE LEFT INGUINAL ADENOPATHY. 6. UNCOMPLICATED DIVERTICULOSIS OF THE SIGMOID COLON. 7. DEGENERATIVE CHANGES WITHIN THE SPINE.
== END | disposition home or self-care (01) ==
LOC: RADCTMAIN 14:27
PROVIDERS: ATTEND Internal Medicine Hematology & Oncology
DX: C56.9 Malignant neoplasm of unspecified ovary (principal); R16.1 Splenomegaly, not elsewhere classified; E27.8 Other specified disorders of adrenal gland; R59.0 Localized enlarged lymph nodes; K57.30 Diverticulosis of large intestine without perforation or abscess without bleeding; R91.8 Other nonspecific abnormal finding of lung field
CPT/HCPCS: 36415; 71250; 74176; 82565; 84520

== ENCOUNTER 2016-07-29 16:25 | Inpatient (IN) | payer MEDICARE, OTHER ==
--- NOTE | 2016-07-29 16:41 | ED ---
General Adult HPI - General Stated complaint: SOB Time Seen by Provider: 07/29/16 16:25 Source: RN notes reviewed - History of Present Illness Initial comments: This is a 76-year-old female presents emergency department with past medical history significant for ovarian cancer. Patient is receiving chemotherapy patient last received chemotherapy last Friday. Patient states she also received a pint of blood in the same day. Patient comes in today because she states since that time she's becoming weaker and weaker and more short of breath. Patient denies any fever or chills patient denies any cough. Patient states she does have a heaviness on her chest but she says is been ongoing since last week. Patient denies any abdominal pain patient denies any vomiting or diarrhea. Patient denies any black stool. Patient denies headache patient denies numbness or weakness. - Related Data Home Medications Medication Instructions Recorded Confirmed Sertraline [Zoloft] 50 mg PO DAILY 12/11/14 07/29/16 amLODIPine [Norvasc] 5 mg PO DAILY 12/11/14 07/29/16 Meloxicam [Mobic] 15 mg PO DAILY 01/09/15 07/29/16 Cyanocobalamin [Vitamin B-12] 1,500 mcg PO DAILY 07/26/15 07/29/16 Triamterene-Hctz 37.5-25Mg 1 cap PO DAILY 07/26/15 07/29/16 [Dyazide 37.5-25 Capsule] hydrOXYzine PAMOATE [Vistaril] 25 mg PO QID PRN 07/26/15 07/29/16 Furosemide [Lasix] 20 mg PO W/SUPPER 11/22/15 07/29/16 Ondansetron HCl [Zofran] 4 mg PO TID PRN 11/22/15 07/29/16 LORazepam [Ativan] 1 mg PO QID PRN 06/02/16 07/29/16 Allopurinol [Zyloprim] 300 mg PO DAILY 06/28/16 07/29/16 Diphenox-Atrop 2.5-0.025 mg 1 tab PO BID PRN 06/28/16 07/29/16 [Lomotil] Furosemide [Lasix] 40 mg PO QAM 06/28/16 07/29/16 HYDROcodone/APAP 5-325MG [[place] 1 tab PO BID PRN 06/28/16 07/29/16 5-325] Potassium Chloride ER [K-Dur 10] 20 meq PO BID 06/28/16 07/29/16 ALPRAZolam [Xanax] 0.25 mg PO DAILY PRN 07/05/16 07/29/16 Omeprazole 20 mg PO DAILY PRN 07/05/16 07/29/16 Allergies Allergy/AdvReac Type Severity Reaction Status Date / Time adhesive tape Allergy Rash/Hives Verified 07/29/16 16:51 codeine Allergy Itching Verified 07/29/16 16:51 latex Allergy Rash/Hives Verified 07/29/16 16:51 Review of Systems ROS Statement: Those systems with pertinent positive or pertinent negative responses have been documented in the HPI. ROS Other: All systems not noted in ROS Statement are negative. 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 colon cancer august 2015 History of Any Multi-Drug Resistant Organisms: None Reported Past Surgical History: Appendectomy, Orthopedic Surgery Additional Past Surgical History / Comment(s): BL knee replacement, right salpingectomy and oophorectomy, cataract removal and lens implants, laser surgery for glaucoma, right breast biopsy that was benign, SHANTANU CARPAL TUNNEL RELEASE. Past Anesthesia/Blood Transfusion Reactions: No Reported Reaction Additional Past Anesthesia/Blood Transfusion Reaction / Comment(s): HAD BLOOD TRANSFUSION-NO REACTION Smoking Status: Former smoker - Past Family History Mother Family Medical History: Cancer Additional Family Medical History / Comment(s): Lung cancer Father Family Medical History: Cancer Additional Family Medical History / Comment(s): No reports of GI malignancy General Exam - General Exam Comments Initial Comments: GENERAL: Patient is well-developed and well-nourished. Patient is nontoxic and well- hydrated and is in mild distress. ENT: Neck is soft and supple. No significant lymphadenopathy is noted. Oropharynx is clear. Moist mucous membranes. EYES: The sclera were anicteric and conjunctiva were pink and moist. Extraocular movements were intact and pupils were equal round and reactive to light. Eyelids were unremarkable. PULMONARY: Unlabored respirations. Good breath sounds bilaterally. No audible rales rhonchi or wheezing was noted. CARDIOVASCULAR: There is a regular rate and rhythm without any murmurs gallops or rubs. ABDOMEN: Soft and nontender with normal bowel sounds. No palpable organomegaly was noted. There is no palpable pulsatile mass. SKIN: Patient's skin is pale NEUROLOGIC: Patient is alert and oriented x3. Cranial nerves II through XII are grossly intact. Motor and sensory are also intact. Normal speech, volume and content. Symmetrical smile. LYMPHATICS: No significant lymphadenopathy is noted PSYCHIATRIC: Normal psychiatric evaluation. Course Vital Signs 07/29/16 07/29/16 07/29/16 16:28 16:38 17:17 Temperature 97.3 F L 97.3 F L Pulse Rate 93 96 Respiratory 16 16 20 Rate Blood Pressure 105/58 105/58 O2 Sat by Pulse 88 L 89 L Oximetry 07/29/16 07/29/16 07/29/16 17:51 18:56 20:36 Temperature 97.5 F L 97.4 F L 98 F Pulse Rate 66 104 H 97 Respiratory 16 16 20 Rate Blood Pressure 196/90 103/56 103/56 O2 Sat by Pulse 94 L 96 97 Oximetry Medical Decision Making - Medical Decision Making EKG shows normal sinus rhythm at 96 bpm NE interval is 170 QRS 102 QT interval 336 QTC is 424. Patient's EKG is compared to an old EKG and there is a little ST segment depression in some precordial leads V5 and 6 there were little more pronounced than previously noted. I wanted to scan the patient's chest for PE but her GFR was not great enough so I ordered a VQ scan VQ scan was read as a low probability Patient refused to take Kayexalate by mouth or per rectum - Lab Data Result diagrams: 07/29/16 16:45 07/29/16 17:48 Lab Results 07/29/16 07/29/16 07/29/16 Range/Units 16:45 16:45 16:45 WBC 10.3 (3.8-10.6) k/uL RBC 2.06 L (3.80-5.40) m/uL Hgb 7.1 L (11.4-16.0) gm/dL Hct 20.9 L (34.0-46.0) % MCV 101.7 H (80.0-100.0) fL MCH 34.3 (25.0-35.0) pg MCHC 33.7 (31.0-37.0) g/dL RDW 22.4 H (11.5-15.5) % Plt Count 44 L* (150-450) k/uL Neutrophils % 97 % Lymphocytes % 1 % Monocytes % 1 % Eosinophils % 1 % Basophils % 0 % Neutrophils # 10.0 H (1.3-7.7) k/uL Lymphocytes # 0.1 L (1.0-4.8) k/uL Monocytes # 0.1 (0-1.0) k/uL Eosinophils # 0.1 (0-0.7) k/uL Basophils # 0.0 (0-0.2) k/uL Polychromasia Present Poikilocytosis Slight Anisocytosis Moderate Macrocytosis Marked PT (9.0-12.0) sec INR (<1.1) APTT (22.0-30.0) sec Sodium (137-145) mmol/L Potassium (3.5-5.1) mmol/L Chloride (98-107) mmol/L Carbon Dioxide (22-30) mmol/L Anion Gap mmol/L BUN (7-17) mg/dL Creatinine (0.52-1.04) mg/dL Est GFR (MDRD) Af Amer (>60 ml/min/1.73 sqM) Est GFR (MDRD) Non-Af (>60 ml/min/1.73 sqM) Glucose (74-99) mg/dL Calcium (8.4-10.2) mg/dL Magnesium (1.6-2.3) mg/dL Total Bilirubin (0.2-1.3) mg/dL AST (14-36) U/L ALT (9-52) U/L Alkaline Phosphatase (38-126) U/L Total Creatine Kinase 31 (30-135) U/L CK-MB (CK-2) 2.4 (0.0-2.4) ng/mL CK-MB (CK-2) Rel Index 7.7 Troponin I 0.099 H* (0.000-0.034) ng/mL NT-Pro-B Natriuret Pep pg/mL Total Protein (6.3-8.2) g/dL Albumin (3.5-5.0) g/dL Urine Color Urine Appearance (Clear) Urine pH (5.0-8.0) Ur Specific [place] (1.001-1.035) Urine Protein (Negative) Urine Glucose (UA) (Negative) Urine Ketones (Negative) Urine Blood (Negative) Urine Nitrite (Negative) Urine Bilirubin (Negative) Urine Urobilinogen (<2.0) mg/dL Ur Leukocyte Esterase (Negative) Urine RBC (0-5) /hpf Urine WBC (0-5) /hpf Ur Squamous Epith Cells (0-4) /hpf Amorphous Sediment (None) /hpf Urine Bacteria (None) /hpf Hyaline Casts (0-2) /lpf Urine Mucus (None) /hpf Blood Type O Negative Blood Type Recheck No Antibody Screen NEGATIVE Spec Expiration Date 08/01/2016 - 234407/29/16 07/29/16 07/29/16 Range/Units 16:45 16:45 16:45 WBC (3.8-10.6) k/uL RBC (3.80-5.40) m/uL Hgb (11.4-16.0) gm/dL Hct (34.0-46.0) % MCV (80.0-100.0) fL MCH (25.0-35.0) pg MCHC (31.0-37.0) g/dL RDW (11.5-15.5) % Plt Count (150-450) k/uL Neutrophils % % Lymphocytes % % Monocytes % % Eosinophils % % Basophils % % Neutrophils # (1.3-7.7) k/uL Lymphocytes # (1.0-4.8) k/uL Monocytes # (0-1.0) k/uL Eosinophils # (0-0.7) k/uL Basophils # (0-0.2) k/uL Polychromasia Poikilocytosis Anisocytosis Macrocytosis PT 12.2 H (9.0-12.0) sec INR 1.2 (<1.1) APTT 22.7 (22.0-30.0) sec Sodium 132 L (137-145) mmol/L Potassium 6.8 H* (3.5-5.1) mmol/L Chloride 98 (98-107) mmol/L Carbon Dioxide 21 L (22-30) mmol/L Anion Gap 13 mmol/L BUN 99 H* (7-17) mg/dL Creatinine 1.96 H (0.52-1.04) mg/dL Est GFR (MDRD) Af Amer 30 (>60 ml/min/1.73 sqM) Est GFR (MDRD) Non-Af 25 (>60 ml/min/1.73 sqM) Glucose 123 H (74-99) mg/dL Calcium 8.5 (8.4-10.2) mg/dL Magnesium 2.2 (1.6-2.3) mg/dL Total Bilirubin 1.3 (0.2-1.3) mg/dL AST 37 H (14-36) U/L ALT 51 (9-52) U/L Alkaline Phosphatase 121 (38-126) U/L Total Creatine Kinase (30-135) U/L CK-MB (CK-2) (0.0-2.4) ng/mL CK-MB (CK-2) Rel Index Troponin I (0.000-0.034) ng/mL NT-Pro-B Natriuret Pep 71772 pg/mL Total Protein 6.4 (6.3-8.2) g/dL Albumin 3.8 (3.5-5.0) g/dL Urine Color Urine Appearance (Clear) Urine pH (5.0-8.0) Ur Specific [place] (1.001-1.035) Urine Protein (Negative) Urine Glucose (UA) (Negative) Urine Ketones (Negative) Urine Blood (Negative) Urine Nitrite (Negative) Urine Bilirubin (Negative) Urine Urobilinogen (<2.0) mg/dL Ur Leukocyte Esterase (Negative) Urine RBC (0-5) /hpf Urine WBC (0-5) /hpf Ur Squamous Epith Cells (0-4) /hpf Amorphous Sediment (None) /hpf Urine Bacteria (None) /hpf Hyaline Casts (0-2) /lpf Urine Mucus (None) /hpf Blood Type Blood Type Recheck Antibody Screen Spec Expiration Date 07/29/16 07/29/16 07/29/16 Range/Units 17:48 17:48 21:03 WBC (3.8-10.6) k/uL RBC (3.80-5.40) m/uL Hgb (11.4-16.0) gm/dL Hct (34.0-46.0) % MCV (80.0-100.0) fL MCH (25.0-35.0) pg MCHC (31.0-37.0) g/dL RDW (11.5-15.5) % Plt Count (150-450) k/uL Neutrophils % % Lymphocytes % % Monocytes % % Eosinophils % % Basophils % % Neutrophils # (1.3-7.7) k/uL Lymphocytes # (1.0-4.8) k/uL Monocytes # (0-1.0) k/uL Eosinophils # (0-0.7) k/uL Basophils # (0-0.2) k/uL Polychromasia Poikilocytosis Anisocytosis Macrocytosis PT (9.0-12.0) sec INR (<1.1) APTT (22.0-30.0) sec Sodium (137-145) mmol/L Potassium 6.5 H* (3.5-5.1) mmol/L Chloride (98-107) mmol/L Carbon Dioxide (22-30) mmol/L Anion Gap mmol/L BUN 96 H* (7-17) mg/dL Creatinine 2.00 H (0.52-1.04) mg/dL Est GFR (MDRD) Af Amer 29 (>60 ml/min/1.73 sqM) Est GFR (MDRD) Non-Af 24 (>60 ml/min/1.73 sqM) Glucose (74-99) mg/dL Calcium (8.4-10.2) mg/dL Magnesium (1.6-2.3) mg/dL Total Bilirubin (0.2-1.3) mg/dL AST (14-36) U/L ALT (9-52) U/L Alkaline Phosphatase (38-126) U/L Total Creatine Kinase (30-135) U/L CK-MB (CK-2) (0.0-2.4) ng/mL CK-MB (CK-2) Rel Index Troponin I (0.000-0.034) ng/mL NT-Pro-B Natriuret Pep pg/mL Total Protein (6.3-8.2) g/dL Albumin (3.5-5.0) g/dL Urine Color Yellow Urine Appearance Cloudy H (Clear) Urine pH 5.0 (5.0-8.0) Ur Specific [place] 1.009 (1.001-1.035) Urine Protein Trace H (Negative) Urine Glucose (UA) Negative (Negative) Urine Ketones Negative (Negative) Urine Blood Large H (Negative) Urine Nitrite Negative (Negative) Urine Bilirubin Negative (Negative) Urine Urobilinogen <2.0 (<2.0) mg/dL Ur Leukocyte Esterase Large H (Negative) Urine RBC 11 H (0-5) /hpf Urine WBC 22 H (0-5) /hpf Ur Squamous Epith Cells 7 H (0-4) /hpf Amorphous Sediment Rare H (None) /hpf Urine Bacteria Many H (None) /hpf Hyaline Casts 11 H (0-2) /lpf Urine Mucus Rare H (None) /hpf Blood Type Blood Type Recheck Antibody Screen Spec Expiration Date Disposition Clinical Impression: Anemia, Thrombocytopenia, Hyperkalemia, Dyspnea Disposition: ADMITTED IP TO THIS HOSP Referrals: None,Stated [Primary Care Provider] - 1-2 days Time of Disposition: 23:41
[2016-07-29 17:02] LABS: Anisocytosis Moderate; Basophils % (A) 0 %; CHCM 34.7; Eosinophils # (A) 0.1 k/uL (0-0.7); Eosinophils % (A) 1 %; HCT 20.9 % (34.0-46.0); HDW 3.62; HGB 7.1 gm/dL (11.4-16.0); Luc # (Auto) 0.01; Luc % (Auto) 0; Lymphocytes # (A) 0.1 k/uL (1.0-4.8); Lymphocytes % (A) 1 %; MCH 34.3 pg (25.0-35.0); MCHC 33.7 g/dL (31.0-37.0); MCV 101.7 fL (80.0-100.0); Macrocytosis Marked; Mean Platelet Volume 8.7; Monocytes # (A) 0.1 k/uL (0-1.0); Monocytes % (A) 1 %; Neutrophils % (A) 97 %; Poikilocytosis Slight; RBC 2.06 m/uL (3.80-5.40); RDW 22.4 % (11.5-15.5); WBC 10.3 k/uL (3.8-10.6); WBC (Perox) 10.57
[2016-07-29 17:11] LABS: Calcium 8.5 mg/dL (8.4-10.2); Magnesium 2.2 mg/dL (1.6-2.3); Total Bilirubin 1.3 mg/dL (0.2-1.3); Total Protein 6.4 g/dL (6.3-8.2)
[2016-07-29 17:12] LABS: INR 1.2 (<1.1); Partial Thromboplastin Time 22.7 sec (22.0-30.0); Prothrombin Time 12.2 sec (9.0-12.0)
[2016-07-29 17:21] LABS: Potassium 6.8 mmol/L (3.5-5.1)
[2016-07-29 17:38] LABS: Creatine Kinase MB 2.4 ng/mL (0.0-2.4); Troponin I 0.099 ng/mL (0.000-0.034)
--- NOTE | 2016-07-29 17:45 | XR ---
EXAMINATION TYPE: XR chest 2V DATE OF EXAM: 07/29/2016 COMPARISON: 07/05/2016 HISTORY: Weakness and dizziness TECHNIQUE: Frontal and lateral views of the chest are obtained. FINDINGS: Heart is significantly enlarged. There is no heart failure. There is a right central venou s catheter with the tip in the superior vena cava. There is no pleural effusion. Bony thorax is intac t. IMPRESSION: Cardiomegaly. No heart failure. No change compared to old exam.
[2016-07-29 17:58] LABS: Polychromasia Present
[2016-07-29] MEDS ORDERED: CALCIUM CHLORIDE 100 MG/ML 10 ML SYRINGE IVP STA (19:22)
[2016-07-29] MEDS ORDERED: ONDANSETRON 4 MG/2 ML VIAL IVP STA (19:32)
[2016-07-29] MEDS ORDERED: DEXTROSE 50%-WATER 50 ML SYRINGE IVP STA (20:15)
[2016-07-29] MEDS ORDERED: INSULIN REGULAR 100 UNIT/ML VIAL IV ONE (20:16)
[2016-07-29] MEDS: SODIUM POLYSTYRENE SULFONATE 15 GM/60 ML BOTTLE PO STA ×2 (20:40→20:44)
[2016-07-29] MEDS ORDERED: SODIUM ACETATE 50 MEQ in WATER FOR INJECTION, STERILE 250 ML IV ONE (20:45)
[2016-07-29 21:56] LABS: Amorphous Sediment,Urine Rare /hpf; Appearance,Urine Cloudy (Clear); Bacteria,Urine Many /hpf; Bilirubin,Urine Negative (Negative); Glucose,Urine (UA) Negative (Negative); Ketones,Urine Negative (Negative); Leukocyte Esterase,Urine Large (Negative); Mucus,Urine Rare /hpf; Nitrite,Urine Negative (Negative); Particle Count 100154; Protein,Urine Trace (Negative); RBC,Urine 11 /hpf (0-5); Specific Gravity,Urine 1.009 (1.001-1.035); Squamous Epithelial Cell,Urine 7 /hpf (0-4); UA Billing (MACRO vs. MICRO) MICRO; Urobilinogen,Urine <2.0 mg/dL (<2.0); WBC,Urine 22 /hpf (0-5)
--- NOTE | 2016-07-29 23:39 | NM ---
EXAM: NM Lung Perfusion and Ventilation Scan CLINICAL HISTORY: Difficult to breathing TECHNIQUE: Nuclear Medicine ventilation and perfusion images of the lungs were obtained in multiple projections following inhalation of 64.70 mCi of Tc99m DTPA aerosol and injection of 5.0 mCi of Tc99m MAA. COMPARISON: Correlation is made with chest dated 07/29/16. FINDINGS: No ventilation/perfusion mismatch detected. There are matched nonsegmental defects related to cardiomegaly. IMPRESSION: Low probability study.
[2016-07-29] MEDS ORDERED: SODIUM POLYSTYRENE SULFONATE 15 GM/60 ML BOTTLE PO SCH (23:45)
[2016-07-30] MEDS ORDERED: DEXTROSE 50%-WATER 50 ML SYRINGE IVP STA (01:49)
[2016-07-30] MEDS ORDERED: INSULIN REGULAR 100 UNIT/ML VIAL SQ ONE (01:50)
[2016-07-30] MEDS ORDERED: CALCIUM GLUCONATE 1,000 MG in SODIUM CHLORIDE 0.9% 100 ML IVPB ONE (02:06)
[2016-07-30] MEDS ORDERED: SODIUM POLYSTYRENE SULFONATE 30 GM/120 ML BOTTLE RECTAL STA ×2 (02:08→16:57)
[2016-07-30] MEDS: LORazepam 0.5 MG TAB PO PRN ×2 (02:43→08:20)
[2016-07-30 06:02] LABS: Glucose,Whole Blood 98 mg/dL (75-99)
[2016-07-30 06:40] LABS: Calcium 9.2 mg/dL (8.4-10.2); Total Bilirubin 1.4 mg/dL (0.2-1.3); Total Protein 6.1 g/dL (6.3-8.2)
[2016-07-30 06:50] LABS: Potassium 6.4 mmol/L (3.5-5.1)
[2016-07-30 07:01] LABS: Anisocytosis Moderate; Basophils % (A) 0 %; CH 34.5; CHCM 32.7; Eosinophils # (A) 0.1 k/uL (0-0.7); Eosinophils % (A) 1 %; HCT 20.8 % (34.0-46.0); HDW 3.22; Luc # (Auto) 0.01; Luc % (Auto) 0; Lymphocytes # (A) 0.2 k/uL (1.0-4.8); Lymphocytes % (A) 2 %; MCH 33.7 pg (25.0-35.0); MCHC 31.7 g/dL (31.0-37.0); MCV 106.1 fL (80.0-100.0); Macrocytosis Marked; Monocytes # (A) 0.1 k/uL (0-1.0); Monocytes % (A) 1 %; Neutrophils # (A) 8.9 k/uL (1.3-7.7); Neutrophils % (A) 96 %; RBC 1.97 m/uL (3.80-5.40); RDW 22.6 % (11.5-15.5); WBC 9.3 k/uL (3.8-10.6); WBC (Perox) 9.21
[2016-07-30 07:13] LABS: HGB 6.6 gm/dL (11.4-16.0)
[2016-07-30 08:35] LABS: Manual Review Performed
[2016-07-30] MEDS ORDERED: FUROSEMIDE 10 MG/ML 2 ML VIAL IV ONE (10:00)
[2016-07-30] MEDS ORDERED: SODIUM POLYSTYRENE SULFONATE 15 GM/60 ML BOTTLE PO STA (13:18)
[2016-07-30] MEDS ORDERED: DIPHENOX-ATROP 2.5-0.025 MG 1 EACH TAB PO PRN (13:22)
[2016-07-30] MEDS: SODIUM CHLORIDE 0.9% 1,000 ML IV SCH ×2 (14:28→22:59)
[2016-07-30] MEDS: ALPRAZolam 0.25 MG TAB PO PRN (15:52)
--- NOTE | 2016-07-30 18:02 | HP ---
DATE OF ADMISSION: 07/29/2016 76-year-old with history of lung cancer, last therapy last month. Came in with generalized weakness, found to be anemic. The patient received one unit of transfusion. The patient also was having diarrhea, nausea, vomiting which again is secondary to mucositis. C. dif testing will be obtained. Patient has been progressively getting weaker and more and more short of breath. Denied any orthopnea or PND. The patient is quite dehydrated with renal dysfunction and creatinine going up to 1.9, baseline being at 0.6 and the patient also has elevated potassium. Did not improve with Kayexelate, calcium gluconate and dextrose insulin combination. Patient does not have any T-waves on EKG. The patient received one Kayexelate without any bowel movement. Potassium came down from 7.1 to 6.9, I will give one more dose of Kayexelate, repeat potassium after bowel movement. The patient did have some heaviness in her chest without any significant EKG changes which is probably related to demand ischemia from severe anemia and patient does have history of ovarian cancer. I received ( ) about a week ago leading to pancytopenia. Denied any dark stools, hematemesis, hematochezia, denied any fever, chills, dysuria. Denied any cough. REVIEW OF SYSTEMS: GENERAL: As described in HPI. HEENT: No recent visual problems or hearing problems. Denied any sore throat. CARDIOVASCULAR: No chest pain, orthopnea, PND, no palpitations, no syncope. PULMONARY: No shortness of breath, no cough, no hemoptysis. GASTROINTESTINAL: As described in HPI. NEUROLOGICAL: No headaches, no weakness, no numbness. HEMATOLOGICAL: Denies any bleeding or petechiae. GENITOURINARY: Denies any burning micturition, frequency, or urgency. MUSCULOSKELETAL/RHEUMATOLOGICAL: Denies any joint pain, swelling, or any muscle pain. ENDOCRINE: Denies any polyuria or polydipsia. The rest of the 14 point review of systems is negative. Home medications include: 1. Sertraline. 2. Amlodipine. 3. Meloxicam. 4. Cyclobenzaprine. 5. ( ). 6. Hydrochlorothiazide. 7. Hydroxyzine. 8. Lasix. 9. Donepezil. 10. Lorazepam. 11. Allopurinol. 12. Lomotil. 13. Lasix. 14. Hydrocodone, acetaminophen. 15. Potassium chloride. 16. Alprazolam. 17. Omeprazole. ALLERGIES: ADHESIVE TAPE, ( ) AND LATEX. Past medical history: Gastroesophageal reflux disease, hypertension, osteoarthritis, ovarian cancer, bilateral knee surgery, appendectomy, carpal tunnel release surgery. FAMILY HISTORY: Mother had lung cancer. Father had gastrointestinal malignancy. PHYSICAL EXAMINATION: VITAL SIGNS: Temperature 97.8, pulse of 102, respiratory rate of 24, blood pressure is 81/48. Saturating at 94% and 3 liters of O2 by nasal cannula. GENERAL: The patient is excessively tired, weak generalized, malaise. HEENT: Pupils are round and equally reacting to light. EOMI. No scleral icterus. No conjunctival pallor. Normocephalic, atraumatic. No pharyngeal erythema. No thyromegaly. CARDIOVASCULAR: S1 and S2 present. No murmurs, rubs, or gallops. PULMONARY: Chest is clear to auscultation, no wheezing or crackles. ABDOMEN: Soft, nontender, nondistended, normoactive bowel sounds. No palpable organomegaly. MUSCULOSKELETAL: No joint swelling or deformity. EXTREMITIES: No cyanosis, clubbing, or pedal edema. NEUROLOGICAL: Gross neurological examination did not reveal any focal deficits. SKIN: No rashes. LABORATORY DATA: CBC, CMP are abnormal for low hemoglobin of 6.6, MCV 106.1, platelet count 38,000. Sodium 133, potassium 6.2, creatinine 1.96. Total bilirubin of 1.4. AST is 46, ALT 57. Urine showed large leukocyte esterase, ( ) 7, contaminated urine sample. ASSESSMENT: 1. Generalized weakness tiredness and chest pain secondary to severe anemia. Patient had some chronic anemia, the patient is receiving 1 unit of blood transfusion. 2. ( ) secondary to chemotherapy. 3. Hyperkalemia secondary acute renal failure which is again secondary to nausea and ( ) antihypertensive medications she is receiving and diuretic therapy which is being ( ) all the antihypertensives along with ( ). 4. Hypotension, secondary to ( ) depletion. 5. Acute renal failure. Patient has prerenal azotemia with a component of nonoliguric acute tubular necrosis, expected to improve with IV fluids. The patient will continue on ( ) as mentioned earlier. 6. Hyperkalemia secondary to renal dysfunction. Further management as mentioned in interval history. 7. Diarrhea, probably related to leukocytosis, Clostridium difficile testing will be obtained. 8. Hypovolemic hyponatremia expected to improve with IV fluids. The patient was started on 125 mL of normal saline. 9. Ovarian cancer for which patient is apparently receiving chemotherapy as mentioned above. 10. Hypertension. Patient is hypotensive because of severe intravascular volume depletion, although ( ) antihypertensive medications are being discontinued at this point of time. 11. Depression for which the patient will be continued on ( ) here.
--- NOTE | 2016-07-30 23:36 | P.CONS ---
History of Present Illness - Reason for Consult Consult date: 07/30/16 SOB, chemo induced anemia - History of Present Illness The patient is a 76-year-old lady, well known to myself. Patient was initially seen because of anemia attributed to be inflammatory. On initial evaluation, there was concern for autoimmune diseases of as a possible cause. In 07/26, the patient continues for wall obstruction, and was found to have ovarian cancer. She was apparently treated with chemotherapy, with carboplatin and Taxol. She was then evaluated for possible radical surgery, but was not found to be a candidate, because of her other medical issues, as well as evidence of recurrent disease. She was therefore placed back on chemotherapy with Doxil, but was unable to tolerated because of cutaneous toxicity. Therefore Doxil was discontinued, and the patient was started on Gemzar. She had 2 admissions after cycle 1 D1, due to LE cellulitis, in late 06/26. The patient has had ongoing anemia due to chemotherapy, and CKD, requiring intermittent transfusions..She resumed chemo after resolution of cellulitis, and had ( delayed ) D 8 and 15 of dominique 1 , with her last chemo on 07/26/16 The patient does have problems with fatigue due to chemotherapy, but the on the day of admission was complaining of increasing shortness of breath at rest, as well as marked chest pressure ( "like an elephant sitting on my chest") which was new for her. She denied any fever, chills or cough. According to a message received from the home nurse, oxygen saturation had dropped significantly. The patient came into the emergency room and was therefore admitted for further management. Her Hgb dropped post admission to 6.6. Her troponin was mildly positive. VQ scan revealed low probability for PE. Consult was placed for further evaluation and recommendations. Review of Systems Constitutional: Reports fatigue, Reports weakness Eyes: denies blurred vision, denies pain Ears: deny: decreased hearing, ear discharge, earache, tinnitus Ears, nose, mouth and throat: Denies headache, Denies sore throat Cardiovascular: Reports chest pain, Reports dyspnea on exertion, Reports orthopnea Respiratory: Reports dyspnea, Reports pain Gastrointestinal: Denies abdominal pain, Denies diarrhea, Denies nausea, Denies vomiting Genitourinary: Reports prolapse symptoms, Reports urinary frequency, Denies dysuria, Denies hematuria Menstruation: Reports postmenopausal Musculoskeletal: Reports muscle weakness Integumentary: Reports as per HPI (recent cellulitis) Neurological: Reports weakness Psychiatric: Denies anxiety, Denies depression Endocrine: Reports fatigue Hematologic/Lymphatic: Reports as per HPI Past Medical History Past Medical History: Cancer, GERD/Reflux, Hypertension, Osteoarthritis (OA) Additional Past Medical History / Comment(s): glaucoma, GOUT,CHRONIC ITCHY SKIN RASH(ECZEMA-TAKES VISTARIL), MURMUR, ANEMIA.CELLULITS recent dx with ovarian ca dx august 2015. colon cancer august 2015 History of Any Multi-Drug Resistant Organisms: None Reported Past Surgical History: Appendectomy, Orthopedic Surgery Additional Past Surgical History / Comment(s): BL knee replacement, right salpingectomy and oophorectomy, cataract removal and lens implants, laser surgery for glaucoma, right breast biopsy that was benign, SHANTANU CARPAL TUNNEL RELEASE. Past Anesthesia/Blood Transfusion Reactions: No Reported Reaction Additional Past Anesthesia/Blood Transfusion Reaction / Comm: HAD BLOOD TRANSFUSION-NO REACTION Past Psychological History: Anxiety, Depression Additional Psychological History / Comment(s): PT LIVES IN OWN HOME,HER SON THRIL LIVES WITH HER. PT USES A CANE/WALKER OR W/C NEEDED.,CURRENTLY NOT RECIEVING ANY HOME CARE SERVICES. 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 PT LOST HER SISTER A MONTH AGO HAS SOME MILD DEPReSION/SADNESS OVER THIS. No animals in the home. No experience. No Travel history Smoking Status: Former smoker - Past Family History Mother Family Medical History: Cancer Additional Family Medical History / Comment(s): Lung cancer Father Family Medical History: Cancer Additional Family Medical History / Comment(s): No reports of GI malignancy Medications and Allergies Home Medications Medication Instructions Recorded Confirmed Type Sertraline [Zoloft] 50 mg PO DAILY 12/11/14 07/29/16 History amLODIPine [Norvasc] 5 mg PO DAILY 12/11/14 07/29/16 History Meloxicam [Mobic] 15 mg PO DAILY 01/09/15 07/29/16 History Cyanocobalamin [Vitamin B-12] 1,500 mcg PO DAILY 07/26/15 07/29/16 History Triamterene-Hctz 37.5-25Mg 1 cap PO DAILY 07/26/15 07/29/16 History [Dyazide 37.5-25 Capsule] hydrOXYzine PAMOATE [Vistaril] 25 mg PO QID PRN 07/26/15 07/29/16 History Furosemide [Lasix] 20 mg PO W/SUPPER 11/22/15 07/29/16 History Ondansetron HCl [Zofran] 4 mg PO TID PRN 11/22/15 07/29/16 History LORazepam [Ativan] 1 mg PO QID PRN 06/02/16 07/29/16 History Allopurinol [Zyloprim] 300 mg PO DAILY 06/28/16 07/29/16 History Diphenox-Atrop 2.5-0.025 mg 1 tab PO BID PRN 06/28/16 07/29/16 History [Lomotil] Furosemide [Lasix] 40 mg PO QAM 06/28/16 07/29/16 History HYDROcodone/APAP 5-325MG [Peggs 1 tab PO BID PRN 06/28/16 07/29/16 History 5-325] Potassium Chloride ER [K-Dur 10] 20 meq PO BID 06/28/16 07/29/16 History ALPRAZolam [Xanax] 0.25 mg PO DAILY PRN 07/05/16 07/29/16 History Omeprazole 20 mg PO DAILY PRN 07/05/16 07/29/16 History Allergies Allergy/AdvReac Type Severity Reaction Status Date / Time adhesive tape Allergy Rash/Hives Verified 07/29/16 16:51 codeine Allergy Itching Verified 07/29/16 16:51 latex Allergy Rash/Hives Verified 07/29/16 16:51 Physical Exam Vitals: Vital Signs Temp Pulse Pulse Resp BP BP Pulse Ox 07/30/16 04:00 98.5 F 96 17 96/60 98 07/30/16 00:16 94 20 94/56 98 07/29/16 23:58 98.7 F 98 19 92/55 98 07/29/16 20:36 98 F 97 20 103/56 97 07/29/16 18:56 97.4 F L 104 H 16 103/56 96 07/29/16 17:51 97.5 F L 66 16 196/90 94 L 07/29/16 17:17 20 07/29/16 16:38 97.3 F L 96 16 105/58 89 L 07/29/16 16:28 97.3 F L 93 16 105/58 88 L Intake and Output 07/29/16 07/30/16 07/30/16 22:59 06:59 14:59 Intake Total 340 Balance 340 Intake: Intake, IV Titration 100 Amount Calcium Gluconate 1,000 100 mg In Sodium Chloride 0.9 % 100 ml @ 100 mls/hr IVPB ONCE ONE Rx#: [id number] Oral 240 Other: Voiding Method Diaper # Voids 1 Weight 99.79 kg 99.5 kg - Constitutional General appearance: mild distress - EENT Eyes: EOMI, PERRLA ENT: hearing grossly normal, normal oropharynx - Neck Neck: no lymphadenopathy Thyroid: bilateral: normal size - Respiratory Respiratory: bilateral: dullness - Cardiovascular Rhythm: regular Heart sounds: normal: S1, S2 - Gastrointestinal General gastrointestinal: normal bowel sounds, soft - Integumentary Integumentary: normal - Neurologic Neurologic: CNII-XII intact - Musculoskeletal Musculoskeletal: generalized weakness, strength equal bilaterally - Psychiatric Psychiatric: A&O x's 3 Perineal and vulvar area examined in presence of female MA. Appears to have cervical prolapse at introitus. Area of intertriginous inflammation , possible fungal infection left groin Results CBC & Chem 7: 07/30/16 06:00 07/30/16 14:39 Labs: Abnormal Lab Results - Last 24 Hours (Table) 07/29/16 07/29/16 07/29/16 Range/Units 16:45 16:45 16:45 RBC 2.06 L (3.80-5.40) m/uL Hgb 7.1 L (11.4-16.0) gm/dL Hct 20.9 L (34.0-46.0) % MCV 101.7 H (80.0-100.0) fL RDW 22.4 H (11.5-15.5) % Plt Count 44 L* (150-450) k/uL Neutrophils # 10.0 H (1.3-7.7) k/uL Lymphocytes # 0.1 L (1.0-4.8) k/uL PT (9.0-12.0) sec Sodium (137-145) mmol/L Potassium (3.5-5.1) mmol/L Carbon Dioxide (22-30) mmol/L BUN (7-17) mg/dL Creatinine (0.52-1.04) mg/dL Glucose (74-99) mg/dL Total Bilirubin (0.2-1.3) mg/dL AST (14-36) U/L ALT (9-52) U/L Troponin I 0.099 H* (0.000-0.034) ng/mL Total Protein (6.3-8.2) g/dL Albumin (3.5-5.0) g/dL Urine Appearance (Clear) Urine Protein (Negative) Urine Blood (Negative) Ur Leukocyte Esterase (Negative) Urine RBC (0-5) /hpf Urine WBC (0-5) /hpf Ur Squamous Epith Cells (0-4) /hpf Amorphous Sediment (None) /hpf Urine Bacteria (None) /hpf Hyaline Casts (0-2) /lpf Urine Mucus (None) /hpf Crossmatch See Detail 07/29/16 07/29/16 07/29/16 Range/Units 16:45 16:45 17:48 RBC (3.80-5.40) m/uL Hgb (11.4-16.0) gm/dL Hct (34.0-46.0) % MCV (80.0-100.0) fL RDW (11.5-15.5) % Plt Count (150-450) k/uL Neutrophils # (1.3-7.7) k/uL Lymphocytes # (1.0-4.8) k/uL PT 12.2 H (9.0-12.0) sec Sodium 132 L (137-145) mmol/L Potassium 6.8 H* (3.5-5.1) mmol/L Carbon Dioxide 21 L (22-30) mmol/L BUN 99 H* 96 H* (7-17) mg/dL Creatinine 1.96 H 2.00 H (0.52-1.04) mg/dL Glucose 123 H (74-99) mg/dL Total Bilirubin (0.2-1.3) mg/dL AST 37 H (14-36) U/L ALT (9-52) U/L Troponin I (0.000-0.034) ng/mL Total Protein (6.3-8.2) g/dL Albumin (3.5-5.0) g/dL Urine Appearance (Clear) Urine Protein (Negative) Urine Blood (Negative) Ur Leukocyte Esterase (Negative) Urine RBC (0-5) /hpf Urine WBC (0-5) /hpf Ur Squamous Epith Cells (0-4) /hpf Amorphous Sediment (None) /hpf Urine Bacteria (None) /hpf Hyaline Casts (0-2) /lpf Urine Mucus (None) /hpf Crossmatch 07/29/16 07/29/16 07/30/16 Range/Units 17:48 21:03 06:00 RBC 1.97 L (3.80-5.40) m/uL Hgb 6.6 L* (11.4-16.0) gm/dL Hct 20.8 L (34.0-46.0) % MCV 106.1 H (80.0-100.0) fL RDW 22.6 H (11.5-15.5) % Plt Count 38 L* (150-450) k/uL Neutrophils # 8.9 H (1.3-7.7) k/uL Lymphocytes # 0.2 L (1.0-4.8) k/uL PT (9.0-12.0) sec Sodium (137-145) mmol/L Potassium 6.5 H* (3.5-5.1) mmol/L Carbon Dioxide (22-30) mmol/L BUN (7-17) mg/dL Creatinine (0.52-1.04) mg/dL Glucose (74-99) mg/dL Total Bilirubin (0.2-1.3) mg/dL AST (14-36) U/L ALT (9-52) U/L Troponin I (0.000-0.034) ng/mL Total Protein (6.3-8.2) g/dL Albumin (3.5-5.0) g/dL Urine Appearance Cloudy H (Clear) Urine Protein Trace H (Negative) Urine Blood Large H (Negative) Ur Leukocyte Esterase Large H (Negative) Urine RBC 11 H (0-5) /hpf Urine WBC 22 H (0-5) /hpf Ur Squamous Epith Cells 7 H (0-4) /hpf Amorphous Sediment Rare H (None) /hpf Urine Bacteria Many H (None) /hpf Hyaline Casts 11 H (0-2) /lpf Urine Mucus Rare H (None) /hpf Crossmatch 07/30/16 Range/Units 06:00 RBC (3.80-5.40) m/uL Hgb (11.4-16.0) gm/dL Hct (34.0-46.0) % MCV (80.0-100.0) fL RDW (11.5-15.5) % Plt Count (150-450) k/uL Neutrophils # (1.3-7.7) k/uL Lymphocytes # (1.0-4.8) k/uL PT (9.0-12.0) sec Sodium 133 L (137-145) mmol/L Potassium 6.4 H* (3.5-5.1) mmol/L Carbon Dioxide 19 L (22-30) mmol/L BUN 100 H* (7-17) mg/dL Creatinine 1.96 H (0.52-1.04) mg/dL Glucose (74-99) mg/dL Total Bilirubin 1.4 H (0.2-1.3) mg/dL AST 46 H (14-36) U/L ALT 57 H (9-52) U/L Troponin I (0.000-0.034) ng/mL Total Protein 6.1 L (6.3-8.2) g/dL Albumin 3.4 L (3.5-5.0) g/dL Urine Appearance (Clear) Urine Protein (Negative) Urine Blood (Negative) Ur Leukocyte Esterase (Negative) Urine RBC (0-5) /hpf Urine WBC (0-5) /hpf Ur Squamous Epith Cells (0-4) /hpf Amorphous Sediment (None) /hpf Urine Bacteria (None) /hpf Hyaline Casts (0-2) /lpf Urine Mucus (None) /hpf Crossmatch Comments: VQ scan report reviewed Chest x-ray: report reviewed Assessment and Plan (1) Dyspnea Narrative/Plan: The pt has some baseline SOB due to anemia and deconditioning. Her current presentation is however significantly different. A cardiac etiology is a concern , given her symptoms, troponin elevation, and rales. Cardiology will be consulted. Case was d/w them Status: Acute (2) Antineoplastic chemotherapy induced pancytopenia Narrative/Plan: Her baseline Hgb is usually in the 7-8 range. She will be transfused 1 U. Plt counts currently are adequate, unless the pt needs anti plt therapy or anti coagulation. Continue to monitor with transfusion support as needed Status: Acute (3) Ovarian cancer Narrative/Plan: Tolerance of chemo has been poor especially re her blood counts. She will need dose modification with her next cycle Status: Acute
[2016-07-31 06:10] LABS: Anisocytosis Moderate; Basophils % (A) 0 %; CH 33.3; CHCM 32.3; Eosinophils # (A) 0.1 k/uL (0-0.7); Eosinophils % (A) 3 %; HCT 22.6 % (34.0-46.0); HDW 3.18; HGB 7.3 gm/dL (11.4-16.0); Luc # (Auto) 0.01; Luc % (Auto) 0; Lymphocytes # (A) 0.1 k/uL (1.0-4.8); Lymphocytes % (A) 3 %; MCH 33.5 pg (25.0-35.0); MCHC 32.3 g/dL (31.0-37.0); MCV 103.8 fL (80.0-100.0); Macrocytosis Marked; Mean Platelet Volume 9.5; Monocytes # (A) 0.1 k/uL (0-1.0); Monocytes % (A) 1 %; Neutrophils # (A) 3.9 k/uL (1.3-7.7); Neutrophils % (A) 93 %; RBC 2.18 m/uL (3.80-5.40); RDW 23.9 % (11.5-15.5); WBC 4.2 k/uL (3.8-10.6); WBC (Perox) 4.26
[2016-07-31] MEDS: SODIUM CHLORIDE 0.9% 1,000 ML IV SCH ×3 (06:23→21:53)
[2016-07-31 06:35] LABS: Calcium 8.6 mg/dL (8.4-10.2); Potassium 5.8 mmol/L (3.5-5.1); Total Bilirubin 1.7 mg/dL (0.2-1.3)
[2016-07-31 06:50] LABS: Manual Review Performed
[2016-07-31] MEDS: SERTRALINE 50 MG TAB PO SCH (08:33)
[2016-07-31] MEDS: ALPRAZolam 0.25 MG TAB PO PRN ×3 (09:04→22:41)
[2016-07-31] MEDS ORDERED: SODIUM POLYSTYRENE SULFONATE 30 GM/120 ML BOTTLE RECTAL STA (11:55)
--- NOTE | 2016-07-31 13:54 | CDI ---
In responding to this query, please exercise your independent professional judgment. The [facility] Coding Staff and Clinical Documentation Specialists appreciate your assistance in clarifying documentation, maintaining compliance with coding guidelines, accurately documenting patients condition and capturing severity of illness. The fact that a question is asked does not imply that any particular answer is desired or expected. Communication forms are a method of clarifying documentation and are not made part of the Legal Health Record. Thank you in advance for your clarification. Last Revision, December 2014 Rosa Hamilton [address] [facility] [place] [address] Documentation Clarification Form Date: 07/31/2016 1:47:00 PM From: Marj Burton, CCS, CCDS Admit Date: 07/29/2016 11:41:00 PM Patient Name: Debi Rosas Visit Number: [id number] Discharge Date: Dr. Barger Yesica: 76 yo female with history of ovarian CA status post chemotherapy admitted with chemo induced pancytopenia and acute renal failure with ATN.. History/Risk Factors: Per the Oncology consultation, the patient has a history of CKD nos. Current BUN: 96 - 102; Cr 2.00 - 1.93; GFR 24 - 25 Patients Baseline Creatinine is approximately 0.6 per the H/P. Clinical Indicators: Admitted with SOB, generalized weakness. Treatment: IV hydration, IV Calcium Chloride, IV Zofran, IV Dextrose, IV Insulin , IV Na Acetate Consult: Oncology, (Nephrology not consulted this admission). In order to capture the severity of condition, please clarify if the condition signifies: CKD Stage 1 (GFR > 90) CKD Stage 2 (GFR 60-89) CKD Stage 3 (GFR 30-59) CKD Stage 4 (GFR 15-29) CKD Stage 5 (GFR <15) ESRD Unable to determine Other condition, please specify Please document in your progress notes and discharge summary in order to capture severity of illness and risk of mortality. Include clinical findings that support your diagnosis. FYI: Press F11 to launch patient chart. Place X here if this finding has no clinical significance, is not applicable or if you are not able to provide any additional documentation. Thank You. TOMEKA
--- NOTE | 2016-07-31 14:55 | XR ---
EXAMINATION TYPE: XR chest 1V DATE OF EXAM: 07/31/2016 COMPARISON: Prior chest x-ray 07/29/2016 HISTORY: Respiratory distress, abnormal chest x-ray TECHNIQUE: Single frontal view of the chest is obtained. FINDINGS: The heart is enlarged. Right-sided Port-A-Cath is present, distal tip is stable overlying the right innominate vein. No evident pneumothorax or pleural effusion. Patient is rotated. Pulmonary vascularity and nancy are unchanged. IMPRESSION: Marked cardiomegaly, rotated exam
[2016-07-31] MEDS ORDERED: ALPRAZolam 0.25 MG TAB PO SCH (16:00)
[2016-08-01 06:14] LABS: Calcium 8.2 mg/dL (8.4-10.2); Potassium 5.1 mmol/L (3.5-5.1); Total Bilirubin 1.2 mg/dL (0.2-1.3); Total Protein 5.7 g/dL (6.3-8.2)
[2016-08-01 06:15] LABS: Anisocytosis Moderate; CH 32.9; CHCM 32.8; HCT 20.3 % (34.0-46.0); HDW 3.36; HGB 7.1 gm/dL (11.4-16.0); Large Platelets Flag Marked; MCH 35.2 pg (25.0-35.0); MCHC 34.9 g/dL (31.0-37.0); MCV 100.9 fL (80.0-100.0); Macrocytosis Marked; Mean Platelet Volume 11.4; RBC 2.01 m/uL (3.80-5.40); RDW 22.7 % (11.5-15.5)
[2016-08-01] MEDS: SODIUM CHLORIDE 0.9% 1,000 ML IV SCH ×3 (06:33→22:05)
--- NOTE | 2016-08-01 07:17 | PN ---
Patient is still not feeling well. Patient's potassium has come down, but still elevated. Patient has not been tolerating Kayexalate p.o. Patient has been anxious because of which I increased his Xanax to t.i.d. p.r.n. REVIEW OF SYSTEMS: CARDIOVASCULAR: No chest pain, no orthopnea, no PND, no palpitations. PULMONARY: Denied any shortness of breath. No cough or hemoptysis. GASTROINTESTINAL: No diarrhea, nausea or vomiting. No abdominal pain. Normoactive bowel sounds. NEUROLOGIC: No headaches, no weakness, no numbness. GENERAL: Patient is in distress because of her multiple medical issues as mentioned above. Medications were reviewed. Medication changes as mentioned in the interval history. PHYSICAL EXAMINATION: VITAL SIGNS: Temperature 97.3, pulse ox 94, respiratory rate of 16, blood pressure is 104/64, saturating at 98% on 6 liters of oxygen by nasal cannula. GENERAL: The patient is alert and oriented x3, but has generalized malaise and is in distress. HEENT: Pupils are round and equally reacting to light. EOMI. No scleral icterus. No conjunctival pallor. Normocephalic, atraumatic. No pharyngeal erythema. No thyromegaly. CARDIOVASCULAR: S1 and S2 present. No murmurs, rubs, or gallops. PULMONARY: Chest is clear to auscultation, no wheezing or crackles. ABDOMEN: Soft, nontender, nondistended, normoactive bowel sounds. No palpable organomegaly. MUSCULOSKELETAL: No joint swelling or deformity. EXTREMITIES: No cyanosis, clubbing, or pedal edema. NEUROLOGICAL: Gross neurological examination did not reveal any focal deficits. SKIN: No rashes. DERMATOLOGIC: Patient's right thigh area completely healed infection. I am repeating the chest x-ray because of increasing need for her oxygen, although concern for pulmonary embolism. Patient's troponin is minimally elevated secondary to chronic kidney disease. Patient cannot be on heparin because of low platelet count. Patient cannot be on subcutaneous heparin because of 20,000 platelet count which is contraindication. Patient remains hyponatremic. Sodium is 133, potassium 5.8. Patient received 1 unit of blood transfusion with hemoglobin of 7.3, platelet count of 25,000, BUN of 102, creatinine of 1.93, bicarbonate of 17. Patient does have an anion gap metabolic acidosis with uremia and there may be some lactic acidosis too. Anyways, patient is on IV fluids at this time. ASSESSMENT AND PLAN: 1. Symptomatic anemia, received blood 1 unit of blood transfusion. 2. Pancytopenia secondary to hyperkalemia secondary to renal failure. Would expect it to improve with IV fluids. Patient is still having diarrhea, which is secondary to mucositis. Clostridium difficile testing will be ordered. 3. Hypotension secondary to severe intravascular volume depletion and acute renal failure secondary to prerenal azotemia with a complaint of nonoliguric acute tubular necrosis. 4. Hyperkalemia secondary to renal dysfunction and diuretic therapy she was receiving. Expect it to improve. Will continue with Kayexalate as tolerated either rectal or p.o. 5. Hypovolemic hyponatremia. Continue with IV fluids. Chest x-ray did not show any pneumonic process. 6. Acute hypoxic respiratory failure, probably related to anemia, although concern for pulmonary embolism. Because of thrombocytopenia present patient is not a candidate for DVT prophylaxis. 7. Ovarian cancer. ( ) chemotherapy. Did not tolerate chemotherapy in the past. 8. Hypertension actually hypotensive at this point of time. All antihypertensives were discontinued. 9. Depression. 10. Elevated troponins secondary to renal dysfunction, severe anemia and supply and demand mismatch. Patient's prognosis is extremely poor and clinical condition is guarded. Extensive discussion in her overall course of care. Discussed with the patient, discussed with Dr. Robert on phone as well. TOMEKA
[2016-08-01] MEDS: ALPRAZolam 0.25 MG TAB PO PRN (08:12)
[2016-08-01] MEDS: SERTRALINE 50 MG TAB PO SCH (08:12)
--- NOTE | 2016-08-01 13:50 | P.CRDCN ---
History of Present Illness Consult date: 08/01/16 Requesting physician: Caity Gaxiola Reason for Consult (text): Abnormal troponin Chief complaint: Weakness History of present illness: This is a pleasant 76-year-old female with history of hypertension, diagnosis of ovarian cancer which she has had for approximately a year, she has been on 3 different types of chemotherapy, she apparently had an ALLERGIC reaction to the second 1. Patient recently prior to admission was experiencing some cramping, she apparently took Colace and had several bouts of diarrhea. Subsequent to that she then took medication to help with the diarrhea. She then states that she became extremely weak. Most of this history was obtained from the son at bedside as she is quite tired. Patient also states that along with the progressive weakness, she has been more short of breath than usual and was having episodes of feeling like an elephant was sitting on her chest. The patient was found to be significantly anemic. Hemoglobin on admission 7.1, it did go down to 6.6, patient received blood transfusion her hemoglobin this morning is 7.1. Platelet count is 14, WBC 2.0. Sodium on admission 132, 135 this morning. Potassium on admission 6.5, 5.1 this morning. BUN 96 creatinine 2.0 on admission, this morning 89 and 1.5. Magnesium level 2.2. Liver enzymes are also mildly elevated. Troponin 0.099, 0.066. BNP level 81,400. Positive UTI. Chest x-ray shows cardiomegaly with no evidence of congestive heart failure. Repeat chest x-ray shows cardiomegaly. Lung scan was performed which was low probability for PE. Blood pressure 110/60 with a heart rate of 90 afebrile. She is 98% on 6 L of oxygen. Her main complaint at the time of my examination patient is feeling extremely tired. She does appear to be short of breath, however she states that she feels like this is her normal. 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 colon cancer august 2015 History of Any Multi-Drug Resistant Organisms: None Reported Past Surgical History: Appendectomy, Orthopedic Surgery Additional Past Surgical History / Comment(s): BL knee replacement, right salpingectomy and oophorectomy, cataract removal and lens implants, laser surgery for glaucoma, right breast biopsy that was benign, SHANTANU CARPAL TUNNEL RELEASE. Past Anesthesia/Blood Transfusion Reactions: No Reported Reaction Additional Past Anesthesia/Blood Transfusion Reaction / Comment(s): HAD BLOOD TRANSFUSION-NO REACTION Past Psychological History: Anxiety, Depression Additional Psychological History / Comment(s): PT LIVES IN OWN HOME,HER SON THRIL LIVES WITH HER. PT USES A CANE/WALKER OR W/C NEEDED.,CURRENTLY NOT RECIEVING ANY HOME CARE SERVICES. 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 HER STAGE NAME WAS "[employer]". PT LOST HER SISTER A MONTH AGO HAS SOME MILD DEPReSION/SADNESS OVER THIS. No animals in the home. No experience. No Travel history Smoking Status: Former smoker - Past Family History Mother Family Medical History: Cancer Additional Family Medical History / Comment(s): Lung cancer Father Family Medical History: Cancer Additional Family Medical History / Comment(s): No reports of GI malignancy Medications and Allergies Home Medications Medication Instructions Recorded Confirmed Type Sertraline [Zoloft] 50 mg PO DAILY 12/11/14 07/29/16 History amLODIPine [Norvasc] 5 mg PO DAILY 12/11/14 07/29/16 History Meloxicam [Mobic] 15 mg PO DAILY 01/09/15 07/29/16 History Cyanocobalamin [Vitamin B-12] 1,500 mcg PO DAILY 07/26/15 07/29/16 History Triamterene-Hctz 37.5-25Mg 1 cap PO DAILY 07/26/15 07/29/16 History [Dyazide 37.5-25 Capsule] hydrOXYzine PAMOATE [Vistaril] 25 mg PO QID PRN 07/26/15 07/29/16 History Furosemide [Lasix] 20 mg PO W/SUPPER 11/22/15 07/29/16 History Ondansetron HCl [Zofran] 4 mg PO TID PRN 11/22/15 07/29/16 History LORazepam [Ativan] 1 mg PO QID PRN 06/02/16 07/29/16 History Allopurinol [Zyloprim] 300 mg PO DAILY 06/28/16 07/29/16 History Diphenox-Atrop 2.5-0.025 mg 1 tab PO BID PRN 06/28/16 07/29/16 History [Lomotil] Furosemide [Lasix] 40 mg PO QAM 06/28/16 07/29/16 History HYDROcodone/APAP 5-325MG [[place] 1 tab PO BID PRN 06/28/16 07/29/16 History 5-325] Potassium Chloride ER [K-Dur 10] 20 meq PO BID 06/28/16 07/29/16 History ALPRAZolam [Xanax] 0.25 mg PO DAILY PRN 07/05/16 07/29/16 History Omeprazole 20 mg PO DAILY PRN 07/05/16 07/29/16 History Allergies Allergy/AdvReac Type Severity Reaction Status Date / Time adhesive tape Allergy Rash/Hives Verified 07/29/16 16:51 codeine Allergy Itching Verified 07/29/16 16:51 latex Allergy Rash/Hives Verified 07/29/16 16:51 Physical Exam Vitals: Vital Signs Temp Pulse Resp BP Pulse Ox 08/01/16 12:00 100 19 110/67 96 08/01/16 08:00 97 19 109/60 96 08/01/16 03:47 97.4 F L 95 18 101/66 96 08/01/16 00:00 97.9 F 100 18 108/67 94 L 07/31/16 20:00 97.3 F L 95 18 101/59 95 07/31/16 15:49 97.5 F L 94 16 104/64 98 Intake and Output 07/31/16 08/01/16 08/01/16 22:59 06:59 14:59 Intake Total 125 1250 725 Output Total 200 Balance 125 1050 725 Intake: IV 125 1000 625 Sodium Chloride 0.9% 1, 125 1000 625 000 ml @ 125 mls/hr IV . Q8H [facility] Rx#:[id number] Oral 250 100 Output: Urine 200 Other: Voiding Method Diaper Diaper Bedpan Incontinent Incontinent # Voids 3 1 Weight 96.5 kg PHYSICAL EXAMINATION: HEENT: Head is atraumatic, normocephalic. Pupils equal, round. Neck is supple. There is o elevated jugular venous pressure. HEART EXAMINATION: Heart S1 S2 1 systolic murmur is heard. CHEST EXAMINATION: Lungs revealed diminished air entry to bilateral bases. ABDOMEN: Soft, nontender. Bowel sounds are heard. No organomegaly noted. EXTREMITIES: 2+ peripheral pulses with evidence of peripheral edema and no calf tenderness noted. NEUROLOGIC patient is awake, alert and oriented -3. . Results 08/01/16 05:33 08/01/16 05:33 Cardiac Enzymes 07/31/16 08/01/16 Range/Units 13:34 05:33 AST 61 H (14-36) U/L Troponin I 0.066 H* (0.000-0.034) ng/mL CBC 08/01/16 Range/Units 05:33 WBC 2.0 L* (3.8-10.6) k/uL RBC 2.01 L (3.80-5.40) m/uL Hgb 7.1 L (11.4-16.0) gm/dL Hct 20.3 L (34.0-46.0) % Plt Count 14 L* (150-450) k/uL Comprehensive Metabolic Panel 08/01/16 Range/Units 05:33 Sodium 135 L (137-145) mmol/L Potassium 5.1 (3.5-5.1) mmol/L Chloride 104 (98-107) mmol/L Carbon Dioxide 19 L (22-30) mmol/L BUN 89 H* (7-17) mg/dL Creatinine 1.56 H (0.52-1.04) mg/dL Glucose 117 H (74-99) mg/dL Calcium 8.2 L (8.4-10.2) mg/dL AST 61 H (14-36) U/L ALT 87 H (9-52) U/L Alkaline Phosphatase 112 (38-126) U/L Total Protein 5.7 L (6.3-8.2) g/dL Albumin 3.0 L (3.5-5.0) g/dL Current Medications Generic Name Dose Route Start Last Admin Trade Name Freq PRN Reason Stop Dose Admin Hydrocodone Bitart/Acetaminophen 1 each 07/30/16 02:10 [place] 5-325 PO BID PRN Severe Pain Alprazolam 0.25 mg 07/31/16 13:24 08/01/16 08:12 Xanax PO 0.25 mg TID PRN Administration Anxiety Diphenoxylate HCl/Atropine 1 each 07/30/16 13:22 Lomotil PO BID PRN Diarrhea Sodium Chloride 1,000 mls @ 125 mls/hr 07/30/16 13:30 08/01/16 08:13 Saline 0.9% IV 125 mls/hr .Q8H JENNIFER Administration Sertraline HCl 50 mg 07/31/16 09:00 08/01/16 08:12 Zoloft PO 50 mg DAILY JENNIFER Administration Intake and Output 07/31/16 08/01/16 08/01/16 22:59 06:59 14:59 Intake Total 125 1250 725 Output Total 200 Balance 125 1050 725 Intake: IV 125 1000 625 Sodium Chloride 0.9% 1, 125 1000 625 000 ml @ 125 mls/hr IV . Q8H [facility] Rx#:[id number] Oral 250 100 Output: Urine 200 Other: Voiding Method Diaper Diaper Bedpan Incontinent Incontinent # Voids 3 1 Weight 96.5 kg 08/01/16 05:33 08/01/16 05:33 EKG Interpretations (text) EKG shows a normal sinus rhythm with minimal ST depression in the lateral leads. Assessment and Plan Plan: Assessment and plan #1 symptoms of weakness with evidence of severe anemia requiring blood transfusion. #2 history of hypertension #3 ovarian cancer on chemotherapy #4 acute on chronic renal failure #5 hyperkalemia #6 abnormal liver enzymes #7 abnormal troponins, could be secondary to severe anemia. EKG shows normal sinus rhythm with nonspecific ST-T wave changes in the lateral leads. Echocardiogram with Doppler study done earlier this year showed normal LV function with moderate MR #8 abnormal BNP, suggesting congestive cardiac failure. Plan We will obtain an echocardiogram with Doppler study. We will also recommend starting a low-dose beta zachariah, discontinue calcium channel zachariah. Further recommendations to follow. DNP note has been reviewed, I agree with a documented findings and plan of care. Patient was seen and examined.
--- NOTE | 2016-08-01 13:50 | P.PN ---
Progress Note - Text This is an addendum to the dictated cardiology consultation. The patient has a known history of ovarian CVA who presents with progressive dyspnea, fatigue as well as chest discomfort. Her troponin level was minimally elevated. The patient has a history of heart murmur but no prior documented CAD. She has been complaining of chest heaviness recently. On presentation she was noted to have a hemoglobin of 6.6 and abnormal renal function. She had an echocardiogram in March of this year that showed an ejection fraction of 50- 55% with moderate mitral regurgitation. Her EKG shows nonspecific ST-T wave changes. The patient most likely has CAD and her symptoms are worsened by her severe anemia. I would recommend to repeat her echocardiogram to compare it to the prior test. We will try a low dose beta zachariah and increase it as tolerated. She is not a candidate for any aggressive cardiac workup. Thank you for this consult we will follow with you.
[2016-08-01] MEDS: HYDROcodone/APAP 5-325MG 1 EACH TAB PO PRN (16:02)
--- NOTE | 2016-08-01 16:22 | P.PN ---
Subjective Date of service 08/01/2016. Progress note being dictated for Dr. Gaxiola. Interval history: This is a 76-year-old female admitted with multiple medical issues including pancytopenia, symptomatic anemia, hypovolemic hyponatremia, hyperkalemia, renal failure, hypotension, hypoxic respiratory failure in a patient with history of ovarian cancer-unable to tolerate chemotherapy in the past. Family meeting this morning with Dr. Robert, further chemotherapy option discussed pending kidney function improves. WBC 2, neutrophils unable to be evaluated. Hemoglobin 7.1, platelets 14. Sodium 135, potassium improving currently at 5.1. Renal function improving.T bili and LFTs improving. Currently denies chest pain, palpitations. Objective - Vital Signs Vital signs: Vital Signs Temp 97.4 F L 08/01/16 03:47 Pulse 100 08/01/16 12:00 Resp 19 08/01/16 12:00 BP 110/67 08/01/16 12:00 Pulse Ox 96 08/01/16 12:00 Intake & Output 07/31/16 08/01/16 08/01/16 18:59 06:59 18:59 Intake Total 1100 1375 725 Output Total 200 Balance 1100 1175 725 Weight 96.5 kg Intake: IV 1000 1125 625 Sodium Chloride 0.9% 1, 1000 1125 625 000 ml @ 125 mls/hr IV . Q8H [facility] Rx#:[id number] Oral 100 250 100 Output: Urine 200 Other: Voiding Method Diaper Diaper Bedpan Incontinent Incontinent # Voids 1 1 - Exam PHYSICAL EXAM: VITAL SIGNS: As above GENERAL: [Sitting up in bed, tired appearing, weak, malaise HEENT: [Pupils equal conjunctiva normal. No conjunctival pallor] NECK: [Supple, no JVD] RESPIRATORY EFFORT:[ Increased] LUNGS: Diminished bilateral bases, scattered rhonchi, no wheezing or crackles, CARDIOVASCULAR[ regular S1, S2, positive systolic murmur, positive edema] GI: [Abdomen soft, nontender, positive bowel sounds.] PSYCH: [Alert and oriented -2-3, mood and affect normal.] NEURO: [Gross neurological examination did not reveal any focal deficits] - Labs CBC & Chem 7: 08/01/16 05:33 08/01/16 05:33 Labs: Abnormal Lab Results - Last 24 Hours (Table) 08/01/16 08/01/16 Range/Units 05:33 05:33 WBC 2.0 L* (3.8-10.6) k/uL RBC 2.01 L (3.80-5.40) m/uL Hgb 7.1 L (11.4-16.0) gm/dL Hct 20.3 L (34.0-46.0) % MCV 100.9 H (80.0-100.0) fL MCH 35.2 H (25.0-35.0) pg RDW 22.7 H (11.5-15.5) % Plt Count 14 L* (150-450) k/uL Sodium 135 L (137-145) mmol/L Carbon Dioxide 19 L (22-30) mmol/L BUN 89 H* (7-17) mg/dL Creatinine 1.56 H (0.52-1.04) mg/dL Glucose 117 H (74-99) mg/dL Calcium 8.2 L (8.4-10.2) mg/dL AST 61 H (14-36) U/L ALT 87 H (9-52) U/L Total Protein 5.7 L (6.3-8.2) g/dL Albumin 3.0 L (3.5-5.0) g/dL Assessment and Plan Plan: 1. [ Symptomatic anemia, status post 1 unit of packed RBC transfusion]. 2. [ Pancytopenia secondary to hyperkalemia related to renal failure]. 3. [ Hypotension secondary to severe intravascular volume depletion & acute renal failure 4. [ Acute renal failure secondary to prerenal azotemia with a component of nonoliguric acute tubular necrosis, improving]. 5. [ Hyperkalemia secondary to acute renal failure and diuretic therapy, improving]. 6. [ Hypovolemic hyponatremia]. 7. [ Acute hypoxic respiratory failure, most likely related to anemia, possibly pulmonary embolism. Because of thrombocytopenia at present patient is not a candidate for DVT prophylaxis 8. Ovarian cancer, did not tolerate chemotherapy in the past 9. History of hypertension, currently borderline hypotensive with all antihypertensives discontinued]. 10. Depression 11. Elevated troponin secondary to renal failure, severe anemia,supply and demand mismatch 12. Generalized medical debility, multifactorial Plan: Continue on current medication regime , beta zachariah, monitoring and symptomatic treatment. Not a candidate for aggressive cardiac workup per cardiology. Dr. Robert as mentioned above med with family this morning discussing potential chemotherapy-vehicle painter dose Pending kidney function improves, subacute rehab also discussed. Evaluated by PT, subacute rehab recommended at discharge. Patient may transfer to oncology unit. Maintain supportive care.Prognosis extremely guarded given multiple complex medical issues. Further recommendations to follow. The impression and plan of care has been dictated as directed as a scribe. : I performed a H&P examination of this patient and discussed the same with the dictator. I agree with the dictator's note. Any additional findings/opinions/ etc. will be noted.
[2016-08-01] MEDS: METOPROLOL TARTRATE 12.5 MG TAB PO SCH (22:04)
[2016-08-02] MEDS: CALCIUM CARBONATE 500 MG CHEWABLE PO PRN (00:44)
[2016-08-02] MEDS: SODIUM CHLORIDE 0.9% 1,000 ML IV SCH ×2 (05:51→15:48)
[2016-08-02] MEDS: SERTRALINE 50 MG TAB PO SCH (08:26)
[2016-08-02] MEDS: METOPROLOL TARTRATE 12.5 MG TAB PO SCH ×2 (08:26→20:23)
[2016-08-02 09:20] VITALS: BMI 44.4
[2016-08-02 09:23] LABS: Anisocytosis Moderate; CH 32.7; CHCM 33.3; HDW 3.48; MCH 34.8 pg (25.0-35.0); MCHC 35.2 g/dL (31.0-37.0); MCV 98.8 fL (80.0-100.0); Macrocytosis Moderate; Mean Platelet Volume 8.7; Poikilocytosis Slight; RBC 1.96 m/uL (3.80-5.40); RDW 22.4 % (11.5-15.5); WBC 2.5 k/uL (3.8-10.6)
[2016-08-02 09:24] LABS: HCT 19.4 % (34.0-46.0); HGB 6.8 gm/dL (11.4-16.0)
--- NOTE | 2016-08-02 09:39 | ECHOF ---
Referral Reason:abn trop MEASUREMENTS -------- HEIGHT: 147.3 cm WEIGHT: 96.2 kg BP: RVIDd: 4.0 cm (< 3.3) IVSd: 1.2 cm (0.6 - 1.1) LVIDd: 4.5 cm (3.9 - 5.3) LVPWd: 1.3 cm (0.6 - 1.1) IVSs: 1.4 cm LVIDs: 3.3 cm LVPWs: 1.8 cm LAESV Index (A-L): 56.72 ml/m Ao Diam: 2.8 cm (2.0 - 3.7) AV Cusp: 1.3 cm (1.5 - 2.6) LA Diam: 4.1 cm (2.7 - 3.8) MV EXCURSION: 11.453 mm (> 18.000) MV EF SLOPE: 53 mm/s (70 - 150) EPSS: 1.2 cm MV E Kenny: 0.80 m/s MV DecT: 80 ms MV A Kenny: 0.72 m/s MV E/A Ratio: 1.12 RAP: 5.00 mmHg RVSP: 55.14 mmHg FINDINGS -------- Sinus rhythm. This was a technically difficult study with suboptimal views. There is mild concentric left ventricular hypertrophy. There is moderate global hypokinesis of LV . Overall left ventricular systolic function is moderately impaired with, an EF between 35 - 40 %. The right ventricle is moderately enlarged. LA is severely dilated >40 ml/m2 RA appears enlarged. 1.5mg of Definity was utilized for enhancement of images Aortic valve is trileaflet and is mildly thickened. The mitral valve leaflets are moderately thickened. Moderate mitral annular calcification present. Severe mitral regurgitation is present. Severe tricuspid regurgitation present. There is moderate pulmonary hypertension. The right ventricular systolic pressure, as measured by Doppler, is 55.14mmHg. Pulmonic valve appears structurally normal. The aortic root size is normal. The pericardium is normal. CONCLUSIONS -------- 1. Sinus rhythm. 2. Aortic valve is trileaflet and is mildly thickened. 3. The mitral valve leaflets are moderately thickened. 4. Moderate mitral annular calcification present. 5. Severe mitral regurgitation is present. 6. Severe tricuspid regurgitation present. 7. There is moderate pulmonary hypertension. 8. The right ventricular systolic pressure, as measured by Doppler, is 55.14mmHg. 9. Pulmonic valve appears structurally normal. 10. The aortic root size is normal. 11. The pericardium is normal. 12. This was a technically difficult study with suboptimal views. 13. There is mild concentric left ventricular hypertrophy. 14. There is moderate global hypokinesis of LV . 15. Overall left ventricular systolic function is moderately impaired with, an EF between 35 - 40 %. 16. The right ventricle is moderately enlarged. 17. LA is severely dilated >40 ml/m2 18. RA appears enlarged. 19. 1.5mg of Definity was utilized for enhancement of images EVENT MANAGEMENT CONSULTANT: Juany Linder RDCS
[2016-08-02 10:13] LABS: Calcium 8.6 mg/dL (8.4-10.2); Potassium 5.4 mmol/L (3.5-5.1)
[2016-08-02] MEDS: ALPRAZolam 0.25 MG TAB PO PRN ×2 (11:05→20:23)
[2016-08-02] MEDS: NYSTATIN 100,000UNIT/GM CREAM 30 GM TUBE TOPICAL SCH ×3 (11:46→22:22)
[2016-08-02] MEDS ORDERED: SODIUM POLYSTYRENE SULFONATE 15 GM/60 ML BOTTLE PO STA (12:18)
--- NOTE | 2016-08-02 15:21 | P.PN ---
Subjective This is a pleasant 76-year-old female with history of hypertension, diagnosis of ovarian cancer which she has had for approximately a year, she has been on 3 different types of chemotherapy, she apparently had an ALLERGIC reaction to the second 1. Patient recently prior to admission was experiencing some cramping, she apparently took Colace and had several bouts of diarrhea. Subsequent to that she then took medication to help with the diarrhea. She then states that she became extremely weak. Most of this history was obtained from the son at bedside as she is quite tired. Patient also states that along with the progressive weakness, she has been more short of breath than usual and was having episodes of feeling like an elephant was sitting on her chest. The patient was found to be significantly anemic. Troponin 0.099, 0.066. Echocardiogram with Doppler study performed in March revealed an ejection fraction of 50%, repeat echo was performed here on this admission and the ejection fraction was documented to be 35-40%. Patient was initiated on low- dose of beta zachariah yesterday. She would benefit from the addition of an SUSY inhibitor however her blood pressure consistently running low. Hemoglobin today down to 6.8, patient is currently receiving a blood transfusion at the time of my examination. Creatinine today is 1.4, potassium 5.4. She is not experiencing any chest pain, breathing overall is stable. Objective - Vital Signs Vital signs: Vital Signs Temp 98.1 F 08/02/16 13:58 Pulse 85 08/02/16 13:58 Resp 20 08/02/16 13:58 BP 88/55 08/02/16 13:58 Pulse Ox 95 08/02/16 13:58 Intake & Output 08/01/16 08/02/16 08/02/16 18:59 06:59 18:59 Intake Total 725 1375 310 Output Total 200 Balance 525 1375 310 Weight 96.5 kg Intake: IV 625 1375 Sodium Chloride 0.9% 1, 625 1375 000 ml @ 125 mls/hr IV . Q8H [facility] Rx#:[id number] Oral 100 Blood Product 310 Rc As-1 Unit 310 [id number] Output: Urine 200 Other: Voiding Method Bedpan Bedpan # Voids 1 1 # Bowel Movements 1 - Exam PHYSICAL EXAMINATION: HEENT: Head is atraumatic, normocephalic. Pupils equal, round. Neck is supple. There is o elevated jugular venous pressure. HEART EXAMINATION: Heart S1 S2 1 systolic murmur is heard. CHEST EXAMINATION: Lungs revealed diminished air entry to bilateral bases. ABDOMEN: Soft, nontender. Bowel sounds are heard. No organomegaly noted. EXTREMITIES: 2+ peripheral pulses with evidence of peripheral edema and no calf tenderness noted. NEUROLOGIC patient is awake, alert and oriented -3. . - Labs CBC & Chem 7: 08/02/16 08:16 08/02/16 08:16 Labs: Abnormal Lab Results - Last 24 Hours (Table) 08/02/16 08/02/16 08/02/16 Range/Units 08:16 08:16 11:55 WBC 2.5 L (3.8-10.6) k/uL RBC 1.96 L (3.80-5.40) m/uL Hgb 6.8 L* (11.4-16.0) gm/dL Hct 19.4 L* (34.0-46.0) % RDW 22.4 H (11.5-15.5) % Plt Count 20 L* (150-450) k/uL Sodium 136 L (137-145) mmol/L Potassium 5.4 H (3.5-5.1) mmol/L Chloride 108 H (98-107) mmol/L Carbon Dioxide 17 L (22-30) mmol/L BUN 85 H* (7-17) mg/dL Creatinine 1.40 H (0.52-1.04) mg/dL Crossmatch See Detail Assessment and Plan Plan: Assessment and plan #1 symptoms of weakness with evidence of severe anemia requiring blood transfusion. #2 history of hypertension #3 ovarian cancer on chemotherapy #4 acute on chronic renal failure #5 hyperkalemia #6 abnormal liver enzymes #7 elevated troponins. Patient #8 abnormal BNP, suggesting congestive cardiac failure. Likely has underlying coronary artery disease, worsened by severe anemia. Echo does show a reduced LV function this admission. Plan Patient is not a candidate for any aggressive cardiac workup. She is currently on a low-dose beta zachariah which we will continue. She would benefit from being on an SUSY inhibitor, however because of the marginal low blood pressures we will defer. If her blood pressure improves we will attempt to start a low- dose susy. From cardiology's perspective, we will follow her on an as-needed basis only, please don't hesitate to call with any questions. DNP note has been reviewed, I agree with a documented findings and plan of care. Patient was seen and examined.
--- NOTE | 2016-08-02 15:40 | P.PN ---
Subjective Date of service 08/02/2016. Progress note being dictated for Dr. Del Real Interval history: This is a 76-year-old female admitted with multiple medical issues including pancytopenia, symptomatic anemia, hypovolemic hyponatremia, hyperkalemia, renal failure, hypotension, hypoxic respiratory failure in a patient with history of ovarian cancer-unable to tolerate chemotherapy in the past. WBC 2.5, neutrophils unable to be evaluated. Hemoglobin 6.8, receiving 1 unit of packed RBCs. Calcium 5.4. Renal function mildly improved. Small dose of beta zachariah initiated yesterday as per cardiology, marginally hypotensive, current MAP 66.Currently denies chest pain, palpitations. Objective - Vital Signs Vital signs: Vital Signs Temp 97.3 F L 08/01/16 23:00 Pulse 91 08/01/16 23:00 Resp 18 08/01/16 23:00 BP 111/58 08/01/16 23:00 Pulse Ox 95 08/01/16 23:00 Intake & Output 08/01/16 08/01/16 08/02/16 06:59 18:59 06:59 Intake Total 2615 896 2947 Output Total 200 200 Balance 9498 307 9211 Weight 96.5 kg Intake: IV 8916 191 2281 Sodium Chloride 0.9% 1, 2035 694 6218 000 ml @ 125 mls/hr IV . Q8H [facility] Rx#:[id number] Oral 250 100 Output: Urine 200 200 Other: Voiding Method Diaper Bedpan Bedpan Incontinent # Voids 1 1 1 # Bowel Movements 1 - Exam PHYSICAL EXAM: VITAL SIGNS: As above GENERAL: [Sitting up in bed, tired appearing, weak, HEENT: [Pupils equal conjunctiva normal. No conjunctival pallor] NECK: [Supple, no JVD] RESPIRATORY EFFORT:[ Increased] LUNGS: Diminished bilateral bases, scattered rhonchi, no wheezing or crackles, CARDIOVASCULAR[ regular S1, S2, positive systolic murmur, positive edema] GI: [Abdomen soft, nontender, positive bowel sounds.] PSYCH: [Alert and oriented -2-3, mood and affect normal.] SKIN: Excoriated rod in groin and abdominal folds NEURO: [Gross neurological examination did not reveal any focal deficits] - Labs CBC & Chem 7: 08/02/16 08:16 08/02/16 08:16 Assessment and Plan Plan: 1. [ Symptomatic anemia, status post 1 unit of packed RBC transfusion]. 2. [ Pancytopenia secondary to hyperkalemia related to renal failure, chemotherapy induced.]. 3. [ Hypotension secondary to severe intravascular volume depletion & acute renal failure 4. [ Acute renal failure secondary to prerenal azotemia with a component of nonoliguric acute tubular necrosis, improving].Possible CKD, Stage IV. 5. [ Hyperkalemia secondary to acute renal failure and diuretic therapy, improving]. 6. [ Hypovolemic hyponatremia]. 7. [ Acute hypoxic respiratory failure, most likely related to anemia, possibly pulmonary embolism. Because of thrombocytopenia at present patient is not a candidate for DVT prophylaxis 8. Ovarian cancer, did not tolerate chemotherapy in the past 9. History of hypertension, currently borderline hypotensive with all antihypertensives discontinued]. 10. Depression 11. Elevated troponin secondary to renal failure, severe anemia,supply and demand mismatch 12. Generalized medical debility, multifactorial 13. Possible acute UTI, doubtful, asymptomatic without fevers. Plan: Continue on current medication regime , beta zachariah, monitoring and symptomatic treatment. Echo pending. Evaluated by PT, subacute rehab recommended at discharge. Maintain supportive care.follow closely with oncology. close monitoring of CBC, lights with repeat labs ordered for a.m. Prognosis extremely guarded given multiple complex medical issues. Further recommendations to follow. The impression and plan of care has been dictated as directed as a scribe. : I performed a H&P examination of this patient and discussed the same with the dictator. I agree with the dictator's note. Any additional findings/opinions/ etc. will be noted.
[2016-08-02] MEDS ORDERED: SODIUM POLYSTYRENE SULFONATE 30 GM/120 ML BOTTLE RECTAL STA (15:47)
--- NOTE | 2016-08-02 17:56 | P.PN ---
Subjective Principal diagnosis: Chest pain and shortness of breath. Ovarian cancer The patient's chest pain and pressure is much improved. Shortness of breath is also improved though this is still significant. She remains quite weak but states that she does want to try to get out of bed and ambulate. No obvious bleeding noted. Objective - Vital Signs Vital signs: Vital Signs Temp 97.6 F 08/02/16 16:01 Pulse 87 08/02/16 16:01 Resp 16 08/02/16 16:01 BP 92/58 08/02/16 16:01 Pulse Ox 97 08/02/16 16:01 Intake & Output 08/01/16 08/02/16 08/02/16 18:59 06:59 18:59 Intake Total 725 1375 310 Output Total 200 Balance 525 1375 310 Weight 96.5 kg Intake: IV 625 1375 Sodium Chloride 0.9% 1, 625 1375 000 ml @ 125 mls/hr IV . Q8H [facility] Rx#:[id number] Oral 100 Blood Product 310 Rc As-1 Unit 310 [id number] Output: Urine 200 Other: Voiding Method Bedpan Bedpan # Voids 1 1 # Bowel Movements 1 - Constitutional General appearance: Present: mild distress - EENT Eyes: Present: EOMI, PERRLA ENT: Present: hearing grossly normal, normal oropharynx - Respiratory Respiratory: bilateral: diminished - Cardiovascular Rhythm: regular Heart sounds: normal: S1, S2 - Gastrointestinal General gastrointestinal: Present: normal bowel sounds, soft - Integumentary Integumentary: Present: normal - Neurologic Neurologic: Present: CNII-XII intact - Musculoskeletal Musculoskeletal: Present: generalized weakness, strength equal bilaterally - Psychiatric Psychiatric: Present: A&O x's 3, appropriate affect - Labs CBC & Chem 7: 08/02/16 08:16 08/02/16 08:16 Labs: Abnormal Lab Results - Last 24 Hours (Table) 08/02/16 08/02/16 08/02/16 Range/Units 08:16 08:16 11:55 WBC 2.5 L (3.8-10.6) k/uL RBC 1.96 L (3.80-5.40) m/uL Hgb 6.8 L* (11.4-16.0) gm/dL Hct 19.4 L* (34.0-46.0) % RDW 22.4 H (11.5-15.5) % Plt Count 20 L* (150-450) k/uL Sodium 136 L (137-145) mmol/L Potassium 5.4 H (3.5-5.1) mmol/L Chloride 108 H (98-107) mmol/L Carbon Dioxide 17 L (22-30) mmol/L BUN 85 H* (7-17) mg/dL Creatinine 1.40 H (0.52-1.04) mg/dL Crossmatch See Detail Assessment and Plan (1) Dyspnea Narrative/Plan: The case was discussed in detail with the admitting service and cardiology. While anemia could certainly be contributing to her symptoms, the patient has been anemic to a greater degree before without having the degree of symptoms that she is having now. Therefore there is concern for a primary cardiac etiology. Regarding her cancer, though the patient has recurrent inoperable disease, her her tumor burden is actually quite low with most recent computed tomography scan showing actually no measurable disease. While tolerance of chemotherapy so far has been poor, there are other chemo medications that can be tried. In addition the patient wants to explore possible investigational treatments through the [facility] and has an appointment next month. Based on the above it was felt that the additional cardiac workup at this time was reasonable to evaluate her status. Therefore cardiology were reconsulted. Status: Acute (2) Antineoplastic chemotherapy induced pancytopenia Narrative/Plan: Her recovery of counts continues to be very slow. Counts today are in a safe range. Continue to monitor with transfusion as needed Status: Acute (3) Ovarian cancer Narrative/Plan: I had a long discussion with the patient and her son who has traveled from [place], regarding prognosis. As noted above, though the patient has recurrent inoperable disease, her tumor burden was actually quite low with no evidence of any progression based on recent CT scans. On the other hand tolerance of treatment so far has been quite poor. In theory, she is a candidate for additional chemotherapy as well as possible investigational treatments. Currently however, her performance status is too poor to permit any active treatment. As noted, her symptoms are concerning for a primary cardiac etiology. Cardiology were therefore consulted for further evaluation. If she is found to have developed another major medical condition affecting her performance status, then that could preclude her from receiving additional cancer related treatment by itself. In that situation, the patient's performance status is deteriorating are not improving, then discussion of comfort care would be reasonable even if her cancer itself is not progressing. She and her son had multiple questions which were answered to the best of my ability. They expressed understanding of the current situation. Assuming the patient is improved from her acute complaints, she will likely need we have to improve her performance status before having any chance of resuming chemotherapy. Status: Acute
[2016-08-03] MEDS: ALPRAZolam 0.25 MG TAB PO PRN ×3 (03:25→22:24)
[2016-08-03] MEDS: SODIUM CHLORIDE 0.9% 1,000 ML IV SCH ×6 (06:23→16:25)
[2016-08-03] MEDS: METOPROLOL TARTRATE 12.5 MG TAB PO SCH ×2 (09:01→22:24)
[2016-08-03] MEDS: NYSTATIN 100,000UNIT/GM CREAM 30 GM TUBE TOPICAL SCH ×3 (09:01→22:47)
[2016-08-03] MEDS: SERTRALINE 50 MG TAB PO SCH (09:01)
[2016-08-03 10:38] LABS: Anisocytosis Moderate; Basophils % (A) 0 %; CH 32.7; CHCM 33.5; Eosinophils % (A) 1 %; HDW 3.61; HGB 7.7 gm/dL (11.4-16.0); Large Platelets Flag Marked; Luc # (Auto) 0.03; Luc % (Auto) 1; Lymphocytes # (A) 0.1 k/uL (1.0-4.8); Lymphocytes % (A) 3 %; MCH 34.3 pg (25.0-35.0); MCHC 34.9 g/dL (31.0-37.0); MCV 98.3 fL (80.0-100.0); Macrocytosis Moderate; Mean Platelet Volume 13.7; Monocytes % (A) 1 %; Neutrophils # (A) 3.4 k/uL (1.3-7.7); Neutrophils % (A) 94 %; Poikilocytosis Slight; RBC 2.23 m/uL (3.80-5.40); RDW 21.4 % (11.5-15.5); WBC 3.6 k/uL (3.8-10.6); WBC (Perox) 3.62
[2016-08-03 10:51] LABS: Calcium 8.2 mg/dL (8.4-10.2); Total Bilirubin 0.9 mg/dL (0.2-1.3); Total Protein 5.7 g/dL (6.3-8.2)
[2016-08-03] MEDS: CALCIUM CARBONATE 500 MG CHEWABLE PO PRN (16:22)
[2016-08-03] MEDS: HYDROcodone/APAP 5-325MG 1 EACH TAB PO PRN (22:24)
[2016-08-04] MEDS: SODIUM CHLORIDE 0.9% 1,000 ML IV SCH ×3 (01:22→21:34)
[2016-08-04 07:24] LABS: Anisocytosis Moderate; Basophils % (A) 0 %; CH 32.7; CHCM 32.9; Eosinophils % (A) 0 %; HCT 21.2 % (34.0-46.0); HDW 3.51; HGB 7.2 gm/dL (11.4-16.0); Luc # (Auto) 0.02; Luc % (Auto) 1; Lymphocytes # (A) 0.1 k/uL (1.0-4.8); Lymphocytes % (A) 3 %; Macrocytosis Moderate; Mean Platelet Volume 8.8; Monocytes # (A) 0.1 k/uL (0-1.0); Monocytes % (A) 1 %; Neutrophils # (A) 3.6 k/uL (1.3-7.7); Neutrophils % (A) 95 %; Poikilocytosis Slight; RBC 2.13 m/uL (3.80-5.40); RDW 21.4 % (11.5-15.5); WBC 3.8 k/uL (3.8-10.6); WBC (Perox) 3.85
[2016-08-04 07:58] LABS: Calcium 8.6 mg/dL (8.4-10.2)
[2016-08-04 08:17] LABS: Potassium 5.2 mmol/L (3.5-5.1)
[2016-08-04] MEDS: METOPROLOL TARTRATE 12.5 MG TAB PO SCH ×2 (09:16→21:26)
[2016-08-04] MEDS: SERTRALINE 50 MG TAB PO SCH (09:16)
[2016-08-04] MEDS: HYDROcodone/APAP 5-325MG 1 EACH TAB PO PRN ×2 (09:22→21:25)
[2016-08-04] MEDS: NYSTATIN 100,000UNIT/GM CREAM 30 GM TUBE TOPICAL SCH ×3 (09:24→21:30)
--- NOTE | 2016-08-04 11:57 | PN ---
DATE OF SERVICE: 08/03/2016 INTERVAL HISTORY: Ms. Rosas is a 76-year-old with a known history of hypertension, ovarian cancer diagnosed for about a year, currently on chemotherapy which she is not tolerating due to allergic reaction, came to the hospital with generalized weakness and shortness of breath more than usual. Patient was found to be significantly anemic and underwent blood transfusion of 1 unit. Troponins were slightly elevated. A 2-D echo showed ejection fraction of 35 to 40%. Otherwise the patient is a poor historian. History was taken from the family members at bedside. Hemoglobin improved to 7.7 today. No acute overnight issues. Platelet count dropped down to 5 today. Otherwise the patient denied any complaints of chest pain. Patient does have underlying shortness of breath and leg swelling. Otherwise, no acute overnight issues. All other review of systems negative except as above. CURRENT MEDICATIONS: Reviewed. PHYSICAL EXAMINATION: A 76-year-old female, lying in the bed, morbidly obese, appears to be in no apparent distress. VITALS: Blood pressure is 104/57, pulse is 82, respirations 22, temperature afebrile, pulse ox 96% on 3 L nasal cannula. HEENT: Atraumatic, normocephalic. Neck is supple. No JVD. CVS: S1, S2 heard. No murmur, no gallop, no rub. LUNGS: Bilateral air entry is present. Decreased breath sounds bilaterally basally. Nonlabored breathing. ABDOMEN: Soft, obese. Bowel sounds heard. ROLL UP OPERATOR: Awake, alert, oriented x3. Able to move all her extremities. EXTREMITIES: Bilateral lower extremity 2+ edema. Pulses are palpable bilaterally. No clubbing or cyanosis. PSYCHIATRIC: Cooperative. LABORATORY DATA: WBC 3.8, hemoglobin 7.7, platelets 5000, sodium 137, potassium 5.0, chloride 109, bicarb is 17, BUN 80, creatinine 1.35, calcium 8.2, albumin is 3.1. IMPRESSION: 1. Symptomatic anemia, status post 1 unit of PRBC transfusion, hemoglobin improved today. 2. Pancytopenia secondary to chemotherapy related. 3. Acute kidney injury secondary to intravascular volume depletion, likely prerenal with underlying chronic kidney disease stage IV, possibly acute tubular necrosis. 4. Hyperkalemia secondary to acute kidney and diuretic therapy, improved now. 5. Hypovolemic hyponatremia. 6. Acute hypoxic respiratory failure, likely related to anemia and possible anemia. 7. Ovarian cancer, currently on chemotherapy, not being tolerated very well. 8. History of hypertension, currently not hypertensive. 9. Depression. 10. Elevated troponin level secondary to severe anemia and demand mismatch. 11. Elevated BNP, possible acute CHF systolic dysfunction, ejection fraction dropped from 50 to 40 to 45% compared to previous echocardiogram recently. 12. Generalized medical debility, multifactorial. PLAN: Beta blockers and will add low dose of SUSY inhibitor once blood pressure improves. Encourage p.o. intake. Currently PT, OT, and possible discharge to rehab. Continue to monitor hemoglobin and hematocrit and potassium level. Further recommendations based on clinical course. Prognosis is poor.
[2016-08-04] MEDS: ALPRAZolam 0.25 MG TAB PO PRN (21:26)
[2016-08-05] MEDS: SODIUM CHLORIDE 0.45% 1,000 ML IV SCH ×2 (04:45→22:33)
[2016-08-05] MEDS: SODIUM CHLORIDE 0.9% 1,000 ML IV SCH (08:03)
[2016-08-05] MEDS: METOPROLOL TARTRATE 12.5 MG TAB PO SCH ×2 (09:00→21:14)
[2016-08-05] MEDS: NYSTATIN 100,000UNIT/GM CREAM 30 GM TUBE TOPICAL SCH ×3 (09:00→21:14)
[2016-08-05] MEDS: SERTRALINE 50 MG TAB PO SCH (09:00)
[2016-08-05] MEDS: ALPRAZolam 0.25 MG TAB PO PRN ×2 (10:28→19:36)
--- NOTE | 2016-08-05 11:08 | PN ---
DATE OF SERVICE: 08/04/2016 INTERVAL HISTORY: Ms. Rosas is a 76-year-old female with known history of hypertension, ovarian cancer, diagnosed about a year back, currently on chemotherapy which she did not tolerate previously with allergic reaction, admitted to the hospital with generalized weakness and shortness of breath more than usual. The patient was found to have significantly anemic and underwent transfusion the patient's hemoglobin is fairly stable at 7.2 today. Otherwise, has pancytopenia. Apparently platelet count is around 20,000. Patient otherwise denied any worsening shortness of breath or chest pain. Patient does have generalized weakness. No acute overnight issues. Denied any complaints of chest pain. No fever. No chills. No nausea, abdominal pain. No diarrhea. No dysuria. No hematuria. All other review of systems negative except as above. CURRENT MEDICATIONS: Reviewed. PHYSICAL EXAMINATION: 76 -year-old female lying in bed comfortably, awake, appears to be in no apparent distress. VITALS: Blood pressure is 130/61, pulse is 83, respiratory rate 20, temperature afebrile, pulse ox 92% on 3 L nasal cannula. HEENT: Atraumatic, normocephalic. Neck is supple. No JVD. CARDIOVASCULAR: S1, S2 heard. No murmurs. No rub or no gallops. LUNGS: Bilateral air entry is present. Diminished breath sounds basally. Nonlabored breathing. ABDOMEN: Soft, nontender. Bowel sounds are present. Obese. No palpable organomegaly. PROFESSIONAL ORGANIZER: Awake, alert, oriented x3. Able to move all extremities. EXTREMITIES: Bilateral lower extremity edema. Pulses palpable bilaterally. No edema. No clubbing or cyanosis. PSYCHIATRIC: Cooperative. LABORATORY DATA: WBC 3.8, hemoglobin 7.2, platelets 20,000, MCV 100, sodium 140, potassium 5.2, chloride 112, bicarb 16, ( ) creatinine 1.33, blood sugar 100. Calcium 8.6. IMPRESSION: 1. Symptomatic anemia status post one unit of PRBC. Hemoglobin improved. 2. Pancytopenia secondary to chemotherapy. 3. Acute kidney injury secondary to intravascular volume depletion, likely prerenal with underlying chronic kidney disease Stage IV and possible acute tubular necrosis. 4. Hyperkalemia secondary to acute kidney injury and diuretic therapy improved now. 5. Hypovolemic hyponatremia. 6. Hyperchloremia, IV fluids have been changed to half normal saline. 7. Acute hypoxic respiratory failure likely related to anemia. 8. Ovarian cancer, currently on chemotherapy and not being tolerated very well. 9. History of hypertension currently not hypertensive. 10. Depression. 11. Elevated troponin level secondary to severe anemia and demand mismatch. 12. Elevated BNP possibly acute CHF with ejection fraction dropped from 50 to 40 to 45% compared to previous echocardiogram. 13. Generalized weakness and medical debility multifactorial. DISCUSSION AND PLAN: The patient will be continued on beta blockers, continue with the current management. SUSY inhibitors on hold due to hypotension. Increase p.o. intake. Continue the PT, OT, monitor hemoglobin level and pancytopenia. Potassium is 5.2 today. The patient is refusing to take Kayexelate. We will monitor potassium again tomorrow. Avoid nephrotoxic agents. Follow-up closely. Prognosis guarded. Further recommendations based on clinical course. MTDD
[2016-08-05 16:39] LABS: Anisocytosis Moderate; Basophils % (A) 0 %; CH 32.5; CHCM 32.8; Eosinophils # (A) 0.1 k/uL (0-0.7); Eosinophils % (A) 1 %; HCT 20.3 % (34.0-46.0); HDW 3.54; HGB 7.1 gm/dL (11.4-16.0); Hypochromasia Slight; Luc # (Auto) 0.03; Luc % (Auto) 1; Lymphocytes # (A) 0.1 k/uL (1.0-4.8); Lymphocytes % (A) 3 %; MCH 34.7 pg (25.0-35.0); MCHC 34.8 g/dL (31.0-37.0); MCV 99.6 fL (80.0-100.0); Macrocytosis Moderate; Mean Platelet Volume 9.2; Monocytes # (A) 0.1 k/uL (0-1.0); Monocytes % (A) 2 %; Neutrophils # (A) 3.6 k/uL (1.3-7.7); Neutrophils % (A) 93 %; Poikilocytosis Slight; RBC 2.03 m/uL (3.80-5.40); RDW 21.1 % (11.5-15.5); WBC 3.9 k/uL (3.8-10.6); WBC (Perox) 4.15
[2016-08-05 16:40] LABS: Calcium 8.6 mg/dL (8.4-10.2); Potassium 5.1 mmol/L (3.5-5.1)
--- NOTE | 2016-08-05 17:39 | P.PN ---
Subjective Date of service 08/05/2016. Progress note being dictated for Dr. Del Real Interval history: This is a 76-year-old female admitted with multiple medical issues including pancytopenia, symptomatic anemia, hypovolemic hyponatremia, hyperkalemia, renal failure, hypotension, hypoxic respiratory failure in a patient with history of ovarian cancer-unable to tolerate chemotherapy in the past. Maintained on beta zachariah. WBC 3.9, platelet 17, Hemoglobin 7.1. Creatinine 1.4, potassium 5.1. Denies chest pain, palpitations or increasing shortness of breath. Awaiting discharge to [facility] rehab. Objective - Vital Signs Vital signs: Vital Signs Temp 97.6 F 08/05/16 15:00 Pulse 84 08/05/16 15:00 Resp 18 08/05/16 15:00 BP 132/61 08/05/16 15:00 Pulse Ox 96 08/05/16 15:00 Intake & Output 08/04/16 08/05/16 08/05/16 18:59 06:59 18:59 Intake Total 680 Output Total 200 Balance 480 Intake: IV 200 Sodium Chloride 0.9% 1, 200 000 ml @ 75 mls/hr IV . [id number] [facility] Rx#:[id number] Oral 480 Output: Urine 200 Other: Voiding Method Bedpan Bedpan Bedpan Diaper Diaper Diaper Incontinent Incontinent Incontinent # Voids 3 5 4 - Exam PHYSICAL EXAM: VITAL SIGNS: As above GENERAL: [Sitting up in bed, no acute distress HEENT: [Pupils equal conjunctiva normal. No conjunctival pallor]. Oral mucosa moist NECK: [Supple, no JVD] RESPIRATORY EFFORT:[Normal LUNGS: Diminished bilateral bases, no rhonchi, no wheezing or crackles, CARDIOVASCULAR[ regular S1, S2, positive systolic murmur, trace edema] GI: [Abdomen soft, nontender, positive bowel sounds.] PSYCH: [Alert and oriented -2-3, mood and affect normal, cooperative.] NEURO: [Gross neurological examination did not reveal any focal deficits] - Labs CBC & Chem 7: 08/05/16 16:12 08/05/16 16:12 Labs: Abnormal Lab Results - Last 24 Hours (Table) 08/05/16 08/05/16 Range/Units 16:12 16:12 RBC 2.03 L (3.80-5.40) m/uL Hgb 7.1 L (11.4-16.0) gm/dL Hct 20.3 L (34.0-46.0) % RDW 21.1 H (11.5-15.5) % Plt Count 17 L* (150-450) k/uL Lymphocytes # 0.1 L (1.0-4.8) k/uL Chloride 110 H (98-107) mmol/L Carbon Dioxide 17 L (22-30) mmol/L BUN 78 H (7-17) mg/dL Creatinine 1.40 H (0.52-1.04) mg/dL Glucose 130 H (74-99) mg/dL Assessment and Plan Plan: 1. [ Symptomatic anemia, status post 1 unit of packed RBC transfusion]. 2. [ Pancytopenia secondary to hyperkalemia related to renal failure, chemotherapy induced.]. 3. [ Hypotension secondary to severe intravascular volume depletion & acute renal failure, improving with SUSY inhibitor currently on hold 4. [ Acute renal failure secondary to prerenal azotemia with a component of nonoliguric acute tubular necrosis, improving].Possible CKD, Stage IV. 5. [ Hyperkalemia secondary to acute renal failure and diuretic therapy, improving]. 6. [ Hypovolemic hyponatremia]. 7. [ Acute hypoxic respiratory failure, most likely related to anemia, possibly pulmonary embolism. Because of thrombocytopenia at present patient is not a candidate for DVT prophylaxis 8. Ovarian cancer, did not tolerate chemotherapy in the past 9. History of hypertension 10. Depression 11. Elevated troponin secondary to renal failure, severe anemia,supply and demand mismatch 12. Generalized medical debility, multifactorial Plan: Continue on current medication regime , beta zachariah, monitoring and symptomatic treatment. Discharge planning in progress for ECF rehab, pre-CERT pending .Maintain supportive care. Close monitoring of CBC, lytes with repeat labs ordered for a.m. Further recommendations to follow. The impression and plan of care has been dictated as directed as a scribe. : I performed a H&P examination of this patient and discussed the same with the dictator. I agree with the dictator's note. Any additional findings/opinions/ etc. will be noted.
[2016-08-05] MEDS: HYDROcodone/APAP 5-325MG 1 EACH TAB PO PRN (23:29)
[2016-08-06] MEDS: ALPRAZolam 0.25 MG TAB PO PRN ×3 (03:57→20:40)
[2016-08-06 07:37] LABS: Anisocytosis Moderate; Basophils % (A) 0 %; CH 32.4; CHCM 33.2; Eosinophils # (A) 0.1 k/uL (0-0.7); Eosinophils % (A) 2 %; HDW 3.59; Luc # (Auto) 0.02; Luc % (Auto) 1; Lymphocytes # (A) 0.2 k/uL (1.0-4.8); Lymphocytes % (A) 5 %; MCH 34.4 pg (25.0-35.0); MCHC 35.1 g/dL (31.0-37.0); Macrocytosis Moderate; Mean Platelet Volume 10.4; Monocytes # (A) 0.1 k/uL (0-1.0); Monocytes % (A) 2 %; Neutrophils # (A) 2.7 k/uL (1.3-7.7); Neutrophils % (A) 91 %; Poikilocytosis Slight; RBC 1.93 m/uL (3.80-5.40); WBC (Perox) 3.28
[2016-08-06 07:41] LABS: HCT 18.9 % (34.0-46.0); HGB 6.6 gm/dL (11.4-16.0)
[2016-08-06 07:55] LABS: Calcium 8.5 mg/dL (8.4-10.2)
[2016-08-06] MEDS ORDERED: FUROSEMIDE 10 MG/ML 2 ML VIAL IV ONE (08:23)
[2016-08-06] MEDS: METOPROLOL TARTRATE 12.5 MG TAB PO SCH ×2 (08:28→20:27)
[2016-08-06] MEDS: SERTRALINE 50 MG TAB PO SCH (08:29)
[2016-08-06] MEDS: NYSTATIN 100,000UNIT/GM CREAM 30 GM TUBE TOPICAL SCH ×3 (08:29→20:42)
--- NOTE | 2016-08-06 16:02 | P.PN ---
Subjective Date of service 08/06/2016. Progress note being dictated for Dr. Del Real Interval history: This is a 76-year-old female admitted with multiple medical issues including pancytopenia, symptomatic anemia, hypovolemic hyponatremia, hyperkalemia, renal failure, hypotension, hypoxic respiratory failure in a patient with history of ovarian cancer-unable to tolerate chemotherapy in the past. Maintained on beta zachariah. Receiving 1 unit of packed RBCs for hemoglobin of 6.6. Renal function/potassium continue to improve. Denies chest pain, palpitations or increasing shortness of breath. Objective - Vital Signs Vital signs: Vital Signs Temp 98.0 F 08/06/16 15:40 Pulse 94 08/06/16 15:40 Resp 20 08/06/16 15:40 BP 126/70 08/06/16 15:40 Pulse Ox 98 08/06/16 15:40 Intake & Output 08/05/16 08/06/16 08/06/16 18:59 06:59 18:59 Intake Total 400 310 Balance 400 310 Weight 96.5 kg Intake: Oral 400 Blood Product 310 Rc As-1 Unit 310 [id number] Other: Voiding Method Bedpan Bedpan Bedpan Diaper Diaper Diaper Incontinent Incontinent Incontinent # Voids 4 1 1 # Bowel Movements 1 1 - Exam PHYSICAL EXAM: VITAL SIGNS: As above GENERAL: [Sitting up in bed, no acute distress HEENT: [Pupils equal conjunctiva normal. No conjunctival pallor]. Oral mucosa moist NECK: [Supple, no JVD] RESPIRATORY EFFORT:[Normal LUNGS: Diminished bilateral bases, no rhonchi, no wheezing or crackles, CARDIOVASCULAR[ regular S1, S2, positive systolic murmur, trace edema] GI: [Abdomen soft, nontender, positive bowel sounds.] PSYCH: [Alert and oriented -3, mood and affect normal, cooperative.] NEURO: [Gross neurological examination did not reveal any focal deficits] - Labs CBC & Chem 7: 08/06/16 06:52 08/06/16 06:52 Labs: Abnormal Lab Results - Last 24 Hours (Table) 08/05/16 08/05/16 08/06/16 Range/Units 16:12 16:12 06:52 WBC 3.0 L (3.8-10.6) k/uL RBC 2.03 L 1.93 L (3.80-5.40) m/uL Hgb 7.1 L 6.6 L* (11.4-16.0) gm/dL Hct 20.3 L 18.9 L* (34.0-46.0) % RDW 21.1 H 21.0 H (11.5-15.5) % Plt Count 17 L* 18 L* (150-450) k/uL Lymphocytes # 0.1 L 0.2 L (1.0-4.8) k/uL Chloride 110 H (98-107) mmol/L Carbon Dioxide 17 L (22-30) mmol/L BUN 78 H (7-17) mg/dL Creatinine 1.40 H (0.52-1.04) mg/dL Glucose 130 H (74-99) mg/dL Crossmatch 08/06/16 08/06/16 Range/Units 06:52 08:40 WBC (3.8-10.6) k/uL RBC (3.80-5.40) m/uL Hgb (11.4-16.0) gm/dL Hct (34.0-46.0) % RDW (11.5-15.5) % Plt Count (150-450) k/uL Lymphocytes # (1.0-4.8) k/uL Chloride 112 H (98-107) mmol/L Carbon Dioxide 17 L (22-30) mmol/L BUN 75 H (7-17) mg/dL Creatinine 1.26 H (0.52-1.04) mg/dL Glucose 102 H (74-99) mg/dL Crossmatch See Detail Assessment and Plan Plan: 1. [ Symptomatic anemia, status post 2 units of packed RBC transfusion]. 2. [ Pancytopenia secondary to hyperkalemia related to renal failure, chemotherapy induced.]. 3. [ Hypotension secondary to severe intravascular volume depletion & acute renal failure, improving with SUSY inhibitor currently on hold 4. [ Acute renal failure secondary to prerenal azotemia with a component of nonoliguric acute tubular necrosis, improving].Possible CKD, Stage IV. 5. [ Hyperkalemia secondary to acute renal failure and diuretic therapy, improving]. 6. [ Hypovolemic hyponatremia]. 7. [ Acute hypoxic respiratory failure, most likely related to anemia, possibly pulmonary embolism. Because of thrombocytopenia at present patient is not a candidate for DVT prophylaxis 8. Ovarian cancer, did not tolerate chemotherapy in the past 9. History of hypertension 10. Depression 11. Elevated troponin secondary to renal failure, severe anemia,supply and demand mismatch 12. Generalized medical debility, multifactorial Plan: Continue on current medication regime , beta zachariah, monitoring and symptomatic treatment. Discharge planning in progress for ECF, today. Further recommendations to follow. The impression and plan of care has been dictated as directed as a scribe. : I performed a H&P examination of this patient and discussed the same with the dictator. I agree with the dictator's note. Any additional findings/opinions/ etc. will be noted.
[2016-08-06] MEDS: SODIUM CHLORIDE 0.45% 1,000 ML IV SCH (18:13)
[2016-08-06] MEDS: HYDROcodone/APAP 5-325MG 1 EACH TAB PO PRN (20:40)
[2016-08-07] MEDS: ALPRAZolam 0.25 MG TAB PO PRN (04:09)
[2016-08-07 07:24] LABS: Anisocytosis Moderate; Basophils % (A) 0 %; CH 32.6; CHCM 34.2; Eosinophils % (A) 1 %; HCT 22.8 % (34.0-46.0); HGB 7.6 gm/dL (11.4-16.0); Luc # (Auto) 0.02; Luc % (Auto) 1; Lymphocytes # (A) 0.2 k/uL (1.0-4.8); Lymphocytes % (A) 6 %; MCH 32.2 pg (25.0-35.0); MCHC 33.5 g/dL (31.0-37.0); MCV 96.1 fL (80.0-100.0); Macrocytosis Slight; Mean Platelet Volume 9.7; Monocytes # (A) 0.1 k/uL (0-1.0); Monocytes % (A) 3 %; Neutrophils # (A) 2.3 k/uL (1.3-7.7); Neutrophils % (A) 89 %; Poikilocytosis Slight; RBC 2.37 m/uL (3.80-5.40); RDW 20.5 % (11.5-15.5); WBC 2.6 k/uL (3.8-10.6); WBC (Perox) 2.54
[2016-08-07 07:30] LABS: Calcium 8.5 mg/dL (8.4-10.2); Potassium 4.4 mmol/L (3.5-5.1)
[2016-08-07 08:36] VITALS: RESP 18
[2016-08-07] MEDS: NYSTATIN 100,000UNIT/GM CREAM 30 GM TUBE TOPICAL SCH (10:10)
[2016-08-07] MEDS: SERTRALINE 50 MG TAB PO SCH (10:10)
[2016-08-07] MEDS: METOPROLOL TARTRATE 12.5 MG TAB PO SCH (10:10)
--- NOTE | 2016-08-07 14:42 | DS ---
DATE OF ADMISSION: 07/29/2016 DATE OF DISCHARGE: 08/07/2016 CONSULTATIONS: 1. Nephrology consultation. 2. Oncology consultation. 3. Cardiology consultation. DISCHARGE DIAGNOSES: 1. Symptomatic anemia, status post 2 units of PRBC, hemoglobin currently stable. 2. Pancytopenia secondary to chemotherapy, improved at this time. 3. Acute kidney injury secondary to intravascular volume depletion, likely prerenal with underlying chronic kidney disease stage IV and possible acute tubular necrosis. 4. Hyperkalemia secondary to acute kidney injury and diuretic therapy, improved now. 5. Hypovolemic hyponatremia. 6. Acute hypoxic respiratory failure secondary to anemia. 7. Ovarian cancer, currently on chemotherapy, not being well tolerated. 8. History of hypertension, currently not hypertensive. 9. Depression. 10. Elevated troponin level secondary to severe anemia and demand mismatch. 11. Elevated BNP possibly due to acute congestive heart failure with ejection fraction dropped from 50% to 40% to 45% compared to previous echocardiogram, possibly underlying coronary artery disease. 12. Generalized weakness and medical debility, multifactorial. HOSPITAL COURSE: A 76-year-old female with known history of hypertension, ovarian cancer diagnosed about a year back, currently on chemotherapy which she did not tolerate previously due to allergic reaction, was admitted to the hospital with generalized weakness and short of breath, more than usual. Patient was found to be significantly anemic. The patient underwent blood transfusion. Currently, hemoglobin at 7.6. Otherwise, the patient was also found to have pancytopenia, which appears stable at this time. Patient is still thrombocytopenic, otherwise, no evidence of active bleeding or bruising. Patient does have bruising of the right hand. Otherwise, no active bleeding noted. Denied any complaints of chest pain, short of breath. Patient does have generalized weakness and unable to take care of her at home and patient, otherwise, will be transferred to extended care facility for PT, OT and medications and continuous monitoring. Patient otherwise denied any complaints of shortness of breath, no nausea, vomiting or abdominal pain now. DISCHARGE PHYSICAL EXAMINATION: A 76-year-old female lying in the bed, awake, alert x3. Appears to be in no apparent distress. VITALS: Blood pressure is 112/62, pulse is 90, respirations 18, temperature afebrile, pulse ox 97% on room air. LABORATORY DATA: WBC 2.6, hemoglobin is is 7.6, platelets 20, sodium 140, potassium 4.4, chloride 114, bicarb is 16, BUN is 70, creatinine 1.22, calcium 8.5. DISCHARGE PHYSICAL EXAMINATION: Done. DISCHARGE MEDICATIONS INCLUDE: 1. Zoloft 50 mg p.o. daily. 2. Vitamin B12 fifteen hundred mcg p.o. daily. 3. Allopurinol 300 mg p.o. daily. 4. Lasix 40 mg p.o. q.a.m. 5. Omeprazole 25 mg p.o. daily. 6. Xanax 0.25 mg p.o. t.i.d., p.r.n. for anxiety. 7. Calcium carbonate 500 mg p.o. t.i.d. 8. Lomotil 1 tablet p.o. b.i.d. 9. [place] 5-325 one tablet p.o. b.i.d. p.r.n. for pain. 10. Metoprolol 12.5 mg p.o. b.i.d. 11. Nystatin cream 1 application topical t.i.d. Activity as tolerated and heart-healthy diet. Follow with Dr. Nick De Anda in [address] Robert in 1 week. This patient will be transferred to extended care facility in stable condition. TIME TAKEN: More than 35 minutes including 18 minutes counseling the patient and coordinating care. TOMEKA
[2016-08-07 16:19] VITALS: BP 112/63; PULSE 118; TEMP 97
== END 2016-08-07 16:30 | DRG 808 ==
LOC: EC 16:25 → 6SEL 23:41 → 5ONC 08-01 13:57
PROVIDERS: ADMIT Hospitalist; ATTEND Hospitalist
PROC: 30233N1 Transfusion of Nonautologous Red Blood Cells into Peripheral Vein, Percutaneous Approach (ICD-10-PCS; 2016-07-30)
PROC: 30233R1 Transfusion of Nonautologous Platelets into Peripheral Vein, Percutaneous Approach (ICD-10-PCS; principal; 2016-08-03)
DX: D61.810 Antineoplastic chemotherapy induced pancytopenia (principal); N17.0 Acute kidney failure with tubular necrosis; J96.01 Acute respiratory failure with hypoxia; I50.23 Acute on chronic systolic (congestive) heart failure; I24.8 Other forms of acute ischemic heart disease; I95.9 Hypotension, unspecified; N18.4 Chronic kidney disease, stage 4 (severe); I13.0 Hypertensive heart and chronic kidney disease with heart failure and stage 1 through stage 4 chronic kidney disease, or unspecified chronic kidney disease; E87.1 Hypo-osmolality and hyponatremia; C56.9 Malignant neoplasm of unspecified ovary; E87.5 Hyperkalemia; E86.0 Dehydration; I34.0 Nonrheumatic mitral (valve) insufficiency; T45.1X5A Adverse effect of antineoplastic and immunosuppressive drugs, initial encounter; E87.8 Other disorders of electrolyte and fluid balance, not elsewhere classified; K12.30 Oral mucositis (ulcerative), unspecified; F32.9 Major depressive disorder, single episode, unspecified; K21.9 Gastro-esophageal reflux disease without esophagitis; H40.9 Unspecified glaucoma; M10.9 Gout, unspecified; I25.10 Atherosclerotic heart disease of native coronary artery without angina pectoris; F41.9 Anxiety disorder, unspecified; M19.91 Primary osteoarthritis, unspecified site; Z87.891 Personal history of nicotine dependence; Z96.653 Presence of artificial knee joint, bilateral; Z96.1 Presence of intraocular lens; Z98.49 Cataract extraction status, unspecified eye; Z90.49 Acquired absence of other specified parts of digestive tract; Z85.118 Personal history of other malignant neoplasm of bronchus and lung; Z86.73 Personal history of transient ischemic attack (TIA), and cerebral infarction without residual deficits; Z85.038 Personal history of other malignant neoplasm of large intestine; Z91.048 Other nonmedicinal substance allergy status; Z91.040 Latex allergy status; Z80.1 Family history of malignant neoplasm of trachea, bronchus and lung; Z80.0 Family history of malignant neoplasm of digestive organs; Z79.1 Long term (current) use of non-steroidal anti-inflammatories (NSAID); Z79.899 Other long term (current) drug therapy
CPT/HCPCS: 36415; 71010; 71020; 78582; 80048; 80053; 81001; 82550; 82553; 82565; 83735; 83880; 84132; 84484; 84520; 85025; 85027; 85610; 85730; 86850; 86900; 86901; 86920; 93005; 93306; 94760; 99285

== ENCOUNTER 2016-08-09 19:14 | Emergency (ER) | payer MEDICARE, OTHER ==
[2016-08-09] MEDS ORDERED: SODIUM CHLORIDE 0.9% 1,000 ML IV STA (19:38)
[2016-08-09] MEDS ORDERED: SODIUM CHLORIDE 0.9% 500 ML IV STA (19:38)
[2016-08-09 20:06] LABS: Anisocytosis Moderate; Basophils % (A) 1 %; CH 33.2; CHCM 35.6; Eosinophils % (A) 3 %; HDW 3.81; Luc # (Auto) 0.03; Luc % (Auto) 3; Lymphocytes # (A) 0.1 k/uL (1.0-4.8); Lymphocytes % (A) 10 %; MCH 33.3 pg (25.0-35.0); MCHC 35.5 g/dL (31.0-37.0); MCV 93.9 fL (80.0-100.0); Macrocytosis Slight; Mean Platelet Volume 10.4; Monocytes % (A) 3 %; Neutrophils % (A) 81 %; Poikilocytosis Slight; RDW 20.8 % (11.5-15.5); WBC (Perox) 1.16
[2016-08-09 20:08] LABS: WBC 1.2 k/uL (3.8-10.6)
[2016-08-09 20:09] LABS: HCT 19.7 % (34.0-46.0)
[2016-08-09 20:13] LABS: INR 1.3 (<1.1); Partial Thromboplastin Time 24.3 sec (22.0-30.0); Prothrombin Time 13.1 sec (9.0-12.0)
[2016-08-09 20:15] LABS: ALT 45 U/L (9-52); AST 35 U/L (14-36); Alkaline Phosphatase 99 U/L (38-126); Anion Gap 8 mmol/L; Blood Urea Nitrogen 43 mg/dL (7-17); Calcium 7.9 mg/dL (8.4-10.2); Carbon Dioxide 23 mmol/L (22-30); Chloride 107 mmol/L (98-107); Glucose 108 mg/dL (74-99); Magnesium 1.5 mg/dL (1.6-2.3); Non-African American GFR(MDRD) 50 (>60 ml/min/1.73 sqM); Sodium 138 mmol/L (137-145); Total Bilirubin 1.1 mg/dL (0.2-1.3); Total Protein 5.1 g/dL (6.3-8.2)
[2016-08-09 20:16] LABS: Potassium 2.9 mmol/L (3.5-5.1)
[2016-08-09] MEDS ORDERED: POTASSIUM BICARB-CITRIC ACID 25 MEQ TABLET.EFF PO STA (20:24)
[2016-08-09 20:41] LABS: Creatine Kinase MB 1.8 ng/mL (0.0-2.4)
[2016-08-09 20:42] LABS: Troponin I 0.05 ng/mL (0.000-0.034)
[2016-08-09] MEDS ORDERED: ALPRAZolam 0.25 MG TAB PO STA (20:57)
--- NOTE | 2016-08-09 20:59 | ED ---
General Adult HPI - General Chief complaint: Recheck/Abnormal Lab/Rx Stated complaint: [facility] transfer Time Seen by Provider: 08/09/16 19:15 Source: EMS, RN notes reviewed, old records reviewed Mode of arrival: EMS Limitations: no limitations - History of Present Illness Initial comments: This is a 68-year-old female ER for abnormal lab tests. Patient is to mild anxiety which she is always anxious mild nausea and no other complaints, no blood in her vomit or stool, patient does admit to being on her had a history of ovarian cancer with tired needs a transfusion, patient sent to ER for evaluation regarding low hemoglobin. Patient denies lightheadedness dizziness or weakness, does not feel near syncopal with no shortness of breath - Related Data Home Medications Medication Instructions Recorded Confirmed Sertraline [Zoloft] 50 mg PO DAILY 12/11/14 08/09/16 Cyanocobalamin [Vitamin B-12] 1,500 mcg PO DAILY 07/26/15 08/09/16 Allopurinol [Zyloprim] 300 mg PO DAILY 06/28/16 08/09/16 Furosemide [Lasix] 40 mg PO QAM 06/28/16 08/09/16 Omeprazole 20 mg PO DAILY PRN 07/05/16 08/09/16 ALPRAZolam [Xanax] 0.25 mg PO Q8H PRN 08/09/16 08/09/16 Calcium Carbonate [Tums] 500 mg PO Q8H PRN 08/09/16 08/09/16 Furosemide [Lasix] 20 mg PO DAILY@1400 08/09/16 08/09/16 Loperamide [Imodium] 2 mg PO ONCE PRN 08/09/16 08/09/16 Previous Rx's Medication Instructions Recorded Diphenox-Atrop 2.5-0.025 mg 1 tab PO BID PRN #10 08/06/16 [Lomotil] HYDROcodone/APAP 5-325MG [[place] 1 tab PO BID PRN #10 08/06/16 5-325] Metoprolol Tartrate [Lopressor] 12.5 mg PO BID tab 08/06/16 Nystatin 100,000Unit/gm Cream 1 applic TOPICAL TID dose 08/06/16 [Mycostatin Cream] Allergies Allergy/AdvReac Type Severity Reaction Status Date / Time adhesive tape Allergy Rash/Hives Verified 08/09/16 19:33 codeine Allergy Itching Verified 08/09/16 19:33 latex Allergy Rash/Hives Verified 08/09/16 19:33 Review of Systems ROS Statement: Those systems with pertinent positive or pertinent negative responses have been documented in the HPI. ROS Other: All systems not noted in ROS Statement are negative. 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 colon cancer august 2015 History of Any Multi-Drug Resistant Organisms: None Reported Past Surgical History: Appendectomy, Orthopedic Surgery Additional Past Surgical History / Comment(s): BL knee replacement, right salpingectomy and oophorectomy, cataract removal and lens implants, laser surgery for glaucoma, right breast biopsy that was benign, SHANTANU CARPAL TUNNEL RELEASE. Past Anesthesia/Blood Transfusion Reactions: No Reported Reaction Additional Past Anesthesia/Blood Transfusion Reaction / Comment(s): HAD BLOOD TRANSFUSION-NO REACTION Past Psychological History: Anxiety, Depression Smoking Status: Former smoker Past Alcohol Use History: None Reported Past Drug Use History: None Reported - Past Family History Mother Family Medical History: Cancer Additional Family Medical History / Comment(s): Lung cancer Father Family Medical History: Cancer Additional Family Medical History / Comment(s): No reports of GI malignancy General Exam Limitations: no limitations General appearance: alert, in no apparent distress Head exam: Present: atraumatic, normocephalic, normal inspection Eye exam: Present: normal appearance, PERRL, EOMI. Absent: scleral icterus, conjunctival injection, periorbital swelling ENT exam: Present: normal exam, mucous membranes moist Neck exam: Present: normal inspection. Absent: tenderness, meningismus, lymphadenopathy Respiratory exam: Present: normal lung sounds bilaterally. Absent: respiratory distress, wheezes, rales, rhonchi, stridor Cardiovascular Exam: Present: regular rate, normal rhythm, normal heart sounds. Absent: systolic murmur, diastolic murmur, rubs, gallop, clicks GI/Abdominal exam: Present: soft, normal bowel sounds. Absent: distended, tenderness, guarding, rebound, rigid Extremities exam: Present: normal inspection, full ROM, normal capillary refill. Absent: tenderness, pedal edema, joint swelling, calf tenderness Back exam: Present: normal inspection Neurological exam: Present: alert, oriented X3, CN II-XII intact Psychiatric exam: Present: normal affect, normal mood Skin exam: Present: warm, dry, intact, normal color. Absent: rash Course Vital Signs 08/09/16 08/09/16 08/09/16 19:16 19:59 21:47 Temperature 98.1 F Pulse Rate 85 90 87 Respiratory 18 18 18 Rate Blood Pressure 111/51 103/55 102/51 O2 Sat by Pulse 97 97 97 Oximetry - Reevaluation(s) Reevaluation #1: 08/09/16 21:[address] Huynh, will transfuse patient 1 unit and discharge EKG Findings - EKG Comments: EKG Findings:: EKG shows normal sinus rhythm rate of 83, W[place] 162, QRS 114, QTc 432 Medical Decision Making - Medical Decision Making 76 seen at ER for evaluation by low hemoglobin, patient was given blood transfusion here in the emergency room, patient will be discharged back to the care facility - Lab Data Result diagrams: 08/09/16 18:47 08/09/16 18:47 Lab Results 08/09/16 08/09/16 08/09/16 Range/Units 18:47 18:47 18:47 WBC 1.2 L* (3.8-10.6) k/uL RBC 2.10 L (3.80-5.40) m/uL Hgb 7.0 L* (11.4-16.0) gm/dL Hct 19.7 L* (34.0-46.0) % MCV 93.9 (80.0-100.0) fL MCH 33.3 (25.0-35.0) pg MCHC 35.5 (31.0-37.0) g/dL RDW 20.8 H (11.5-15.5) % Plt Count 44 L* (150-450) k/uL Neutrophils % 81 % Lymphocytes % 10 % Monocytes % 3 % Eosinophils % 3 % Basophils % 1 % Neutrophils # 1.0 L (1.3-7.7) k/uL Lymphocytes # 0.1 L (1.0-4.8) k/uL Monocytes # 0.0 (0-1.0) k/uL Eosinophils # 0.0 (0-0.7) k/uL Basophils # 0.0 (0-0.2) k/uL Poikilocytosis Slight Anisocytosis Moderate Macrocytosis Slight PT (9.0-12.0) sec INR (<1.1) APTT (22.0-30.0) sec Sodium 138 (137-145) mmol/L Potassium 2.9 L* (3.5-5.1) mmol/L Chloride 107 (98-107) mmol/L Carbon Dioxide 23 (22-30) mmol/L Anion Gap 8 mmol/L BUN 43 H (7-17) mg/dL Creatinine 1.06 H (0.52-1.04) mg/dL Est GFR (MDRD) Af Amer >60 (>60 ml/min/1.73 sqM) Est GFR (MDRD) Non-Af 50 (>60 ml/min/1.73 sqM) Glucose 108 H (74-99) mg/dL Calcium 7.9 L (8.4-10.2) mg/dL Magnesium 1.5 L (1.6-2.3) mg/dL Total Bilirubin 1.1 (0.2-1.3) mg/dL AST 35 (14-36) U/L ALT 45 (9-52) U/L Alkaline Phosphatase 99 (38-126) U/L Total Creatine Kinase 26 L (30-135) U/L CK-MB (CK-2) 1.8 (0.0-2.4) ng/mL CK-MB (CK-2) Rel Index 6.9 Troponin I 0.050 H* (0.000-0.034) ng/mL Total Protein 5.1 L (6.3-8.2) g/dL Albumin 2.7 L (3.5-5.0) g/dL Blood Type Blood Type Recheck Antibody Screen Crossmatch Spec Expiration Date 08/09/16 08/09/16 Range/Units 18:47 18:47 WBC (3.8-10.6) k/uL RBC (3.80-5.40) m/uL Hgb (11.4-16.0) gm/dL Hct (34.0-46.0) % MCV (80.0-100.0) fL MCH (25.0-35.0) pg MCHC (31.0-37.0) g/dL RDW (11.5-15.5) % Plt Count (150-450) k/uL Neutrophils % % Lymphocytes % % Monocytes % % Eosinophils % % Basophils % % Neutrophils # (1.3-7.7) k/uL Lymphocytes # (1.0-4.8) k/uL Monocytes # (0-1.0) k/uL Eosinophils # (0-0.7) k/uL Basophils # (0-0.2) k/uL Poikilocytosis Anisocytosis Macrocytosis PT 13.1 H (9.0-12.0) sec INR 1.3 (<1.1) APTT 24.3 (22.0-30.0) sec Sodium (137-145) mmol/L Potassium (3.5-5.1) mmol/L Chloride (98-107) mmol/L Carbon Dioxide (22-30) mmol/L Anion Gap mmol/L BUN (7-17) mg/dL Creatinine (0.52-1.04) mg/dL Est GFR (MDRD) Af Amer (>60 ml/min/1.73 sqM) Est GFR (MDRD) Non-Af (>60 ml/min/1.73 sqM) Glucose (74-99) mg/dL Calcium (8.4-10.2) mg/dL Magnesium (1.6-2.3) mg/dL Total Bilirubin (0.2-1.3) mg/dL AST (14-36) U/L ALT (9-52) U/L Alkaline Phosphatase (38-126) U/L Total Creatine Kinase (30-135) U/L CK-MB (CK-2) (0.0-2.4) ng/mL CK-MB (CK-2) Rel Index Troponin I (0.000-0.034) ng/mL Total Protein (6.3-8.2) g/dL Albumin (3.5-5.0) g/dL Blood Type O Negative Blood Type Recheck No Antibody Screen NEGATIVE Crossmatch See Detail Spec Expiration Date 08/12/2016 - 2347 Disposition Clinical Impression: Anemia, Pancytopenia, Ovarian cancer Disposition: HOME SELF-CARE Condition: Good Instructions: Anemia (ED) Referrals: Dipesh Mayberry MD [Primary Care Provider] - 1-2 days
[2016-08-09] MEDS ORDERED: ONDANSETRON 4 MG/2 ML VIAL IVP STA (21:04)
[2016-08-09] MEDS ORDERED: FUROSEMIDE 10 MG/ML 4 ML VIAL IV STA (21:48)
[2016-08-10 00:38] VITALS: TEMP 99.2
[2016-08-10 02:03] VITALS: BP 127/61; PULSE 97; RESP 20
== END 2016-08-10 02:06 | disposition home or self-care (01) ==
LOC: EC 19:14
DX: C56.9 Malignant neoplasm of unspecified ovary (principal); C18.9 Malignant neoplasm of colon, unspecified; D63.0 Anemia in neoplastic disease; D61.818 Other pancytopenia; M10.9 Gout, unspecified; I10 Essential (primary) hypertension; F41.9 Anxiety disorder, unspecified; F32.9 Major depressive disorder, single episode, unspecified; Z87.891 Personal history of nicotine dependence; Z79.899 Other long term (current) drug therapy; Z96.653 Presence of artificial knee joint, bilateral; Z88.5 Allergy status to narcotic agent; Z91.040 Latex allergy status; Z91.048 Other nonmedicinal substance allergy status
CPT/HCPCS: 96375 ×3; 96361 ×7; 96374 ×2; 99284 ×2; 36430; 36415; 93005; 86900; 86901; 80053; 82550; 82553; 83735; 84484; 85025; 85610; 85730; 86850; 86920; P9016; J1940; J2405; J1642

== ENCOUNTER → 2016-09-03 | Outpatient (CLI) | payer MEDICARE, OTHER ==
--- NOTE | 2016-09-03 15:42 | XR ---
EXAMINATION TYPE: XR chest 2V DATE OF EXAM: 09/03/2016 COMPARISON: Prior chest x-ray 07/31/2016, CT 07/11/2016 HISTORY: Change in mental status, R 41.82 TECHNIQUE: Frontal and lateral views of the chest are obtained. FINDINGS: Right-sided Port-A-Cath is stable, distal tip is overlying the jugular vein. Heart is bailee edly enlarged. Central vascularity is prominent. No evident pneumothorax or pleural effusion. High ri ding shoulders may be indicative of chronic rotator cuff tears. Patchy basilar density is indetermina te. IMPRESSION: Cardiomegaly. Difficult to exclude a component of chronic compensated congestive failure . There may be left lower lobe atelectasis or pneumonia, correlate. Exam is somewhat limited technica lly. Port-A-Cath as described, additional findings above.
--- NOTE | 2016-09-03 15:45 | XR ---
Right humerus HISTORY: Polyarthritis, and 13.0 2 views of the right humerus Correlation right shoulder same date Bone mineralization is reduced. The right shoulder is high riding. Distal acromion is downturned. Art hropathy present at the acromioclavicular joint. Alignment is maintained. No lytic or blastic lesion, no fracture or dislocation. Suspect some calcifications are present along the humeral head. IMPRESSION: Findings may represent chronic rotator cuff tear. Correlate for impingement. Possible thania cific tendinitis.
--- NOTE | 2016-09-03 15:47 | XR ---
Right shoulder HISTORY: Polyarthritis, M13.0 3 views of the right shoulder correlated to prior exam same date right humerus The acromioclavicular joint arthropathy change, calcifications about the proximal right humerus, high riding right shoulder and decreased bone mineralization are again noted. No fracture or dislocation. Right lung apex shows distal tip of the central venous catheter as previously described overlying th e jugular vein. IMPRESSION: Possible chronic rotator cuff tear. Acromioclavicular joint arthropathy and possible calc ific tendinitis.
--- NOTE | 2016-09-03 15:53 | CT ---
EXAMINATION TYPE: CT brain wo/w con DATE OF EXAM: 09/03/2016 COMPARISON: NONE HISTORY: Confusion and weakness. History of ovarian cancer CT DLP: 2108.4mGycm CONTRAST: CT scan of the head is performed with IV Contrast, patient injected with 50 mL of Visipaque 320. Unenhanced followed by contrast enhanced CT of the brain is submitted for evaluation. The ventricles are midline. [id number] generalized atrophic change noted. There is no evidence for intracran ial hemorrhage or extra-axial collection. No mass effects are identified. Visualized bony calvarium is intact. Contrast is administered and no enhancing lesions are detected. No pathologic enhanceme nt is identified. If symptoms persist consider MRI. IMPRESSION: 1. Age related atrophic and chronic small vessel ischemic change. 2. No acute intracranial process or enhancing lesion.
--- NOTE | 2016-09-03 16:11 | XR ---
EXAMINATION TYPE: XR ribs LT DATE OF EXAM: 09/03/2016 COMPARISON: Chest 09/03/2016. HISTORY: 76-year-old female polyarthritis TECHNIQUE: 4 views FINDINGS: Suggestion of underlying splenic artery calcifications. There may be some periosteal callus along the lateral aspects of the left first and second ribs. No displaced rib fractures seen. Cardiomegaly and diffuse interstitial prominence as seen on 09/03/2016. Chronic full-thickness rotator cuff tear on the left. IMPRESSION: 1. Some possible periosteal callus along the left lateral first and second ribs. Underlying subtle no ndisplaced rib fractures here would be difficult to exclude if pain localizes to this level. 2. Chronic full thickness rotator cuff tear on the left.
== END | disposition home or self-care (01) ==
LOC: RADPROMAIN 14:03
PROVIDERS: ATTEND Internal Medicine
DX: S22.42XA Multiple fractures of ribs, left side, initial encounter for closed fracture (principal); M75.102 Unspecified rotator cuff tear or rupture of left shoulder, not specified as traumatic; C57.8 Malignant neoplasm of overlapping sites of female genital organs; M12.811 Other specific arthropathies, not elsewhere classified, right shoulder; G31.9 Degenerative disease of nervous system, unspecified; I67.82 Cerebral ischemia; I51.7 Cardiomegaly; I10 Essential (primary) hypertension; M13.0 Polyarthritis, unspecified; R41.82 Altered mental status, unspecified
CPT/HCPCS: 82565; 84520; 71020; 71100; 73030; 73060; 70470; Q9967; J1642

== ENCOUNTER 2016-09-16 23:40 | Inpatient (IN) | payer MEDICARE, OTHER ==
[2016-09-16 23:48] LABS: Glucose,Whole Blood 117 mg/dL (75-99)
[2016-09-17 00:32] LABS: Anisocytosis Moderate; Basophils % (A) 0 %; CH 35.1; CHCM 31.9; Eosinophils # (A) 0.1 k/uL (0-0.7); Eosinophils % (A) 2 %; HCT 22.5 % (34.0-46.0); HDW 4.03; HGB 7.1 gm/dL (11.4-16.0); Hypochromasia Moderate; Luc # (Auto) 0.02; Luc % (Auto) 1; Lymphocytes # (A) 0.4 k/uL (1.0-4.8); Lymphocytes % (A) 9 %; MCHC 31.5 g/dL (31.0-37.0); MCV 111.1 fL (80.0-100.0); Macrocytosis Marked; Mean Platelet Volume 8.8; Monocytes # (A) 0.1 k/uL (0-1.0); Monocytes % (A) 2 %; Neutrophils % (A) 87 %; Poikilocytosis Moderate; RBC 2.03 m/uL (3.80-5.40); RDW 22.9 % (11.5-15.5); WBC 4.6 k/uL (3.8-10.6); WBC (Perox) 4.88
[2016-09-17 00:36] LABS: INR 1.5 (<1.2); Prothrombin Time 14.2 sec (9.0-12.0)
[2016-09-17 00:38] LABS: Appearance,Urine Turbid (Clear); Bacteria,Urine Many /hpf; Bilirubin,Urine 1+ (Negative); Glucose,Urine (UA) Negative (Negative); Ketones,Urine Negative (Negative); Leukocyte Esterase,Urine Large (Negative); Nitrite,Urine Negative (Negative); PH, Urine 5.5 (5.0-8.0); Particle Count 97748; Protein,Urine 1+ (Negative); RBC,Urine 7 /hpf (0-5); Specific Gravity,Urine 1.017 (1.001-1.035); UA Billing (MACRO vs. MICRO) MICRO; WBC,Urine >182 /hpf (0-5)
--- NOTE | 2016-09-17 00:41 | XR ---
EXAM: XR Chest, 1 View CLINICAL HISTORY: Reason: Fever TECHNIQUE: Frontal view of the chest. COMPARISON: Portable chest radiograph 09/03/2016 FINDINGS: Limitations: Portable chest radiograph is somewhat technically limited. Lungs: Perivascular congestion with mild interstitial prominence which may reflect mild interstitial edema. Increased left retrocardiac opacity raising possibility of left lower lobe infiltrate or atelectasis. Pleural space: Minimal right pleural effusion. No pneumothorax. Heart: Prominent enlargement of the cardiac silhouette. Mediastinum: Mediastinal structures are unremarkable. Bones/joints: Unremarkable. Tubes, lines and devices: Indwelling right-sided jugular venous catheter extends with its tip in region of junction of internal jugular vein and superior vena cava, unchanged. IMPRESSION: Chronic cardiomegaly with findings raising possibility of mild congestive failure and interstitial pulmonary edema. Left lower lobe infiltrate or atelectasis. Possibility of pneumonia cannot be excluded and clinical correlation is recommended. Minimal right pleural effusion.
[2016-09-17 00:43] LABS: ALT 309 U/L (9-52); AST 520 U/L (14-36); Acetaminophen <10.0 ug/mL; Alkaline Phosphatase 83 U/L (38-126); Anion Gap 9 mmol/L; Blood Urea Nitrogen 39 mg/dL (7-17); Calcium 7.5 mg/dL (8.4-10.2); Carbon Dioxide 28 mmol/L (22-30); Chloride 96 mmol/L (98-107); Glucose 95 mg/dL (74-99); Non-African American GFR(MDRD) 28 (>60 ml/min/1.73 sqM); Potassium 4.1 mmol/L (3.5-5.1); Salicylate <1.0 mg/dL; Sodium 133 mmol/L (137-145); Total Bilirubin 0.6 mg/dL (0.2-1.3); Total Protein 5.6 g/dL (6.3-8.2)
[2016-09-17] MEDS ORDERED: cefTRIAXone 2,000 MG in SODIUM CHLORIDE 0.9% 100 ML IVPB STA (00:49)
[2016-09-17] MEDS ORDERED: NALOXONE 0.4 MG/ML 10 ML VIAL IVP STA (00:50)
--- NOTE | 2016-09-17 00:51 | ED ---
General Adult HPI - General Chief complaint: Overdose Stated complaint: accidental overdose Time Seen by Provider: 09/16/16 23:46 Source: patient, RN notes reviewed, old records reviewed Mode of arrival: EMS Limitations: no limitations - History of Present Illness Initial comments: This is a 76-year-old female to the ER for altered mental status, unresponsiveness. Decrease her stress test, possible overdose. Patient with history secondary to clinical condition. Patient was found initially hypoxic by EMS. During medication adjustments for sleep at night. - Related Data Home Medications Medication Instructions Recorded Confirmed Furosemide [Lasix] 20 mg PO DAILY 08/09/16 09/17/16 Loperamide [Imodium] 2 mg PO QID PRN 08/09/16 09/17/16 Hydrocodone/Acetaminophen [[place] 1 tab PO Q4HR PRN 09/17/16 09/17/16 5-325] LORazepam [Ativan] 1 mg PO TID PRN 09/17/16 09/17/16 Omeprazole 40 mg PO DAILY 09/17/16 09/17/16 Ondansetron HCl [Zofran] 4 mg PO Q4H PRN 09/17/16 09/17/16 QUEtiapine [SEROquel] 50 mg PO HS 09/17/16 09/17/16 Terbinafine [LamISIL] 250 mg PO DAILY 09/17/16 09/17/16 amLODIPine [Norvasc] 5 mg PO DAILY 09/17/16 09/17/16 Allergies Allergy/AdvReac Type Severity Reaction Status Date / Time adhesive tape Allergy Rash/Hives Verified 09/17/16 00:04 codeine Allergy Itching Verified 09/17/16 00:04 latex Allergy Rash/Hives Verified 09/17/16 00:04 Review of Systems ROS Statement: Those systems with pertinent positive or pertinent negative responses have been documented in the HPI. ROS Other: All systems not noted in ROS Statement are negative. 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 colon cancer august 2015 History of Any Multi-Drug Resistant Organisms: None Reported Past Surgical History: Appendectomy, Orthopedic Surgery Additional Past Surgical History / Comment(s): BL knee replacement, right salpingectomy and oophorectomy, cataract removal and lens implants, laser surgery for glaucoma, right breast biopsy that was benign, SHANTANU CARPAL TUNNEL RELEASE. Past Anesthesia/Blood Transfusion Reactions: No Reported Reaction Additional Past Anesthesia/Blood Transfusion Reaction / Comment(s): HAD BLOOD TRANSFUSION-NO REACTION Past Psychological History: Anxiety, Depression Smoking Status: Former smoker Past Alcohol Use History: None Reported Past Drug Use History: None Reported - Past Family History Mother Family Medical History: Cancer Additional Family Medical History / Comment(s): Lung cancer Father Family Medical History: Cancer Additional Family Medical History / Comment(s): No reports of GI malignancy General Exam Limitations: altered mental status, physical limitation General appearance: alert, in no apparent distress, lethargic, obese Head exam: Present: atraumatic, normocephalic, normal inspection Eye exam: Present: normal appearance, PERRL, EOMI. Absent: scleral icterus, conjunctival injection, periorbital swelling ENT exam: Present: normal exam, mucous membranes moist Neck exam: Present: normal inspection. Absent: tenderness, meningismus, lymphadenopathy Respiratory exam: Present: normal lung sounds bilaterally. Absent: respiratory distress, wheezes, rales, rhonchi, stridor Cardiovascular Exam: Present: regular rate, normal rhythm, normal heart sounds. Absent: systolic murmur, diastolic murmur, rubs, gallop, clicks GI/Abdominal exam: Present: soft, normal bowel sounds. Absent: distended, tenderness, guarding, rebound, rigid Extremities exam: Present: normal inspection, full ROM, normal capillary refill. Absent: tenderness, pedal edema, joint swelling, calf tenderness Back exam: Present: normal inspection Neurological exam: Present: alert, oriented X3, CN II-XII intact Psychiatric exam: Present: normal affect, normal mood Skin exam: Present: warm, dry, intact, normal color. Absent: rash Course Vital Signs 09/16/16 09/17/16 09/17/16 23:49 00:27 00:46 Temperature 96.9 F L Pulse Rate 90 104 H 85 Respiratory 24 26 H 20 Rate Blood Pressure 135/62 117/68 116/75 O2 Sat by Pulse 70 L 100 100 Oximetry 08/08/17 08/08/17 08/08/17 01:17 01:24 01:45 Temperature Pulse Rate 80 79 79 Respiratory 17 20 20 Rate Blood Pressure 123/84 107/79 112/79 O2 Sat by Pulse 98 100 100 Oximetry 09/17/16 09/17/16 09/17/16 01:56 02:08 02:13 Temperature Pulse Rate 84 100 88 Respiratory 20 Rate Blood Pressure 124/65 O2 Sat by Pulse 98 Oximetry - Reevaluation(s) Reevaluation #1: 09/17/16 00:51 Patient is a level responded with nonrebreather Reevaluation #2: 09/17/16 00:51 Spoke with family, patient is a DO NOT INTUBATE patient, DO NOT RESUSCITATE EKG Findings - EKG Comments: EKG Findings:: EKG shows normal sinus rhythm rate of 90, HI 160, QRS 46, QTC 406 Medical Decision Making - Medical Decision Making 76 female the ER without difficulty breathing secondary to overmedication. Patient with no real response to Narcan, likely benzodiazepines, patient is a DO NOT INTUBATE, history of CVA, patient currently with what looks like pneumonia superimposed [place] infection will treat with antibiotics admit for monitoring of respiratory cardiopulmonary status - Lab Data Result diagrams: 09/17/16 17:17 09/17/16 00:15 Lab Results 09/16/16 09/17/16 09/17/16 Range/Units 23:46 00:13 00:15 WBC (3.8-10.6) k/uL RBC (3.80-5.40) m/uL Hgb (11.4-16.0) gm/dL Hct (34.0-46.0) % MCV (80.0-100.0) fL MCH (25.0-35.0) pg MCHC (31.0-37.0) g/dL RDW (11.5-15.5) % Plt Count (150-450) k/uL Neutrophils % % Lymphocytes % % Monocytes % % Eosinophils % % Basophils % % Neutrophils # (1.3-7.7) k/uL Lymphocytes # (1.0-4.8) k/uL Monocytes # (0-1.0) k/uL Eosinophils # (0-0.7) k/uL Basophils # (0-0.2) k/uL Manual Slide Review Polychromasia Hypochromasia Poikilocytosis Anisocytosis Macrocytosis PT (9.0-12.0) sec INR (<1.2) APTT (22.0-30.0) sec Sodium (137-145) mmol/L Potassium (3.5-5.1) mmol/L Chloride (98-107) mmol/L Carbon Dioxide (22-30) mmol/L Anion Gap mmol/L BUN (7-17) mg/dL Creatinine (0.52-1.04) mg/dL Est GFR (MDRD) Af Amer (>60 ml/min/1.73 sqM) Est GFR (MDRD) Non-Af (>60 ml/min/1.73 sqM) Glucose (74-99) mg/dL POC Glucose (mg/dL) 117 H (75-99) mg/dL POC Glu Plug Maker ID Kari Bolton Plasma Lactic Acid Manish (0.7-2.0) mmol/L Calcium (8.4-10.2) mg/dL Total Bilirubin (0.2-1.3) mg/dL AST (14-36) U/L ALT (9-52) U/L Alkaline Phosphatase (38-126) U/L Ammonia (<30) umol/L Total Creatine Kinase 110 (30-135) U/L CK-MB (CK-2) 6.2 H* (0.0-2.4) ng/mL CK-MB (CK-2) Rel Index 5.6 Troponin I 0.658 H* (0.000-0.034) ng/mL NT-Pro-B Natriuret Pep pg/mL Total Protein (6.3-8.2) g/dL Albumin (3.5-5.0) g/dL Urine Color Dark Brown Urine Appearance Turbid H (Clear) Urine pH 5.5 (5.0-8.0) Ur Specific [place] 1.017 (1.001-1.035) Urine Protein 1+ H (Negative) Urine Glucose (UA) Negative (Negative) Urine Ketones Negative (Negative) Urine Blood Small H (Negative) Urine Nitrite Negative (Negative) Urine Bilirubin 1+ H (Negative) Urine Urobilinogen 4.0 (<2.0) mg/dL Ur Leukocyte Esterase Large H (Negative) Urine RBC 7 H (0-5) /hpf Urine WBC >182 H (0-5) /hpf Urine WBC Clumps Many H (None) /hpf Urine Bacteria Many H (None) /hpf Salicylates mg/dL Urine Opiates Screen Detected H (NotDetected) Ur Oxycodone Screen Not Detected (NotDetected) Urine Methadone Screen Not Detected (NotDetected) Ur Propoxyphene Screen Not Detected (NotDetected) Acetaminophen ug/mL Ur Barbiturates Screen Not Detected (NotDetected) U Tricyclic Antidepress Detected H (NotDetected) Ur Phencyclidine Scrn Not Detected (NotDetected) Ur Amphetamines Screen Not Detected (NotDetected) U Methamphetamines Scrn Not Detected (NotDetected) U Benzodiazepines Scrn Detected H (NotDetected) Urine Cocaine Screen Not Detected (NotDetected) U Marijuana (THC) Screen Not Detected (NotDetected) 09/17/16 09/17/16 09/17/16 Range/Units 00:15 00:15 00:15 WBC 4.6 (3.8-10.6) k/uL RBC 2.03 L (3.80-5.40) m/uL Hgb 7.1 L (11.4-16.0) gm/dL Hct 22.5 L (34.0-46.0) % MCV 111.1 H (80.0-100.0) fL MCH 35.0 (25.0-35.0) pg MCHC 31.5 (31.0-37.0) g/dL RDW 22.9 H (11.5-15.5) % Plt Count 68 L (150-450) k/uL Neutrophils % 87 % Lymphocytes % 9 % Monocytes % 2 % Eosinophils % 2 % Basophils % 0 % Neutrophils # 4.0 (1.3-7.7) k/uL Lymphocytes # 0.4 L (1.0-4.8) k/uL Monocytes # 0.1 (0-1.0) k/uL Eosinophils # 0.1 (0-0.7) k/uL Basophils # 0.0 (0-0.2) k/uL Manual Slide Review Performed Polychromasia Present Hypochromasia Moderate Poikilocytosis Moderate Anisocytosis Moderate Macrocytosis Marked PT (9.0-12.0) sec INR (<1.2) APTT (22.0-30.0) sec Sodium 133 L (137-145) mmol/L Potassium 4.1 (3.5-5.1) mmol/L Chloride 96 L (98-107) mmol/L Carbon Dioxide 28 (22-30) mmol/L Anion Gap 9 mmol/L BUN 39 H (7-17) mg/dL Creatinine 1.78 H (0.52-1.04) mg/dL Est GFR (MDRD) Af Amer 33 (>60 ml/min/1.73 sqM) Est GFR (MDRD) Non-Af 28 (>60 ml/min/1.73 sqM) Glucose 95 (74-99) mg/dL POC Glucose (mg/dL) (75-99) mg/dL POC Glu Plug Maker ID Plasma Lactic Acid Manish 1.5 (0.7-2.0) mmol/L Calcium 7.5 L (8.4-10.2) mg/dL Total Bilirubin 0.6 (0.2-1.3) mg/dL AST 520 H (14-36) U/L ALT 309 H (9-52) U/L Alkaline Phosphatase 83 (38-126) U/L Ammonia (<30) umol/L Total Creatine Kinase (30-135) U/L CK-MB (CK-2) (0.0-2.4) ng/mL CK-MB (CK-2) Rel Index Troponin I (0.000-0.034) ng/mL NT-Pro-B Natriuret Pep pg/mL Total Protein 5.6 L (6.3-8.2) g/dL Albumin 3.1 L (3.5-5.0) g/dL Urine Color Urine Appearance (Clear) Urine pH (5.0-8.0) Ur Specific [place] (1.001-1.035) Urine Protein (Negative) Urine Glucose (UA) (Negative) Urine Ketones (Negative) Urine Blood (Negative) Urine Nitrite (Negative) Urine Bilirubin (Negative) Urine Urobilinogen (<2.0) mg/dL Ur Leukocyte Esterase (Negative) Urine RBC (0-5) /hpf Urine WBC (0-5) /hpf Urine WBC Clumps (None) /hpf Urine Bacteria (None) /hpf Salicylates <1.0 mg/dL Urine Opiates Screen (NotDetected) Ur Oxycodone Screen (NotDetected) Urine Methadone Screen (NotDetected) Ur Propoxyphene Screen (NotDetected) Acetaminophen <10.0 ug/mL Ur Barbiturates Screen (NotDetected) U Tricyclic Antidepress (NotDetected) Ur Phencyclidine Scrn (NotDetected) Ur Amphetamines Screen (NotDetected) U Methamphetamines Scrn (NotDetected) U Benzodiazepines Scrn (NotDetected) Urine Cocaine Screen (NotDetected) U Marijuana (THC) Screen (NotDetected) 09/17/16 09/17/16 09/17/16 Range/Units 00:15 00:15 00:15 WBC (3.8-10.6) k/uL RBC (3.80-5.40) m/uL Hgb (11.4-16.0) gm/dL Hct (34.0-46.0) % MCV (80.0-100.0) fL MCH (25.0-35.0) pg MCHC (31.0-37.0) g/dL RDW (11.5-15.5) % Plt Count (150-450) k/uL Neutrophils % % Lymphocytes % % Monocytes % % Eosinophils % % Basophils % % Neutrophils # (1.3-7.7) k/uL Lymphocytes # (1.0-4.8) k/uL Monocytes # (0-1.0) k/uL Eosinophils # (0-0.7) k/uL Basophils # (0-0.2) k/uL Manual Slide Review Polychromasia Hypochromasia Poikilocytosis Anisocytosis Macrocytosis PT 14.2 H (9.0-12.0) sec INR 1.5 H (<1.2) APTT 23.0 (22.0-30.0) sec Sodium (137-145) mmol/L Potassium (3.5-5.1) mmol/L Chloride (98-107) mmol/L Carbon Dioxide (22-30) mmol/L Anion Gap mmol/L BUN (7-17) mg/dL Creatinine (0.52-1.04) mg/dL Est GFR (MDRD) Af Amer (>60 ml/min/1.73 sqM) Est GFR (MDRD) Non-Af (>60 ml/min/1.73 sqM) Glucose (74-99) mg/dL POC Glucose (mg/dL) (75-99) mg/dL POC Glu Plug Maker ID Plasma Lactic Acid Manish (0.7-2.0) mmol/L Calcium (8.4-10.2) mg/dL Total Bilirubin (0.2-1.3) mg/dL AST (14-36) U/L ALT (9-52) U/L Alkaline Phosphatase (38-126) U/L Ammonia 12 (<30) umol/L Total Creatine Kinase (30-135) U/L CK-MB (CK-2) (0.0-2.4) ng/mL CK-MB (CK-2) Rel Index Troponin I (0.000-0.034) ng/mL NT-Pro-B Natriuret Pep 79643 pg/mL Total Protein (6.3-8.2) g/dL Albumin (3.5-5.0) g/dL Urine Color Urine Appearance (Clear) Urine pH (5.0-8.0) Ur Specific [place] (1.001-1.035) Urine Protein (Negative) Urine Glucose (UA) (Negative) Urine Ketones (Negative) Urine Blood (Negative) Urine Nitrite (Negative) Urine Bilirubin (Negative) Urine Urobilinogen (<2.0) mg/dL Ur Leukocyte Esterase (Negative) Urine RBC (0-5) /hpf Urine WBC (0-5) /hpf Urine WBC Clumps (None) /hpf Urine Bacteria (None) /hpf Salicylates mg/dL Urine Opiates Screen (NotDetected) Ur Oxycodone Screen (NotDetected) Urine Methadone Screen (NotDetected) Ur Propoxyphene Screen (NotDetected) Acetaminophen ug/mL Ur Barbiturates Screen (NotDetected) U Tricyclic Antidepress (NotDetected) Ur Phencyclidine Scrn (NotDetected) Ur Amphetamines Screen (NotDetected) U Methamphetamines Scrn (NotDetected) U Benzodiazepines Scrn (NotDetected) Urine Cocaine Screen (NotDetected) U Marijuana (THC) Screen (NotDetected) - Radiology Data Radiology results: report reviewed (Chest x-ray shows positive pneumonia), image reviewed Critical Care Time Critical Care Time: Yes Total Critical Care Time: 31 Disposition Clinical Impression: Anemia, Dyspnea, Drug overdose, Altered mental state, Hypoxia, Nosocomial pneumonia, UTI (urinary tract infection) Disposition: ADMITTED IP TO THIS HOSP Condition: Serious
[2016-09-17 01:02] LABS: Manual Review Performed; Polychromasia Present
[2016-09-17 01:08] LABS: Creatine Kinase MB 6.2 ng/mL (0.0-2.4); Troponin I 0.658 ng/mL (0.000-0.034)
[2016-09-17] MEDS ORDERED: IPRATROPIUM-ALBUTEROL 3 ML NEB INHALATION STA (01:34)
[2016-09-17] MEDS ORDERED: AZITHROMYCIN 500 MG in SODIUM CHLORIDE 0.9% 250 ML IVPB STA (01:34)
[2016-09-17] MEDS ORDERED: PNEUMONIA PROTOCOL UTILIZED 1 EACH MISC PO PRN (02:31)
[2016-09-17] MEDS ORDERED: PIPERACILLIN-TAZOBACTAM 3.375 GM in DEXTROSE/WATER 1 50ML.BAG IVPB STA (02:31)
[2016-09-17] MEDS ORDERED: SODIUM CHLORIDE 0.9% 1,000 ML IV SCH (02:45)
[2016-09-17 07:17] LABS: Creatine Kinase MB 6.9 ng/mL (0.0-2.4); Troponin I 0.761 ng/mL (0.000-0.034)
[2016-09-17] MEDS ORDERED: PROCHLORPERAZINE SUPPOSITORY 25 MG SUPP RECTAL PRN (08:09)
[2016-09-17] MEDS ORDERED: NALOXONE 0.4 MG/ML 1 ML VIAL IV PRN (08:09)
[2016-09-17] MEDS: IPRATROPIUM-ALBUTEROL 3 ML NEB INHALATION PRN ×2 (08:09→11:52)
[2016-09-17] MEDS ORDERED: LOPERAMIDE 2 MG CAP PO PRN (08:09)
[2016-09-17] MEDS ORDERED: ONDANSETRON 4 MG/2 ML VIAL IVP PRN (08:09)
[2016-09-17] MEDS ORDERED: ENOXAPARIN 40 MG/0.4 ML SYRINGE SQ SCH (09:00)
[2016-09-17 09:44] LABS: C Reactive Protein 65.3 mg/L (<10.0); Magnesium 1.3 mg/dL (1.6-2.3); Phosphorous 5.6 mg/dL (2.5-4.5)
[2016-09-17] MEDS ORDERED: PIPERACILLIN-TAZOBACTAM 3.375 GM in DEXTROSE/WATER 1 50ML.BAG IVPB SCH (10:00)
--- NOTE | 2016-09-17 10:20 | P.HPIM ---
History of Present Illness H&P Date: 09/17/16 This is a 76 years old female with significant history of ovarian cancer a chronic pancytopenia as well as chronic insomnia and anxiety, please note the patient is a poor historian due to her level of consciousness as well as chronic poor short-term memory, per her son, so most of the information was obtained from her son as well as ER records, apparently the patient was found with decreased level of consciousness last night so was was brought into the emergency room, according to the family the patient has been struggling with insomnia and there were in contact with Dr. Mayberry was helping them adjust her medication according to the son she was extremely anxious at times requiring Ativan chronically at least twice a day as needed, Dr. Mayberry added Seroquel 50 mg which was titrated up to 4 pills a day as needed for sleep and that was started 4 days ago, according to the son, he called Dr. Mayberry reported to him continued insomnia despite the increase of Seroquel, Dr. Mayberry ordered Restoril which was given to the patient later that day her daughter noticed that the patient is having decreased level of consciousness difficult to arouse " groggy, she attempted to sit her up with her brother and tried to wake her up which was not successful so they called EMS and was brought into the emergency room. Emergency room she was given Narcan with minimal response patient was placed on oxygen, the patient subsequently slightly improved in her level of consciousness and did not require intubation, upon my examination the patient is arousable and answers simple questions in a very weak voice, she denies attempting to overdose unstated she took her medication as she is supposed to. The family as well as the patient denied any recent infections, nausea or vomiting, falls or syncope. Review of Systems Constitutional: Patient reports no fever, no chills, no weight changes, no change in appetite Eyes: Patient reports no double vision, no visual changes ENT: Patient reports no rhinorrhea, no post nasal drip, no sore throat Cardiovascular: Patient reports no chest, no edema, no palpitations, no syncope , no orthopnea, no paroxysmal nocturnal dyspnea. Respiratory: Patient reports no dyspnea, no cough, no wheeze Gastrointestinal: Patient reports no nausea, no vomiting, no constipation, no diarrhea Genitourinary: Patient reports no dysuria, no urinary frequency, no hematuria. Musculoskeletal: Patient reports no unusual joint pain, no joint swelling or weakness. Patient reports no muscular pain. Psychiatric: Patient reports no changes in mood, but reports sleeping problems. family report poor short term memory. Endocrine: Patient reports no thirst, no polyuria, no cold intolerance, no heat intolerance. Neurological: Patient reports no unusual paresthesias, no seizures, no paresis , no paralysis, no facila droop, no headache. Heme/Lymphatic: Patient reports no easy bruising, no bleeding tendency, no lymphadenopathy. Allergic/ Immunologic: Patient reports no recent allergic reactions or immunologic history. Skin: Patient reports no rashes or unusual lesions. Past Medical History Past Medical History: Cancer, GERD/Reflux, Hypertension, Memory Impairment, Osteoarthritis (OA), Vascular Disorder (Anesthesia) Additional Past Medical History / Comment(s): glaucoma, GOUT,CHRONIC ITCHY SKIN RASH(ECZEMA-TAKES VISTARIL), MURMUR, ANEMIA.CELLULITS recent dx with ovarian ca dx august 2015. Recent insomnia History of Any Multi-Drug Resistant Organisms: None Reported Past Surgical History: Appendectomy, Orthopedic Surgery Additional Past Surgical History / Comment(s): BL knee replacement, right salpingectomy and oophorectomy, cataract removal and lens implants, laser surgery for glaucoma, right breast biopsy that was benign, SHANTANU CARPAL TUNNEL RELEASE. Past Anesthesia/Blood Transfusion Reactions: No Reported Reaction Additional Past Anesthesia/Blood Transfusion Reaction / Comment(s): HAD BLOOD TRANSFUSION-NO REACTION Past Psychological History: Anxiety, Depression Smoking Status: Former smoker Past Alcohol Use History: None Reported Past Drug Use History: None Reported - Past Family History Mother Family Medical History: Cancer Additional Family Medical History / Comment(s): Lung cancer Father Family Medical History: Cancer Medications and Allergies Home Medications Medication Instructions Recorded Confirmed Type Furosemide [Lasix] 20 mg PO DAILY@1400 08/09/16 08/09/16 History Loperamide [Imodium] 2 mg PO ONCE PRN 08/09/16 08/09/16 History Hydrocodone/Acetaminophen [[place] 1 tab PO Q4HR PRN 09/17/16 09/17/16 History 5-325] LORazepam [Ativan] 1 mg PO TID PRN 09/17/16 09/17/16 History Omeprazole 40 mg PO DAILY 09/17/16 09/17/16 History Ondansetron HCl [Zofran] 4 mg PO Q4H PRN 09/17/16 09/17/16 History QUEtiapine [SEROquel] 50 mg PO HS 09/17/16 09/17/16 History Terbinafine [LamISIL] 250 mg PO DAILY 09/17/16 09/17/16 History amLODIPine [Norvasc] 5 mg PO DAILY 09/17/16 09/17/16 History Allergies Allergy/AdvReac Type Severity Reaction Status Date / Time adhesive tape Allergy Rash/Hives Verified 09/17/16 00:04 codeine Allergy Itching Verified 09/17/16 00:04 latex Allergy Rash/Hives Verified 09/17/16 00:04 Physical Exam Vitals: Vital Signs Temp Pulse Pulse Resp BP BP Pulse Ox 09/17/16 08:32 58 L 20 106/48 97 09/17/16 08:19 88 09/17/16 08:09 84 09/17/16 03:30 96.3 F L 90 20 91/50 98 09/17/16 02:13 88 09/17/16 02:08 100 20 124/65 98 09/17/16 01:56 84 09/17/16 01:45 79 20 112/79 100 09/17/16 01:24 79 20 107/79 100 09/17/16 01:17 80 17 123/84 98 09/17/16 00:46 85 20 116/75 100 09/17/16 00:27 104 H 26 H 117/68 100 09/16/16 23:49 96.9 F L 90 24 135/62 70 L Intake and Output 09/16/16 09/17/16 09/17/16 22:59 06:59 14:59 Intake Total 300 Balance 300 Intake: Intake, IV Titration 300 Amount Sodium Chloride 0.9% 1, 300 000 ml @ 100 mls/hr IV . Q10H [facility] Rx#:[id number] Other: Voiding Method Incontinent # Voids 1 Weight 109.5 kg - Constitutional General appearance: cooperative, mild distress, obese - EENT Eyes: PERRLA, dentition normal, normal appearance Ears: bilateral: normal, negative: bulging, bullous, erythema - Neck Neck: no lymphadenopathy, normal ROM, no rigidity Carotids: bilateral: upstroke normal Thyroid: bilateral: normal size - Respiratory Respiratory: bilateral: diminished, rales, rhonchi, negative: wheezing, prolonged expiration, prolonged inspiration - Cardiovascular +3 lower ext. edema. Rhythm: regular Heart sounds: normal: S1, S2 Abnormal Heart Sounds: no systolic murmur, no diastolic murmur, no rub, no S3 Gallop, no S4 Gallop - Gastrointestinal General gastrointestinal: hepatomegaly (Mild), normal bowel sounds, no rigid, no tenderness, ventral hernia - Integumentary Bilateral TKR Scars Integumentary: no cellulitis, no jaundiced, normal turgor (macerated intertriginous areas) - Neurologic no focal deficit Neurologic: CNII-XII intact - Musculoskeletal Musculoskeletal: generalized weakness - Psychiatric somnolent and oriented [address] place and person she thinks is 2014 Results CBC & Chem 7: 09/17/16 00:15 09/17/16 00:15 Labs: Abnormal Lab Results - Last 24 Hours (Table) 09/16/16 09/17/16 09/17/16 Range/Units 23:46 00:13 00:15 RBC (3.80-5.40) m/uL Hgb (11.4-16.0) gm/dL Hct (34.0-46.0) % MCV (80.0-100.0) fL RDW (11.5-15.5) % Plt Count (150-450) k/uL Lymphocytes # (1.0-4.8) k/uL PT (9.0-12.0) sec INR (<1.2) Sodium (137-145) mmol/L Chloride (98-107) mmol/L BUN (7-17) mg/dL Creatinine (0.52-1.04) mg/dL POC Glucose (mg/dL) 117 H (75-99) mg/dL Calcium (8.4-10.2) mg/dL AST (14-36) U/L ALT (9-52) U/L CK-MB (CK-2) 6.2 H* (0.0-2.4) ng/mL Troponin I 0.658 H* (0.000-0.034) ng/mL Total Protein (6.3-8.2) g/dL Albumin (3.5-5.0) g/dL Urine Appearance Turbid H (Clear) Urine Protein 1+ H (Negative) Urine Blood Small H (Negative) Urine Bilirubin 1+ H (Negative) Ur Leukocyte Esterase Large H (Negative) Urine RBC 7 H (0-5) /hpf Urine WBC >182 H (0-5) /hpf Urine WBC Clumps Many H (None) /hpf Urine Bacteria Many H (None) /hpf Urine Opiates Screen Detected H (NotDetected) U Tricyclic Antidepress Detected H (NotDetected) U Benzodiazepines Scrn Detected H (NotDetected) 09/17/16 09/17/16 09/17/16 Range/Units 00:15 00:15 00:15 RBC 2.03 L (3.80-5.40) m/uL Hgb 7.1 L (11.4-16.0) gm/dL Hct 22.5 L (34.0-46.0) % MCV 111.1 H (80.0-100.0) fL RDW 22.9 H (11.5-15.5) % Plt Count 68 L (150-450) k/uL Lymphocytes # 0.4 L (1.0-4.8) k/uL PT 14.2 H (9.0-12.0) sec INR 1.5 H (<1.2) Sodium 133 L (137-145) mmol/L Chloride 96 L (98-107) mmol/L BUN 39 H (7-17) mg/dL Creatinine 1.78 H (0.52-1.04) mg/dL POC Glucose (mg/dL) (75-99) mg/dL Calcium 7.5 L (8.4-10.2) mg/dL AST 520 H (14-36) U/L ALT 309 H (9-52) U/L CK-MB (CK-2) (0.0-2.4) ng/mL Troponin I (0.000-0.034) ng/mL Total Protein 5.6 L (6.3-8.2) g/dL Albumin 3.1 L (3.5-5.0) g/dL Urine Appearance (Clear) Urine Protein (Negative) Urine Blood (Negative) Urine Bilirubin (Negative) Ur Leukocyte Esterase (Negative) Urine RBC (0-5) /hpf Urine WBC (0-5) /hpf Urine WBC Clumps (None) /hpf Urine Bacteria (None) /hpf Urine Opiates Screen (NotDetected) U Tricyclic Antidepress (NotDetected) U Benzodiazepines Scrn (NotDetected) 09/17/16 Range/Units 06:14 RBC (3.80-5.40) m/uL Hgb (11.4-16.0) gm/dL Hct (34.0-46.0) % MCV (80.0-100.0) fL RDW (11.5-15.5) % Plt Count (150-450) k/uL Lymphocytes # (1.0-4.8) k/uL PT (9.0-12.0) sec INR (<1.2) Sodium (137-145) mmol/L Chloride (98-107) mmol/L BUN (7-17) mg/dL Creatinine (0.52-1.04) mg/dL POC Glucose (mg/dL) (75-99) mg/dL Calcium (8.4-10.2) mg/dL AST (14-36) U/L ALT (9-52) U/L CK-MB (CK-2) 6.9 H* (0.0-2.4) ng/mL Troponin I 0.761 H* (0.000-0.034) ng/mL Total Protein (6.3-8.2) g/dL Albumin (3.5-5.0) g/dL Urine Appearance (Clear) Urine Protein (Negative) Urine Blood (Negative) Urine Bilirubin (Negative) Ur Leukocyte Esterase (Negative) Urine RBC (0-5) /hpf Urine WBC (0-5) /hpf Urine WBC Clumps (None) /hpf Urine Bacteria (None) /hpf Urine Opiates Screen (NotDetected) U Tricyclic Antidepress (NotDetected) U Benzodiazepines Scrn (NotDetected) Chest x-ray: report reviewed Abdominal x-ray: report reviewed Thrombosis Risk Factor Assmnt - Choose All That Apply Each Factor Represents 1 point: Swollen legs (current) Each Risk Factor Represents 2 Points: Malignancy Each Risk Factor Represents 3 Points: Age 75 years or older Thrombosis Risk Factor Assessment Total Risk Factor Score: 6 Thrombosis Risk Factor Assessment Level: High Risk Assessment and Plan (1) Altered mental state Narrative/Plan: I decreased level of consciousness is related to sedatives interactions a mild overdose hence I will stop all her sedatives and opiates untill improvement in her metation, serial neurochecks aspiration precautions , pulse oximetry continuous , fall precautions , Narcan and flumanezil as needed. Status: Acute (2) Drug overdose Narrative/Plan: Hold sedatives and opiates Neurochecks serial Status: Acute (3) UTI (urinary tract infection) Narrative/Plan: for her UTI we will place her on Rocephin 1 g IV daily on follow-up on urine culture which was sent please note the patient had previous urine culture showing enterococcus. we will Place her on serial bladder scans Status: Acute (4) Hypoxia Narrative/Plan: I hypoxia is acute on chronic as she uses home oxygen on 24 hours basis , in the emergency room she was Desatting down lower 80s, hence was placed on Ventimask currently her oxygenation improved and she's satting in the mid 90s we will switch her to a nasal cannula keep sats above 90 , Will institute aspiration precautions and incentive spirometry, Status: Acute (5) Antineoplastic chemotherapy induced pancytopenia Narrative/Plan: her pancytopenia his chronic unrelated to previous chemotherapy she required blood transfusions in the past however currently her hemoglobin level is stable we'll continue to monitor and repeat CBC in the morning Status: Acute (6) Aspiration into airway Narrative/Plan: again her aspiration is related to decreased level of consciousness sedatives interactions , aspiration precautions , nothing by mouth until swallow eval is performed. Status: Acute (7) Transaminitis Narrative/Plan: elevation of liver enzymes likely related to hypotension episode , we will continue to monitor and repeat liver function test in the morning Status: Acute (8) Acute kidney failure NEC Narrative/Plan: acute renal failure related to pre- Renal azotemia and over diurese. we'll hold Lasix for now she looks hypovolemic hence will not start any fluids we will encourage by mouth intake once she is more awake. chronic renal failure / CKD stage 3B : LIKELY RELATED 2 HYPERTENSIVE NEPHROSCLEROSIS CANNOT RULE OUT CHEMOTHERAPY-INDUCED. wE WILL MONITOR HER CREATININE ON ONCE STABLE CONSIDER URINE PROTEIN CREATININE RATIO TO RULE OUT SIGNIFICANT PROTEINURIA. AVOID ANY NEPHROTOXINS AND ADJUST r MEDICATION FOR RENAL DOSING , pEPCID 20 20 MG DAILY AND ENOXAPARIN 30 MILLIGRAM RENAL DOSING. Status: Acute (9) Hypotension Narrative/Plan: THIS IS RELATED TO DEHYDRATION, NORVASC AND OVERDIURESIS , HOLD nORVASC AND lASIX. SERIAL VITAL SIGNS. Status: Acute Plan: Hyponatremia hypervolemic : mild, continue to monitor. Time with Patient: Greater than 30 (i SPENT 30 MINUTES TALKING TO HER SON ON THE PHONE , UPDATED HIM ON HER CONDITION i DISCUSSED PLAN OF CARE WITH HIM , ACCORDING TO THE SON SHE IS FULL CODE HE WOULD LIKE HER TO TO HAVE cpr WELL INTUBATION ON MECHANICAL VENTILATION HOWEVER NOT FOR LONG TIME)
[2016-09-17] MEDS: ENOXAPARIN 30 MG/0.3 ML SYRINGE SQ SCH (10:45)
[2016-09-17] MEDS: NYSTATIN 100,000 UNIT/GM POWD 15 GM TOPICAL SCH ×2 (10:46→21:04)
[2016-09-17] MEDS ORDERED: MAGNESIUM SULFATE-D5W PMX 1 GM in DEXTROSE/WATER 1 100ML.BAG IVPB ONE ×2 (11:00→23:04)
[2016-09-17] MEDS ORDERED: SODIUM CHLORIDE 0.9% 1,000 ML IV ONE ×2 (12:05→13:52)
--- NOTE | 2016-09-17 12:23 | P.CRDCN ---
History of Present Illness Consult date: 09/17/16 Chief complaint: Weakness History of present illness: This is a pleasant 76-year-old female patient with a past medical history significant for ovarian cancer and no documented cardiac history from before was brought to the hospital with a change in mental status. We get involved in the care of the patient because the cardiac enzymes were checked and came in to be slightly abnormal with mildly abnormal troponin as well as CK-MB. The patient did not have any symptoms of chest pain or discomfort but she seems to be in mild respiratory distress. The chest x-ray showed findings consistent with mild congestive heart failure. The BNP came in to be alleviated. Hemodynamically the patient is slightly hypertensive and she is not on any blood pressure medications. Past Medical History Past Medical History: Cancer, GERD/Reflux, Hypertension, Memory Impairment, Osteoarthritis (OA), Vascular Disorder (Anesthesia) Additional Past Medical History / Comment(s): glaucoma, GOUT,CHRONIC ITCHY SKIN RASH(ECZEMA-TAKES VISTARIL), MURMUR, ANEMIA.CELLULITS recent dx with ovarian ca dx august 2015. Recent insomnia History of Any Multi-Drug Resistant Organisms: None Reported Past Surgical History: Appendectomy, Orthopedic Surgery Additional Past Surgical History / Comment(s): BL knee replacement, right salpingectomy and oophorectomy, cataract removal and lens implants, laser surgery for glaucoma, right breast biopsy that was benign, SHANTANU CARPAL TUNNEL RELEASE. Past Anesthesia/Blood Transfusion Reactions: No Reported Reaction Additional Past Anesthesia/Blood Transfusion Reaction / Comment(s): HAD BLOOD TRANSFUSION-NO REACTION Past Psychological History: Anxiety, Depression Smoking Status: Former smoker Past Alcohol Use History: None Reported Past Drug Use History: None Reported - Past Family History Mother Family Medical History: Cancer Additional Family Medical History / Comment(s): Lung cancer Father Family Medical History: Cancer Additional Family Medical History / Comment(s): No reports of GI malignancy Medications and Allergies Home Medications Medication Instructions Recorded Confirmed Type Furosemide [Lasix] 20 mg PO DAILY 08/09/16 09/17/16 History Loperamide [Imodium] 2 mg PO QID PRN 08/09/16 09/17/16 History Hydrocodone/Acetaminophen [[place] 1 tab PO Q4HR PRN 09/17/16 09/17/16 History 5-325] LORazepam [Ativan] 1 mg PO TID PRN 09/17/16 09/17/16 History Omeprazole 40 mg PO DAILY 09/17/16 09/17/16 History Ondansetron HCl [Zofran] 4 mg PO Q4H PRN 09/17/16 09/17/16 History QUEtiapine [SEROquel] 50 mg PO HS 09/17/16 09/17/16 History Terbinafine [LamISIL] 250 mg PO DAILY 09/17/16 09/17/16 History amLODIPine [Norvasc] 5 mg PO DAILY 09/17/16 09/17/16 History Allergies Allergy/AdvReac Type Severity Reaction Status Date / Time adhesive tape Allergy Rash/Hives Verified 09/17/16 00:04 codeine Allergy Itching Verified 09/17/16 00:04 latex Allergy Rash/Hives Verified 09/17/16 00:04 Physical Exam Vitals: Vital Signs Temp Pulse Pulse Resp BP BP Pulse Ox 09/17/16 12:10 85 20 84/50 96 09/17/16 11:52 84 09/17/16 11:50 98 77/57 09/17/16 11:40 100 20 82/55 90 L 09/17/16 08:32 58 L 20 106/48 97 09/17/16 08:19 88 09/17/16 08:09 84 09/17/16 03:30 96.3 F L 90 20 91/50 98 09/17/16 02:13 88 09/17/16 02:08 100 20 124/65 98 09/17/16 01:56 84 09/17/16 01:45 79 20 112/79 100 09/17/16 01:24 79 20 107/79 100 09/17/16 01:17 80 17 123/84 98 09/17/16 00:46 85 20 116/75 100 09/17/16 00:27 104 H 26 H 117/68 100 09/16/16 23:49 96.9 F L 90 24 135/62 70 L Intake and Output 09/16/16 09/17/16 09/17/16 22:59 06:59 14:59 Intake Total 300 Balance 300 Intake: Intake, IV Titration 300 Amount Sodium Chloride 0.9% 1, 300 000 ml @ 100 mls/hr IV . Q10H [facility] Rx#:[id number] Other: Voiding Method Incontinent # Voids 1 Weight 109.5 kg - Constitutional General appearance: mild distress - Respiratory Respiratory: bilateral: CTA - Cardiovascular Rhythm: regular Heart sounds: normal: S1, S2 Abnormal Heart Sounds: systolic murmur Results 09/17/16 00:15 09/17/16 00:15 Cardiac Enzymes 09/17/16 09/17/16 09/17/16 Range/Units 00:15 00:15 06:14 AST 520 H (14-36) U/L CK-MB (CK-2) 6.2 H* 6.9 H* (0.0-2.4) ng/mL Troponin I 0.658 H* 0.761 H* (0.000-0.034) ng/mL Coagulation 09/17/16 Range/Units 00:15 PT 14.2 H (9.0-12.0) sec APTT 23.0 (22.0-30.0) sec CBC 09/17/16 Range/Units 00:15 WBC 4.6 (3.8-10.6) k/uL RBC 2.03 L (3.80-5.40) m/uL Hgb 7.1 L (11.4-16.0) gm/dL Hct 22.5 L (34.0-46.0) % Plt Count 68 L (150-450) k/uL Comprehensive Metabolic Panel 09/17/16 Range/Units 00:15 Sodium 133 L (137-145) mmol/L Potassium 4.1 (3.5-5.1) mmol/L Chloride 96 L (98-107) mmol/L Carbon Dioxide 28 (22-30) mmol/L BUN 39 H (7-17) mg/dL Creatinine 1.78 H (0.52-1.04) mg/dL Glucose 95 (74-99) mg/dL Calcium 7.5 L (8.4-10.2) mg/dL AST 520 H (14-36) U/L ALT 309 H (9-52) U/L Alkaline Phosphatase 83 (38-126) U/L Total Protein 5.6 L (6.3-8.2) g/dL Albumin 3.1 L (3.5-5.0) g/dL Current Medications Generic Name Dose Route Start Last Admin Trade Name Freq PRN Reason Stop Dose Admin Albuterol/Ipratropium 3 ml 09/17/16 02:31 09/17/16 11:52 Duoneb 0.5 Mg-3 Mg/3 Ml Soln INHALATION 3 ml RT-Q4H PRN Administration shortness of breath Alprazolam 0.5 mg 09/17/16 08:03 Xanax PO Q8H PRN Anxiety Enoxaparin Sodium 30 mg 09/17/16 09:00 09/17/16 10:45 Lovenox SQ 30 mg Q24HR [facility] Administration Famotidine 20 mg 09/17/16 09:00 Pepcid PO DAILY [facility] Ceftriaxone Sodium 1,000 mg/ 50 mls @ 100 mls/hr 09/17/16 21:00 Sodium Chloride IVPB HS [facility] Sodium Chloride 1,000 mls @ 999 mls/hr 09/17/16 12:05 09/17/16 12:13 Saline 0.9% IV 09/17/16 13:05 999 mls/hr .Q1H1M ONE Administration Sodium Chloride 1,000 mls @ 125 mls/hr 09/17/16 12:15 Saline 0.9% IV .Q8H [facility] Loperamide HCl 2 mg 09/17/16 08:09 Imodium PO Q2HR PRN Loose Stool Miscellaneous Information 1 each 09/17/16 02:31 Pneumonia Protocol Utilized PO ONCE PRN Per Protocol Naloxone HCl 0.2 mg 09/17/16 08:09 Narcan IV Q2M PRN Opioid Reversal Nystatin 1 applic 09/17/16 09:00 09/17/16 10:46 Mycostatin Powder TOPICAL 1 applic BID JENN[facility]ER Administration Ondansetron HCl 4 mg 09/17/16 08:09 Zofran IVP Q8HR PRN Nausea And Vomiting Prochlorperazine Maleate 25 mg 09/17/16 08:09 Compazine RECTAL Q12HR PRN Nausea And Vomiting Sertraline HCl 50 mg 09/17/16 09:00 Zoloft PO DAILY JENN[facility]ER Intake and Output 09/16/16 09/17/16 09/17/16 22:59 06:59 14:59 Intake Total 300 Balance 300 Intake: Intake, IV Titration 300 Amount Sodium Chloride 0.9% 1, 300 000 ml @ 100 mls/hr IV . Q10H [facility] Rx#:[id number] Other: Voiding Method Incontinent # Voids 1 Weight 109.5 kg 09/17/16 00:15 09/17/16 00:15 Assessment and Plan Plan: This is a pleasant 76-year-old female patient with ovarian cancer who was admitted to the hospital with a change in mental status. The patient is hypotensive and also she is in mild respiratory distress and congestive heart failure. The patient is DO NOT RESUSCITATE at this point. She is in process of receiving some IV fluid. We'll continue monitor the patient. I am not worry about her cardiac enzymes at this point.
--- NOTE | 2016-09-17 13:09 | P.PN ---
Progress Note - Text Advanced Care Planning Active diagnoses: Acute metablic encephalopathy,secondary to underlying infectious process, and over medication with sleep aids and psychotropics Acute Urinary tract infection Acute kidney injury secondary prerenal hypovolemia with intravascular depletion secondary to fluid shifts with underlying infectious process Ovarian cancer intolerant to chemotherapy Clinical CHF Acute transaminitis again secondary to intravascular depletion and hypoperfusion Hypotension Background: The patient was admitted for treatment of altered mental status, and was found to have acute urinary tract infection. Confirmation and clarification of wishes upon admission. Discussion: Person(s) present and participating in discussion: The patient (in the room), myself, and patient's son Morales (he was over the phone) Summary: Patient is alert now, oriented to place, person and situation. The patient does not want CPR or Intubation (not even when I explained that it could be utilized for a short period without any prolonged life sustaining measures). She would allow for BIPAP if she needed it. Agreed for treatment with IV fluids, antibiotics, and nebs. She agrees to all care that would maximize comfort. She is also refusing being transferred to the ICU if needed. In the event that she was not able to make her own medical decisions she has elected her Son, Morales to make decisions who also has DPOA. Patient is made a No Code status (DNR/DNI). Again, patient agrees on utilizing Bipap (non-invasive ventilation). She does not want invasive central lines, or arterial lines, however; agreed on utilizing the mediport if needed only. Time spent: Total time spent face to face in education and discussion directly related to advanced care planning: >15 minutes
[2016-09-17 13:33] LABS: Creatine Kinase MB 6.7 ng/mL (0.0-2.4)
[2016-09-17] MEDS: SODIUM CHLORIDE 0.9% 1,000 ML IV SCH ×2 (14:18→20:54)
[2016-09-17] MEDS: SERTRALINE 50 MG TAB PO SCH (15:19)
[2016-09-17] MEDS: FAMOTIDINE 20 MG TAB PO SCH (15:19)
[2016-09-17 17:00] LABS: Glucose,Whole Blood 88 mg/dL (75-99)
[2016-09-17 17:48] LABS: Anisocytosis Moderate; Basophils % (A) 0 %; CH 34.2; CHCM 30.4; Eosinophils # (A) 0.3 k/uL (0-0.7); Eosinophils % (A) 5 %; HCT 23.6 % (34.0-46.0); HGB 7.4 gm/dL (11.4-16.0); Hypochromasia Marked; Luc # (Auto) 0.04; Luc % (Auto) 1; Lymphocytes # (A) 0.4 k/uL (1.0-4.8); Lymphocytes % (A) 6 %; MCH 35.4 pg (25.0-35.0); MCHC 31.2 g/dL (31.0-37.0); MCV 113.3 fL (80.0-100.0); Macrocytosis Marked; Mean Platelet Volume 8.5; Monocytes # (A) 0.2 k/uL (0-1.0); Monocytes % (A) 3 %; Neutrophils # (A) 5.2 k/uL (1.3-7.7); Neutrophils % (A) 86 %; Poikilocytosis Slight; RBC 2.08 m/uL (3.80-5.40); RDW 22.7 % (11.5-15.5); WBC 6.1 k/uL (3.8-10.6); WBC (Perox) 6.13
[2016-09-17 23:20] LABS: Potassium 3.9 mmol/L (3.5-5.1)
[2016-09-18] MEDS ORDERED: VANCOMYCIN 1,000 MG in SODIUM CHLORIDE 0.9% 250 ML IVPB STA (02:51)
[2016-09-18] MEDS ORDERED: IV VANCOMYCIN PER PHARMACY 1 EACH MISC MISCELLANE ONE (03:00)
[2016-09-18] MEDS ORDERED: CEFEPIME 1 GM VIAL IM SCH (03:00)
[2016-09-18] MEDS: CEFEPIME 1 GM in SODIUM CHLORIDE 0.9% 50 ML IVPB SCH ×2 (03:28→16:21)
[2016-09-18] MEDS ORDERED: LEVOFLOXACIN 750MG-D5W PMX 750 MG in DEXTROSE/WATER 1 150ML.BAG IVPB SCH (04:00)
[2016-09-18] MEDS ORDERED: VANCOMYCIN 1,750 MG in SODIUM CHLORIDE 0.9% 250 ML IVPB ONE (05:00)
[2016-09-18 06:03] LABS: Anisocytosis Moderate; Basophils % (A) 0 %; CH 34.9; CHCM 30.7; Eosinophils # (A) 0.3 k/uL (0-0.7); Eosinophils % (A) 5 %; HCT 24.6 % (34.0-46.0); HDW 4.05; HGB 7.4 gm/dL (11.4-16.0); Hypochromasia Marked; Luc # (Auto) 0.03; Luc % (Auto) 1; Lymphocytes # (A) 0.4 k/uL (1.0-4.8); Lymphocytes % (A) 6 %; MCH 34.5 pg (25.0-35.0); MCHC 30.1 g/dL (31.0-37.0); MCV 114.7 fL (80.0-100.0); Macrocytosis Marked; Mean Platelet Volume 10.1; Monocytes # (A) 0.2 k/uL (0-1.0); Monocytes % (A) 2 %; Neutrophils # (A) 5.9 k/uL (1.3-7.7); Neutrophils % (A) 86 %; Poikilocytosis Moderate; RBC 2.15 m/uL (3.80-5.40); RDW 22.7 % (11.5-15.5); WBC 6.8 k/uL (3.8-10.6); WBC (Perox) 7.08
[2016-09-18 06:12] LABS: Calcium 7.7 mg/dL (8.4-10.2); INR 1.3 (<1.2); Magnesium 1.7 mg/dL (1.6-2.3); Potassium 3.9 mmol/L (3.5-5.1); Prothrombin Time 13.1 sec (9.0-12.0); Total Bilirubin 0.6 mg/dL (0.2-1.3); Total Protein 5.7 g/dL (6.3-8.2)
[2016-09-18] MEDS: IPRATROPIUM-ALBUTEROL 3 ML NEB INHALATION PRN ×2 (08:44→13:14)
--- NOTE | 2016-09-18 10:32 | CDI ---
In responding to this query, please exercise your independent professional judgment. The [facility] Coding Staff and Clinical Documentation Specialists appreciate your assistance in clarifying documentation, maintaining compliance with coding guidelines, accurately documenting patients condition and capturing severity of illness. The fact that a question is asked does not imply that any particular answer is desired or expected. Communication forms are a method of clarifying documentation and are not made part of the Legal Health Record. Thank you in advance for your clarification. Last Revision, April 2015 Rosa Hamilton [address] [place] [address] Documentation Clarification Form Date: 09/18/2016 9:59:00 AM From: Tonie Patel RN, CDS Admit Date: 09/17/2016 2:31:00 AM Patient Name: Debi Rosas Visit Number: [id number] Dr. Cordell Mejia, 76 yo patient presented with altered mental status, presented to ED with O2 sat 70%. Placed on Non-Rebreather mask. O2 sat up to 100%. "Patient has received O2 via Non Rebreather, Venti mask and 5L/nc. Acute on chronic hypoxia desatting to mid 80s in emergency room, Wears O2 at home on 24 hours basis" per H&P History/Risk Factors: home O2 on 24 hours basis, Ovarian and Colon cancer Clinical Indicators: VS: 96.9 90 24 135/62 70%--100% on NRB CXR: chronic cardiomegaly, mild chf and interstitial pulmonary edema, left lower lobe infiltrate or atelectasis, possibility of pneumonia, Lung sound "bilateral diminished rales rhonchi and " mild respiratory distress per H&P Treatment: Non Rebreather mask-Venti mask, weaned to 5L/nc, Duoneb In your professional opinion, can you please clarify if these findings signify one of the following conditions? Acuity: o Acute o Chronic o Acute on Chronic Respiratory Status: o Respiratory failure o Respiratory failure with hypoxia o Other Diagnosis, please specify o Unable to determine Please document in your progress notes and discharge summary in order to capture severity of illness and risk of mortality. Include clinical findings that support your diagnosis. FYI: Press F11 to launch patient chart. Acute on chronic hypoxic respiratory failure. Thank you. TOMEKA
[2016-09-18] MEDS: NYSTATIN 100,000 UNIT/GM POWD 15 GM TOPICAL SCH ×2 (10:50→21:23)
[2016-09-18] MEDS: ENOXAPARIN 30 MG/0.3 ML SYRINGE SQ SCH (10:51)
[2016-09-18] MEDS: SERTRALINE 50 MG TAB PO SCH (10:51)
[2016-09-18] MEDS: FAMOTIDINE 20 MG TAB PO SCH (10:51)
--- NOTE | 2016-09-18 10:57 | XR ---
EXAMINATION TYPE: XR chest 2V DATE OF EXAM: 09/18/2016 COMPARISON: 09/17/2016 HISTORY: 76 year-old female shortness of breath, evaluate pneumonia TECHNIQUE: Frontal and lateral views FINDINGS: Right anterior chest wall injection port with catheter tip at the lower right brachiocephalic vein. Moderate cardiomegaly elongated/ectatic thoracic aorta. Diffuse interstitial prominence. Suggestion o f small effusions with adjacent opacity. IMPRESSION: 1. Overall similar appearance with moderate cardiomegaly. Correlate for CHF with pulmonary vascular c ongestion. 2. Small effusions with adjacent atelectasis and/or consolidation.
[2016-09-18] MEDS ORDERED: FUROSEMIDE 10 MG/ML 4 ML VIAL IV STA (11:11)
--- NOTE | 2016-09-18 11:31 | P.PN ---
Subjective Principal diagnosis: Altered mentation Patient is a 76-year-old female with past medical history of ovarian cancer (followed by Dr. moe barraza, not currently undergoing any treatment patient has not received chemo or radiation), chronic pancytopenia, insomnia, and anxiety who presented with altered mentation after medication adjustments for insomnia. She initially was rather unresponsive in the emergency department and was placed on oxygen. She was found to have probable urinary tract infection was started on cefepime, was also found to have probable aspiration event. She was found to have acute kidney injury and initially was started on IV fluids however due to a history of congestive heart failure these were stopped. She was also found to have a slightly elevated troponin and cardiology was consulted. Patient seen and examined at bedside. She denies any pain, she states her confusion is loss, she has no nausea, no vomiting, her chronic shortness of breath, no unusual cough, no abdominal pain. She states her edema is chronic for her and is unchanged. She reports no prior history of hematuria. Case discussed with nursing and hematuria is worsening from yesterday. Objective - Vital Signs Vital signs: Vital Signs Temp 97.6 F 09/18/16 04:00 Pulse 90 09/18/16 09:00 Resp 18 09/18/16 08:44 BP 100/58 09/18/16 04:00 Pulse Ox 95 09/18/16 04:35 Intake & Output 09/17/16 09/18/16 09/18/16 18:59 06:59 18:59 Intake Total 2625 900 Output Total 50 100 Balance 2575 800 Weight 109.5 kg 107.5 kg Intake: Intake, IV Titration 2625 900 Amount Magnesium Sulfate-D5w Pmx 100 1 gm In Dextrose/Water 1 100ml.bag @ 100 mls/hr IVPB ONCE ONE Rx#: [id number] Sodium Chloride 0.9% 1, 625 750 000 ml @ 125 mls/hr IV . Q8H JENNIFER Rx#:[id number] Sodium Chloride 0.9% 1, 2000 000 ml @ 999 mls/hr IV . Q1H1M ONE Rx#:[id number] cefTRIAXone 1,000 mg In 50 Sodium Chloride 0.9% 50 ml @ 100 mls/hr IVPB HS JENNIFER Rx#:[id number] Output: Urine 50 100 Other: Voiding Method Incontinent Indwelling Catheter General: non toxic, no distress, appears at stated age Derm: no rashes, no lesions Head: atraumatic, normocephalic, symmetric Eyes: EOMI, no lid lag, anicteric sclera ENT: no post nasal drip, no thrush Mouth: no lip lesion, mucus membranes moist Cardiovascular: S1S2 reg, no murmur, positive posterior tibial pulse bilateral, 4+ edema b/l Lungs: CTA bilateral, no rhonchi, no rales , no accessory muscle use Abdominal: soft, nontender to palpation, no guarding, no appreciable organomegaly Ext: no gross muscle atrophy, no calf tenderness Neuro: CN II-XI grossly intact, no focal neuro deficits Psych: Alert, oriented, appropriate affect - Labs CBC & Chem 7: 09/18/16 05:51 09/18/16 05:51 Labs: Abnormal Lab Results - Last 24 Hours (Table) 09/17/16 09/17/16 09/17/16 Range/Units 08:50 11:49 17:17 RBC (3.80-5.40) m/uL Hgb (11.4-16.0) gm/dL Hct (34.0-46.0) % MCV (80.0-100.0) fL MCH (25.0-35.0) pg MCHC (31.0-37.0) g/dL RDW (11.5-15.5) % Plt Count (150-450) k/uL Lymphocytes # (1.0-4.8) k/uL PT (9.0-12.0) sec INR (<1.2) BUN (7-17) mg/dL Creatinine (0.52-1.04) mg/dL Glucose (74-99) mg/dL Calcium (8.4-10.2) mg/dL Phosphorus 5.6 H (2.5-4.5) mg/dL Magnesium 1.3 L (1.6-2.3) mg/dL AST (14-36) U/L ALT (9-52) U/L CK-MB (CK-2) 6.7 H* 6.0 H* (0.0-2.4) ng/mL C-Reactive Protein 65.3 H (<10.0) mg/L Total Protein (6.3-8.2) g/dL Albumin (3.5-5.0) g/dL 09/17/16 09/17/16 09/17/16 Range/Units 17:17 17:17 17:17 RBC 2.08 L (3.80-5.40) m/uL Hgb 7.4 L (11.4-16.0) gm/dL Hct 23.6 L (34.0-46.0) % MCV 113.3 H (80.0-100.0) fL MCH 35.4 H (25.0-35.0) pg MCHC (31.0-37.0) g/dL RDW 22.7 H (11.5-15.5) % Plt Count 80 L (150-450) k/uL Lymphocytes # 0.4 L (1.0-4.8) k/uL PT (9.0-12.0) sec INR (<1.2) BUN 40 H (7-17) mg/dL Creatinine 1.95 H (0.52-1.04) mg/dL Glucose (74-99) mg/dL Calcium (8.4-10.2) mg/dL Phosphorus (2.5-4.5) mg/dL Magnesium 1.5 L (1.6-2.3) mg/dL AST (14-36) U/L ALT (9-52) U/L CK-MB (CK-2) (0.0-2.4) ng/mL C-Reactive Protein (<10.0) mg/L Total Protein (6.3-8.2) g/dL Albumin (3.5-5.0) g/dL 09/18/16 09/18/16 09/18/16 Range/Units 05:51 05:51 05:51 RBC 2.15 L (3.80-5.40) m/uL Hgb 7.4 L (11.4-16.0) gm/dL Hct 24.6 L (34.0-46.0) % MCV 114.7 H (80.0-100.0) fL MCH (25.0-35.0) pg MCHC 30.1 L (31.0-37.0) g/dL RDW 22.7 H (11.5-15.5) % Plt Count 83 L (150-450) k/uL Lymphocytes # 0.4 L (1.0-4.8) k/uL PT 13.1 H (9.0-12.0) sec INR 1.3 H (<1.2) BUN 39 H (7-17) mg/dL Creatinine 1.99 H (0.52-1.04) mg/dL Glucose 71 L (74-99) mg/dL Calcium 7.7 L (8.4-10.2) mg/dL Phosphorus (2.5-4.5) mg/dL Magnesium (1.6-2.3) mg/dL AST 260 H (14-36) U/L ALT 273 H (9-52) U/L CK-MB (CK-2) (0.0-2.4) ng/mL C-Reactive Protein (<10.0) mg/L Total Protein 5.7 L (6.3-8.2) g/dL Albumin 3.1 L (3.5-5.0) g/dL Microbiology - Last 24 Hours (Table) 09/17/16 00:50 Blood Culture - Preliminary Blood No Growth after 24 hours 09/17/16 00:15 Urine Culture - Preliminary Urine,Voided Assessment and Plan Plan: *Toxic metabolic encephalopathy due to accidental overdose- limit her opiates and sedatives, avoiding Restoril, mentation is improving and she can resume Seroquel for her insomnia, family involvement and monitoring of medication *Probable urinary tract infection patient continue with cefepime, await urine cultures, blood cultures negative to date *Hematuria-likely secondary to urinary tract infection present on admission, will check CT abdomen and pelvis without contrast with her history of untreated ovarian cancer, continue to monitor for clearance, if no improvement in a.m. consider urology consultation *Acute kidney injury on chronic kidney disease stage III with baseline creatinine 1.2, likely secondary to ATN from hypotension-Lasix and lisinopril on hold, follow creatinine, avoid IV fluids secondary to systolic congestive heart failure, await CT abdomen and pelvis to rule out obstruction, consider nephrology consult if no improvement in 48-72 hours *Acute on chronic hypoxic respiratory failure-her oxygen saturations were in the 80s in the ER requiring Ventimask placement, continue to wean O2 as able, chronically on 3 L at home, continue with aspiration precautions/incentive spirometry *Possible aspiration event secondary to decreased level of consciousness- continue with cefepime, follow CBC, repeat chest x-ray today *Pancytopenia, chronic in nature-follow CBC *Transaminitis secondary to hypotension, improving-follow liver enzymes *Elevated troponin secondary to demand ischemia from hypotension-cardiology consultation appreciated, no further workup at this point in time * chronic systolic congestive heart failure with ejection fraction 35-40% in July 2016, limit IV fluids as able, hold Lasix at this time, not chronically on beta zachariah, strict I's and O Resolved: Hypotension A total of 45 minutes of care was spent on this complex patient Discussed with: nursing
--- NOTE | 2016-09-18 12:07 | CT ---
EXAMINATION TYPE: CT abdomen pelvis wo con DATE OF EXAM: 09/18/2016 COMPARISON: Prior CT 07/11/2016 HISTORY: hematuria, history of ovarian CA CT DLP: 1281.4 mGycm Automated exposure control for dose reduction was used. TECHNIQUE: Helical acquisition of images from the lung bases through the pelvis. FINDINGS: Lack of contrast may limit the exam. The heart is markedly enlarged. This has apparently progressed in the interval. Mitral annular calcif ication, coronary artery calcification is present. LUNG BASES: Lung bases show some air bronchograms, probable atelectasis and associated effusions. AORTA: No significant abnormality is appreciated. LIVER/GB: No significant abnormality is appreciated. PANCREAS: No significant abnormality is seen. SPLEEN: Spleen is enlarged. ADRENALS: Low density left adrenal mass measures approximately 3.5 cm in greatest dimension similar t o prior exam. KIDNEYS: No significant abnormality is seen. REPRODUCTIVE ORGANS: Not well seen URINARY BLADDER: Matos catheter is in place. BOWEL: No significant abnormality is seen. FREE AIR: No Free Air is visible. ASCITES: Interval development of ascites. There are changes of anasarca which of developed in the in terval PELVIC ADENOPATHY: None visualized. RETROPERITONEAL ADENOPATHY: No Retroperitoneal Adenopathy visible. OSSEOUS STRUCTURES: Degenerative disc changes are again seen. IMPRESSION: INTERVAL CHANGE IN PATIENT'S HEART SIZE, THERE IS DEVELOPMENT OF MARKED CARDIOMEGALY, FINDINGS SUGGES T HEART FAILURE. INTERVAL DEVELOPMENT OF ASCITES, PLEURAL EFFUSIONS, ANASARCA.
--- NOTE | 2016-09-18 15:05 | P.PN ---
Subjective Principal diagnosis: Mental status changes This is a pleasant 76-year-old female patient with a past medical history significant for ovarian cancer and no documented cardiac history from before was brought to the hospital with a change in mental status. We get involved in the care of the patient because the cardiac enzymes were checked and came in to be slightly abnormal with mildly abnormal troponin as well as CK-MB. The patient did not have any symptoms of chest pain or discomfort but she seems to be in mild respiratory distress. The chest x-ray showed findings consistent with mild congestive heart failure. The BNP came in to be elevated. 09/18/2016 Patient seen and examined, denies any chest pain, does feel short of breath. Much more alert and oriented today. Just returning to the floor after an abdominal CT. Chest x-ray reveals moderate cardiomegaly. CHF with pulmonary vascular congestion. Small effusions with adjacent atelectasis. Patient did receive a one-time dose of IV Lasix. hemaglobin 7.4, platelet count 83, sodium 137, potassium 3.9, BUN 39, creatinine 1.9. Mag 1.7, AST 260, ALT 273 Objective - Vital Signs Vital signs: Vital Signs Temp 97.0 F L 09/18/16 12:00 Pulse 94 09/18/16 13:14 Resp 22 09/18/16 13:14 BP 97/63 09/18/16 12:00 Pulse Ox 90 L 09/18/16 12:00 Intake & Output 09/17/16 09/18/16 09/18/16 18:59 06:59 18:59 Intake Total 2625 900 180 Output Total 50 100 Balance 2575 800 180 Weight 109.5 kg 107.5 kg 107.5 kg Intake: Intake, IV Titration 2625 900 Amount Magnesium Sulfate-D5w Pmx 100 1 gm In Dextrose/Water 1 100ml.bag @ 100 mls/hr IVPB ONCE ONE Rx#: [id number] Sodium Chloride 0.9% 1, 625 750 000 ml @ 125 mls/hr IV . Q8H JENNIFER Rx#:[id number] Sodium Chloride 0.9% 1, 2000 000 ml @ 999 mls/hr IV . Q1H1M ONE Rx#:[id number] cefTRIAXone 1,000 mg In 50 Sodium Chloride 0.9% 50 ml @ 100 mls/hr IVPB HS JENNIFER Rx#:[id number] Oral 180 Output: Urine 50 100 Other: Voiding Method Incontinent Indwelling Catheter Indwelling Catheter - Exam PHYSICAL EXAMINATION: HEENT: Head is atraumatic, normocephalic. Pupils equal, round. Neck is supple. There is no elevated jugular venous pressure. HEART EXAMINATION: Heart S1 and S2 with systolic murmur is heard CHEST EXAMINATION: Lungs reveal diminished air entry to bilateral bases. ABDOMEN: Soft, nontender. Bowel sounds are heard. No organomegaly noted. EXTREMITIES: 2+ peripheral pulses with evidence of peripheral edema and no calf tenderness noted. NEUROLOGIC [patient is awake, . - Labs CBC & Chem 7: 09/18/16 05:51 09/18/16 05:51 Labs: Abnormal Lab Results - Last 24 Hours (Table) 09/17/16 09/17/16 09/17/16 Range/Units 17: 17: 17:17 RBC 2.08 L (3.80-5.40) m/uL Hgb 7.4 L (11.4-16.0) gm/dL Hct 23.6 L (34.0-46.0) % MCV 113.3 H (80.0-100.0) fL MCH 35.4 H (25.0-35.0) pg MCHC (31.0-37.0) g/dL RDW 22.7 H (11.5-15.5) % Plt Count 80 L (150-450) k/uL Lymphocytes # 0.4 L (1.0-4.8) k/uL PT (9.0-12.0) sec INR (<1.2) BUN (7-17) mg/dL Creatinine (0.52-1.04) mg/dL Glucose (74-99) mg/dL Calcium (8.4-10.2) mg/dL Magnesium 1.5 L (1.6-2.3) mg/dL AST (14-36) U/L ALT (9-52) U/L CK-MB (CK-2) 6.0 H* (0.0-2.4) ng/mL Total Protein (6.3-8.2) g/dL Albumin (3.5-5.0) g/dL 09/17/16 09/18/16 09/18/16 Range/Units : 05:51 05:51 RBC 2.15 L (3.80-5.40) m/uL Hgb 7.4 L (11.4-16.0) gm/dL Hct 24.6 L (34.0-46.0) % MCV 114.7 H (80.0-100.0) fL MCH (25.0-35.0) pg MCHC 30.1 L (31.0-37.0) g/dL RDW 22.7 H (11.5-15.5) % Plt Count 83 L (150-450) k/uL Lymphocytes # 0.4 L (1.0-4.8) k/uL PT 13.1 H (9.0-12.0) sec INR 1.3 H (<1.2) BUN 40 H (7-17) mg/dL Creatinine 1.95 H (0.52-1.04) mg/dL Glucose (74-99) mg/dL Calcium (8.4-10.2) mg/dL Magnesium (1.6-2.3) mg/dL AST (14-36) U/L ALT (9-52) U/L CK-MB (CK-2) (0.0-2.4) ng/mL Total Protein (6.3-8.2) g/dL Albumin (3.5-5.0) g/dL 09/18/16 Range/Units 05:51 RBC (3.80-5.40) m/uL Hgb (11.4-16.0) gm/dL Hct (34.0-46.0) % MCV (80.0-100.0) fL MCH (25.0-35.0) pg MCHC (31.0-37.0) g/dL RDW (11.5-15.5) % Plt Count (150-450) k/uL Lymphocytes # (1.0-4.8) k/uL PT (9.0-12.0) sec INR (<1.2) BUN 39 H (7-17) mg/dL Creatinine 1.99 H (0.52-1.04) mg/dL Glucose 71 L (74-99) mg/dL Calcium 7.7 L (8.4-10.2) mg/dL Magnesium (1.6-2.3) mg/dL AST 260 H (14-36) U/L ALT 273 H (9-52) U/L CK-MB (CK-2) (0.0-2.4) ng/mL Total Protein 5.7 L (6.3-8.2) g/dL Albumin 3.1 L (3.5-5.0) g/dL Microbiology - Last 24 Hours (Table) 09/17/16 00:15 Urine Culture - Final Urine,Voided 09/17/16 09:00 Blood Culture - Preliminary Blood No Growth after 24 hours 09/17/16 08:50 Blood Culture - Preliminary Blood No Growth after 24 hours 09/17/16 00:50 Blood Culture - Preliminary Blood No Growth after 24 hours Assessment and Plan (1) Hypotension Status: Acute (2) Elevated troponin Status: Acute (3) Altered mental state Status: Acute (4) Drug overdose Status: Acute (5) Hypoxia Status: Acute (6) UTI (urinary tract infection) Status: Acute (7) Antineoplastic chemotherapy induced pancytopenia Status: Acute Plan: Blood pressure today 97/60 with a heart rate in the 80s to 90s. From cardiology 's perspective, we will recommend to continue current medical therapy. We will follow this patient with you now on an as-needed basis only, please don't hesitate to call with any questions. DNP note has been reviewed, I agree with a documented findings and plan of care. Patient was seen and examined.
--- NOTE | 2016-09-18 17:04 | P.CONS ---
History of Present Illness - Reason for Consult Consult date: 09/18/16 ovarian adenocarcinoma Requesting physician: Abhishek Koehler - Chief Complaint AMS, unresponsive - History of Present Illness Ms. Rosas is a very pleasant pt of Dr. 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 She was seen by Dr. Robert 08/21/15 when she was discharged from [facility]. She started carbo/ taxol with epo support for anemia. Pt was referred to the [facility] for a [facility]/Onc opinion. Post treatment PET showed residual disease so, pt was not felt to be a surgical candidate. Pt was started on Doxil and had 3 cycles when she developed Avel-Amadou type reaction so Doxil was stopped. She was started on weekly Gemzar in June and was admitted to hospital twice for RLE cellulitis. She was sent to rehabilitation, she returned home about 2 weeks ago and was going to be seen by Dr. Robert tomorrow evaluation for treatment as has expressed that she still wanted to pursue active treatment. Today when seen pt was unable to tell me why she was in the hospital, she did not know how she came to be here, did not know if she ate, she was only able to tell me that she is SOB. Review of Systems ROS unobtainable: due to mental status Past Medical History Past Medical History: Cancer, GERD/Reflux, Hypertension, Osteoarthritis (OA) Additional Past Medical History / Comment(s): glaucoma, GOUT,CHRONIC ITCHY SKIN RASH(ECZEMA-TAKES VISTARIL), MURMUR, ANEMIA.CELLULITS recent dx with ovarian ca dx august 2015. colon cancer august 2015 History of Any Multi-Drug Resistant Organisms: None Reported Past Surgical History: Appendectomy, Orthopedic Surgery Additional Past Surgical History / Comment(s): BL knee replacement, right salpingectomy and oophorectomy, cataract removal and lens implants, laser surgery for glaucoma, right breast biopsy that was benign, SHANTANU CARPAL TUNNEL RELEASE. Past Anesthesia/Blood Transfusion Reactions: No Reported Reaction Additional Past Anesthesia/Blood Transfusion Reaction / Comm: HAD BLOOD TRANSFUSION-NO REACTION Past Psychological History: Anxiety, Depression Smoking Status: Former smoker Past Alcohol Use History: None Reported Past Drug Use History: None Reported - Past Family History Mother Family Medical History: Cancer Additional Family Medical History / Comment(s): Lung cancer Father Family Medical History: Cancer Additional Family Medical History / Comment(s): No reports of GI malignancy Medications and Allergies Home Medications Medication Instructions Recorded Confirmed Type Furosemide [Lasix] 20 mg PO DAILY 08/09/16 09/17/16 History Loperamide [Imodium] 2 mg PO QID PRN 08/09/16 09/17/16 History Hydrocodone/Acetaminophen [[place] 1 tab PO Q4HR PRN 09/17/16 09/17/16 History 5-325] LORazepam [Ativan] 1 mg PO TID PRN 09/17/16 09/17/16 History Omeprazole 40 mg PO DAILY 09/17/16 09/17/16 History Ondansetron HCl [Zofran] 4 mg PO Q4H PRN 09/17/16 09/17/16 History QUEtiapine [SEROquel] 50 mg PO HS 09/17/16 09/17/16 History Terbinafine [LamISIL] 250 mg PO DAILY 09/17/16 09/17/16 History amLODIPine [Norvasc] 5 mg PO DAILY 09/17/16 09/17/16 History Allergies Allergy/AdvReac Type Severity Reaction Status Date / Time adhesive tape Allergy Rash/Hives Verified 09/17/16 00:04 codeine Allergy Itching Verified 09/17/16 00:04 latex Allergy Rash/Hives Verified 09/17/16 00:04 Physical Exam Vitals: Vital Signs Temp Pulse Pulse Resp BP Pulse Ox 09/18/16 16:32 91 L 09/18/16 13:14 94 22 09/18/16 12:00 97.0 F L 94 18 97/63 90 L 09/18/16 09:17 98/62 09/18/16 09:00 90 09/18/16 08:44 90 18 09/18/16 08:00 106 H 22 89/66 97 09/18/16 04:35 18 95 09/18/16 04:00 97.6 F 109 H 18 100/58 99 09/17/16 23:00 98.9 F 102 H 18 127/77 99 09/17/16 20:50 98.3 F 97 18 97/58 99 09/17/16 18:30 100 18 106/57 96 09/17/16 16:43 95 09/17/16 16:35 97 Intake and Output 09/18/16 09/18/16 09/18/16 06:59 14:59 22:59 Intake Total 900 180 Balance 900 180 Intake: Intake, IV Titration 900 Amount Magnesium Sulfate-D5w Pmx 100 1 gm In Dextrose/Water 1 100ml.bag @ 100 mls/hr IVPB ONCE ONE Rx#: [id number] Sodium Chloride 0.9% 1, 750 000 ml @ 125 mls/hr IV . Q8H JENNIFER Rx#:[id number] cefTRIAXone 1,000 mg In 50 Sodium Chloride 0.9% 50 ml @ 100 mls/hr IVPB HS JENNIFER Rx#:[id number] Oral 180 Other: Voiding Method Indwelling Catheter Indwelling Catheter Weight 107.5 kg 107.5 kg Patient Weight 09/19/16 06:59 Weight 107.5 kg - Constitutional General appearance: cooperative, no acute distress, obese - EENT dry mucus membranes Eyes: anicteric sclerae, EOMI - Neck Neck: no lymphadenopathy - Respiratory Respiratory: bilateral: diminished (poor inspiratory effort) - Cardiovascular Heart sounds: normal: S1, S2 Abnormal Heart Sounds: systolic murmur leg Peripheral Edema: bilateral: 2+, Pitting - Gastrointestinal General gastrointestinal: no absent bowel sounds, no decreased bowel sounds, no distended, no hepatomegaly, no hyperactive bowel sounds, normal bowel sounds, no organomegaly, no rigid, no scaphoid, soft, no splenomegaly, no tenderness, no umbilical hernia, no ventral hernia - Integumentary Integumentary: pale - Musculoskeletal Musculoskeletal: generalized weakness - Psychiatric alert, oriented to self, knows she is in hospital Psychiatric: no appropriate affect, no intact judgment & insight Results CBC & Chem 7: 09/18/16 05:51 09/18/16 05:51 Labs: Abnormal Lab Results - Last 24 Hours (Table) 09/17/16 09/17/16 09/17/16 Range/Units 17:17 17:17 17:17 RBC 2.08 L (3.80-5.40) m/uL Hgb 7.4 L (11.4-16.0) gm/dL Hct 23.6 L (34.0-46.0) % MCV 113.3 H (80.0-100.0) fL MCH 35.4 H (25.0-35.0) pg MCHC (31.0-37.0) g/dL RDW 22.7 H (11.5-15.5) % Plt Count 80 L (150-450) k/uL Lymphocytes # 0.4 L (1.0-4.8) k/uL PT (9.0-12.0) sec INR (<1.2) BUN (7-17) mg/dL Creatinine (0.52-1.04) mg/dL Glucose (74-99) mg/dL Calcium (8.4-10.2) mg/dL Magnesium 1.5 L (1.6-2.3) mg/dL AST (14-36) U/L ALT (9-52) U/L CK-MB (CK-2) 6.0 H* (0.0-2.4) ng/mL Total Protein (6.3-8.2) g/dL Albumin (3.5-5.0) g/dL 09/17/16 09/18/16 09/18/16 Range/Units 17:17 05:51 05:51 RBC 2.15 L (3.80-5.40) m/uL Hgb 7.4 L (11.4-16.0) gm/dL Hct 24.6 L (34.0-46.0) % MCV 114.7 H (80.0-100.0) fL MCH (25.0-35.0) pg MCHC 30.1 L (31.0-37.0) g/dL RDW 22.7 H (11.5-15.5) % Plt Count 83 L (150-450) k/uL Lymphocytes # 0.4 L (1.0-4.8) k/uL PT 13.1 H (9.0-12.0) sec INR 1.3 H (<1.2) BUN 40 H (7-17) mg/dL Creatinine 1.95 H (0.52-1.04) mg/dL Glucose (74-99) mg/dL Calcium (8.4-10.2) mg/dL Magnesium (1.6-2.3) mg/dL AST (14-36) U/L ALT (9-52) U/L CK-MB (CK-2) (0.0-2.4) ng/mL Total Protein (6.3-8.2) g/dL Albumin (3.5-5.0) g/dL 09/18/16 Range/Units 05:51 RBC (3.80-5.40) m/uL Hgb (11.4-16.0) gm/dL Hct (34.0-46.0) % MCV (80.0-100.0) fL MCH (25.0-35.0) pg MCHC (31.0-37.0) g/dL RDW (11.5-15.5) % Plt Count (150-450) k/uL Lymphocytes # (1.0-4.8) k/uL PT (9.0-12.0) sec INR (<1.2) BUN 39 H (7-17) mg/dL Creatinine 1.99 H (0.52-1.04) mg/dL Glucose 71 L (74-99) mg/dL Calcium 7.7 L (8.4-10.2) mg/dL Magnesium (1.6-2.3) mg/dL AST 260 H (14-36) U/L ALT 273 H (9-52) U/L CK-MB (CK-2) (0.0-2.4) ng/mL Total Protein 5.7 L (6.3-8.2) g/dL Albumin 3.1 L (3.5-5.0) g/dL Microbiology - Last 24 Hours (Table) 09/17/16 00:15 Urine Culture - Final Urine,Voided 09/17/16 09:00 Blood Culture - Preliminary Blood No Growth after 24 hours 09/17/16 08:50 Blood Culture - Preliminary Blood No Growth after 24 hours 09/17/16 00:50 Blood Culture - Preliminary Blood No Growth after 24 hours Chest x-ray: report reviewed CT scan - abdomen: report reviewed CT scan - pelvis: report reviewed Assessment and Plan (1) Pancytopenia Narrative/Plan: Pt has not had chemotherapy since July but her ongoing pancytopenia is likely a result of marrow damage from chemo. No acute intervention for anemia and thrombocytopenia, WBC/ANC WNDL. 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 These results were not reviewed with pt as she was confused this AM. Pt has expressed previously that she wanted to consider further treatments but her performance status has been too poor to qualify her. Pt will likely require rehabilitation again after this hospitalization and it is not clear if she can rehabilitate herself to a better performance status. We will try to meet or contact family and talk with pt once she her cognitive status improves to discuss expectations. Status: Chronic
--- NOTE | 2016-09-18 19:11 | CONS ---
REASON FOR CONSULTATION: Renal failure. HISTORY OF PRESENT ILLNESS: Patient is a 76-year-old white female who was admitted to the hospital with history of decreased responsiveness. Patient's son had brought her into the hospital. Patient does not remember what happened. There was concern about medication overdose. She has been on Seroquel and Restoril, the dose of which was recently adjusted. Patient denies any prior history of kidney diseases. No history of significant kidney disease. Blood pressure has been low, with systolic in the 90s, occasionally going down in the 80s since admission. Patient denies use of any non-steroidal anti-inflammatory agents. At home patient is not maintained on any SUSY inhibitors. Serum creatinine was 1.95 mg/dL on initial admission. It is at 1.9 now. We have another creatinine of 1.78 the day before. Review of previous labs shows serum creatinine around 1.3 to 1.1 mg/dL in July of 2016. PAST MEDICAL HISTORY: 1. Gastroesophageal reflux disease. 2. Hypertension. 3. Osteoarthritis. 4. Glaucoma. 5. Gout. 6. History of insomnia. 7. Recent diagnosis of ovarian cancer. 8. Anxiety. 9. Depression. PAST SURGICAL HISTORY: 1. Appendectomy. 2. Bilateral knee arthroplasty. 3. Right salpingectomy. 4. Cataract surgery. 5. Right breast biopsy. 6. Carpal tunnel release. SOCIAL HISTORY: Patient is an ex-smoker. No history of drug abuse or alcohol abuse. REVIEW OF SYSTEM: Negative for fever, chills, nausea, vomiting. Rest of the review of systems as per HPI. Other systems negative. Medications at home include: 1. Lasix. 2. Imodium. 3. [place]. 4. Ativan. 5. Zofran. 6. Seroquel. 7. Naloxone. 8. Norvasc. ALLERGIES INCLUDE: 1. CODEINE. 2. LATEX. 3. ADHESIVE TAPE. On examination, patient is comfortable, awake, not in any acute distress. Blood pressure was at 98/62, heart rate 90 per minute. Patient is afebrile. EXAMINATION OF THE HEART: S1, S2. EXAMINATION OF LUNGS: Bilateral breath sounds are heard. Decreased breath sounds at bases. No crackles or wheezing is heard. Abdomen is soft, obese, non-tender. Examination of lower extremities shows edema 2+ bilaterally. [employer] exam is grossly intact. Labs show sodium 137, potassium 3.9, chloride 98, BUN 39, serum creatinine 1.9, hemoglobin 7.4 grams per dL. UA shows blood small, WBCs more than 182. Urine culture is currently pending. Drug screen was positive for opiates, tricyclic antidepressants and benzodiazepines. ASSESSMENT: 1. Acute kidney injury secondary to hypotension, hypoperfusion. Patient is maintained on IV fluids. She has received a good dose of IV hydration. I cut down the IV fluids. Chest x-ray from this morning does show some evidence of CHF. Patient also has significant bilateral lower extremity edema, which is most likely chronic. 2. Hypotension secondary to underlying sepsis. There is evidence of urinary tract infection as well as possible underlying pneumonia. X-ray shows left lower lobe infiltrate. We need to be careful with aggressive IV hydration and, if blood pressure remains low, she will need to be started on pressors. 3. Chronic kidney disease; serum creatinine about 1.2 to 1.3 mg/dL in July of 2016. Etiology is likely nephrosclerosis. Patient does have proteinuria; however , she has an underlying urinary tract infection. This will need to be rechecked. 4. Anemia. No active bleeding noted at this time. Check iron studies. Rule out underlying iron deficiency. 5. Chronic lower extremity edema. An echocardiogram in July of 2016 shows ejection fraction 35% to 40% with moderately enlarged right ventricle, moderate global hypokinesis of left ventricle, and left atrium was severely dilated. PLAN: Discontinue IV fluids. Will give one dose of Lasix. If patient remains hypotensive, she will need to be started on pressors. Continue empiric antibiotics. No nephrotoxic agents on board at this time. Patient has been started on vancomycin. Pharmacy will be dosing, with monitoring of levels. Thank you for this consultation. Will continue to follow the patient with you during her hospitalization. JANYD
[2016-09-18] MEDS: MIDODRINE 5 MG TAB PO SCH (19:12)
[2016-09-18] MEDS: FUROSEMIDE 10 MG/ML 4 ML VIAL IV SCH (19:12)
[2016-09-18] MEDS: QUEtiapine 50 MG TAB PO SCH (20:35)
--- NOTE | 2016-09-18 21:22 | P.CONS ---
History of Present Illness - Reason for Consult Consult date: 09/18/16 - Chief Complaint Altered mental status Review of Systems 76-year-old woman who is modestly comfortable at this point in time. HEENT:Denies headache or acute visual change. Denies sinus or mouth discomforts. Denies neck stiffness or pain. Denies significant oral cavity pain. Denies difficulty on swallowing. Lungs: Denies significant shortness of breath, cough, sputum production, or hemoptysis. Cardiovascular: Denies significant shortness of breath, chest pain, chest wall pain, orthopnea, dyspnea on exertion, syncope Gastrointestinal:Denies nausea, vomiting, diarrhea, constipation, hematemesis, melena, hematochezia. No no significant change of bowel habit noticed. Musculoskeletal: denies significant myalgias or arthralgias. No new joint swelling. Denies new back pain. Skin: Per the HPI redness and erythema to the right leg. Erasmo of the left leg. Neuro: Denies headache or visual change. Is having baseline significant weakness and difficulty with ambulation. No seizures. Psychiatric: No acute anxiety or depression Endocrine: Has ongoing significant fatigue and has had some weight gain. Urologic: As relate to minimal urinary frequency which is not new. 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 colon cancer august 2015 History of Any Multi-Drug Resistant Organisms: None Reported Past Surgical History: Appendectomy, Orthopedic Surgery Additional Past Surgical History / Comment(s): BL knee replacement, right salpingectomy and oophorectomy, cataract removal and lens implants, laser surgery for glaucoma, right breast biopsy that was benign, SHANTANU CARPAL TUNNEL RELEASE. 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 No animals in the home. No experience. No Travel history resides at rehab. Stopped smoking in 1996 denies alcohol or recreational drug use. Smoking Status: Former smoker Past Alcohol Use History: None Reported Past Drug Use History: None Reported - Past Family History Mother Family Medical History: Cancer Additional Family Medical History / Comment(s): Lung cancer Father Family Medical History: Cancer Additional Family Medical History / Comment(s): No reports of GI malignancy Medications and Allergies Home Medications and Allergies Comment(s): Current Medications Albuterol/Ipratropium (Duoneb 0.5 Mg-3 Mg/3 Ml Soln) 3 ml INHALATION RT-Q4H PRN PRN Reason: shortness of breath Last Admin: 09/18/16 13:14 Dose: 3 ml Alprazolam (Xanax) 0.5 mg PO Q8H PRN PRN Reason: Anxiety Enoxaparin Sodium (Lovenox) 30 mg SQ Q24HR [facility] Last Admin: 09/18/16 10:51 Dose: 30 mg Famotidine (Pepcid) 20 mg PO DAILY [facility] Last Admin: 09/18/16 10:51 Dose: 20 mg Furosemide (Lasix) 40 mg IV DAILY [facility] Last Admin: 09/18/16 19:12 Dose: 40 mg Cefepime HCl 1 gm/ Sodium (Chloride) 50 mls @ 100 mls/hr IVPB Q12H [facility] Last Admin: 09/18/16 16:21 Dose: 100 mls/hr Vancomycin HCl 1,750 mg/ (Sodium Chloride) 250 mls @ 125 mls/hr IVPB ONCE ONE Stop: 09/19/16 07:59 Loperamide HCl (Imodium) 2 mg PO Q2HR PRN PRN Reason: Loose Stool Midodrine (Proamatine) 2.5 mg PO AC-TID [facility] Last Admin: 09/18/16 19:12 Dose: 2.5 mg Miscellaneous Information (Pneumonia Protocol Utilized) 1 each PO ONCE PRN PRN Reason: Per Protocol Naloxone HCl (Narcan) 0.2 mg IV Q2M PRN PRN Reason: Opioid Reversal Nystatin (Mycostatin Powder) 1 applic TOPICAL BID [facility] Last Admin: 09/18/16 10:50 Dose: 1 applic Ondansetron HCl (Zofran) 4 mg IVP Q8HR PRN PRN Reason: Nausea And Vomiting Prochlorperazine Maleate (Compazine) 25 mg RECTAL Q12HR PRN PRN Reason: Nausea And Vomiting Quetiapine Fumarate (Seroquel) [address] [facility] Last Admin: 09/18/16 20:35 Dose: 50 mg Sertraline HCl (Zoloft) 50 mg PO DAILY [facility] Last Admin: 09/18/16 10:51 Dose: 50 mg Home Medications Medication Instructions Recorded Confirmed Type Furosemide [Lasix] 20 mg PO DAILY 08/09/16 09/17/16 History Loperamide [Imodium] 2 mg PO QID PRN 08/09/16 09/17/16 History Hydrocodone/Acetaminophen [[place] 1 tab PO Q4HR PRN 09/17/16 09/17/16 History 5-325] LORazepam [Ativan] 1 mg PO TID PRN 09/17/16 09/17/16 History Omeprazole 40 mg PO DAILY 09/17/16 09/17/16 History Ondansetron HCl [Zofran] 4 mg PO Q4H PRN 09/17/16 09/17/16 History QUEtiapine [SEROquel] 50 mg PO HS 09/17/16 09/17/16 History Terbinafine [LamISIL] 250 mg PO DAILY 09/17/16 09/17/16 History amLODIPine [Norvasc] 5 mg PO DAILY 09/17/16 09/17/16 History Allergies Allergy/AdvReac Type Severity Reaction Status Date / Time adhesive tape Allergy Rash/Hives Verified 09/17/16 00:04 codeine Allergy Itching Verified 09/17/16 00:04 latex Allergy Rash/Hives Verified 09/17/16 00:04 Physical Exam Vitals: Vital Signs Temp Pulse Pulse Resp BP Pulse Ox 09/18/16 16:32 91 L 09/18/16 16:00 100 22 98/52 92 L 09/18/16 13:14 94 22 09/18/16 12:00 97.0 F L 94 18 97/63 90 L 09/18/16 09:17 98/62 09/18/16 09:00 90 09/18/16 08:44 90 18 09/18/16 08:00 106 H 22 89/66 97 09/18/16 04:35 18 95 09/18/16 04:00 97.6 F 109 H 18 100/58 99 09/17/16 23:00 98.9 F 102 H 18 127/77 99 Intake and Output 09/18/16 09/18/16 09/18/16 06:59 14:59 22:59 Intake Total 900 180 Balance 900 180 Intake: Intake, IV Titration 900 Amount Magnesium Sulfate-D5w Pmx 100 1 gm In Dextrose/Water 1 100ml.bag @ 100 mls/hr IVPB ONCE ONE Rx#: [id number] Sodium Chloride 0.9% 1, 750 000 ml @ 125 mls/hr IV . Q8H [facility] Rx#:[id number] cefTRIAXone 1,000 mg In 50 Sodium Chloride 0.9% 50 ml @ 100 mls/hr IVPB HS [facility] Rx#:[id number] Oral 180 Other: Voiding Method Indwelling Catheter Indwelling Catheter Indwelling Catheter Weight 107.5 kg 107.5 kg 107.5 kg Patient Weight 09/19/16 06:59 Weight 107.5 kg 76-year-old female who is modestly comfortable at this time. HEENT: Anicteric conjunctiva are pale and moist nasal mucosa grossly intact without significant lesions, there is no thrush. Patient has permanent makeup Neck: The neck is supple without significant lymphadenopathy or thyromegaly. Lungs: Symmetric air entry. Few basilar crackles. No kev bronchial sounds. No wheezing is noted. No changes of dullness or egophony Heart: Regular rate and rhythm with an audible S1-S2, no S3 soft S4 2/6 systolic murmur without radiation over the left sternal border Abdomen: Obese Positive bowel sounds soft and nontender without palpable masses or organomegaly. There was no guarding or rebound. Extremities: The upper extremities have excellent pulses they are symmetric, no significant petechiae or telangiectasia. There is evidence of bilateral lower extremity edema but no open lesions at this time. There is no significant tenderness. There is no significant inguinal lymphadenopathy. No other abnormal lymph nodes are noted. Neuro: Awake alert oriented to person place and time. There are no acute new gross focal sensory motor deficits. As have generalized weakness. Voice is somewhat weak. Results CBC & Chem 7: 09/18/16 05:51 09/18/16 05:51 Labs: Abnormal Lab Results - Last 24 Hours (Table) 09/17/16 09/18/16 09/18/16 Range/Units 17:17 05:51 05:51 RBC 2.15 L (3.80-5.40) m/uL Hgb 7.4 L (11.4-16.0) gm/dL Hct 24.6 L (34.0-46.0) % MCV 114.7 H (80.0-100.0) fL MCHC 30.1 L (31.0-37.0) g/dL RDW 22.7 H (11.5-15.5) % Plt Count 83 L (150-450) k/uL Lymphocytes # 0.4 L (1.0-4.8) k/uL PT 13.1 H (9.0-12.0) sec INR 1.3 H (<1.2) BUN 40 H (7-17) mg/dL Creatinine 1.95 H (0.52-1.04) mg/dL Glucose (74-99) mg/dL Calcium (8.4-10.2) mg/dL AST (14-36) U/L ALT (9-52) U/L Total Protein (6.3-8.2) g/dL Albumin (3.5-5.0) g/dL 09/18/16 Range/Units 05:51 RBC (3.80-5.40) m/uL Hgb (11.4-16.0) gm/dL Hct (34.0-46.0) % MCV (80.0-100.0) fL MCHC (31.0-37.0) g/dL RDW (11.5-15.5) % Plt Count (150-450) k/uL Lymphocytes # (1.0-4.8) k/uL PT (9.0-12.0) sec INR (<1.2) BUN 39 H (7-17) mg/dL Creatinine 1.99 H (0.52-1.04) mg/dL Glucose 71 L (74-99) mg/dL Calcium 7.7 L (8.4-10.2) mg/dL AST 260 H (14-36) U/L ALT 273 H (9-52) U/L Total Protein 5.7 L (6.3-8.2) g/dL Albumin 3.1 L (3.5-5.0) g/dL Microbiology - Last 24 Hours (Table) 09/18/16 15:30 Urine Culture - Preliminary Urine,Catheterized 09/17/16 00:15 Urine Culture - Final Urine,Voided 09/17/16 09:00 Blood Culture - Preliminary Blood No Growth after 24 hours 09/17/16 08:50 Blood Culture - Preliminary Blood No Growth after 24 hours 09/17/16 00:50 Blood Culture - Preliminary Blood No Growth after 24 hours Laboratory Results WBC 6.8 k/uL (3.8-10.6) 09/18/16 05:51 RBC 2.15 m/uL (3.80-5.40) L 09/18/16 05:51 Hgb 7.4 gm/dL (11.4-16.0) L 09/18/16 05:51 Hct 24.6 % (34.0-46.0) L 09/18/16 05:51 MCV 114.7 fL (80.0-100.0) H 09/18/16 05:51 MCH 34.5 pg (25.0-35.0) 09/18/16 05:51 MCHC 30.1 g/dL (31.0-37.0) L 09/18/16 05:51 RDW 22.7 % (11.5-15.5) H 09/18/16 05:51 Plt Count 83 k/uL (150-450) L 09/18/16 05:51 Neutrophils % 86 % 09/18/16 05:51 Lymphocytes % 6 % 09/18/16 05:51 Monocytes % 2 % 09/18/16 05:51 Eosinophils % 5 % 09/18/16 05:51 Basophils % 0 % 09/18/16 05:51 Neutrophils # 5.9 k/uL (1.3-7.7) 09/18/16 05:51 Lymphocytes # 0.4 k/uL (1.0-4.8) L 09/18/16 05:51 Monocytes # 0.2 k/uL (0-1.0) 09/18/16 05:51 Eosinophils # 0.3 k/uL (0-0.7) 09/18/16 05:51 Basophils # 0.0 k/uL (0-0.2) 09/18/16 05:51 Manual Slide Review Performed 09/17/16 00:15 Polychromasia Present 09/17/16 00:15 Hypochromasia Marked 09/18/16 05:51 Poikilocytosis Moderate 09/18/16 05:51 Anisocytosis Moderate 09/18/16 05:51 Macrocytosis Marked 09/18/16 05:51 PT 13.1 sec (9.0-12.0) H 09/18/16 05:51 INR 1.3 (<1.2) H 09/18/16 05:51 APTT 23.0 sec (22.0-30.0) 09/17/16 00:15 Sodium 137 mmol/L (137-145) 09/18/16 05:51 Potassium 3.9 mmol/L (3.5-5.1) 09/18/16 05:51 Chloride 98 mmol/L (98-107) 09/18/16 05:51 Carbon Dioxide 27 mmol/L (22-30) 09/18/16 05:51 Anion Gap 12 mmol/L 09/18/16 05:51 BUN 39 mg/dL (7-17) H 09/18/16 05:51 Creatinine 1.99 mg/dL (0.52-1.04) H 09/18/16 05:51 Est GFR (MDRD) Af Amer 29 (>60 ml/min/1.73 sqM) 09/18/16 05:51 Est GFR (MDRD) Non-Af 24 (>60 ml/min/1.73 sqM) 09/18/16 05:51 Glucose 71 mg/dL (74-99) L 09/18/16 05:51 POC Glucose (mg/dL) 88 mg/dL (75-99) 09/17/16 16:55 POC Glu [employer] President Eda Augustin 09/17/16 16:55 Plasma Lactic Acid Manish 1.1 mmol/L (0.7-2.0) 09/17/16 08:50 Calcium 7.7 mg/dL (8.4-10.2) L 09/18/16 05:51 Phosphorus 5.6 mg/dL (2.5-4.5) H 09/17/16 08:50 Magnesium 1.7 mg/dL (1.6-2.3) 09/18/16 05:51 Total Bilirubin 0.6 mg/dL (0.2-1.3) 09/18/16 05:51 AST 260 U/L (14-36) H 09/18/16 05:51 ALT 273 U/L (9-52) H 09/18/16 05:51 Alkaline Phosphatase 80 U/L (38-126) 09/18/16 05:51 Ammonia 12 umol/L (<30) 09/17/16 00:15 Total Creatine Kinase 100 U/L (30-135) 09/17/16 17:17 CK-MB (CK-2) 6.0 ng/mL (0.0-2.4) H* 09/17/16 17:17 CK-MB (CK-2) Rel Index 6.0 09/17/16 17:17 Troponin I 0.761 ng/mL (0.000-0.034) H* 09/17/16 06:14 C-Reactive Protein 65.3 mg/L (<10.0) H 09/17/16 08:50 NT-Pro-B Natriuret Pep 91104 pg/mL 09/17/16 00:15 Total Protein 5.7 g/dL (6.3-8.2) L 09/18/16 05:51 Albumin 3.1 g/dL (3.5-5.0) L 09/18/16 05:51 Urine Color Dark Brown 09/17/16 00:13 Urine Appearance Turbid (Clear) H 09/17/16 00:13 Urine pH 5.5 (5.0-8.0) 09/17/16 00:13 Ur Specific [place] 1.017 (1.001-1.035) 09/17/16 00:13 Urine Protein 1+ (Negative) H 09/17/16 00:13 Urine Glucose (UA) Negative (Negative) 09/17/16 00:13 Urine Ketones Negative (Negative) 09/17/16 00:13 Urine Blood Small (Negative) H 09/17/16 00:13 Urine Nitrite Negative (Negative) 09/17/16 00:13 Urine Bilirubin 1+ (Negative) H 09/17/16 00:13 Urine Urobilinogen 4.0 mg/dL (<2.0) 09/17/16 00:13 Ur Leukocyte Esterase Large (Negative) H 09/17/16 00:13 Urine RBC 7 /hpf (0-5) H 09/17/16 00:13 Urine WBC >182 /hpf (0-5) H 09/17/16 00:13 Urine WBC Clumps Many /hpf (None) H 09/17/16 00:13 Urine Bacteria Many /hpf (None) H 09/17/16 00:13 Salicylates <1.0 mg/dL 09/17/16 00:15 Urine Opiates Screen Detected (NotDetected) H 09/17/16 00:13 Ur Oxycodone Screen Not Detected (NotDetected) 09/17/16 00:13 Urine Methadone Screen Not Detected (NotDetected) 09/17/16 00:13 Ur Propoxyphene Screen Not Detected (NotDetected) 09/17/16 00:13 Acetaminophen <10.0 ug/mL 09/17/16 00:15 Ur Barbiturates Screen Not Detected (NotDetected) 09/17/16 00:13 U Tricyclic Antidepress Detected (NotDetected) H 09/17/16 00:13 Ur Phencyclidine Scrn Not Detected (NotDetected) 09/17/16 00:13 Ur Amphetamines Screen Not Detected (NotDetected) 09/17/16 00:13 U Methamphetamines Scrn Not Detected (NotDetected) 09/17/16 00:13 U Benzodiazepines Scrn Detected (NotDetected) H 09/17/16 00:13 Urine Cocaine Screen Not Detected (NotDetected) 09/17/16 00:13 U Marijuana (THC) Screen Not Detected (NotDetected) 09/17/16 00:13 Influenza Type A RNA Not Detected (Not Detectd) 09/17/16 11:02 Influenza Type B (PCR) Not Detected (Not Detectd) 09/17/16 11:02 Microbiology 09/18/16 15:30 Urine,Catheterized Urine Culture - Preliminary 09/17/16 00:15 Urine,Voided Urine Culture - Final 09/17/16 09:00 Blood Blood Culture - Preliminary No Growth after 24 hours 09/17/16 08:50 Blood Blood Culture - Preliminary No Growth after 24 hours 09/17/16 00:50 Blood Blood Culture - Preliminary No Growth after 24 hours Assessment and Plan (1) Altered mental state Narrative/Plan: 76 year old female with a very complex past medical history. 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 She's had significant difficulties with her chemotherapy. She had the severe Doxil skin reaction. Has not been on Gemzar most recently. With her poor functional status is now not been chemotherapy in several months. It is noted she does not have significant leukopenia at this time. She does have baseline anemia and thrombocytopenia. She has developed acute renal failure thought to be multifactorial including the current medications, SUSY inhibitor and HTN. She seems to be improving at this time. Mental status is improving. There is concern as to the potential urinary infection worsening the overall condition. Urinalysis was markedly abnormal urine culture was contaminated and repeat culture is in process. Based on prior cultures cefepime is being utilized should be continued for now until we have further data. Blood cultures are negative. She is not having fever enhance improvement of her mental status with alteration of her medications. She has been seen by oncology, they're requesting some further input from the family. 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
[2016-09-19] MEDS: CEFEPIME 1 GM in SODIUM CHLORIDE 0.9% 50 ML IVPB SCH (05:25)
[2016-09-19] MEDS ORDERED: VANCOMYCIN 1,750 MG in SODIUM CHLORIDE 0.9% 250 ML IVPB ONE (06:00)
[2016-09-19] MEDS: MIDODRINE 5 MG TAB PO SCH ×3 (06:43→17:33)
[2016-09-19 06:52] LABS: Anisocytosis Moderate; CHCM 30.9; HCT 23.3 % (34.0-46.0); HDW 4.08; HGB 7.1 gm/dL (11.4-16.0); Hypochromasia Marked; MCH 34.7 pg (25.0-35.0); MCHC 30.3 g/dL (31.0-37.0); MCV 114.6 fL (80.0-100.0); Macrocytosis Marked; Mean Platelet Volume 9.1; Poikilocytosis Moderate; RBC 2.03 m/uL (3.80-5.40); RDW 22.7 % (11.5-15.5); WBC 4.5 k/uL (3.8-10.6)
[2016-09-19 07:04] LABS: Calcium 7.9 mg/dL (8.4-10.2); Potassium 3.7 mmol/L (3.5-5.1); Total Bilirubin 0.5 mg/dL (0.2-1.3); Total Protein 5.5 g/dL (6.3-8.2)
[2016-09-19] MEDS: IPRATROPIUM-ALBUTEROL 3 ML NEB INHALATION PRN ×4 (08:10→19:58)
[2016-09-19] MEDS: FAMOTIDINE 20 MG TAB PO SCH (08:33)
[2016-09-19] MEDS: SERTRALINE 50 MG TAB PO SCH (08:33)
[2016-09-19] MEDS: NYSTATIN 100,000 UNIT/GM POWD 15 GM TOPICAL SCH ×2 (08:33→20:48)
[2016-09-19] MEDS: FUROSEMIDE 10 MG/ML 4 ML VIAL IV SCH (08:33)
[2016-09-19] MEDS: ENOXAPARIN 30 MG/0.3 ML SYRINGE SQ SCH (08:33)
[2016-09-19] MEDS ORDERED: IV VANCOMYCIN PER PHARMACY 1 EACH MISC MISCELLANE PRN (09:27)
--- NOTE | 2016-09-19 10:43 | P.PN ---
Subjective Principal diagnosis: Altered mentation Patient is a 76-year-old female with past medical history of ovarian cancer (followed by Dr. hernadez, not currently undergoing any treatment patient has received chemo which was stopped due to intolerance), chronic pancytopenia, insomnia, and anxiety who presented with altered mentation after medication adjustments for insomnia. She initially was rather unresponsive in the emergency department and was placed on oxygen. She was found to have probable urinary tract infection was started on abx, was also found to have probable aspiration event. She was found to have acute kidney injury and initially was started on IV fluids however due to a history of congestive heart failure these were stopped. Her troponin was elevated troponin and cardiology was consulted and they feel this is due to demand ischemia. She was seen by oncology who states her performance status is still too poor for any type of current treatment. She was seen by ID who agrees with continuing cefepime until further culture results are available. She continued to have slightly low blood pressure and was started on fleet manager/dispatch 9 09/18/2016 with appropriate response. When blood pressure normalizing she was able to be started on Lasix. Case was discussed with son on 09/18. He states that her weakness has improved. Her hematuria had resolved by 09/19. Patient seen and examined at bedside. She complains of shortness of breath, she states her edema is chronic, she denies chest pain, she denies nausea and vomiting. Patient still confused as to why she is in the hospital. She does not recall meeting me yesterday. Case was discussed with nursing at bedside and oncology nurse practitioner Objective - Vital Signs Vital signs: Vital Signs Temp 97.3 F L 09/19/16 04:00 Pulse 92 09/19/16 08:25 Resp 20 09/19/16 08:00 BP 118/56 09/19/16 08:00 Pulse Ox 100 09/19/16 08:00 Intake & Output 09/18/16 09/19/16 09/19/16 18:59 06:59 18:59 Intake Total 180 50 50 Output Total 400 Balance 180 -350 50 Weight 107.5 kg 111.3 kg Intake: IV 50 Cefepime 1 gm In Sodium 50 Chloride 0.9% 50 ml @ 100 mls/hr IVPB Q12H [facility] Rx# :[id number] Oral 180 50 Output: Urine 400 Other: Voiding Method Indwelling Catheter Indwelling Catheter Indwelling Catheter - Exam General: [non toxic], [no distress], [appears at stated age], morbid obesity Derm: + Erythematous macular Rash on the lower back, [no lesions] Head: [atraumatic], [normocephalic], [symmetric] Eyes: [EOMI], [no lid lag], [anicteric sclera] ENT: [no post nasal drip], [no thrush] Mouth: [no lip lesion], [mucus membranes moist] Cardiovascular: [S1S2 reg], [no murmur], [positive posterior tibial pulse bilateral], Lungs: Rhonchi at bilateral bases , [no accessory muscle use], shallow respiration Abdominal: [soft], [ nontender to palpation], [no guarding], [no appreciable organomegaly] Ext: [no gross muscle atrophy], 4+ pitting edema, [no contractures] Neuro: [ CN II-XI grossly intact], [no focal neuro deficits] Psych: [Alert], [oriented], [appropriate affect] , pleasantly confused regarding situation - Labs CBC & Chem 7: 09/19/16 05:59 09/19/16 05:59 Labs: Abnormal Lab Results - Last 24 Hours (Table) 09/19/16 09/19/16 Range/Units 05:59 05:59 RBC 2.03 L (3.80-5.40) m/uL Hgb 7.1 L (11.4-16.0) gm/dL Hct 23.3 L (34.0-46.0) % MCV 114.6 H (80.0-100.0) fL MCHC 30.3 L (31.0-37.0) g/dL RDW 22.7 H (11.5-15.5) % Plt Count 75 L (150-450) k/uL BUN 39 H (7-17) mg/dL Creatinine 1.96 H (0.52-1.04) mg/dL Glucose 70 L (74-99) mg/dL Calcium 7.9 L (8.4-10.2) mg/dL AST 153 H (14-36) U/L ALT 227 H (9-52) U/L Total Protein 5.5 L (6.3-8.2) g/dL Albumin 3.0 L (3.5-5.0) g/dL Microbiology - Last 24 Hours (Table) 09/17/16 00:50 Blood Culture - Preliminary Blood No Growth after 48 hours 09/18/16 15:30 Urine Culture - Preliminary Urine,Catheterized 09/17/16 00:15 Urine Culture - Final Urine,Voided 09/17/16 09:00 Blood Culture - Preliminary Blood No Growth after 24 hours 09/17/16 08:50 Blood Culture - Preliminary Blood No Growth after 24 hours Assessment and Plan Plan: *Acute on chronic systolic congestive heart failure with ejection fraction 35-40 % in July 2016, increase Lasix to twice a day, not chronically on beta zachariah/ SUSY inhibitor, strict I's and O *Toxic metabolic encephalopathy due to accidental overdose- check head CT and with persistent confusion, limit her opiates and sedatives, avoiding Restoril, mentation is improving, Seroquel for her insomnia, family involvement and monitoring of medication *Probable urinary tract infection- patient continue with cefepime, await repeat urine cultures, blood cultures negative to date, infectious disease recommendations appreciated *Acute kidney injury on chronic kidney disease stage III with baseline creatinine 1.2, likely secondary to ATN from hypotension-Lasix on hold, follow creatinine, avoid IV fluids secondary to systolic congestive heart failure, possible cardiorenal syndrome will diuresis, await CT abdomen and pelvis to rule out obstruction, consider nephrology consult if no improvement in 48-72 hours *Acute on chronic hypoxic respiratory failure-her oxygen saturations were in the 80s in the ER requiring Ventimask placement, continue to wean O2 as able, chronically on 3 L at home, continue with aspiration precautions/incentive spirometry, Lasix *Possible aspiration event secondary to decreased level of consciousness- continue with cefepime, follow CBC, repeat chest x-ray shows persistent effusion *Anemia and thrombocytopenia, chronic in nature likely due to bone marrow suppression from prior chemo-follow CBC *Transaminitis secondary to hypotension, improving-follow liver enzymes *Elevated troponin secondary to demand ischemia from hypotension-cardiology consultation appreciated, no further workup at this point in time Resolved: Hypotension, resolved with Midodrine Hematuria A total of 35 minutes of care was spent on this complex patient Discussed with: nursing DVT prophylaxis: Lovenox Discharge planning: Likely to [facility], anticipate 48-72 more inpatient hours
--- NOTE | 2016-09-19 11:23 | CT ---
EXAMINATION TYPE: CT brain wo con DATE OF EXAM: 09/19/2016 HISTORY: Patient poor historian. Altered mental status. CT DLP: 1019 mGycm. Automated Exposure Control for Dose Reduction was Utilized. TECHNIQUE: CT scan of the head is performed without contrast. COMPARISON: CT brain September 03, 2016. FINDINGS: There is no acute intracranial hemorrhage or midline shift identified. There is diffuse v entricular and sulcal prominence consistent with diffuse age-related cerebral atrophy. There is low- attenuation in the periventricular white matter consistent with chronic small vessel ischemic change. The globes are intact and the visualized sinuses are clear. Patchy opacification right mastoid ai r cells is redemonstrated. Osseous structures are demineralized. IMPRESSION: No acute intracranial hemorrhage or midline shift. There is moderate diffuse age-relate d cerebral atrophy and chronic small vessel ischemic change redemonstrated with right-sided mastoid f luid again seen. Correlate for mastoiditis. No significant change from prior.
--- NOTE | 2016-09-19 14:01 | P.PN ---
Subjective Patient is seen in follow-up for acute kidney injury on chronic kidney disease. Patient has chronic kidney disease stage III. Baseline creatinine in the range of 1.1-1.3. Her creatinine this admission has been stable near 1.9. Patient presented with decreased responsiveness and her insomnia meds have been adjusted. She was also hypotensive on admission with systolic blood pressure in the 80s. Her blood pressure this morning was 93/55. She is noted to have diffuse anasarca. Maintain on Lasix 40 mg IV once daily. Denies chest pain or shortness of breath. No vomiting or diarrhea. She also has ovarian cancer but not currently on chemotherapy as she was having difficulty tolerating it. Patient also has systolic CHF with ejection fraction of 35-40%. Vital signs are stable. General: The patient appeared well nourished and normally developed. HEENT: Head exam is unremarkable. Neck is without jugular venous distension. LUNGS: Lungs are clear to auscultation and percussion. Breath sounds decreased. HEART: Rate and Rhythm are regular. First and second heart sounds normal. No murmurs, rubs or gallops. ABDOMEN: Abdominal exam reveals normal bowel sounds. Non-tender and non- distended. No evidence of peritonitis. EXTREMITITES: 1+ edema. Objective - Vital Signs Vital signs: Vital Signs Temp 97.3 F L 09/19/16 04:00 Pulse 104 H 09/19/16 11:59 Resp 18 09/19/16 11:59 BP 93/55 09/19/16 11:58 Pulse Ox 99 09/19/16 11:58 Intake & Output 09/18/16 09/19/16 09/19/16 18:59 06:59 18:59 Intake Total 180 50 100 Output Total 400 Balance 180 -350 100 Weight 107.5 kg 111.3 kg 111.3 kg Intake: IV 50 Cefepime 1 gm In Sodium 50 Chloride 0.9% 50 ml @ 100 mls/hr IVPB Q12H [facility] Rx# :[id number] Oral 180 100 Output: Urine 400 Other: Voiding Method Indwelling Catheter Indwelling Catheter Indwelling Catheter - Labs CBC & Chem 7: 09/19/16 05:59 09/19/16 05:59 Labs: Abnormal Lab Results - Last 24 Hours (Table) 09/19/16 09/19/16 Range/Units 05:59 05:59 RBC 2.03 L (3.80-5.40) m/uL Hgb 7.1 L (11.4-16.0) gm/dL Hct 23.3 L (34.0-46.0) % MCV 114.6 H (80.0-100.0) fL MCHC 30.3 L (31.0-37.0) g/dL RDW 22.7 H (11.5-15.5) % Plt Count 75 L (150-450) k/uL BUN 39 H (7-17) mg/dL Creatinine 1.96 H (0.52-1.04) mg/dL Glucose 70 L (74-99) mg/dL Calcium 7.9 L (8.4-10.2) mg/dL AST 153 H (14-36) U/L ALT 227 H (9-52) U/L Total Protein 5.5 L (6.3-8.2) g/dL Albumin 3.0 L (3.5-5.0) g/dL Microbiology - Last 24 Hours (Table) 09/17/16 09:00 Blood Culture - Preliminary Blood No Growth after 48 hours 09/17/16 08:50 Blood Culture - Preliminary Blood No Growth after 48 hours 09/17/16 00:50 Blood Culture - Preliminary Blood No Growth after 48 hours 09/18/16 15:30 Urine Culture - Preliminary Urine,Catheterized 09/17/16 00:15 Urine Culture - Final Urine,Voided Assessment and Plan Plan: Assessment: #1. Acute kidney injury secondary to ischemic ATN secondary to hypotension. Renal function stable with creatinine at 1.96. #2. Volume overload. CT suggestive of diffuse anasarca. #3. Systolic CHF with ejection fraction of 35-40%. #4. Hypotension due to sepsis and underlying cardiac status. #5. Ovarian cancer with difficulty tolerating chemotherapy in the past. #6. Bicytopenia. Rule out iron deficiency. Oncology following. Possible related to use of chemotherapy in the past. Plan: Agree with increasing Lasix. Currently on 60 mg IV twice daily. Follow-up cultures. Antibiotics per infectious disease recommendations. Check iron studies. Repeat electrolytes in the morning. May increase dose of midodrine if remains hypotensive.
[2016-09-19 14:12] LABS: % Iron Saturation 49.7 % (20-50)
--- NOTE | 2016-09-19 14:49 | CDI ---
In responding to this query, please exercise your independent professional judgment. The [facility] Coding Staff and Clinical Documentation Specialists appreciate your assistance in clarifying documentation, maintaining compliance with coding guidelines, accurately documenting patients condition and capturing severity of illness. The fact that a question is asked does not imply that any particular answer is desired or expected. Communication forms are a method of clarifying documentation and are not made part of the Legal Health Record. Thank you in advance for your clarification. Last Revision, April 2016 Rosa Hamilton [address] [place] [address] Documentation Clarification Form Date: 09/19/2016 2:31:00 PM From: Tonie Patel RN, CDS Admit Date: 09/17/2016 2:31:00 AM Patient Name: Debi Rosas Visit Number: [id number] Dr. Sophie Whitlock, 76 year old patient admitted for metabolic/toxic encephalopathy d/t accidental overdose, acute hypoxic respiratory failure. Patient has past medical history of CHF History/Risk Factors: HTN, CKD3, Colon and Ovarian cancer Clinical Indicators: VS: 96.9 90 24 135/62 70 100%, BNP 23609, CXR: chronic cardiomegaly, mild chf and interstitial pulm edema, LLL infiltrate or atelectasis, possibility of pna, "avoid IV fluids secondary to systolic congestive heart failure" Treatment: IV Lasix 60mg q12, cardiology consult, In your professional opinion, can you please clarify the acuity and type of Systolic CHF if known? Acute on Chronic Systolic Heart Failure Compensated Chronic Systolic Heart Failure Unable to determine Other, please specify Please document in your progress notes and discharge summary in order to capture severity of illness and risk of mortality. Include clinical findings that support your diagnosis. FYI: Press F11 to launch patient chart. Thank you. TOMEKA
--- NOTE | 2016-09-19 20:16 | P.PN ---
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 She's undergone multiple chemotherapies. Recently she's had a poor performance status and has not been on chemotherapy. She presents to Hospital week with altered mental status feeling poorly overall. Little improvement today. Although a bit more interactive. Objective - Vital Signs Vital signs: Vital Signs Temp 97.3 F L 09/19/16 04:00 Pulse 88 09/19/16 20:07 Resp 18 09/19/16 16:00 BP 118/57 09/19/16 16:00 Pulse Ox 98 09/19/16 16:00 Intake & Output 09/19/16 09/19/16 09/20/16 06:59 18:59 06:59 Intake Total 50 100 Output Total 400 Balance -350 100 Weight 111.3 kg 111.3 kg Intake: IV 50 Cefepime 1 gm In Sodium 50 Chloride 0.9% 50 ml @ 100 mls/hr IVPB Q12H [facility] Rx# :[id number] Oral 100 Output: Urine 400 Other: Voiding Method Indwelling Catheter Indwelling Catheter - Exam 76-year-old female who is modestly comfortable at this time. HEENT: Anicteric conjunctiva are pale and moist nasal mucosa grossly intact without significant lesions, there is no thrush. Patient has permanent makeup Neck: The neck is supple without significant lymphadenopathy or thyromegaly. Lungs: Symmetric air entry. Few basilar crackles. No kev bronchial sounds. No wheezing is noted. No changes of dullness or egophony Heart: Regular rate and rhythm with an audible S1-S2, no S3 soft S4 2/6 systolic murmur without radiation over the left sternal border Abdomen: Obese Positive bowel sounds soft and nontender without palpable masses or organomegaly. There was no guarding or rebound. Extremities: The upper extremities have excellent pulses they are symmetric, no significant petechiae or telangiectasia. There is evidence of bilateral lower extremity edema but no open lesions at this time. There is no significant tenderness. There is no significant inguinal lymphadenopathy. No other abnormal lymph nodes are noted. Neuro: Awake alert oriented to person place and time. There are no acute new gross focal sensory motor deficits. As have generalized weakness. Voice is somewhat weak. - Labs CBC & Chem 7: 09/19/16 05:59 09/19/16 05:59 Labs: Abnormal Lab Results - Last 24 Hours (Table) 09/19/16 09/19/16 09/19/16 Range/Units 05:59 05:59 05:59 RBC 2.03 L (3.80-5.40) m/uL Hgb 7.1 L (11.4-16.0) gm/dL Hct 23.3 L (34.0-46.0) % MCV 114.6 H (80.0-100.0) fL MCHC 30.3 L (31.0-37.0) g/dL RDW 22.7 H (11.5-15.5) % Plt Count 75 L (150-450) k/uL BUN 39 H (7-17) mg/dL Creatinine 1.96 H (0.52-1.04) mg/dL Glucose 70 L (74-99) mg/dL Calcium 7.9 L (8.4-10.2) mg/dL TIBC 163 L (265-497) ug/dL Ferritin 4450 H (11-264) ng/mL AST 153 H (14-36) U/L ALT 227 H (9-52) U/L Total Protein 5.5 L (6.3-8.2) g/dL Albumin 3.0 L (3.5-5.0) g/dL Microbiology - Last 24 Hours (Table) 09/18/16 15:30 Urine Culture - Preliminary Urine,Catheterized Yeast species 09/17/16 09:00 Blood Culture - Preliminary Blood No Growth after 48 hours 09/17/16 08:50 Blood Culture - Preliminary Blood No Growth after 48 hours 09/17/16 00:50 Blood Culture - Preliminary Blood No Growth after 48 hours Laboratory Results WBC 4.5 k/uL (3.8-10.6) 09/19/16 05:59 RBC 2.03 m/uL (3.80-5.40) L 09/19/16 05:59 Hgb 7.1 gm/dL (11.4-16.0) L 09/19/16 05:59 Hct 23.3 % (34.0-46.0) L 09/19/16 05:59 MCV 114.6 fL (80.0-100.0) H 09/19/16 05:59 MCH 34.7 pg (25.0-35.0) 09/19/16 05:59 MCHC 30.3 g/dL (31.0-37.0) L 09/19/16 05:59 RDW 22.7 % (11.5-15.5) H 09/19/16 05:59 Plt Count 75 k/uL (150-450) L 09/19/16 05:59 Neutrophils % 86 % 09/18/16 05:51 Lymphocytes % 6 % 09/18/16 05:51 Monocytes % 2 % 09/18/16 05:51 Eosinophils % 5 % 09/18/16 05:51 Basophils % 0 % 09/18/16 05:51 Neutrophils # 5.9 k/uL (1.3-7.7) 09/18/16 05:51 Lymphocytes # 0.4 k/uL (1.0-4.8) L 09/18/16 05:51 Monocytes # 0.2 k/uL (0-1.0) 09/18/16 05:51 Eosinophils # 0.3 k/uL (0-0.7) 09/18/16 05:51 Basophils # 0.0 k/uL (0-0.2) 09/18/16 05:51 Manual Slide Review Performed 09/17/16 00:15 Polychromasia Present 09/17/16 00:15 Hypochromasia Marked 09/19/16 05:59 Poikilocytosis Moderate 09/19/16 05:59 Anisocytosis Moderate 09/19/16 05:59 Macrocytosis Marked 09/19/16 05:59 PT 13.1 sec (9.0-12.0) H 09/18/16 05:51 INR 1.3 (<1.2) H 09/18/16 05:51 APTT 23.0 sec (22.0-30.0) 09/17/16 00:15 Sodium 137 mmol/L (137-145) 09/19/16 05:59 Potassium 3.7 mmol/L (3.5-5.1) 09/19/16 05:59 Chloride 99 mmol/L (98-107) 09/19/16 05:59 Carbon Dioxide 28 mmol/L (22-30) 09/19/16 05:59 Anion Gap 10 mmol/L 09/19/16 05:59 BUN 39 mg/dL (7-17) H 09/19/16 05:59 Creatinine 1.96 mg/dL (0.52-1.04) H 09/19/16 05:59 Est GFR (MDRD) Af Amer 30 (>60 ml/min/1.73 sqM) 09/19/16 05:59 Est GFR (MDRD) Non-Af 25 (>60 ml/min/1.73 sqM) 09/19/16 05:59 Glucose 70 mg/dL (74-99) L 09/19/16 05:59 POC Glucose (mg/dL) 88 mg/dL (75-99) 09/17/16 16:55 POC Glu Patrol Supervisor ID Eda Boo 09/17/16 16:55 Plasma Lactic Acid Manish 1.1 mmol/L (0.7-2.0) 09/17/16 08:50 Calcium 7.9 mg/dL (8.4-10.2) L 09/19/16 05:59 Phosphorus 5.6 mg/dL (2.5-4.5) H 09/17/16 08:50 Magnesium 1.7 mg/dL (1.6-2.3) 09/18/16 05:51 Iron 81 ug/dL (37-170) 09/19/16 05:59 TIBC 163 ug/dL (265-497) L 09/19/16 05:59 % Saturation 49.7 % (20-50) 09/19/16 05:59 Ferritin 4450 ng/mL (11-264) H 09/19/16 05:59 Total Bilirubin 0.5 mg/dL (0.2-1.3) 09/19/16 05:59 AST 153 U/L (14-36) H 09/19/16 05:59 ALT 227 U/L (9-52) H 09/19/16 05:59 Alkaline Phosphatase 78 U/L (38-126) 09/19/16 05:59 Ammonia 12 umol/L (<30) 09/17/16 00:15 Total Creatine Kinase 100 U/L (30-135) 09/17/16 17:17 CK-MB (CK-2) 6.0 ng/mL (0.0-2.4) H* 09/17/16 17:17 CK-MB (CK-2) Rel Index 6.0 09/17/16 17:17 Troponin I 0.761 ng/mL (0.000-0.034) H* 09/17/16 06:14 C-Reactive Protein 65.3 mg/L (<10.0) H 09/17/16 08:50 NT-Pro-B Natriuret Pep 11866 pg/mL 09/19/16 05:59 Total Protein 5.5 g/dL (6.3-8.2) L 09/19/16 05:59 Albumin 3.0 g/dL (3.5-5.0) L 09/19/16 05:59 Urine Color Dark Brown 09/17/16 00:13 Urine Appearance Turbid (Clear) H 09/17/16 00:13 Urine pH 5.5 (5.0-8.0) 09/17/16 00:13 Ur Specific [place] 1.017 (1.001-1.035) 09/17/16 00:13 Urine Protein 1+ (Negative) H 09/17/16 00:13 Urine Glucose (UA) Negative (Negative) 09/17/16 00:13 Urine Ketones Negative (Negative) 09/17/16 00:13 Urine Blood Small (Negative) H 09/17/16 00:13 Urine Nitrite Negative (Negative) 09/17/16 00:13 Urine Bilirubin 1+ (Negative) H 09/17/16 00:13 Urine Urobilinogen 4.0 mg/dL (<2.0) 09/17/16 00:13 Ur Leukocyte Esterase Large (Negative) H 09/17/16 00:13 Urine RBC 7 /hpf (0-5) H 09/17/16 00:13 Urine WBC >182 /hpf (0-5) H 09/17/16 00:13 Urine WBC Clumps Many /hpf (None) H 09/17/16 00:13 Urine Bacteria Many /hpf (None) H 09/17/16 00:13 Salicylates <1.0 mg/dL 09/17/16 00:15 Urine Opiates Screen Detected (NotDetected) H 09/17/16 00:13 Ur Oxycodone Screen Not Detected (NotDetected) 09/17/16 00:13 Urine Methadone Screen Not Detected (NotDetected) 09/17/16 00:13 Ur Propoxyphene Screen Not Detected (NotDetected) 09/17/16 00:13 Acetaminophen <10.0 ug/mL 09/17/16 00:15 Ur Barbiturates Screen Not Detected (NotDetected) 09/17/16 00:13 U Tricyclic Antidepress Detected (NotDetected) H 09/17/16 00:13 Ur Phencyclidine Scrn Not Detected (NotDetected) 09/17/16 00:13 Ur Amphetamines Screen Not Detected (NotDetected) 09/17/16 00:13 U Methamphetamines Scrn Not Detected (NotDetected) 09/17/16 00:13 U Benzodiazepines Scrn Detected (NotDetected) H 09/17/16 00:13 Urine Cocaine Screen Not Detected (NotDetected) 09/17/16 00:13 U Marijuana (THC) Screen Not Detected (NotDetected) 09/17/16 00:13 Influenza Type A RNA Not Detected (Not Detectd) 09/17/16 11:02 Influenza Type B (PCR) Not Detected (Not Detectd) 09/17/16 11:02 Microbiology 09/18/16 15:30 Urine,Catheterized Urine Culture - Preliminary Yeast species 09/17/16 09:00 Blood Blood Culture - Preliminary No Growth after 48 hours 09/17/16 08:50 Blood Blood Culture - Preliminary No Growth after 48 hours 09/17/16 00:50 Blood Blood Culture - Preliminary No Growth after 48 hours 09/17/16 00:15 Urine,Voided Urine Culture - Final Assessment and Plan (1) Altered mental state Narrative/Plan: 76 year old female with a very complex past medical history. 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 She's had significant difficulties with her chemotherapy. She had the severe Doxil skin reaction. Has not been on Gemzar most recently. With her poor functional status is now not been chemotherapy in several months. It is noted she does not have significant leukopenia at this time. She does have baseline anemia and thrombocytopenia. She has developed acute renal failure thought to be multifactorial including the current medications, SUSY inhibitor and HTN. She seems to be improving at this time. Mental status is improving. There is concern as to the potential urinary infection worsening the overall condition. Urinalysis was markedly abnormal urine culture was contaminated and repeat culture is in process. Based on prior cultures cefepime is being utilized should be continued for now until we have further data. Urine culture with yeast and fluconazole was added. Blood cultures are negative. She is not having fever , some improvement of her mental status with alteration of her medications. She has been seen by oncology, they're requesting some further input from the family. 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
[2016-09-19] MEDS: FLUCONAZOLE 100 MG TAB PO SCH (20:47)
[2016-09-19] MEDS: QUEtiapine 50 MG TAB PO SCH (20:47)
[2016-09-19] MEDS: FUROSEMIDE 10 MG/ML 10 ML VIAL IV SCH (20:48)
[2016-09-20] MEDS: CEFEPIME 1 GM in SODIUM CHLORIDE 0.9% 50 ML IVPB SCH (04:50)
[2016-09-20] MEDS: MIDODRINE 5 MG TAB PO SCH ×4 (06:37→18:24)
[2016-09-20 06:40] LABS: Anisocytosis Moderate; CH 34.2; CHCM 30.1; HCT 23.1 % (34.0-46.0); HDW 4.16; HGB 7.4 gm/dL (11.4-16.0); Hypochromasia Marked; MCH 36.8 pg (25.0-35.0); Macrocytosis Marked; Mean Platelet Volume 8.3; Poikilocytosis Moderate; RBC 2.01 m/uL (3.80-5.40); RDW 22.1 % (11.5-15.5); WBC 4.8 k/uL (3.8-10.6)
[2016-09-20 06:57] LABS: Calcium 8.4 mg/dL (8.4-10.2); Potassium 3.3 mmol/L (3.5-5.1)
[2016-09-20] MEDS ORDERED: Magnesium Replacement Protocol 1 EACH MISC MISCELLANE PRN (09:22)
[2016-09-20] MEDS: POTASSIUM CHLORIDE ER 20 MEQ TAB.ER PO SCH ×2 (10:01→11:51)
[2016-09-20] MEDS: FAMOTIDINE 20 MG TAB PO SCH (10:02)
[2016-09-20] MEDS: MAGNESIUM SULFATE-D5W PMX 1 GM in DEXTROSE/WATER 1 100ML.BAG IVPB SCH ×2 (10:02→11:51)
[2016-09-20] MEDS: ENOXAPARIN 30 MG/0.3 ML SYRINGE SQ SCH (10:02)
[2016-09-20] MEDS: NYSTATIN 100,000 UNIT/GM POWD 15 GM TOPICAL SCH ×2 (10:03→21:07)
[2016-09-20] MEDS: FUROSEMIDE 10 MG/ML 10 ML VIAL IV SCH ×2 (10:03→21:08)
[2016-09-20] MEDS: SERTRALINE 50 MG TAB PO SCH (10:03)
[2016-09-20 14:27] VITALS: BMI 42.6
[2016-09-20] MEDS: IPRATROPIUM-ALBUTEROL 3 ML NEB INHALATION PRN (15:08)
--- NOTE | 2016-09-20 18:23 | P.PN ---
Subjective Principal diagnosis: Patient seen and examined today in follow-up for Acute altered mental status, Acute UTI, Bilateral Lower extremity edema, and Congestive heart failure 76-year-old female with history of ovarian adenocarcinoma (not currently undergoing any chemotherapy due to intolerance), chronic Bicytopenia, insomnia, and anxiety who presented with confusion after medication adjustments for insomnia. Upon presentation to the emergency department, she was started on oxygen due to hypoxia which is thought to be due to aspiration and admitted to stepdown unit for close monitoring due to confusion. This was suspected to be driven by underlying infection from acute urinary tract infection. For which she was started on broad-spectrum antibiotics. She was also found to have acute transaminitis and acute kidney injury due to hypoperfusion from hypotension and intravascular depletion, and initially was challenged with cautious IV fluid hydration due to her history of congestive heart failure with serial exam of her lungs, once patient vital signs were stabilized she was restarted on Lasix as tolerated due to anasarca. Patient mental status has been improving however she continues to be forgetful with impaired recent memory. CAT scan of the head was performed which showed no acute intracranial process. Patient was evaluated by cardiology for elevated troponins, with no recommendations for any further cardiac workup as it was thought to be due to demand ischemia. She was seen by oncology who states her performance status is still too poor for any type of chemotherapy. Advanced care planning was discussed with the patient upon improvement with her mental status , and she requested a no code status. familly was informed with patient decision. Today, patient is alert, however confused about her current situation, and experiencing some degree of recent memory impairment. She could not recognize me or explain her disease process and could not remember why she is at the hospital (despite that being explained to her by my colleagues multiple times). SHe denies any chest pain, fever, abd pain, or headache. She reports some difficulty with breathing, however, oxygen was weaned down successfully to 4 LPM. She again reports chronic bilateral lower extremity edema , but new tenderness in bilateral legs. Reports no hematuria, and tolerating PO intake. Case was discussed with nursing at bedside. Objective - Vital Signs Vital signs: Vital Signs Temp 96.8 F L 09/20/16 15:00 Pulse 89 09/20/16 16:00 Resp 20 09/20/16 16:00 BP 110/55 09/20/16 15:00 Pulse Ox 98 09/20/16 15:00 Intake & Output 09/19/16 09/20/16 09/20/16 18:59 06:59 18:59 Intake Total 100 910 Output Total 2100 675 Balance 100 -2100 235 Weight 111.3 kg 112.7 kg 112.7 kg Intake: Oral 100 910 Output: Urine 2100 675 Uretheral (Matos) 1000 675 Other: Voiding Method Indwelling Catheter Indwelling Catheter Indwelling Catheter # Voids 1 1 # Bowel Movements 1 Constitutional: Not in acute distress, pleasant, conversant Lungs: Improved air entry bilaterally with diffuse inspiratory and expiratory wheezes, decreased breath sounds at lung bases, normal respiratory effort patient is able to talk full sentences wearing oxygen through nasal cannula Cardiovascular: Regular rate and rhythm, systolic murmurs, no gallops, no rubs, +3 peripheral pitting edema Skin: Warm extremities, erythema over bilateral legs worse on the right leg, otherwise, no ulcers, open wounds or subcutaneous nodules Extremities: No digital cyanosis or clubbing, peripheral pulses palpable and equal over bilateral radial arteries , Bilateral calf muscle tenderness worse on right leg>left leg Psych: Alert, oriented to place, and self, appropriate affect, pleasantly confused Labs reviewed, improving renal function, and liver function. no Iron deficiency - Labs CBC & Chem 7: 09/20/16 05:54 09/20/16 17:06 Labs: Abnormal Lab Results - Last 24 Hours (Table) 09/20/16 09/20/16 Range/Units 05:54 05:54 RBC 2.01 L (3.80-5.40) m/uL Hgb 7.4 L (11.4-16.0) gm/dL Hct 23.1 L (34.0-46.0) % MCV 115.0 H (80.0-100.0) fL MCH 36.8 H (25.0-35.0) pg RDW 22.1 H (11.5-15.5) % Plt Count 79 L (150-450) k/uL Potassium 3.3 L (3.5-5.1) mmol/L BUN 39 H (7-17) mg/dL Creatinine 1.70 H (0.52-1.04) mg/dL Microbiology - Last 24 Hours (Table) 09/17/16 09:00 Blood Culture - Preliminary Blood No Growth after 72 hours 09/17/16 08:50 Blood Culture - Preliminary Blood No Growth after 72 hours 09/17/16 00:50 Blood Culture - Preliminary Blood No Growth after 72 hours 09/18/16 15:30 Urine Culture - Preliminary Urine,Catheterized Yeast species Assessment and Plan (1) UTI (urinary tract infection) Narrative/Plan: Continue with broad-spectrum antibiotics per ID recommendations Also on Diflucan due to yeast growth Initial urine culture was contaminated, repeat cultures are negative which is thought to be in part due to partial treatment with antibiotics prior to repeating urine cultures Blood cultures negative to date Await further ID recommendations Patient afebrile Hematuria resolved Patient has history of positive urine cultures for Enterococcus faecalis sensitive to penicillin, and E. coli sensitive to cephalosporins Status: Acute (2) Acute renal failure Narrative/Plan: This is multifactorial due to cardiorenal syndrome and intravascular depletion from fluid shifts due to acute infectious process This is improving now patient making good urine output creatinine trending down baseline creatinine is 1.2, currently creatinine is 1.7 Nephrology is following Avoid nephrotoxic meds Monitor electrolytes Status: Acute (3) Altered mental state Narrative/Plan: Due to toxic metabolic encephalopathy with underlying infectious process This is alert now however patient continues to have recent memory impairment and pleasantly confused Computed tomography scan of the brain showed no acute intracranial process Continue with fall precautions and aspiration precautions Status: Acute (4) Systolic congestive heart failure Narrative/Plan: Left ventricular ejection fraction of 35-40% in July 2016 continue with diuresis all as tolerated cardiac monitoring Cardiology following Not on beta zachariah due to hypotension, not on SUSY inhibitor is due to acute kidney injury on chronic kidney disease Status: Acute (5) Aspiration into airway Narrative/Plan: Possibly due to altered mental status Continue with aspiration precautions Status: Suspected (6) Hypotension Narrative/Plan: Due to congestive heart failure, and intravascular depletion with fluid shifts due to acute infection Resolved now Continue with midodrine Status: Resolved (7) Transaminitis Narrative/Plan: Due to hypoperfusion, currently improving Status: Acute (8) Thrombocytopenia Narrative/Plan: This is chronic thought to be due to bone marrow suppression from history of chemotherapy Currently stable No evidence of bleeding Hematuria resolved Status: Acute (9) Anemia Narrative/Plan: This is thought to be due to chronic disease multifactorial due to CKD, underlying cancer, and history of chemotherapy resulting in bone marrow suppression Hemoglobin currently stable No evidence of iron deficiency No evidence of GI bleeding Continue to monitor Status: Chronic Plan: Hypokalemia and hypomagnesemia Nonsustained V. tach asymptomatic due to electrolyte imbalance Replace potassium and magnesium, monitor electrolytes Continue with cardiac monitoring Cardiology is following all*Possible aspiration event secondary to decreased level of consciousness-continue with cefepime, follow CBC, repeat chest x-ray shows persistent effusion Elevated troponin secondary to demand ischemia cardiology following no further workup at this point patient denies chest pain DVT prophylaxis: Lovenox Discharge planning: Likely to [facility], anticipate 48 more inpatient hours
[2016-09-20] MEDS: ALPRAZolam 0.5 MG TAB PO PRN (19:11)
--- NOTE | 2016-09-20 20:42 | US ---
EXAMINATION TYPE: US venous doppler duplex LE DATE OF EXAM: 09/20/2016 8:26 PM COMPARISON: NONE CLINICAL HISTORY: bilateral leg edema with new onset tenderness. Bilateral leg redness and swelling. Bilateral knee replacement. Poor historian. SIDE PERFORMED: Bilateral TECHNIQUE: The lower extremity deep venous system is examined utilizing real time linear array sonog kera with graded compression, doppler sonography and color-flow sonography. VESSELS IMAGED: External Iliac Vein (EIV) Common Femoral Vein Deep Femoral Vein Greater Saphenous Vein * Femoral Vein Popliteal Vein Small Saphenous Vein * Proximal Calf Veins (* superficial vessels) Suboptimal exam due to patient body habitus and poor visualization due to edema Right Leg: Appears negative for acute DVT. Subcutaneous edema seen. Left Leg: Appears negative for acute DVT. Subcutaneous edema seen. IMPRESSION: No evidence of deep venous thrombosis in left and right leg.
[2016-09-20] MEDS: FLUCONAZOLE 100 MG TAB PO SCH (21:08)
[2016-09-20] MEDS: QUEtiapine 50 MG TAB PO SCH (21:08)
[2016-09-21] MEDS: CEFEPIME 1 GM in SODIUM CHLORIDE 0.9% 50 ML IVPB SCH (03:51)
--- NOTE | 2016-09-21 06:46 | PN ---
The patient is seen for follow-up for acute kidney injury, associated with decreased blood pressure and hypoperfusion. The patient has had good urine output. Her creatinine is down to 1.7 from 1.9 previously. On examination today, blood pressure is 114/55. Heart rate is 100 per minute. She is afebrile. Examination of the heart, S1, S2. Examination of the lungs bilateral breath sounds are heard. Abdomen is soft, nontender. Obese. Examination of the lower extremities shows edema, 2+ bilaterally. Skin exam is grossly intact. Labs shows sodium 138, potassium 3.3, chloride 100, BUN 39, serum creatinine 1.7. Hemoglobin 7.4. ASSESSMENT: 1. Acute kidney injury, acute tubular necrosis, currently slowly improving. Etiology was hypoperfusion and hypotension. 2. Hypokalemia associated with diuretics, diuresis, will replace. 3. Volume overload/congestive heart failure continue current dose of IV Lasix. 4. Anemia with no active bleeding noted at this time. 5. Urinary tract infection with urine culture growing yeast. Currently maintained on Diflucan. PLAN: Continue Lasix, replace potassium. Repeat labs in the a.m. MTDD
[2016-09-21 06:50] LABS: Calcium 8.1 mg/dL (8.4-10.2); Magnesium 1.8 mg/dL (1.6-2.3); Potassium 3.6 mmol/L (3.5-5.1); Total Bilirubin 0.5 mg/dL (0.2-1.3); Total Protein 5.3 g/dL (6.3-8.2)
[2016-09-21] MEDS: IPRATROPIUM-ALBUTEROL 3 ML NEB INHALATION PRN (08:38)
[2016-09-21] MEDS ORDERED: POTASSIUM CHLORIDE ER 20 MEQ TAB.ER PO STA (08:43)
[2016-09-21] MEDS: MIDODRINE 5 MG TAB PO SCH ×3 (09:02→17:36)
[2016-09-21] MEDS: ENOXAPARIN 30 MG/0.3 ML SYRINGE SQ SCH (09:03)
[2016-09-21] MEDS: FUROSEMIDE 10 MG/ML 10 ML VIAL IV SCH ×2 (09:04→20:51)
[2016-09-21] MEDS: FAMOTIDINE 20 MG TAB PO SCH (09:04)
[2016-09-21] MEDS: NYSTATIN 100,000 UNIT/GM POWD 15 GM TOPICAL SCH ×2 (09:04→20:52)
[2016-09-21] MEDS: SERTRALINE 50 MG TAB PO SCH (09:05)
[2016-09-21] MEDS ORDERED: VANCOMYCIN 1,750 MG in SODIUM CHLORIDE 0.9% 250 ML IVPB ONE (10:00)
--- NOTE | 2016-09-21 10:26 | P.PN ---
Subjective Patient is seen in follow-up for acute kidney injury on chronic kidney disease. Patient has chronic kidney disease stage III. Baseline creatinine in the range of 1.1-1.3. Her creatinine is down to 1.48 today. Patient presented with decreased responsiveness and her insomnia meds have been adjusted. She was also hypotensive on admission with systolic blood pressure in the 80s. Her blood pressure this morning was 109/59. She had diffuse anasarca on admission and is currently maintained on Lasix 60 mg IV twice daily. Patient is not a very reliable historian. She also has ovarian cancer but not currently on chemotherapy as she was having difficulty tolerating it. Patient also has systolic CHF with ejection fraction of 35-40%. Vital signs are stable. General: The patient appeared well nourished and normally developed. HEENT: Head exam is unremarkable. Neck is without jugular venous distension. LUNGS: Lungs are clear to auscultation and percussion. Breath sounds decreased. HEART: Rate and Rhythm are regular. First and second heart sounds normal. No murmurs, rubs or gallops. ABDOMEN: Abdominal exam reveals normal bowel sounds. Non-tender and non- distended. No evidence of peritonitis. EXTREMITITES: 1+ edema. Objective - Vital Signs Vital signs: Vital Signs Temp 97.6 F 09/21/16 06:15 Pulse 88 09/21/16 09:00 Resp 20 09/21/16 06:15 BP 109/59 09/21/16 06:15 Pulse Ox 90 L 09/21/16 06:15 Intake & Output 09/20/16 09/21/16 09/21/16 18:59 06:59 18:59 Intake Total 910 200 Output Total 675 1550 Balance 235 -1350 Weight 112.7 kg 112.7 kg Intake: Oral 910 200 Output: Urine 675 1550 Uretheral (Matos) 675 Other: Voiding Method Indwelling Catheter Indwelling Catheter # Voids 1 1 # Bowel Movements 3 - Labs CBC & Chem 7: 09/20/16 05:54 09/21/16 06:15 Labs: Abnormal Lab Results - Last 24 Hours (Table) 09/21/16 Range/Units 06:15 BUN 33 H (7-17) mg/dL Creatinine 1.48 H (0.52-1.04) mg/dL Calcium 8.1 L (8.4-10.2) mg/dL AST 39 H (14-36) U/L ALT 114 H (9-52) U/L Total Protein 5.3 L (6.3-8.2) g/dL Albumin 2.9 L (3.5-5.0) g/dL Microbiology - Last 24 Hours (Table) 09/17/16 00:50 Blood Culture - Preliminary Blood No Growth after 96 hours 09/18/16 15:30 Urine Culture - Final Urine,Catheterized Yahaira albicans 09/17/16 09:00 Blood Culture - Preliminary Blood No Growth after 72 hours 09/17/16 08:50 Blood Culture - Preliminary Blood No Growth after 72 hours Assessment and Plan Plan: Assessment: #1. Acute kidney injury secondary to ischemic ATN secondary to hypotension. Renal function improved with creatinine down to 1.48 today. #2. Volume overload. CT suggestive of diffuse anasarca. Improved. #3. Systolic CHF with ejection fraction of 35-40%. #4. Hypotension due to sepsis and underlying cardiac status. #5. Ovarian cancer with difficulty tolerating chemotherapy in the past. #6. Bicytopenia. Iron replete. Oncology following. Possible related to use of chemotherapy in the past. #7. UTI with urine culture positive for Yahaira. Plan: Continue Lasix 60 mg IV twice daily. Antibiotics per infectious disease recommendations. Repeat electrolytes in the morning. May increase dose of midodrine if remains hypotensive.
[2016-09-21] MEDS: ALPRAZolam 0.5 MG TAB PO PRN ×2 (10:45→19:29)
--- NOTE | 2016-09-21 15:59 | P.PN ---
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 She's undergone multiple chemotherapies. Recently she's had a poor performance status and has not been on chemotherapy. She presents to Hospital week with altered mental status feeling poorly overall. Little improvement today. Although more interactive. Objective - Vital Signs Vital signs: Vital Signs Temp 97.6 F 09/21/16 06:15 Pulse 88 09/21/16 09:00 Resp 20 09/21/16 06:15 BP 109/59 09/21/16 06:15 Pulse Ox 90 L 09/21/16 06:15 Intake & Output 09/20/16 09/21/16 09/21/16 18:59 06:59 18:59 Intake Total 910 200 Output Total 675 1550 700 Balance 235 -1350 -700 Weight 112.7 kg 112.7 kg Intake: Oral 910 200 Output: Urine 675 1550 700 Uretheral (Matos) 675 Other: Voiding Method Indwelling Catheter Indwelling Catheter Indwelling Catheter # Voids 1 1 # Bowel Movements 3 - Exam 76-year-old female who is modestly comfortable at this time. HEENT: Anicteric conjunctiva are pale and moist nasal mucosa grossly intact without significant lesions, there is no thrush. Patient has permanent makeup Neck: The neck is supple without significant lymphadenopathy or thyromegaly. Lungs: Symmetric air entry. Few basilar crackles. No kev bronchial sounds. No wheezing is noted. No changes of dullness or egophony Heart: Regular rate and rhythm with an audible S1-S2, no S3 soft S4 2/6 systolic murmur without radiation over the left sternal border Abdomen: Obese Positive bowel sounds soft and nontender without palpable masses or organomegaly. There was no guarding or rebound. Extremities: The upper extremities have excellent pulses they are symmetric, no significant petechiae or telangiectasia. There is evidence of bilateral lower extremity edema but no open lesions at this time. There is no significant tenderness. There is no significant inguinal lymphadenopathy. No other abnormal lymph nodes are noted. Neuro: Awake alert oriented to person . There are no acute new gross focal sensory motor deficits. As have generalized weakness. Voice is weak. - Labs CBC & Chem 7: 09/20/16 05:54 09/21/16 06:15 Labs: Abnormal Lab Results - Last 24 Hours (Table) 09/21/16 Range/Units 06:15 BUN 33 H (7-17) mg/dL Creatinine 1.48 H (0.52-1.04) mg/dL Calcium 8.1 L (8.4-10.2) mg/dL AST 39 H (14-36) U/L ALT 114 H (9-52) U/L Total Protein 5.3 L (6.3-8.2) g/dL Albumin 2.9 L (3.5-5.0) g/dL Microbiology - Last 24 Hours (Table) 09/17/16 09:00 Blood Culture - Preliminary Blood No Growth after 96 hours 09/17/16 08:50 Blood Culture - Preliminary Blood No Growth after 96 hours 09/17/16 00:50 Blood Culture - Preliminary Blood No Growth after 96 hours 09/18/16 15:30 Urine Culture - Final Urine,Catheterized Yahaira albicans Laboratory Results WBC 4.8 k/uL (3.8-10.6) 09/20/16 05:54 RBC 2.01 m/uL (3.80-5.40) L 09/20/16 05:54 Hgb 7.4 gm/dL (11.4-16.0) L 09/20/16 05:54 Hct 23.1 % (34.0-46.0) L 09/20/16 05:54 MCV 115.0 fL (80.0-100.0) H 09/20/16 05:54 MCH 36.8 pg (25.0-35.0) H 09/20/16 05:54 MCHC 32.0 g/dL (31.0-37.0) 09/20/16 05:54 RDW 22.1 % (11.5-15.5) H 09/20/16 05:54 Plt Count 79 k/uL (150-450) L 09/20/16 05:54 Neutrophils % 86 % 09/18/16 05:51 Lymphocytes % 6 % 09/18/16 05:51 Monocytes % 2 % 09/18/16 05:51 Eosinophils % 5 % 09/18/16 05:51 Basophils % 0 % 09/18/16 05:51 Neutrophils # 5.9 k/uL (1.3-7.7) 09/18/16 05:51 Lymphocytes # 0.4 k/uL (1.0-4.8) L 09/18/16 05:51 Monocytes # 0.2 k/uL (0-1.0) 09/18/16 05:51 Eosinophils # 0.3 k/uL (0-0.7) 09/18/16 05:51 Basophils # 0.0 k/uL (0-0.2) 09/18/16 05:51 Manual Slide Review Performed 09/17/16 00:15 Polychromasia Present 09/17/16 00:15 Hypochromasia Marked 09/20/16 05:54 Poikilocytosis Moderate 09/20/16 05:54 Anisocytosis Moderate 09/20/16 05:54 Macrocytosis Marked 09/20/16 05:54 PT 13.1 sec (9.0-12.0) H 09/18/16 05:51 INR 1.3 (<1.2) H 09/18/16 05:51 APTT 23.0 sec (22.0-30.0) 09/17/16 00:15 Sodium 140 mmol/L (137-145) 09/21/16 06:15 Potassium 3.6 mmol/L (3.5-5.1) 09/21/16 06:15 Chloride 101 mmol/L (98-107) 09/21/16 06:15 Carbon Dioxide 30 mmol/L (22-30) 09/21/16 06:15 Anion Gap 9 mmol/L 09/21/16 06:15 BUN 33 mg/dL (7-17) H 09/21/16 06:15 Creatinine 1.48 mg/dL (0.52-1.04) H 09/21/16 06:15 Est GFR (MDRD) Af Amer 41 (>60 ml/min/1.73 sqM) 09/21/16 06:15 Est GFR (MDRD) Non-Af 34 (>60 ml/min/1.73 sqM) 09/21/16 06:15 Glucose 75 mg/dL (74-99) 09/21/16 06:15 POC Glucose (mg/dL) 88 mg/dL (75-99) 09/17/16 16:55 POC Glu Electrical Line Worker YANELY Eda Boo 09/17/16 16:55 Plasma Lactic Acid Manish 1.1 mmol/L (0.7-2.0) 09/17/16 08:50 Calcium 8.1 mg/dL (8.4-10.2) L 09/21/16 06:15 Phosphorus 5.6 mg/dL (2.5-4.5) H 09/17/16 08:50 Magnesium 1.8 mg/dL (1.6-2.3) 09/21/16 06:15 Iron 81 ug/dL (37-170) 09/19/16 05:59 TIBC 163 ug/dL (265-497) L 09/19/16 05:59 % Saturation 49.7 % (20-50) 09/19/16 05:59 Ferritin 4450 ng/mL (11-264) H 09/19/16 05:59 Total Bilirubin 0.5 mg/dL (0.2-1.3) 09/21/16 06:15 AST 39 U/L (14-36) H 09/21/16 06:15 ALT 114 U/L (9-52) H 09/21/16 06:15 Alkaline Phosphatase 74 U/L (38-126) 09/21/16 06:15 Ammonia 12 umol/L (<30) 09/17/16 00:15 Total Creatine Kinase 100 U/L (30-135) 09/17/16 17:17 CK-MB (CK-2) 6.0 ng/mL (0.0-2.4) H* 09/17/16 17:17 CK-MB (CK-2) Rel Index 6.0 09/17/16 17:17 Troponin I 0.761 ng/mL (0.000-0.034) H* 09/17/16 06:14 C-Reactive Protein 65.3 mg/L (<10.0) H 09/17/16 08:50 NT-Pro-B Natriuret Pep 18899 pg/mL 09/19/16 05:59 Total Protein 5.3 g/dL (6.3-8.2) L 09/21/16 06:15 Albumin 2.9 g/dL (3.5-5.0) L 09/21/16 06:15 Urine Color Dark Brown 09/17/16 00:13 Urine Appearance Turbid (Clear) H 09/17/16 00:13 Urine pH 5.5 (5.0-8.0) 09/17/16 00:13 Ur Specific [place] 1.017 (1.001-1.035) 09/17/16 00:13 Urine Protein 1+ (Negative) H 09/17/16 00:13 Urine Glucose (UA) Negative (Negative) 09/17/16 00:13 Urine Ketones Negative (Negative) 09/17/16 00:13 Urine Blood Small (Negative) H 09/17/16 00:13 Urine Nitrite Negative (Negative) 09/17/16 00:13 Urine Bilirubin 1+ (Negative) H 09/17/16 00:13 Urine Urobilinogen 4.0 mg/dL (<2.0) 09/17/16 00:13 Ur Leukocyte Esterase Large (Negative) H 09/17/16 00:13 Urine RBC 7 /hpf (0-5) H 09/17/16 00:13 Urine WBC >182 /hpf (0-5) H 09/17/16 00:13 Urine WBC Clumps Many /hpf (None) H 09/17/16 00:13 Urine Bacteria Many /hpf (None) H 09/17/16 00:13 Random Vancomycin 18.2 ug/mL 09/21/16 06:15 Salicylates <1.0 mg/dL 09/17/16 00:15 Urine Opiates Screen Detected (NotDetected) H 09/17/16 00:13 Ur Oxycodone Screen Not Detected (NotDetected) 09/17/16 00:13 Urine Methadone Screen Not Detected (NotDetected) 09/17/16 00:13 Ur Propoxyphene Screen Not Detected (NotDetected) 09/17/16 00:13 Acetaminophen <10.0 ug/mL 09/17/16 00:15 Ur Barbiturates Screen Not Detected (NotDetected) 09/17/16 00:13 U Tricyclic Antidepress Detected (NotDetected) H 09/17/16 00:13 Ur Phencyclidine Scrn Not Detected (NotDetected) 09/17/16 00:13 Ur Amphetamines Screen Not Detected (NotDetected) 09/17/16 00:13 U Methamphetamines Scrn Not Detected (NotDetected) 09/17/16 00:13 U Benzodiazepines Scrn Detected (NotDetected) H 09/17/16 00:13 Urine Cocaine Screen Not Detected (NotDetected) 09/17/16 00:13 U Marijuana (THC) Screen Not Detected (NotDetected) 09/17/16 00:13 Influenza Type A RNA Not Detected (Not Detectd) 09/17/16 11:02 Influenza Type B (PCR) Not Detected (Not Detectd) 09/17/16 11:02 Microbiology 09/17/16 09:00 Blood Blood Culture - Preliminary No Growth after 96 hours 09/17/16 08:50 Blood Blood Culture - Preliminary No Growth after 96 hours 09/17/16 00:50 Blood Blood Culture - Preliminary No Growth after 96 hours 09/18/16 15:30 Urine,Catheterized Urine Culture - Final Yahaira albicans 09/17/16 00:15 Urine,Voided Urine Culture - Final Assessment and Plan (1) Altered mental state Narrative/Plan: 76 year old female with a very complex past medical history. 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 She's had significant difficulties with her chemotherapy. She had the severe Doxil skin reaction. Has not been on Gemzar most recently. With her poor functional status is now not been chemotherapy in several months. It is noted she does not have significant leukopenia at this time. She does have baseline anemia and thrombocytopenia. She has developed acute renal failure thought to be multifactorial including the current medications, SUSY inhibitor and HTN. She seems to be improving at this time. Mental status is improving. There is concern as to the potential urinary infection worsening the overall condition. Urinalysis was markedly abnormal urine culture was contaminated and repeat culture is in process. Based on prior cultures cefepime is being utilized should be continued for now until we have further data. Urine culture with yeast and fluconazole was added. Blood cultures are negative. She is not having fever , some improvement of her mental status with alteration of her medications. She has been seen by oncology, they're requesting some further input from the family. 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
--- NOTE | 2016-09-21 16:37 | P.PN ---
Subjective Principal diagnosis: Patient seen and examined today in follow-up for Confusion due to infectious process and underlying dementia, NSVT, Acute kidney injury, Acute UTI, Bilateral Lower extremity edema, and Congestive heart failure 76-year-old female with history of ovarian adenocarcinoma (not currently undergoing any chemotherapy due to intolerance), chronic Bicytopenia, insomnia, and anxiety who presented with confusion after medication adjustments for insomnia. Upon presentation to the emergency department, she was started on oxygen due to hypoxia which is thought to be due to aspiration and admitted to stepdown unit for close monitoring due to confusion. This was suspected to be driven by underlying infection from acute urinary tract infection. For which she was started on broad-spectrum antibiotics. She was also found to have acute transaminitis and acute kidney injury due to hypoperfusion from hypotension and intravascular depletion, and initially was challenged with cautious IV fluid hydration due to her history of congestive heart failure with serial exam of her lungs, once patient vital signs were stabilized she was restarted on Lasix as tolerated due to anasarca. Patient mental status has been improving however she continues to be forgetful with impaired recent memory however; intact remote memory. CAT scan of the head was performed which showed no acute intracranial process. Patient was evaluated by cardiology for elevated troponins, with no recommendations for any further cardiac workup as it was thought to be due to demand ischemia. She was seen by oncology who states her performance status is still too poor for any type of chemotherapy. Advanced care planning was discussed with the patient upon improvement with her mental status , and she requested a no code status. familly was informed with patient decision. Today, patient seen and examined with son at bedside, patient was sleepy but easily arousable denied any chest pain or trouble breathing at this point denied any abdominal pain. No events overnight. athletic monitor reviewed no more events of cardiac arrhythmias (NSVT). I discussed with patient's son reported that he's been noticing some recent memory changes which could be indicative of early stages of dementia. I discussed the disease process of of this patient with her son and answered his questions. Patient's son requested placement at rehab post discharge. Patient now seems to be alert when she is awake however forgetful of recent events. Oxygen requirement has dropped down to 3 L/m nasal cannula. Patient continues to have bilateral lower extremity swelling. No hematuria. Patient tolerating by mouth intake Objective - Vital Signs Vital signs: Vital Signs Temp 97.9 F 08/12/17 15:00 Pulse 92 09/21/16 15:00 Resp 20 09/21/16 15:00 BP 115/60 09/21/16 15:00 Pulse Ox 98 09/21/16 15:00 Intake & Output 09/20/16 09/21/16 09/21/16 18:59 06:59 18:59 Intake Total 910 200 Output Total 675 1550 700 Balance 235 -1350 -700 Weight 112.7 kg 112.7 kg Intake: Oral 910 200 Output: Urine 675 1550 700 Uretheral (Matos) 675 Other: Voiding Method Indwelling Catheter Indwelling Catheter Indwelling Catheter # Voids 1 1 # Bowel Movements 3 Constitutional: vital signs stable, Not in acute distress, pleasant, sleepy but easily arousable Lungs: Clear to auscultation bilaterally, normal respiratory effort no use of accessory muscles Cardiovascular: Regular rate and rhythm, + murmurs, no gallops, no rubs, +3 peripheral pitting leg edema Extremities: No digital cyanosis or clubbing, peripheral pulses palpable and equal over bilateral radial arteries, slight discomfort upon palpation of legs bilaterally Psych: Alert, oriented to place, person Labs reviewed imaging reviewed (venous duplex US of LE) - Labs CBC & Chem 7: 09/20/16 05:54 09/21/16 06:15 Labs: Abnormal Lab Results - Last 24 Hours (Table) 09/21/16 Range/Units 06:15 BUN 33 H (7-17) mg/dL Creatinine 1.48 H (0.52-1.04) mg/dL Calcium 8.1 L (8.4-10.2) mg/dL AST 39 H (14-36) U/L ALT 114 H (9-52) U/L Total Protein 5.3 L (6.3-8.2) g/dL Albumin 2.9 L (3.5-5.0) g/dL Microbiology - Last 24 Hours (Table) 09/17/16 09:00 Blood Culture - Preliminary Blood No Growth after 96 hours 09/17/16 08:50 Blood Culture - Preliminary Blood No Growth after 96 hours 09/17/16 00:50 Blood Culture - Preliminary Blood No Growth after 96 hours 09/18/16 15:30 Urine Culture - Final Urine,Catheterized Yahaira albicans Assessment and Plan (1) NSVT (nonsustained ventricular tachycardia) Narrative/Plan: due to electrolyte imbalance Hypokalemia and hypomagnesemia K improved today, replaced again with Kdur PO Magnesium improved today post replacement Cardiology is following no events overnight Status: Acute (2) UTI (urinary tract infection) Narrative/Plan: Continue with broad-spectrum antibiotics per ID recommendations Also on Diflucan due to Yahaira growth Initial urine culture was contaminated, repeat cultures are negative which is thought to be in part due to partial treatment with antibiotics prior to repeating urine cultures Blood cultures negative to date Patient afebrile Patient has history of positive urine cultures for Enterococcus faecalis sensitive to penicillin, and E. coli sensitive to cephalosporins await further ID input regarding ABx Status: Acute (3) Acute renal failure Narrative/Plan: multifactorial due to cardiorenal syndrome and intravascular depletion from fluid shifts due to acute infectious process making good urine output creatinine trending down baseline creatinine is 1.2, currently creatinine is 1.48 Nephrology is following Avoid nephrotoxic meds Monitor electrolytes Status: Acute (4) Altered mental state Narrative/Plan: Due to toxic metabolic encephalopathy with underlying infectious process recent memory impairment and pleasantly confused Computed tomography scan of the brain showed no acute intracranial process Continue with fall precautions and aspiration precautions with possible early signs of dementia, per son, she has been having recent memory issues, with almost intact remote memory Status: Acute (5) Systolic congestive heart failure Narrative/Plan: Left ventricular ejection fraction of 35-40% in July 2016 continue with diuresis as tolerated cardiac monitoring Cardiology following Not on beta zachariah due to hypotension, not on SUSY inhibitor is due to acute kidney injury on chronic kidney disease Status: Acute (6) Aspiration into airway Narrative/Plan: Possibly due to altered mental status Continue with aspiration precautions Status: Suspected (7) Thrombocytopenia Narrative/Plan: bone marrow suppression from history of chemotherapy Currently stable No evidence of bleeding Status: Chronic (8) Anemia Narrative/Plan: chronic disease multifactorial due to underlying cancer, and history of chemotherapy resulting in bone marrow suppression Hemoglobin currently stable Continue to monitor Status: Chronic (9) Transaminitis Narrative/Plan: Due to hypoperfusion, currently resolved Status: Resolved Plan: Elevated troponin secondary to demand ischemia cardiology following no further workup at this point patient denies chest pain bilateral leg edema with new onset tenderness of right calf muscle. venous doppler US of bilateral LE is negative for acute DVT antiembolic stocking to help with leg swelling elevate LE when sitting DVT prophylaxis: Lovenox Discharge planning: Likely to [facility], anticipate discharge on Friday09/23/2016 I discussed with patient son, my recommendations to consider more palliative measures, patient son agrees and he will be discussing with his other siblings considerations for hospice care. More than 25 minutes were spent in the care of this patient.
[2016-09-21] MEDS: FLUCONAZOLE 100 MG TAB PO SCH (20:51)
[2016-09-21] MEDS: QUEtiapine 50 MG TAB PO SCH (20:52)
[2016-09-22] MEDS: CEFEPIME 1 GM in SODIUM CHLORIDE 0.9% 50 ML IVPB SCH (03:08)
[2016-09-22 06:31] LABS: Calcium 8.3 mg/dL (8.4-10.2); Magnesium 1.6 mg/dL (1.6-2.3); Potassium 3.4 mmol/L (3.5-5.1)
[2016-09-22] MEDS ORDERED: POTASSIUM CHLORIDE ER 20 MEQ TAB.ER PO STA (07:57)
[2016-09-22] MEDS: IPRATROPIUM-ALBUTEROL 3 ML NEB INHALATION PRN (07:59)
[2016-09-22] MEDS ORDERED: MAGNESIUM SULFATE-D5W PMX 1 GM in DEXTROSE/WATER 1 100ML.BAG IVPB ONE (08:17)
[2016-09-22] MEDS: ENOXAPARIN 30 MG/0.3 ML SYRINGE SQ SCH (08:22)
[2016-09-22] MEDS: FAMOTIDINE 20 MG TAB PO SCH (08:22)
[2016-09-22] MEDS: MIDODRINE 5 MG TAB PO SCH ×3 (08:22→16:32)
[2016-09-22] MEDS: NYSTATIN 100,000 UNIT/GM POWD 15 GM TOPICAL SCH ×2 (08:23→20:39)
[2016-09-22] MEDS: SERTRALINE 50 MG TAB PO SCH (08:23)
[2016-09-22] MEDS: ALPRAZolam 0.5 MG TAB PO PRN ×3 (08:36→22:55)
[2016-09-22] MEDS: FUROSEMIDE 40 MG TAB PO SCH ×2 (08:37→16:17)
[2016-09-22] MEDS: METOPROLOL SUCCINATE (ER) 25 MG TAB.ER.24H PO SCH (09:23)
--- NOTE | 2016-09-22 11:24 | P.PN ---
Subjective Patient is seen in follow-up for acute kidney injury on chronic kidney disease. Patient has chronic kidney disease stage III. Baseline creatinine in the range of 1.1-1.3. Her creatinine is down to 1.48 today. Patient presented with decreased responsiveness and her insomnia meds have been adjusted. She was also hypotensive on admission with systolic blood pressure in the 80s. Her blood pressure this morning was 119/58. She had diffuse anasarca on admission and is currently maintained on Lasix 40 mg twice daily. Patient is not a very reliable historian. She also has ovarian cancer but not currently on chemotherapy as she was having difficulty tolerating it. Patient also has systolic CHF with ejection fraction of 35-40%. Vital signs are stable. General: The patient appeared well nourished and normally developed. HEENT: Head exam is unremarkable. Neck is without jugular venous distension. LUNGS: Lungs are clear to auscultation and percussion. Breath sounds decreased. HEART: Rate and Rhythm are regular. First and second heart sounds normal. No murmurs, rubs or gallops. ABDOMEN: Abdominal exam reveals normal bowel sounds. Non-tender and non- distended. No evidence of peritonitis. EXTREMITITES: 1+ edema. Objective - Vital Signs Vital signs: Vital Signs Temp 97.5 F L 09/22/16 07:00 Pulse 88 09/22/16 08:16 Resp 20 09/22/16 07:00 BP 119/58 09/22/16 07:00 Pulse Ox 97 09/22/16 07:00 Intake & Output 09/21/16 09/22/16 09/22/16 18:59 06:59 18:59 Intake Total 350 Output Total 700 1625 Balance -700 -1275 Intake: Intake, IV Titration 50 Amount Cefepime 1 gm In Sodium 50 Chloride 0.9% 50 ml @ 100 mls/hr IVPB Q24H [facility] Rx# :[id number] Oral 300 Output: Urine 700 1625 Other: Voiding Method Indwelling Catheter Indwelling Catheter - Labs CBC & Chem 7: 09/20/16 05:54 09/22/16 06:05 Labs: Abnormal Lab Results - Last 24 Hours (Table) 09/22/16 Range/Units 06:05 Potassium 3.4 L (3.5-5.1) mmol/L Carbon Dioxide 31 H (22-30) mmol/L BUN 29 H (7-17) mg/dL Creatinine 1.31 H (0.52-1.04) mg/dL Glucose 72 L (74-99) mg/dL Calcium 8.3 L (8.4-10.2) mg/dL Microbiology - Last 24 Hours (Table) 09/17/16 09:00 Blood Culture - Preliminary Blood No Growth after 120 hours 09/17/16 08:50 Blood Culture - Preliminary Blood No Growth after 120 hours 09/17/16 00:50 Blood Culture - Preliminary Blood No Growth after 120 hours Assessment and Plan Plan: Assessment: #1. Acute kidney injury secondary to ischemic ATN secondary to hypotension. Renal function improved with creatinine down to 1.31 today. #2. Volume overload. CT suggestive of diffuse anasarca. Improved. #3. Systolic CHF with ejection fraction of 35-40%. #4. Hypotension due to sepsis and underlying cardiac status. #5. Ovarian cancer with difficulty tolerating chemotherapy in the past. #6. Bicytopenia. Iron replete. Oncology following. Possible related to use of chemotherapy in the past. #7. UTI with urine culture positive for Yahaira. #8. Hypokalemia due to diuresis. Mg also low. Plan: Continue Lasix 40 mg bid. Potassium and Mg replacement. Antibiotics per infectious disease recommendations. Repeat electrolytes in the morning. May increase dose of midodrine if remains hypotensive.
[2016-09-22] MEDS: IPRATROPIUM-ALBUTEROL 3 ML NEB INHALATION SCH ×4 (12:02→23:01)
[2016-09-22] MEDS: MAGNESIUM SULFATE-D5W PMX 1 GM in DEXTROSE/WATER 1 100ML.BAG IVPB SCH ×2 (12:38→13:07)
--- NOTE | 2016-09-22 16:26 | P.PN ---
Subjective Principal diagnosis: Patient seen and examined today in follow-up for Confusion due to infectious process and underlying dementia, NSVTwith electrolytes imbalance, Acute kidney injury, Acute UTI, Bilateral Lower extremity edema, and Congestive heart failure 76-year-old female with history of ovarian cancer (not currently undergoing any chemotherapy due to intolerance), chronic Bicytopenia, insomnia, and anxiety who presented with confusion after medication adjustments for insomnia. Upon presentation to the emergency department, she was started on oxygen due to hypoxia which is thought to be due to aspiration and admitted to stepdown unit for close monitoring due to confusion. This was suspected to be driven by underlying infection from acute urinary tract infection. For which she was started on broad-spectrum antibiotics. She was also found to have acute transaminitis and acute kidney injury due to hypoperfusion from hypotension and intravascular depletion, and initially was challenged with cautious IV fluid hydration due to her history of congestive heart failure with serial exam of her lungs, once patient vital signs were stabilized she was restarted on Lasix as tolerated due to anasarca. Patient mental status has been improving however she continues to be forgetful with impaired recent memory however; intact remote memory. CAT scan of the head was performed which showed no acute intracranial process. Patient was evaluated by cardiology for elevated troponins, with no recommendations for any further cardiac workup as it was thought to be due to demand ischemia. She was seen by oncology who states her performance status is still too poor for any type of chemotherapy. Advanced care planning was discussed with the patient upon improvement with her mental status , and she requested a no code status. Familly was informed with patient decision. Today, patient seen and examined at bedside, remains forgetful and disoriented but alert. denies any chest pain, however reports trouble breathing. poor PO intake, but otherwise no nausea or vomiting. no hematuria. Objective - Vital Signs Vital signs: Vital Signs Temp 98.2 F 09/21/16 22:53 Pulse 99 09/21/16 22:53 Resp 22 09/21/16 22:53 BP 119/62 09/21/16 22:53 Pulse Ox 97 09/21/16 22:53 Intake & Output 09/21/16 09/22/16 09/22/16 18:59 06:59 18:59 Intake Total 350 Output Total 700 1615 Balance -700 -7825 Intake: Intake, IV Titration 50 Amount Cefepime 1 gm In Sodium 50 Chloride 0.9% 50 ml @ 100 mls/hr IVPB Q24H [facility] Rx# :[id number] Oral 300 Output: Urine 700 1625 Other: Voiding Method Indwelling Catheter Indwelling Catheter Constitutional: vital signs stable, Not in acute distress, pleasant, conversant Lungs: Good air entry bilaterally with some diffuse expiratory wheezing, basal fine rales, normal respiratory effort no use of accessory muscles Cardiovascular: Regular rate and rhythm, + murmur, no gallops, no rubs, +3 peripheral leg pitting edema Gastrointestinal: Soft, no tenderness to palpation, bowel sounds positive Extremities: No digital cyanosis or clubbing, peripheral pulses palpable and equal over bilateral radial arteries, no calf muscle tenderness Psych: Alert, oriented place and self, disoriented to situation labs reviewed - Labs CBC & Chem 7: 09/20/16 05:54 09/22/16 06:05 Labs: Abnormal Lab Results - Last 24 Hours (Table) 09/22/16 Range/Units 06:05 Potassium 3.4 L (3.5-5.1) mmol/L Carbon Dioxide 31 H (22-30) mmol/L BUN 29 H (7-17) mg/dL Creatinine 1.31 H (0.52-1.04) mg/dL Glucose 72 L (74-99) mg/dL Calcium 8.3 L (8.4-10.2) mg/dL Microbiology - Last 24 Hours (Table) 09/17/16 00:50 Blood Culture - Preliminary Blood No Growth after 120 hours 09/17/16 09:00 Blood Culture - Preliminary Blood No Growth after 96 hours 09/17/16 08:50 Blood Culture - Preliminary Blood No Growth after 96 hours Assessment and Plan (1) NSVT (nonsustained ventricular tachycardia) Narrative/Plan: due to electrolyte imbalance Hypokalemia and hypomagnesemia potassium goal is 4, dropped now most likely due to aggressive diuresis, replace with PO K-dur Mg is 1.6, replace again today Cardiology is signed off and recommending OP follow up no events overnight monitor electrolytes start Metoprolol succinate low dose daily with hold parameters Status: Resolved (2) UTI (urinary tract infection) Narrative/Plan: Acute UTI present on admission, urine culture grew rosa, no chronic chou catheter from home Continue with broad-spectrum antibiotics per ID recommendations discontinue vancomycin continue cefepime on Diflucan for rosa Initial urine culture was contaminated, repeat cultures are negative which is thought to be in part due to partial treatment with antibiotics prior to repeating urine cultures Blood cultures negative to date Patient afebrile Patient has history of positive urine cultures for Enterococcus faecalis sensitive to penicillin, and E. coli sensitive to cephalosporins await further ID input regarding ABx Status: Acute (3) Acute renal failure Narrative/Plan: multifactorial due to cardiorenal syndrome and hypoperfusion secondary to intravascular depletion from fluid shifts due to acute infectious process , now improving making good urine output creatinine trending down baseline creatinine is 1.2, currently creatinine is 1.3 Nephrology is following Avoid nephrotoxic meds Monitor electrolytes switch to PO diuresis discontinue chou cath and monitor PVR Status: Resolved (4) Altered mental state Narrative/Plan: Due to toxic metabolic encephalopathy with underlying infectious process recent memory impairment and pleasantly confused Computed tomography scan of the brain showed no acute intracranial process Continue with fall precautions and aspiration precautions with possible early signs of dementia, per son, she has been having recent memory issues, with almost intact remote memory patient is back to baseline now Status: Resolved (5) Systolic congestive heart failure Narrative/Plan: acute exacerbation of chronic systolic CHF due to infectious process and resuscitation efforts, now compensated Left ventricular ejection fraction of 35-40% in July 2016 Switch to PO diuresis Cardiology following start patient on metoprolol succinate low dose with hold parameters to avoid hypotension not on SUSY inhibitor is due to acute kidney injury on chronic kidney disease Status: Acute (6) Aspiration into airway Narrative/Plan: Due to altered mental status Continue with aspiration precautions Status: Suspected (7) Thrombocytopenia Narrative/Plan: bone marrow suppression from history of chemotherapy Currently stable No evidence of bleeding Status: Chronic (8) Anemia Narrative/Plan: chronic disease multifactorial due to underlying cancer, and history of chemotherapy resulting in bone marrow suppression Hemoglobin currently stable Continue to monitor Status: Chronic (9) Transaminitis Narrative/Plan: Due to hypoperfusion, currently resolved Status: Resolved Plan: Elevated troponin secondary to demand ischemia cardiology signed off no further workup at this point patient denies chest pain bilateral leg edema multifactorial secondary to venous insufficiency and heart failure. venous doppler US of bilateral LE is negative for acute DVT antiembolic stocking to help with leg swelling elevate LE when sitting DVT prophylaxis: Lovenox Discontinue chou catheter, monitor with PRN PVR Discharge planning: Likely to [facility], anticipate discharge on Friday09/23/2016 , information technology manager on the case More than 25 minutes were spent in the care of this patient.
[2016-09-22] MEDS: FLUCONAZOLE 100 MG TAB PO SCH (20:38)
[2016-09-22] MEDS: QUEtiapine 50 MG TAB PO SCH (20:38)
[2016-09-22] MEDS ORDERED: IPRATROPIUM-ALBUTEROL 3 ML NEB INHALATION PRN (23:02)
[2016-09-23] MEDS: CEFEPIME 1 GM in SODIUM CHLORIDE 0.9% 50 ML IVPB SCH (03:18)
[2016-09-23] MEDS: IPRATROPIUM-ALBUTEROL 3 ML NEB INHALATION SCH ×4 (06:53→19:23)
--- NOTE | 2016-09-23 06:53 | PN ---
DATE OF SERVICE: 09/21/16 CHIEF COMPLAINT: Shortness of breath. Debi is seen today as a follow-up. She has had some shortness of breath. Overall she is a little better. She remains very tired and weak and she has some intermittent confusion. Her medication includes: Albuterol inhaler every four hours as needed, Xanax 0.5 mg every eight hours as needed. Cefepime 50 mg IV piggyback every 24 hours. Lovenox 30 mg every 24 hours, Pepcid 20 mg daily, Diflucan 200 mg daily, Lasix 60 mg IV every 12 hours, Midodrine 2.5 mg t.i.d., Nystatin powder, Zofran as needed, Seroquel 50 mg q.h.s, Zoloft 50 mg daily. On physical examination, she is alert. She answers questions appropriately. She has some confusion off and on. Her vital signs are temperature: 97.9, pulse 92, respiratory rate 20. Blood pressure 115/60. HEENT: Normocephalic, atraumatic. Neck is supple. Chest is equal expansion bilaterally. Lungs reveal crackles at the bases. Heart is regular. Abdomen is soft, no tenderness. Extremities reveals 1+ edema. Laboratory data: WBC 4.8, hemoglobin 7.4, this is data from yesterday. Hematocrit 23.1, platelet count 73. IMPRESSION: 1. Ovarian serous carcinoma on recent CT scan although done without IV contrast, did not suggest any significant progression of her disease at this time and the patient has been over two months since the patient received systemic chemotherapy, systemic treatment for her disease. Pancytopenia. This is certainly multifactorial and sill could be related to previous chemotherapy MTDD
[2016-09-23 08:04] LABS: Anisocytosis Moderate; Basophils % (A) 0 %; CH 35.2; CHCM 30.5; Eosinophils # (A) 0.4 k/uL (0-0.7); Eosinophils % (A) 8 %; HCT 26.5 % (34.0-46.0); HDW 4.11; HGB 7.9 gm/dL (11.4-16.0); Hypochromasia Marked; Luc # (Auto) 0.05; Luc % (Auto) 1; Lymphocytes # (A) 0.4 k/uL (1.0-4.8); Lymphocytes % (A) 8 %; MCH 34.9 pg (25.0-35.0); MCHC 29.9 g/dL (31.0-37.0); MCV 116.7 fL (80.0-100.0); Macrocytosis Marked; Mean Platelet Volume 10.2; Monocytes # (A) 0.1 k/uL (0-1.0); Monocytes % (A) 2 %; Neutrophils # (A) 4.6 k/uL (1.3-7.7); Neutrophils % (A) 82 %; Poikilocytosis Moderate; RBC 2.27 m/uL (3.80-5.40); WBC 5.6 k/uL (3.8-10.6); WBC (Perox) 5.53
[2016-09-23 08:30] LABS: Calcium 8.5 mg/dL (8.4-10.2); Potassium 3.7 mmol/L (3.5-5.1)
[2016-09-23 09:11] LABS: Magnesium 1.8 mg/dL (1.6-2.3)
[2016-09-23 09:17] LABS: Manual Review Performed
[2016-09-23] MEDS: MIDODRINE 5 MG TAB PO SCH ×3 (09:39→17:48)
[2016-09-23] MEDS: predniSONE 20 MG TAB PO SCH (09:39)
[2016-09-23] MEDS: ENOXAPARIN 30 MG/0.3 ML SYRINGE SQ SCH (09:40)
[2016-09-23] MEDS: FAMOTIDINE 20 MG TAB PO SCH (09:40)
[2016-09-23] MEDS: METOPROLOL SUCCINATE (ER) 25 MG TAB.ER.24H PO SCH (09:41)
[2016-09-23] MEDS: FUROSEMIDE 40 MG TAB PO SCH ×2 (09:41→17:48)
[2016-09-23] MEDS: SERTRALINE 50 MG TAB PO SCH (09:42)
[2016-09-23] MEDS: NYSTATIN 100,000 UNIT/GM POWD 15 GM TOPICAL SCH ×2 (09:46→22:32)
--- NOTE | 2016-09-23 11:00 | XR ---
EXAMINATION TYPE: XR chest 1V DATE OF EXAM: 09/23/2016 COMPARISON: 09/18/2016 HISTORY: Shortness of breath, pneumonia and wheezing. TECHNIQUE: Single frontal view of the chest is obtained. FINDINGS: There is a worsening right pleural effusion with associated right basilar airspace disease . Retrocardiac density likely relates to left basilar atelectasis. Right-sided Mediport is unchanged in position with its distal tip in the superior vena cava. Cardia megaly is appreciated as well as en gorgement of the superior vena cava and mild pulmonary vascular congestion, unchanged from the prior. Degenerative changes of the thorax, right acromioclavicular joint, and glenohumeral joints, right gre ater than left are appreciated. IMPRESSION: 1. Worsening right pleural effusion, [id number], and bibasilar opacities which may represent at electasis and/or pneumonia in a patient with clinical history of pneumonia. 2. Cardiomegaly and mild pulmonary vascular congestion relating to decompensated congestive heart melindaluzma mercer.
--- NOTE | 2016-09-23 11:23 | P.PN ---
Subjective Principal diagnosis: Patient seen and examined today in follow-up for Confusion due to infectious process and underlying dementia, NSVTwith electrolytes imbalance, Acute kidney injury, Acute UTI, Bilateral Lower extremity edema, and Congestive heart failure 76-year-old female with history of ovarian cancer (not currently undergoing any chemotherapy due to intolerance), chronic Bicytopenia, insomnia, and anxiety who presented with confusion after medication adjustments for insomnia. Upon presentation to the emergency department, she was started on oxygen due to hypoxia which is thought to be due to aspiration and admitted to stepdown unit for close monitoring due to confusion. This was suspected to be driven by underlying infection from acute urinary tract infection. For which she was started on broad-spectrum antibiotics. She was also found to have acute transaminitis and acute kidney injury due to hypoperfusion from hypotension and intravascular depletion, and initially was challenged with cautious IV fluid hydration due to her history of congestive heart failure with serial exam of her lungs, once patient vital signs were stabilized she was restarted on Lasix as tolerated due to anasarca. Patient mental status has been improving however she continues to be forgetful with impaired recent memory however; intact remote memory. CAT scan of the head was performed which showed no acute intracranial process. Patient was evaluated by cardiology for elevated troponins, with no recommendations for any further cardiac workup as it was thought to be due to demand ischemia. She was seen by oncology who states her performance status is still too poor for any type of chemotherapy. Advanced care planning was discussed with the patient upon improvement with her mental status , and she requested a no code status. Familly was informed with patient decision. Today, patient seen and examined at bedside, patient had audible wheezes, she reported remote history of smoking, but has never been diagnosed with COPD or bronchitis, however; she is on home oxygen of 3LPM NC. Denies any coughing or chest pain. She remains disoriented to person and place, and requires gentle reminders to acknowledge she is at the hospital, but continues to be confused regarding her disease process. She reports that she is feeling fine. Per RN, she is having urine incontinence and PO intake is inconsistent. Cardiac monitoring shows frequent PVCs, but no NSVT events. As planned before, family anticipates placement today. Objective - Vital Signs Vital signs: Vital Signs Temp 98.1 F 09/23/16 07:00 Pulse 88 09/23/16 07:03 Resp 18 09/23/16 07:00 BP 114/60 09/23/16 07:00 Pulse Ox 94 L 09/23/16 07:00 Intake & Output 09/22/16 09/23/16 09/23/16 18:59 06:59 18:59 Intake Total 200 Output Total 1700 Balance -1500 Intake: Intake, IV Titration 200 Amount Magnesium Sulfate-D5w Pmx 200 1 gm In Dextrose/Water 1 100ml.bag @ 100 mls/hr IVPB Q1H [facility] Rx#: [id number] Output: Urine 1700 Other: Voiding Method Bedpan Diaper Diaper Incontinent Incontinent # Voids 1 # Bowel Movements 1 1 Constitutional: vital signs stable, Not in acute distress, pleasant, conversant Lungs: Good air entry, prolonged expiratory phase with expiratory wheezes, no crackles no rales, normal respiratory effort no use of accessory muscles Cardiovascular: Regular rate and rhythm, + murmur, +3 pitting edema over bilateral legs Gastrointestinal: Soft, no tenderness to palpation, no palpable hepatosplenomegally, bowel sounds positive Extremities: antiembolic stocking over bilateral legs, slight erythema over bilateral legs unchanged from before, again tenderness over left leg (off and on ) Psych: Alert, oriented to place, self , not oriented to situation, appropriate affect - Labs CBC & Chem 7: 09/23/16 07:45 09/23/16 07:45 Labs: Abnormal Lab Results - Last 24 Hours (Table) 09/23/16 09/23/16 Range/Units 07:45 07:45 RBC 2.27 L (3.80-5.40) m/uL Hgb 7.9 L (11.4-16.0) gm/dL Hct 26.5 L (34.0-46.0) % MCV 116.7 H (80.0-100.0) fL MCHC 29.9 L (31.0-37.0) g/dL RDW 22.0 H (11.5-15.5) % Plt Count 70 L (150-450) k/uL Lymphocytes # 0.4 L (1.0-4.8) k/uL Carbon Dioxide 32 H (22-30) mmol/L BUN 27 H (7-17) mg/dL Creatinine 1.20 H (0.52-1.04) mg/dL Microbiology - Last 24 Hours (Table) 09/17/16 00:50 Blood Culture - Final Blood No Growth after 144 hours 09/17/16 09:00 Blood Culture - Preliminary Blood No Growth after 120 hours 09/17/16 08:50 Blood Culture - Preliminary Blood No Growth after 120 hours Assessment and Plan (1) COPD exacerbation Narrative/Plan: Patient reported remote history of smoking and being chronically on oxygen due to hypoxia this could be explained by undiagnosed clinical COPD from her history now experiencing some SOB and wheezing without coughing Patient currently on DuoNeb's every 4 hours Start systemic oral steroids symbicort Oxygen requirement is at baseline of 3 L/m per nasal cannula Check chest x-ray to rule out any pulmonary congestion Status: Suspected (2) NSVT (nonsustained ventricular tachycardia) Narrative/Plan: due to electrolyte imbalance Hypokalemia and hypomagnesemia potassium goal is 4, monitor and replace as needed monitor Mg and replace as needed for a goal >2 Cardiology is signed off and recommending OP follow up Metoprolol succinate low dose daily with hold parameters (borderline low normal blood pressure) eddy current inspector shows no more events but frequent PVCs Status: Resolved (3) UTI (urinary tract infection) Narrative/Plan: Acute UTI present on admission, urine culture grew rosa, no chronic chou catheter from home Continue with broad-spectrum antibiotics per ID recommendations s/p vancomycin continue cefepime on Diflucan for rosa Initial urine culture was contaminated, repeat cultures are negative which is thought to be in part due to partial treatment with antibiotics prior to repeating urine cultures Blood cultures negative Patient afebrile Patient has history of positive urine cultures for Enterococcus faecalis sensitive to penicillin, and E. coli sensitive to cephalosporins await further ID input regarding ABx Status: Acute (4) Acute renal failure Narrative/Plan: multifactorial due to cardiorenal syndrome and hypoperfusion secondary to intravascular depletion from fluid shifts due to acute infectious process , now improving making good urine output creatinine back to baseline Nephrology is following Avoid nephrotoxic meds Monitor electrolytes pO diuresis monitor bladder scanning and PVR Status: Resolved (5) Altered mental state Narrative/Plan: Due to toxic metabolic encephalopathy with underlying infectious process recent memory impairment and pleasantly confused Computed tomography scan of the brain showed no acute intracranial process Continue with fall precautions and aspiration precautions patient is back to baseline now, with sings of dementia Status: Resolved (6) Systolic congestive heart failure Narrative/Plan: acute exacerbation of chronic systolic CHF due to infectious process and resuscitation efforts, now compensated Left ventricular ejection fraction of 35-40% in July 2016 PO diuresis Cardiology recommended OP follow up on metoprolol succinate low dose with hold parameters to avoid hypotension on midodrine not on SUSY inhibitor is due to acute kidney injury on chronic kidney disease , and due to borderline low normal blood pressure Status: Resolved (7) Aspiration into airway Narrative/Plan: Due to altered mental status, resolved now Continue with aspiration precautions Status: Suspected (8) Thrombocytopenia Narrative/Plan: stable now Status: Chronic (9) Anemia Narrative/Plan: stable now bone marrow suppression due to history of chemotherapy Status: Chronic (10) Transaminitis Status: Resolved Plan: Elevated troponin secondary to demand ischemia cardiology signed off no further workup at this point patient denies chest pain bilateral leg edema multifactorial secondary to venous insufficiency and heart failure. venous doppler US of bilateral LE is negative for acute DVT antiembolic stocking to help with leg swelling elevate LE when sitting DVT prophylaxis: Lovenox Discharge planning: Likely to [facility], anticipate discharge Today , await lining caser feedback
[2016-09-23] MEDS ORDERED: FUROSEMIDE 10 MG/ML 4 ML VIAL IV STA (11:45)
[2016-09-23] MEDS: SYMBICORT 160-4.5 MCG INHALER INHALATION SCH (19:21)
[2016-09-23 21:25] LABS: Magnesium 1.8 mg/dL (1.6-2.3); Potassium 3.7 mmol/L (3.5-5.1)
[2016-09-23] MEDS: QUEtiapine 50 MG TAB PO SCH (22:32)
[2016-09-23] MEDS: FLUCONAZOLE 100 MG TAB PO SCH (22:32)
[2016-09-24] MEDS: CEFEPIME 1 GM in SODIUM CHLORIDE 0.9% 50 ML IVPB SCH (04:42)
[2016-09-24] MEDS: IPRATROPIUM-ALBUTEROL 3 ML NEB INHALATION SCH ×3 (07:11→16:12)
[2016-09-24] MEDS: SYMBICORT 160-4.5 MCG INHALER INHALATION SCH ×2 (07:11→07:25)
[2016-09-24] MEDS: FAMOTIDINE 20 MG TAB PO SCH (07:51)
[2016-09-24] MEDS: MIDODRINE 5 MG TAB PO SCH ×3 (07:51→15:30)
[2016-09-24] MEDS: FUROSEMIDE 40 MG TAB PO SCH (07:51)
[2016-09-24] MEDS: ENOXAPARIN 30 MG/0.3 ML SYRINGE SQ SCH (07:51)
[2016-09-24] MEDS: METOPROLOL SUCCINATE (ER) 25 MG TAB.ER.24H PO SCH (07:52)
[2016-09-24] MEDS: predniSONE 20 MG TAB PO SCH (07:52)
[2016-09-24] MEDS: SERTRALINE 50 MG TAB PO SCH (07:53)
[2016-09-24] MEDS: ALPRAZolam 0.5 MG TAB PO PRN ×2 (07:54→15:30)
[2016-09-24] MEDS ORDERED: FUROSEMIDE 10 MG/ML 10 ML VIAL IV SCH (09:00)
--- NOTE | 2016-09-24 09:00 | XR ---
EXAMINATION TYPE: XR chest 1V portable DATE OF EXAM: 09/24/2016 HISTORY: Shortness of breath. COMPARISON: None. TECHNIQUE: Single view of the chest is submitted. FINDINGS: Demonstrated are scattered senescent parenchymal change. There is evidence of cardiomegaly with pulmonary venous congestion. Mild patchy density right lower l obe. Hilar and mediastinal structures are within normal limits. Degenerative changes are seen of the dorsal spine. IMPRESSION: 1. There is evidence of cardiomegaly with pulmonary venous congestion. Mild patchy density right low er lobe. Overall no change.
[2016-09-24] MEDS: NYSTATIN 100,000 UNIT/GM POWD 15 GM TOPICAL SCH (10:27)
--- NOTE | 2016-09-24 11:26 | P.PN ---
Subjective Principal diagnosis: Patient seen and examined today in follow-up for Hypoxemia oxygen dependent due to CHF and pulmonary congestion, Acute UTI, Bilateral Lower extremity edema, and Congestive heart failure 76-year-old female with history of ovarian cancer (not currently undergoing any chemotherapy due to intolerance), chronic Bicytopenia, insomnia, and anxiety who presented with confusion after medication adjustments for insomnia. Upon presentation to the emergency department, she was started on oxygen due to hypoxia which is thought to be due to aspiration and admitted to stepdown unit for close monitoring due to confusion. This was suspected to be driven by underlying infection from acute urinary tract infection. For which she was started on broad-spectrum antibiotics. She was also found to have acute transaminitis and acute kidney injury due to hypoperfusion from hypotension and intravascular depletion, and initially was challenged with cautious IV fluid hydration due to her history of congestive heart failure with serial exam of her lungs, once patient vital signs were stabilized she was restarted on Lasix as tolerated due to anasarca. Patient mental status has been improving however she continues to be forgetful with impaired recent memory however; intact remote memory. CAT scan of the head was performed which showed no acute intracranial process. Patient was evaluated by cardiology for elevated troponins, with no recommendations for any further cardiac workup as it was thought to be due to demand ischemia. She was seen by oncology who states her performance status is still too poor for any type of chemotherapy. Advanced care planning was discussed with the patient upon improvement with her mental status , and she requested a no code status. Familly was informed with patient decision. Today, Patient continues to be alert, she recognized me today when I walked in, conitnues to complain of trouble breathing, continues to be audibly wheezing. overnight she has been more confused and pulling on her Tele leads, oxygen mask and mediport. Refusing care at times. I spoke with the patient's son last evening, and this morning and updated him on his mother condition. She continues to have pulmonary congestion, despite diuresis and fluid restrictions. Family continues to express patient's desires in refusing endotracheal intubation. He agrees and would like to initiate Hospice evaluation while inpatient. bladder scan shows unremarkable PVRs <200 cc hospice evaluation. Objective - Vital Signs Vital signs: Vital Signs Temp 98.3 F 09/24/16 07:00 Pulse 100 09/24/16 07:24 Resp 20 09/24/16 07:12 BP 109/58 09/24/16 07:00 Pulse Ox 99 09/24/16 07:00 Intake & Output 09/23/16 09/24/16 09/24/16 18:59 06:59 18:59 Intake Total 300 Output Total 412 175 80 Balance -412 125 -80 Intake: Intake, IV Titration 100 Amount Cefepime 1 gm In Sodium 100 Chloride 0.9% 50 ml @ 100 mls/hr IVPB Q24H [facility] Rx# :[id number] Oral 200 Output: Urine 4 Post Void Residual 408 175 80 Other: Voiding Method Diaper Diaper Incontinent Incontinent # Voids 1 4 # Bowel Movements 1 Constitutional: Not in acute distress, on oxygen through face mask, pleasant, conversant Lungs: Diffuse expiratory wheezes with prolonged expiratory phase, decreased breath sounds at right lung base, patient seems to be using accessory muscles for breathing Cardiovascular: Regular rate and rhythm, + murmur, no gallops, no rubs, +4 bilateral pitting leg edema Extremities: No digital cyanosis or clubbing, no tenderness to palpation of the calf muscles bilaterally Psych: Alert, oriented to place, 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 Chest x-ray showing worsening pulmonary congestion - Labs CBC & Chem 7: 09/23/16 07:45 09/23/16 21:00 Labs: Microbiology - Last 24 Hours (Table) 09/17/16 09:00 Blood Culture - Final Blood No Growth after 144 hours 09/17/16 08:50 Blood Culture - Final Blood No Growth after 144 hours Assessment and Plan (1) Systolic congestive heart failure Narrative/Plan: acute exacerbation of chronic systolic CHF due to infectious process and resuscitation efforts Patient is back into pulmonary congestion and CHF exacerbation Left ventricular ejection fraction of 35-40% in July 2016 Switch back to aggressive IV diuresis Cardiology recommended OP follow up and diuresis as tolerated on metoprolol succinate low dose with hold parameters to avoid hypotension on midodrine not on SUSY inhibitor is due to acute kidney injury on chronic kidney disease , and due to borderline low normal blood pressure Status: Acute (2) Altered mental state Narrative/Plan: Due to toxic metabolic encephalopathy with underlying infectious process recent memory impairment and pleasantly confused Computed tomography scan of the brain showed no acute intracranial process Continue with fall precautions and aspiration precautions Patient mental status is waxing and waning all, possibly hypoxemia is contributing into this Status: Resolved (3) UTI (urinary tract infection) Narrative/Plan: Acute UTI present on admission, urine culture grew rosa, no chronic chou catheter from home Continue with broad-spectrum antibiotics per ID recommendations s/p vancomycin continue cefepime on Diflucan for rosa Initial urine culture was contaminated, repeat cultures are negative which is thought to be in part due to partial treatment with antibiotics prior to repeating urine cultures Blood cultures negative Patient afebrile Patient has history of positive urine cultures for Enterococcus faecalis sensitive to penicillin, and E. coli sensitive to cephalosporins await further ID input regarding ABx Status: Resolved (4) Aspiration into airway Narrative/Plan: Due to altered mental status, resolved now Continue with aspiration precautions Status: Suspected (5) Thrombocytopenia Narrative/Plan: stable now Status: Chronic (6) Anemia Narrative/Plan: stable now bone marrow suppression due to history of chemotherapy Status: Chronic (7) COPD exacerbation Narrative/Plan: After reviewing patient history with the family and reviewing chest x-ray results It seems like patient wheezing and hypoxemia is altered and by pulmonary congestion secondary to CHF Discontinue LABA discontinue prednisone Status: Ruled-out (8) Acute kidney failure NEC Narrative/Plan: Due to cardiorenal syndrome and hypoperfusion this is resolved now continue to monitor urine output and avoid nephrotoxic medications Status: Resolved Plan: bilateral leg edema multifactorial secondary to venous insufficiency and heart failure. venous doppler US of bilateral LE is negative for acute DVT antiembolic stocking to help with leg swelling elevate LE when sitting DVT prophylaxis: Lovenox Discharge planning: Due to recurrence of CHF exacerbation with pulmonary congestion despite our efforts on aggressive diuresis and fluid restrictions with her history of ovarian cancer not a good candidate for chemotherapy. Patient has a no code status refusing intubation. Due to the above I do recommend palliative care measures family agrees and would like to proceed with inpatient hospice evaluation
--- NOTE | 2016-09-24 12:36 | P.PN ---
Subjective Patient is seen in follow-up for acute kidney injury on chronic kidney disease. Patient has chronic kidney disease stage III. Baseline creatinine in the range of 1.1-1.3. Her creatinine was down to 1.2 on 09/23. Patient presented with decreased responsiveness and her insomnia meds have been adjusted. She was also hypotensive on admission with systolic blood pressure in the 80s, which is improved. She had diffuse anasarca on admission and is currently maintained on Lasix 40 mg twice daily. Patient is not a very reliable historian. She also has ovarian cancer but not currently on chemotherapy as she was having difficulty tolerating it. Patient also has systolic CHF with ejection fraction of 35-40%. Became more dyspneic requiring higher oxygen support. Vital signs are stable. General: The patient appeared well nourished and normally developed. HEENT: Head exam is unremarkable. Neck is without jugular venous distension. LUNGS: Lungs are clear to auscultation and percussion. Breath sounds decreased. HEART: Rate and Rhythm are regular. First and second heart sounds normal. No murmurs, rubs or gallops. ABDOMEN: Abdominal exam reveals normal bowel sounds. Non-tender and non- distended. No evidence of peritonitis. EXTREMITITES: 1+ edema. Objective - Vital Signs Vital signs: Vital Signs Temp 98.3 F 09/24/16 07:00 Pulse 96 09/24/16 12:32 Resp 20 09/24/16 08:00 BP 109/58 09/24/16 07:00 Pulse Ox 99 09/24/16 07:00 Intake & Output 09/23/16 09/24/16 09/24/16 18:59 06:59 18:59 Intake Total 300 Output Total 412 175 80 Balance -412 125 -80 Intake: Intake, IV Titration 100 Amount Cefepime 1 gm In Sodium 100 Chloride 0.9% 50 ml @ 100 mls/hr IVPB Q24H [facility] Rx# :[id number] Oral 200 Output: Urine 4 Post Void Residual 408 175 80 Other: Voiding Method Diaper Diaper Diaper Incontinent Incontinent Incontinent # Voids 1 4 # Bowel Movements 1 - Labs CBC & Chem 7: 09/23/16 07:45 09/23/16 21:00 Labs: Microbiology - Last 24 Hours (Table) 09/17/16 09:00 Blood Culture - Final Blood No Growth after 144 hours 09/17/16 08:50 Blood Culture - Final Blood No Growth after 144 hours Assessment and Plan Plan: Assessment: #1. Acute kidney injury secondary to ischemic ATN secondary to hypotension. Renal function improved with creatinine down to 1.2 on 09/23. #2. Volume overload. CT suggestive of diffuse anasarca. #3. Systolic CHF with ejection fraction of 35-40%. #4. Hypotension due to sepsis and underlying cardiac status. #5. Ovarian cancer with difficulty tolerating chemotherapy in the past. #6. Bicytopenia. Iron replete. Oncology following. Possible related to use of chemotherapy in the past. #7. UTI with urine culture positive for Yahaira. #8. Hypokalemia due to diuresis. Mg also low. Improved. Plan: Continue Lasix 60 mg IV BID. Potassium and Mg replacement PRN. Antibiotics per infectious disease recommendations. Repeat electrolytes in the morning. May increase dose of midodrine if remains hypotensive. Family considering hospice.
[2016-09-24 15:06] VITALS: BP 118/62
[2016-09-24 15:07] VITALS: RESP 26
[2016-09-24 16:42] VITALS: PULSE 91
[2016-09-24 16:44] VITALS: TEMP 99.4
[2016-09-24] MEDS ORDERED: CEFEPIME 1 GM in SODIUM CHLORIDE 0.9% 50 ML IVPB SCH (18:00)
--- NOTE | 2016-09-25 07:31 | P.DS ---
Providers Date of admission: 09/17/16 02:31 Expected date of discharge: 09/24/16 Attending physician: Abhishek Koehler MD Consults: 09/17/16 08:30 Consult Physician Routine Consulting Provider: Charbel Robert Consult Reason/Comments: ovarian ca Do you want consulting provider notified?: Yes 09/17/16 08:31 Consult Physician Routine Consulting Provider: Paulo Verde Consult Reason/Comments: abnormal trops Do you want consulting provider notified?: Yes 09/17/16 18:26 Consult Physician Routine Consulting Provider: Antwan Curry Consult Reason/Comments: uti Do you want consulting provider notified?: Yes 09/17/16 23:05 Consult Physician Routine Consulting Provider: Harriet Sanchez Consult Reason/Comments: Kidney function Do you want consulting provider notified?: Yes, Notify in am Primary care physician: Dipesh Mayberry - Discharge Diagnosis(es) (1) Systolic congestive heart failure Acute exacerbation of chronic systolic CHF with LVEF 35-40% patient initially showed symptoms of dyspnea and bilateral leg edema, however lungs were clear. this is thought to be due to fluid shifts from cytokins related to acute infectious process cardiology evaluated the patient and recommended continuing diuresis when tolerated Status: Acute (2) Altered mental state due to toxic metabolic encephalopathy and underlying dementia mental status was waxing and waning throughout this stay Status: Acute (3) UTI (urinary tract infection) present on admission, patient did not have chronic chou cath from home patient found to have dirty UA initial urine culture was contaminated and grew multiple GNB repeat cultures showed rosa blood cultures were negative ID was following and managing broad spectrum ABx Status: Resolved (4) Aspiration into airway there was some evidence of infilterate along with her history of AMS patient did not report any symptoms of clinical pneumonia aspiration precautions Status: Suspected (5) Thrombocytopenia this is chronic due to chemotherapy Status: Chronic (6) Anemia chronic due to chemotherapy stable throughout her hospital course iron studies unremarkable Status: Chronic (7) Acute kidney failure NEC due to hypoperfusion and cardiorenal syndrome this has improved throughout the hospital course initially patient received IVF until infection was controlled with ABx then patient transitioned to diuresis due to her underlying heart failure Status: Resolved (8) Acute respiratory failure acute hypoxic respiratory failure secondary to pulmonary congestion patient refusing intubation or non-invasive ventilation increase oxygen requirement through facial mask aggressive diuresis later during the stay patient developed pulmonary congestion post our resuscitation measures due to underlying heart failure. initially patient was doing well with diuresis however she had developed pulmonary congestion despite aggressive diuresis and fluid restrictions Status: Acute (9) Elevated troponin this is due to hypoperfusion from fluid shifts due to infectious process, and underlying heart failure resolved during this hospital course Status: Acute (10) Hypotension due to fluid shifts from acute infectious process and underlying heart failure patient maintained on midodrine Status: Acute (11) NSVT (nonsustained ventricular tachycardia) due to underlying electrolyte imbalance resolved with replacement of Mg and K patient started on low dose beta zachariah Status: Resolved Hospital Course: due to frequent patient hospitalizations, and underlying comorbidites with decrease functional status Patient family were leaning toward hospice care, and in order to get symptom control patient was accepted into inpatient hospice Pertinent Studies: venous duplex US of the legs, showed no evidence of acute DVT bilaterally Patient Condition at Discharge: Serious Plan - Discharge Summary New Discharge Prescriptions: New Cefepime HCl [Maxipime] 1 gm IV DAILY #7 vial Fluconazole [Diflucan] 200 mg PO HS #7 tab No Action Loperamide [Imodium] 2 mg PO QID PRN PRN Reason: Diarrhea Furosemide [Lasix] 20 mg PO DAILY LORazepam [Ativan] 1 mg PO TID PRN PRN Reason: Anxiety Ondansetron HCl [Zofran] 4 mg PO Q4H PRN PRN Reason: Nausea amLODIPine [Norvasc] 5 mg PO DAILY Omeprazole 40 mg PO DAILY QUEtiapine [SEROquel] 50 mg PO HS Hydrocodone/Acetaminophen [[place] 5-325] 1 tab PO Q4HR PRN PRN Reason: Pain Terbinafine [LamISIL] 250 mg PO DAILY Discharge Medication List Furosemide [Lasix] 20 mg PO DAILY 08/09/16 [History] Hydrocodone/Acetaminophen [[place] 5-325] 1 tab PO Q4HR PRN 09/17/16 [History] LORazepam [Ativan] 1 mg PO TID PRN 09/17/16 [History] Omeprazole 40 mg PO DAILY 09/17/16 [History] Ondansetron HCl [Zofran] 4 mg PO Q4H PRN 09/17/16 [History] QUEtiapine [SEROquel] 50 mg PO HS 09/17/16 [History] Terbinafine [LamISIL] 250 mg PO DAILY 09/17/16 [History] Fluconazole [Diflucan] 200 mg PO HS #7 tab 09/23/16 [Rx] Follow up Appointment(s)/Referral(s): Charbel Robert MD [STAFF PHYSICIAN] - 10/11/16 11:45 am [facility], [NON-STAFF] - As Needed [facility], [NON-STAFF] - As Needed Dipesh Mayberry MD [Primary Care Provider] - 1-2 days Ambulatory/Diagnostic Orders: Basic Metabolic Panel [LAB.AMB] Location: Determined By Patient Complete Blood Count w/diff [LAB.AMB] Location: Determined By Patient Patient Instructions/Handouts: Hospice Care (GEN) Discharge Disposition: DISCH TO HOSPICE MED [facility]
[2016-09-25] MEDS ORDERED: ENOXAPARIN 40 MG/0.4 ML SYRINGE SQ SCH (09:00)
== END 2016-09-24 17:39 | disposition hospice, inpatient (51) | DRG 917 ==
LOC: EC 23:40 → 6SEL 09-17 02:31 → 5ONC 09-20 16:46
PROVIDERS: ADMIT Internal Medicine; ATTEND Internal Medicine
DX: T42.71XA Poisoning by unspecified antiepileptic and sedative-hypnotic drugs, accidental (unintentional), initial encounter (principal); D61.810 Antineoplastic chemotherapy induced pancytopenia; N17.0 Acute kidney failure with tubular necrosis; J96.01 Acute respiratory failure with hypoxia; I21.4 Non-ST elevation (NSTEMI) myocardial infarction; G92 Toxic encephalopathy; A41.9 Sepsis, unspecified organism; I50.23 Acute on chronic systolic (congestive) heart failure; C80.0 Disseminated malignant neoplasm, unspecified; Z66 Do not resuscitate; E87.1 Hypo-osmolality and hyponatremia; C56.9 Malignant neoplasm of unspecified ovary; N39.0 Urinary tract infection, site not specified; J98.11 Atelectasis; I13.0 Hypertensive heart and chronic kidney disease with heart failure and stage 1 through stage 4 chronic kidney disease, or unspecified chronic kidney disease; I47.2 Ventricular tachycardia; J44.1 Chronic obstructive pulmonary disease with (acute) exacerbation; I95.9 Hypotension, unspecified; E86.0 Dehydration; E86.1 Hypovolemia; E83.42 Hypomagnesemia; E66.01 Morbid (severe) obesity due to excess calories; R31.9 Hematuria, unspecified; N18.3 Chronic kidney disease, stage 3 (moderate); F03.90 Unspecified dementia, unspecified severity, without behavioral disturbance, psychotic disturbance, mood disturbance, and anxiety; T40.601A Poisoning by unspecified narcotics, accidental (unintentional), initial encounter; T45.1X5A Adverse effect of antineoplastic and immunosuppressive drugs, initial encounter; T50.2X5A Adverse effect of carbonic-anhydrase inhibitors, benzothiadiazides and other diuretics, initial encounter; E87.6 Hypokalemia; H40.9 Unspecified glaucoma; M19.91 Primary osteoarthritis, unspecified site; F32.9 Major depressive disorder, single episode, unspecified; F41.9 Anxiety disorder, unspecified; G47.00 Insomnia, unspecified; R32 Unspecified urinary incontinence; K21.9 Gastro-esophageal reflux disease without esophagitis; M10.9 Gout, unspecified; I49.3 Ventricular premature depolarization; L30.9 Dermatitis, unspecified; Z79.899 Other long term (current) drug therapy; Z99.81 Dependence on supplemental oxygen; Z96.653 Presence of artificial knee joint, bilateral; Z98.42 Cataract extraction status, left eye; Z98.41 Cataract extraction status, right eye; Z96.1 Presence of intraocular lens; Z87.891 Personal history of nicotine dependence; Z85.038 Personal history of other malignant neoplasm of large intestine; Y92.009 Unspecified place in unspecified non-institutional (private) residence as the place of occurrence of the external cause
CPT/HCPCS: 36415; 70450; 71010; 71020; 74176; 80048; 80053; 80202; 80306; 81001; 82140; 82550; 82553; 82565; 82728; 83520; 83540; 83550; 83605; 83735; 83880; 84100; 84132; 84484; 84520; 85025; 85027; 85610; 85730; 86140; 87040; 87086; 87502; 93005; 93970; 94640; 94760; 96365; 96367; 96375; 99291

== ENCOUNTER 2016-09-24 17:42 | Inpatient (IN) | payer MEDICAID ==
[2016-09-24] MEDS ORDERED: ATROPINE OPHTH SOLN 1% 5ML BTL SUBLINGUAL PRN (18:40)
[2016-09-24] MEDS ORDERED: LORazepam 2 MG/ML SYRINGE IV PRN (18:45)
[2016-09-24] MEDS ORDERED: BISACODYL 10 MG SUPP RECTAL PRN (18:49)
[2016-09-24] MEDS ORDERED: ONDANSETRON 4 MG/2 ML VIAL IVP PRN (18:50)
[2016-09-24] MEDS: FUROSEMIDE 10 MG/ML 10 ML VIAL IV SCH (21:11)
[2016-09-24] MEDS: MORPHINE SULFATE 2 MG/ML SYRINGE IVP PRN (21:11)
[2016-09-25] MEDS: LORazepam 2 MG/ML SYRINGE IV SCH ×6 (00:18→22:43)
[2016-09-25] MEDS: MORPHINE SULFATE 2 MG/ML SYRINGE IVP PRN ×4 (00:19→15:17)
[2016-09-25] MEDS: IPRATROPIUM-ALBUTEROL 3 ML NEB INHALATION PRN ×4 (08:26→19:28)
[2016-09-25 08:38] VITALS: BP 114/74; TEMP 97.3
[2016-09-25] MEDS: FUROSEMIDE 10 MG/ML 10 ML VIAL IV SCH ×2 (10:00→22:44)
--- NOTE | 2016-09-25 13:00 | P.HPIM ---
History of Present Illness H&P Date: 09/25/16 Chief Complaint: Inpatient hospice care for symptom control 76-year-old female with history of ovarian cancer (not currently undergoing any chemotherapy due to intolerance), systolic CHF, on home oxygen of 3 LPM, chronic Bicytopenia, insomnia, and anxiety. Patient was admitted for Altered mental status, which was thought to be due to overmedication with sedatives, and acute Urinary tract infection. She was also found to be hypoxic and hypotensive due to acute exacerbation of CHF. patient underwent medical treatment without much progress and improvement in her symptoms. Patient and family elected a no code status (DNR/DNI) from the beginning and voiced interest in Hospice care in case she does not show improvement in her symptoms. Patient was treated for urinary tract infection and aspiration penumonia, with broad spectrum antibiotics, and diflucan for positive rosa in urine. She was kept on aspiration precautions, but she was having inconsistent PO intake overall. Cardiology also evaluated the patient during her hospital stay and agreed with aggressive diuresis as tolerated without any recommendations for further cardiac workup regarding her elevated cardiac enzymes which were thought to be due to demand ischemia, given her underlying cancer diagnosis, dementia, and poor overall prognosis. Eventually, Hospice team met the familly and evaluated the patient and found her qualified for inpatient hospice for symptoms control, due to progressive worsening shortness of breath and pulmonary congestion requiring increased level of supplemental oxygen without much improvement despite aggressive diuresis. Now, patient is seen under hospice care, to minimize symptoms of difficulty with breathing. overnight, RN reported no events, patient is sleeping, not responding to verbal stimulation, however would move her Upper extremities spontaneously and purposefully without opening her eyes. she seems to be calm at this point with no new complaints. Review of Systems unable to obtain further info at this point, due to patient's dementia and currently being sleepy and non verbal. Review of systems and past medical, family, and social history completed on date of service of 09/17/[address] David Koehler reviewed and revised by me, there are no changes Past Medical History Past Medical History: Cancer, Heart Failure, GERD/Reflux, Hypertension, Osteoarthritis (OA) Additional Past Medical History / Comment(s): glaucoma, GOUT,CHRONIC ITCHY SKIN RASH(ECZEMA-TAKES VISTARIL), MURMUR, ANEMIA.CELLULITS. recent dx with ovarian ca dx august 2015. colon cancer august 2015 History of Any Multi-Drug Resistant Organisms: None Reported Past Surgical History: Appendectomy, Orthopedic Surgery Additional Past Surgical History / Comment(s): BL knee replacement, right salpingectomy and oophorectomy, cataract removal and lens implants, laser surgery for glaucoma, right breast biopsy that was benign, SHANTANU CARPAL TUNNEL RELEASE. 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 No animals in the home. No experience. No Travel history resides at rehab. Stopped smoking in 1996 denies alcohol or recreational drug use. Smoking Status: Former smoker Past Alcohol Use History: None Reported Additional Past Alcohol Use History / Comment(s): Patient was a smoker one pack per day for 20 years and quit in 1996. She denies any marijuana or alcohol use. Past Drug Use History: None Reported - Past Family History Mother Family Medical History: Cancer Additional Family Medical History / Comment(s): Lung cancer Father Family Medical History: Cancer Additional Family Medical History / Comment(s): No reports of GI malignancy Medications and Allergies Home Medications and Allergies Comment(s): medication list reviewed and compared to last discharge. Home Medications Medication Instructions Recorded Confirmed Type Furosemide [Lasix] 20 mg PO DAILY 08/09/16 09/24/16 History Hydrocodone/Acetaminophen [[place] 1 tab PO Q4HR PRN 09/17/16 09/24/16 History 5-325] LORazepam [Ativan] 1 mg PO TID PRN 09/17/16 09/24/16 History Omeprazole 40 mg PO DAILY 09/17/16 09/24/16 History Ondansetron HCl [Zofran] 4 mg PO Q4H PRN 09/17/16 09/24/16 History QUEtiapine [SEROquel] 50 mg PO HS 09/17/16 09/24/16 History Terbinafine [LamISIL] 250 mg PO DAILY 09/17/16 09/24/16 History Allergies Allergy/AdvReac Type Severity Reaction Status Date / Time adhesive tape Allergy Rash/Hives Verified 09/24/16 18:03 codeine Allergy Itching Verified 09/24/16 18:03 latex Allergy Rash/Hives Verified 09/24/16 18:03 Physical Exam Vitals: Vital Signs Temp Pulse Pulse Resp BP BP Pulse Ox 09/25/16 12:03 8 L 09/25/16 11:45 111 H 09/25/16 11:33 104 H 09/25/16 08:38 99 09/25/16 08:27 92 09/25/16 08:00 97 16 09/25/16 07:00 97.3 F L 97 16 114/74 94 L 09/25/16 00:00 93 18 09/24/16 21:00 97.9 F 93 18 120/68 92 L Intake and Output 09/24/16 09/25/16 09/25/16 22:59 06:59 14:59 Intake Total 30 30 40 Output Total 700 60 Balance 30 -670 -20 Intake: Oral 30 30 40 Output: Urine 700 60 Uretheral (Chou) 700 Other: Voiding Method Indwelling Catheter Indwelling Catheter Weight 112.7 kg 112.7 kg limited exam due to patient no cooperating with exam Constitutional: Not in acute distress, sleeping and calm, using face mask for supplemental oxygen Eyes: Pupils equal round reactive to light , anicteric sclerae, moist conjunctivae ENMT: Normocephalic, atraumatic Neck: Supple, no palpable thyromegally Lymphatics: no palpable cervical or supraclavicular lymph nodes Respiratory: some expiratory wheezing, and prolonged expiratory phase, no crackles, normal respiratory effort without use of accessory muscles Cardiovascular: Regular rate and rhythm, + murmur, no gallops, no rubs, no peripheral edema , no JVD, no carotid bruits, peripheral pulses palpable and equal over bilateral radial arteries. dorsalis pedis arteries could not be assessed due to pedal edema, capillary refill is immediate in bilateral toes. Abdomen: Bowel sounds positive, soft, no tenderness to palpation, no palpable masses, no palpable hepatosplenomegally Skin: Unremarkable temperature, tone, texture, and turgor, no induration or subcutaneous nodule, no rashes, no lesions, no ulcers Extremities: No digital cyanosis, ischemia or clubbing, no calf muscle tenderness bilaterally Psych: sleepy difficult to arouse and can not maintain arousal status Neurologic: could not be assessed with patient cooperation chou cath in place right chest mediport face mask for supplemental oxygen Results Results: no new labs, patient is hospice Thrombosis Risk Factor Assmnt - DVT/VTE Prophylaxis DVT/VTE Prophylaxis: Contraindicated - See note (patient is under inpatient hospice care) - Choose All That Apply Any of the Below Risk Factors Present?: Yes Each Factor Represents 1 point: Heart failure (<1month), Obesity (BMI >25), Swollen legs (current) Each Risk Factor Represents 2 Points: Malignancy Each Risk Factor Represents 3 Points: Age 75 years or older Thrombosis Risk Factor Assessment Total Risk Factor Score: 8 Thrombosis Risk Factor Assessment Level: High Risk Assessment and Plan Plan: 76 year old female with ovarian cancer with chemotherapy intolerance, systolic congestive heart failure, oxygen dependant, dementia, and advanced age. admitted to the hospital for inpatient hospice for symptom control after a rather prolonged hospital course with no remarkable improvement despite aggressive treatment for her underlying infectious process, and diuresis for her congestive heart failure. family elected hospice care as the patient wishes were always to avoid life prolonging measures, intubation and resuscitation. Inpatient hospice care, patient seems to be comfortable at this point, continue with Q2hr prn Morphine 2 mg IVP for symptoms control, IV diuresis BID, and supplemental oxygen. PO intake as tolerated. once symptoms controlled, patient will be either discharged to group home under hospice care, or home with hospice depending on her insurance coverage.
[2016-09-25] MEDS ORDERED: ATROPINE OPHTH SOLN 1% 5ML BTL SUBLINGUAL PRN (15:44)
[2016-09-25] MEDS ORDERED: SCOPOLAMINE 1.5MG/72HR PATCH TRANSDERM SCH (18:45)
[2016-09-26] MEDS: MORPHINE SULFATE 2 MG/ML SYRINGE IVP PRN ×2 (02:19→07:31)
[2016-09-26] MEDS: LORazepam 2 MG/ML SYRINGE IV SCH ×5 (04:22→20:46)
[2016-09-26] MEDS: FUROSEMIDE 10 MG/ML 10 ML VIAL IV SCH ×2 (07:34→20:45)
[2016-09-26] MEDS: IPRATROPIUM-ALBUTEROL 3 ML NEB INHALATION PRN (08:23)
[2016-09-26] MEDS ORDERED: MORPHINE SULFATE (100 MG/2 ML) 100 MG in SODIUM CHLORIDE 0.9% 100 ML IV SCH ×2 (10:30→11:15)
--- NOTE | 2016-09-26 11:48 | P.PN ---
Subjective Principal diagnosis: Patient is seen and examined in follow-up of inpatient hospice care 76-year-old female with history of ovarian cancer not tolerating chemotherapy, systolic congestive heart failure, chronic home oxygen dependent for liters per minute, chronic peripheral edema. Patient currently enrolled in inpatient hospice for control of symptoms due to respiratory distress, pulmonary congestion and increase oxygen requirement despite aggressive diuresis and supportive care after arrival her prolonged hospital course without much symptomatic improvement earlier this month. Patient family recognizes that her mom has been having frequent hospitalization over the past few months. Recently she was admitted for acute altered mental status which is thought to be due to toxic metabolic encephalopathy from underlying acute infectious process urinary tract infection, and acute hypoxemia secondary to increased oxygen requirement from pulmonary congestion and aspiration due to altered mental status. Despite supportive care and aggressive diuresis patient did not make much improvement, initially during hospital stay she she requested no CODE STATUS refusing ICU admission, intubation, and resuscitation. Family also voiced her mother wishes no aggressive or heroic measures and no life- prolonging measures encase she loses the capacity of making decisions. Today patient seen and examined with family and hospice nurse at bedside. Patient family was provided with emotional support and answered all their questions and concerns. Patient continues to seem restless and irritable, reports some difficulty with breathing despite oxygen through facial mask. Plan is to switch the patient to morphine drip for optimal symptom control goal is for discharge home with hospice care in 24 hours family agrees with this plan and will work together to provide all the equipment required at home. Objective - Vital Signs Vital signs: Vital Signs Temp 97.3 F L 09/25/16 07:00 Pulse 92 09/26/16 08:33 Resp 16 09/26/16 07:42 BP 114/74 09/25/16 07:00 Pulse Ox 99 09/25/16 19:29 Intake & Output 09/25/16 09/26/16 09/26/16 18:59 06:59 18:59 Intake Total 40 0 Output Total 360 1250 Balance -320 -1250 Intake: Oral 40 0 Output: Urine 360 1250 Uretheral (Matos) 1250 Other: Voiding Method Indwelling Catheter Indwelling Catheter Indwelling Catheter Constitutional: vital signs stable, Not in acute distress Lungs: Good breath sounds bilaterally diminished at lung bases, some expiratory wheezes but no crackles. Cardiovascular: Regular rate and rhythm, + murmurs, no gallops, no rubs, peripheral bilateral leg edema +3 Extremities: Extremities are warm to the touch, No digital cyanosis or clubbing Psych: Lethargic but easily arousable however cannot maintain arousal. Matos catheter in place urine is unremarkable looks yellow light Assessment and Plan Plan: Inpatient hospice care for symptom control due to underlying multiple comorbidities with ovarian cancer intolerance to chemotherapy, congestive heart failure with pulmonary congestion despite aggressive diuresis, and dementia. Patient seems to be still restless and irritable despite when necessary IV morphine and Ativan. Decision is to switch to morphine drip IV at 1 mg per hour and titrate per protocol for comfort. Ultimate plan is to discharge patient within 24 hours if symptoms aren't controlled. Family will be provided with equipments for home hospice care. Patient's family questions and concerns were addressed. Case discussed with hospice nursing. Time with Patient: Greater than 30
[2016-09-27] MEDS: LORazepam 2 MG/ML SYRINGE IV SCH ×6 (00:05→21:45)
[2016-09-27] MEDS: FUROSEMIDE 10 MG/ML 10 ML VIAL IV SCH (08:54)
[2016-09-27] MEDS: IPRATROPIUM-ALBUTEROL 3 ML NEB INHALATION PRN (08:54)
[2016-09-27 09:19] VITALS: PULSE 90
--- NOTE | 2016-09-27 10:49 | P.PN ---
Subjective Principal diagnosis: Patient is seen and examined in follow-up of inpatient hospice care, restlessness and agitation 76-year-old female with history of ovarian cancer not tolerating chemotherapy, systolic congestive heart failure, chronic home oxygen dependent for liters per minute, chronic peripheral edema. Patient currently enrolled in inpatient hospice for control of symptoms due to respiratory distress, pulmonary congestion and increase oxygen requirement despite aggressive diuresis and supportive care after arrival her prolonged hospital course without much symptomatic improvement earlier this month. Patient family recognizes that her mom has been having frequent hospitalization over the past few months. Recently she was admitted for acute altered mental status which is thought to be due to toxic metabolic encephalopathy from underlying acute infectious process urinary tract infection, and acute hypoxemia secondary to increased oxygen requirement from pulmonary congestion and aspiration due to altered mental status. Despite supportive care and aggressive diuresis patient did not make much improvement, initially during hospital stay she she requested no CODE STATUS refusing ICU admission, intubation, and resuscitation. Family also voiced her mother wishes no aggressive or heroic measures and no life- prolonging measures encase she loses the capacity of making decisions. Today patient seen and examined with family at bedside. Patient seems to be more comfortable today after up titrating her morphine drip to 2 mg /hr . She seems to be sleeping comfortably now, not in any respiratory distress. She was a bit agitated overnight (she was irritable during the night, and ripping off her oxygen canula and right mediport which has to be replaced) for which the morphine drip was up-titrated to 2 mg / hr and since then she has been more comfortable. She continues to be on supplemental oxygen via nasal canula at 5 LPM. family questions were addressed, patient's daughter expressed gratitude and reported that she is only waiting on the air mattress. She reported that they are ready physically and emotionally to take care of their mother at home along with hospice care. Objective - Vital Signs Vital signs: Vital Signs Temp 97.3 F L 09/25/16 07:00 Pulse 90 09/27/16 09:19 Resp 16 09/27/16 08:54 BP 114/74 09/25/16 07:00 Pulse Ox 99 09/25/16 19:29 Intake & Output 09/26/16 09/27/16 09/27/16 18:59 06:59 18:59 Intake Total 2 15.997 Output Total 1400 Balance 2 -1384.003 Intake: Intake, IV Titration 2 15.997 Amount Morphine Sulfate (100 mg/ 2 15.997 2 ml) 100 mg In Sodium Chloride 0.9% 100 ml @ 1 MG/HR 1.02 mls/hr IV . Q24H [facility] Rx#:[id number] Oral 0 Output: Urine 1400 Uretheral (Chou) 1400 Other: Voiding Method Indwelling Catheter Indwelling Catheter # Voids 0 Constitutional: vital signs stable, Not in acute distress, minimally arousable. Lungs: Clear to auscultation bilaterally with exception of minimal inspiratory rales at lung bases and some diminished air entry at lung bases, normal respiratory effort no use of accessory muscles Cardiovascular: Regular rate and rhythm, + murmur, no gallops, no rubs, bilateral leg edema has improved significantly now at +1, bilateral feet edema has resolved Skin: Skin is warm to the touch , capillary refill is immediate over the fingers. Extremities: No digital cyanosis or clubbing, peripheral pulses palpable and equal over bilateral radial arteries Psych: minimally responsive, comfortable. chou catheter in place right mediport in place Assessment and Plan (1) Admission for hospice care Status: Acute (2) Psychomotor agitation Status: Acute (3) Acute respiratory failure Status: Acute (4) Systolic congestive heart failure Status: Chronic (5) Ovarian cancer Status: Chronic Plan: Inpatient hospice care for symptoms control due to underlying multiple co- morbidities with ovarian cancer intolerant to chemotherapy, congestive heart failure with pulmonary congestion despite aggressive diuresis, Acute hypoxic respiratory failure due to recurrent pulmonary congestion, and dementia. Patient restlessness and agitation has significantly improved and better controlled now since morphine infusion has up titrated to 2 mg/hr overnight. Peripheral edema now improving, patient unable to take PO Lasix, she continues to be on IV Lasix, however, this will not be feasible once the patient goes home with hospice care, I will discontinue the Lasix IV, and monitor the patient for another 24 hours to see how she tolerates that to avoid recurrence of pulmonary congestion which might result in agitation and restlessness. If patient continues to be doing well off IV Lasix, then patient could be safely discharged home with hospice care on morphine infusion in the morning. continue with Chou catheter in place. continue with scopolamine patch and PRN PO atropine for secretions control. Patient continue on supplemental oxygen now via NC at 5 LPM (patient used to be on 3 LPM at home) Patient will be supplied with air mattress to help avoid bed sores at home. Emotional support was provided to the family , I spent over 35 minutes in direct care of this patient more than 50% of the time spent in counseling and care coordination. Case discussed with Gina, Hospice nurse to help coordinate care.
[2016-09-27 16:05] VITALS: RESP 13
--- NOTE | 2016-09-28 01:55 | P.PN ---
Progress Note - Text Received call from the fifth floor oncology unit nurse at 1:23 AM that Mrs. Rosas had and was pronounced at 11:47 PM. This senior technical writer went to the unit and the nurse reported that the daughter was at the bedside when the patient and patient was comfortable during this process. The nurse also informed that the daughter has given information about the home and that she had left for home. Patient was examined per protocol and noted no spontaneous respiration, no heart sounds, no pulses, no light reflex and no corneal reflex. The patient already had been pronounced at 11:47 PM per unit nursing protocol and the nurse reported that [facility] has been called and now they're waiting for the home personnel to arrive.
--- NOTE | 2016-09-28 07:48 | P.DS ---
Providers Date of admission: 09/24/16 17:42 Expected date of discharge: 09/28/16 Attending physician: Abhishek Koehler MD Primary care physician: Stated None - Discharge Diagnosis(es) (1) Status: Acute (2) Acute respiratory failure Status: Acute (3) Admission for hospice care Status: Acute (4) Systolic congestive heart failure Status: Chronic (5) Acute renal failure Status: Resolved (6) UTI (urinary tract infection) Status: Resolved Hospital Course: Patient is a pleasant 76-year-old female with a history of ovarian cancer not tolerating chemotherapy, systolic congestive heart failure, chronic home oxygen dependent at 3 L nasal cannula , And morbid obesity who was hospitalized for symptom management as a hospice patient. She had initially been hospitalized here for acute encephalopathy and was found to have a urinary tract infection and acute systolic congestive heart. Despite aggressive medical care and diuresis the patient did not improve and the family decided to initiate hospice care. She was admitted to hospice on 09/25/2016. She was initially requiring morphine IV push and ativan for symptom control, IV Lasix, and supplemental oxygen. On the day after admission the patient was restless and having some difficulty with breathing despite oxygen through a face mask. Patient was transitioned to a morphine drip for optimal symptom control. Her morphine drip was uptitrated to 2 mg per hour which provided her comfort. Initial plan was to discharge her home with hospice however there was concern that if her IV Lasix and she was immediately discharged her respiratory status might quickly deteriorate. Therefore her IV Lasix was discontinued and she was monitored in the inpatient hospice setting. The patient appeared comfortable. She ultimately 09/27/2016 11:47 PM. Family was at bedside. Pertinent Studies: None Procedures: None Plan - Discharge Summary New Discharge Prescriptions: New Atropine Ophth Soln 1% 5Ml [Isopto Atropine 1% 5Ml] 2 drops SUBLINGUAL Q4H PRN #30 bottle PRN Reason: Secretions Scopolamine 1.5MG/72Hr Patch [TransDerm Scop] 1 patch TRANSDERM Q72H #10 patch Discontinued Furosemide [Lasix] 20 mg PO DAILY LORazepam [Ativan] 1 mg PO TID PRN PRN Reason: Anxiety Ondansetron HCl [Zofran] 4 mg PO Q4H PRN PRN Reason: Nausea Omeprazole 40 mg PO DAILY QUEtiapine [SEROquel] 50 mg PO HS Hydrocodone/Acetaminophen [Pattison 5-325] 1 tab PO Q4HR PRN PRN Reason: Pain Terbinafine [LamISIL] 250 mg PO DAILY Fluconazole [Diflucan] 200 mg PO HS #7 tab Discharge Medication List Atropine Ophth Soln 1% 5Ml [Isopto Atropine 1% 5Ml] 2 drops SUBLINGUAL Q4H PRN # 30 bottle 09/27/16 [Rx] Scopolamine 1.5MG/72Hr Patch [TransDerm Scop] 1 patch TRANSDERM Q72H #10 patch 09/27/16 [Rx] Follow up Appointment(s)/Referral(s): [facility], [NON-STAFF] - 3 Days Dipesh Mayberry MD [STAFF PHYSICIAN] - As Needed Patient Instructions/Handouts: Hospice Care (GEN) Discharge Disposition: - Preliminary Cause of Preliminary Cause of : Acute systolic congestive heart failure
== END 2016-09-27 23:47 | disposition expired | DRG 291 ==
LOC: 5ONC 17:42
PROVIDERS: ADMIT Internal Medicine; ATTEND Internal Medicine
PROC: 0T9B70Z Drainage of Bladder with Drainage Device, Via Natural or Artificial Opening (ICD-10-PCS; principal; 2016-09-24)
DX: I11.0 Hypertensive heart disease with heart failure (principal); J96.01 Acute respiratory failure with hypoxia; G93.40 Encephalopathy, unspecified; N17.9 Acute kidney failure, unspecified; C56.9 Malignant neoplasm of unspecified ovary; N39.0 Urinary tract infection, site not specified; I50.23 Acute on chronic systolic (congestive) heart failure; Z99.81 Dependence on supplemental oxygen; F03.90 Unspecified dementia, unspecified severity, without behavioral disturbance, psychotic disturbance, mood disturbance, and anxiety; Z51.5 Encounter for palliative care; Z66 Do not resuscitate; T45.1X5D Adverse effect of antineoplastic and immunosuppressive drugs, subsequent encounter; F41.9 Anxiety disorder, unspecified; K21.9 Gastro-esophageal reflux disease without esophagitis; M19.90 Unspecified osteoarthritis, unspecified site; F32.9 Major depressive disorder, single episode, unspecified; M10.9 Gout, unspecified; G47.00 Insomnia, unspecified; H40.9 Unspecified glaucoma; E66.01 Morbid (severe) obesity due to excess calories; Z96.1 Presence of intraocular lens; Z79.899 Other long term (current) drug therapy; Z96.653 Presence of artificial knee joint, bilateral; Z90.49 Acquired absence of other specified parts of digestive tract; Z87.891 Personal history of nicotine dependence; Z80.1 Family history of malignant neoplasm of trachea, bronchus and lung; Z90.721 Acquired absence of ovaries, unilateral; Z90.79 Acquired absence of other genital organ(s); Z98.49 Cataract extraction status, unspecified eye; Z92.21 Personal history of antineoplastic chemotherapy; Z87.01 Personal history of pneumonia (recurrent); Z87.2 Personal history of diseases of the skin and subcutaneous tissue; Z88.5 Allergy status to narcotic agent; Z88.8 Allergy status to other drugs, medicaments and biological substances; Z91.048 Other nonmedicinal substance allergy status; Z79.891 Long term (current) use of opiate analgesic; Z85.038 Personal history of other malignant neoplasm of large intestine; Z86.2 Personal history of diseases of the blood and blood-forming organs and certain disorders involving the immune mechanism
CPT/HCPCS: 94640; 94760